=== PATIENT | female | born 1935 | race Caucasian/White ===

== ENCOUNTER → 2016-09-15 | Outpatient (CLI) | payer OTHER ==
[~2016-09-15] MED LIST: ACET-1256 PO; ATEN-173 PO; BUTA1CAP17 PO; CALC500C70 PO; CALCTAB65 PO; CLBPO15 TOP; CLC100 PO; CLON0.5T3 PO; DILT-115 PO; DILT1TAB50 PO; FRCT/ PO; HPRIS5M SQ; HYDR-5688 PO; IBUP-1050 PO; IBUP1CAP9 PO; KETO10TA PO; LOSA1TAB PO; MEDR2.5T PO; MULT-190 PO; NORGTAB PO; OXYC1TAB3 PO; PRAV80TA2 PO; PRED-301 PO; PRED5PAK3 PO; VNTHFA/IN INH
[2016-09-15 13:13] LABS: BLOOD UREA NITROGEN 14 mg/dl (7-18); BUN/CREATININE RATIO 12.5 (10-20); CALCIUM 9.4 mg/dl (8.5-10.1); CARBON DIOXIDE 30 mmol/L (21-32); CHLORIDE 100 mmol/L (98-107); CHOLESTEROL 226 mg/dl (0-200); GLUCOSE 103 mg/dl (70-99); POTASSIUM 3.9 mmol/L (3.5-5.1); SODIUM 139 mmol/L (136-145); TRIGLYCERIDES 131 mg/dl (0-150); VERY LOW DENSITY LIPOPROT CALC 26 mg/dl
[2016-09-15 13:17] LABS: CHOLESTEROL/HDL RATIO 3.1; HDL CHOLESTEROL 73 mg/dl
[2016-09-15 13:19] LABS: ESTIMATED AVERAGE GLUCOSE 137 mg/dl; HA1C FLAG Normal (Normal)
== END | disposition home or self-care (01) ==
LOC: C.LABSPEC 12:32
PROVIDERS: ATTEND Internal Medicine
DX: E11.9 Type 2 diabetes mellitus without complications (principal); I10 Essential (primary) hypertension; E78.5 Hyperlipidemia, unspecified

== ENCOUNTER 2016-10-18 10:06 | Emergency (ER) | payer OTHER ==
[~2016-10-18] VITALS: Ht 167.6 cm; Wt 79.3 kg
[~2016-10-18 10:06] MED LIST changes: -CALC500C70 PO; -CLBPO15 TOP; -CLC100 PO; -DILT-115 PO; -FRCT/ PO; -HPRIS5M SQ; -HYDR-5688 PO; -IBUP-1050 PO; -KETO10TA PO; -OXYC1TAB3 PO
[2016-10-18 10:16] VITALS: TEMP 36.8; Ht 167.6 cm; Wt 79.3 kg
--- NOTE | 2016-10-18 11:17 | EMERGENCY ROOM VISIT NOTE ---
History Report prepared by Justus: Kevin Justin Under the Supervision of: Dr. Joshua Conway M.D. First contact with patient: 10:51 Chief Complaint: URINARY SYMPTOMS Stated Complaint: FREQUENT URINATION,BACK PAIN Nursing Triage Summary: Patient c/o left mid back pain, since of last week. States sometimes the pain is both sides of her back. Tylenol and Ibuprofen are not working. At rest, the pain is tolerable, but when standing pain gets worse and worsens the longer she is up. This morning she had to "urinate twice, which is not normal for me" "my bowels, it seems I haven't gone in a day or two, but I don't have the urge, I'll have to eat a prune or two, that usually helps" History of Present Illness The patient is a 81 year old female who presents to the Emergency Room with complaints of constant worsening lower back pain for the past week. The patient states that it feels like it is a jabbing pain. The patient states that movement and standing makes it hurt worse. The patient denies any chest pain. She states that she is having some rib pain. The patient states that she went to the bathroom twice this morning already, and she stats that this is unusual for her. She states that she took ibuprofen and Tylenol, and she states that these have not helped. She additionally says that she has rheumatoid arthritis, and she called her panman, and they stated to increase her prednisone dosage. The patient denies any recent falls or traumas. Source of History: patient Onset: week ago Position: back (lower) Quality: other (jabbing) Timing: constant, worsening Modifying Factors (Worsening): movement, other (standing) Associated Symptoms: No chest pain Note: Associated symptoms: Rib pain Review of Systems See HPI for pertinent positives & negatives. A total of 10 systems reviewed and were otherwise negative. Past Medical & Surgical Medical Problems: (1) Benign tumor of breast (2) Diabetes (3) Heart disease (4) Hypertension (5) Migraines (6) Rheumatoid arthritis Family History Cancer Diabetes mellitus Gallbladder disease Heart disease Lung disease Social History Smoking Status: Former Smoker Alcohol Use: none Marital Status: Housing Status: lives alone Occupation Status: retired Current/Historical Medications Scheduled Atenolol (Tenormin), 25 MG PO QPM Calcium Carbonate-Vitamin D (Calcium 500 + D), 1 TAB PO BID Clonazepam (Klonopin), 0.5 MG PO HS Diltiazem HCl Coated Beads (Diltiazem HCl ER), 240 MG PO QPM Losartan Potassium (Cozaar), 25 MG PO QPM Medroxyprogesterone (Provera), 2.5 MG PO QPM Norgestrel & Ethinyl Estradiol (Ogestrel), 0.75 MG PO QPM Ocuvite Preservision (Ocuvite Preservision), 1 TAB PO BID Pravastatin Sodium (Pravastatin Sodium), 80 MG PO QPM Prednisone (Prednisone), 10 MG PO QAM Scheduled PRN Acetaminophen (Tylenol), 500 MG PO DAILY PRN for Pain Peohkfegcm-Imiactwghpytb-Efeei (Fioricet), 1 CAP PO DAILY PRN for Migraine Ibuprofen (Ibuprofen), 400 MG PO Q4 PRN for Pain or Fever Oxycodone Immediate Rel Tab (Roxicodone Ir), 1-2 TAB PO Q4H PRN for Severe Pain Allergies Coded Allergies: Amoxicillin (Verified Allergy, Unknown, UNKNOWN, 08/18/16) Sulfa Antibiotics (Verified Adverse Reaction, Intermediate, NAUSEA, ) Aspirin (Verified Adverse Reaction, Mild, GI SYMPTOMS, 08/18/16) Uncoded Allergies: ARTIFICIAL SWEETNER (Allergy, Mild, TONGUE SORE, 12/30/12) Physical Exam Vital Signs Date Time Temp Pulse Resp B/P Pulse Ox O2 Delivery O2 Flow Rate FiO2 10/18/16 13:09 70 18 146/82 96 Room Air 10/18/16 12:08 65 18 157/83 96 Room Air 10/18/16 10:16 36.8 80 18 156/88 95 Room Air Physical Exam GENERAL: Patient is well appearing and in mild distress. HEENT: No acute trauma, normocephalic atraumatic, mucous membranes moist, no nasal congestion, no scleral icterus. NECK: No stridor, no adenopathy, no meningismus, trachea is midline. LUNGS: No dyspnea. Clear to auscultation and equal bilaterally. No wheeze, no rhonchi. HEART: Regular rate and rhythm. No murmurs, rubs, gallops appreciated. ABDOMEN: Soft, nontender, bowel sounds positive, no masses appreciated, no peritonitis. BACK: Tenderness to palpation in the mid thoracic spine extending into the left flank. EXTREMITIES: Normal motion all extremities, no cyanosis, no edema. NEUROLOGIC: Alert and oriented, no acute motor or sensory deficits, no focal weakness, cranial nerves grossly intact. SKIN: No rash, no jaundice, no diaphoresis. Medical Decision & Procedures ER Provider Diagnostic Interpretation: X ray results are stated below per my interpretation and the radiologist's interpretation. THORACIC SPINE 3 VIEWS ROUTINE CLINICAL HISTORY: Mid thoracic back pain COMPARISON STUDY: Chest x-ray dated 08/18/2016 FINDINGS: There is a thoracolumbar S-shaped scoliosis. There are multiple age-indeterminate anterior body compression deformities. There is interstitial pulmonary fibrosis. There is a stable focal airspace opacity within the right upper lung zone laterally. IMPRESSION: 1. Scoliosis 2. Multiple age-indeterminate vertebral body compression deformities 3. Interstitial pulmonary fibrosis. Stable peripheral 2.7 cm airspace opacity within the right upper lung zone laterally Electronically signed by: Cali Alfonso M.D. 10/18/2016 11:54 AM Dictated Date/Time: 10/18/2016 11:51 AM Laboratory Results 10/18/16 11:23 10/18/16 11:23 Test 10/18/16 11:23 10/18/16 11:30 Red Blood Count 4.16 M/uL (4.2-5.4) Mean Corpuscular Volume 95.9 fL (80-100) Mean Corpuscular Hemoglobin 33.2 pg (25-34) Mean Corpuscular Hemoglobin Concent 34.6 g/dl (32-36) RDW Standard Deviation 46.7 fL (36.4-46.3) RDW Coefficient of Variation 13.4 % (11.5-14.5) Mean Platelet Volume 10.9 fL (7.4-10.4) Anion Gap 7.0 mmol/L (3-11) Est Creatinine Clear Calc Drug Dose 37.3 ml/min Estimated GFR () 45.2 Estimated GFR (Non- 39.0 BUN/Creatinine Ratio 13.2 (10-20) Calcium Level 9.3 mg/dl (8.5-10.1) Total Bilirubin 0.2 mg/dl (0.2-1) Aspartate Amino Transf (AST/SGOT) 19 U/L (15-37) Alanine Aminotransferase (ALT/SGPT) 16 U/L (12-78) Alkaline Phosphatase 56 U/L (45-117) Total Protein 7.7 gm/dl (6.4-8.2) Albumin 3.0 gm/dl (3.4-5.0) Globulin 4.7 gm/dl (2.5-4.0) Albumin/Globulin Ratio 0.6 (0.9-2) Lipase 145 U/L (73-393) Chemistry Specimen Hemolysis Urine Color YELLOW Urine Appearance CLEAR (CLEAR) Urine pH 7.0 (4.5-7.5) Urine Specific Advance 1.008 (1.000-1.030) Urine Protein NEG (NEG) Urine Glucose (UA) NEG (NEG) Urine Ketones NEG (NEG) Urine Occult Blood NEG (NEG) Urine Nitrite NEG (NEG) Urine Bilirubin NEG (NEG) Urine Urobilinogen NEG (NEG) Urine Leukocyte Esterase SMALL (NEG) Urine WBC (Auto) 5-10 /hpf (0-5) Urine RBC (Auto) 0-4 /hpf (0-4) Urine Hyaline Casts (Auto) 1-5 /lpf (0-5) Urine Epithelial Cells (Auto) >30 /lpf (0-5) Urine Bacteria (Auto) NEG (NEG) Laboratory results as reviewed by me. ED Course 1051: The patient was evaluated in room A2. A complete history and physical exam was performed. 1301: Reevaluated the patient. Discussed results and discharge instructions. I discussed the pros and cons of a CT scan, and she states that the does not want any more imaging done until she follows up with her doctor this week. The patient is ready for discharge. Medical Decision Differential: Renal Colic, Pyelonephritis, Hydronephrosis, Appendicitis, Diverticulitis, Retroperitoneal Bleed/Infection, Aortic Pathology, MSK, Neurologic Pathology, amongst other pathologies entertained. 81 yr old female arrives with complaint of mid posterior thoracic back pain. Worse with movement. Long arthritic history and already on prednisone for these which was increased this week. Neurologically intact. Labs are normal, UA clear and imaging done. Imaging reveals multiple age indeterminant compression fractures which does go with her symptoms. She has good pulses and no leg issues thus I feel that spinal injury nor aortic issue. I made clear to patient only way to be sure of aortic issue or spinal injury is with further imaging, though she is stable and in no distress here. She prefers to go home with PRN pain meds and follow up with her PCP this week as already planned. Aware of risks/restrictions of narcotics. RTED if worsening or call 911. Impression Primary Impression: Thoracic compression fracture Scribe Attestation The scribe's documentation has been prepared under my direction and personally reviewed by me in its entirety. I confirm that the note above accurately reflects all work, treatment, procedures, and medical decision making performed by me. Departure Information Dispostion Home / Self-Care Prescriptions Oxycodone Immediate Rel Tab (ROXICODONE IR) 5 Mg Tab 1-2 TAB PO Q4H Y for Severe Pain, #15 TAB Prov: Joshua Conway M.D. 10/18/16 Referrals Ranulfo Landin M.D. (PCP) Forms HOME CARE DOCUMENTATION FORM, IMPORTANT VISIT INFORMATION Patient Instructions ED Sprain Thoracic Spine, [facility] Additional Instructions Return immediately if worsening pain or other concerns, especially abdominal pain, leg weakness or discoloration/pain. Problem Qualifiers Primary Impression: Thoracic compression fracture Encounter type: initial encounter Fracture type: closed Qualified Codes: S22.000A - Wedge compression fracture of unspecified thoracic vertebra, initial encounter for closed fracture
[2016-10-18 11:48] LABS: HEMATOCRIT 39.9 % (37-47); MEAN CELL VOLUME 95.9 fL (80-100); MEAN CORPUSCULAR HEMOGLOBIN 33.2 pg (25-34); MEAN CORPUSCULAR HGB CONC 34.6 g/dl (32-36); MEAN PLATELET VOLUME 10.9 fL (7.4-10.4); PLATELET COUNT 190 K/uL (130-400); RED BLOOD COUNT 4.16 M/uL (4.2-5.4); WHITE BLOOD COUNT 13.61 K/uL (4.8-10.8)
--- NOTE | 2016-10-18 11:55 | DIAGNOSTIC IMAGING REPORT ---
THORACIC SPINE 3 VIEWS ROUTINE CLINICAL HISTORY: Mid thoracic back pain COMPARISON STUDY: Chest x-ray dated 08/18/2016 FINDINGS: There is a thoracolumbar S-shaped scoliosis. There are multiple age-indeterminate anterior body compression deformities. There is interstitial pulmonary fibrosis. There is a stable focal airspace opacity within the right upper lung zone laterally. IMPRESSION: 1. Scoliosis 2. Multiple age-indeterminate vertebral body compression deformities 3. Interstitial pulmonary fibrosis. Stable peripheral 2.7 cm airspace opacity within the right upper lung zone laterally Electronically signed by: Cali Alfonso M.D. 10/18/2016 11:54 AM Dictated Date/Time: 10/18/2016 11:51 AM
[2016-10-18 12:10] LABS: URINE APPEARANCE CLEAR (CLEAR); URINE BILIRUBIN NEG (NEG); URINE COLOR YELLOW; URINE EPITHELIAL CELL AUTO >30 /lpf (0-5); URINE NITRITE NEG (NEG); URINE SPECIFIC GRAVITY 1.008 (1.000-1.030); UROBILINOGEN NEG (NEG); ZZUR CULT IF INDIC CLEAN CATCH NO
[2016-10-18 12:11] LABS: MANUAL MICROSCOPIC REQUIRED? NO; REVIEW REQ? NO
[2016-10-18 12:22] LABS: ALB/GLOB RATIO 0.6 (0.9-2); BUN/CREATININE RATIO 13.2 (10-20); CALCIUM 9.3 mg/dl (8.5-10.1); CREATININE 1.3 mg/dl (0.60-1.20); POTASSIUM 4.2 mmol/L (3.5-5.1)
[2016-10-18] MEDS ORDERED: OXYC1TAB3 PO (12:59)
[2016-10-18 13:09] VITALS: BP 146/82; PULSE 70; O2SAT 96
[2017-04-19] MEDS ORDERED: HPRIS5M SQ (10:12)
[2017-04-19] MEDS ORDERED: HYDR-5688 PO (10:12)
[2017-04-19] MEDS ORDERED: IBUP-1050 PO (10:12)
[2017-04-19] MEDS ORDERED: CLC100 PO (10:12)
== END 2016-10-18 13:16 | disposition home or self-care (01) ==
LOC: C.EDB 10:07 → C.EDA 13:16
DX: S22.000A Wedge compression fracture of unspecified thoracic vertebra, initial encounter for closed fracture (principal); X58.XXXA Exposure to other specified factors, initial encounter; M06.9 Rheumatoid arthritis, unspecified; E11.9 Type 2 diabetes mellitus without complications; I10 Essential (primary) hypertension; Z83.3 Family history of diabetes mellitus; Z87.891 Personal history of nicotine dependence; Z79.899 Other long term (current) drug therapy

== ENCOUNTER → 2016-11-26 | Outpatient (CLI) | payer OTHER ==
[~2016-11-26] MED LIST changes: +CALC500C70 PO; +CLBPO15 TOP; +CLC100 PO; +DILT-115 PO; +FRCT/ PO; +HPRIS5M SQ; +HYDR-5688 PO; +IBUP-1050 PO; +KETO10TA PO; +OXYC1TAB3 PO; -PRED5PAK3 PO; -VNTHFA/IN INH
== END | disposition home or self-care (01) ==
LOC: C.LAB1850 10:33
PROVIDERS: ATTEND Internal Medicine Pulmonary Disease
DX: J84.9 Interstitial pulmonary disease, unspecified (principal)

== ENCOUNTER 2016-12-30 11:03 | Emergency (ER) | payer OTHER ==
[~2016-12-30] VITALS: Ht 172.7 cm; Wt 82.0 kg
[2016-12-30 10:58] VITALS: TEMP 36.6; Ht 172.7 cm; Wt 82.0 kg
[~2016-12-30 11:03] MED LIST changes: -CALC500C70 PO; -CLBPO15 TOP; -CLC100 PO; -DILT-115 PO; -FRCT/ PO; -HPRIS5M SQ; -HYDR-5688 PO; -IBUP-1050 PO; -KETO10TA PO
[2016-12-30] MEDS ORDERED: ONDANSETRON INJ 2 MG/ML 2 ML VIAL IV STA ×2 (11:32→11:34)
[2016-12-30 11:48] LABS: BASO % 0.3 %; BASO ABS # 0.05 K/uL (0-0.2); COMPLETE YES; EOS % 1.8 %; HEMATOCRIT 40.5 % (37-47); LYMPH % 33.2 %; LYMPH ABS # 4.92 K/uL (1.2-3.4); MEAN CELL VOLUME 97.6 fL (80-100); MEAN CORPUSCULAR HEMOGLOBIN 33.7 pg (25-34); MEAN CORPUSCULAR HGB CONC 34.6 g/dl (32-36); MEAN PLATELET VOLUME 9.8 fL (7.4-10.4); MONO % 5.3 %; NEUT % 58.4 %; PLATELET COUNT 224 K/uL (130-400); RED BLOOD COUNT 4.15 M/uL (4.2-5.4); WHITE BLOOD COUNT 14.83 K/uL (4.8-10.8)
[2016-12-30 11:57] LABS: PARTIAL THROMBOPLASTIN RATIO 0.9; PROTHROMBIN TIME (PATIENT) 10.5 SECONDS (9.0-12.0)
[2016-12-30 11:59] LABS: BLOOD UREA NITROGEN 21 mg/dl (7-18); BUN/CREATININE RATIO 18.8 (10-20); CALCIUM 9.2 mg/dl (8.5-10.1); CARBON DIOXIDE 30 mmol/L (21-32); CHLORIDE 97 mmol/L (98-107); GLUCOSE 149 mg/dl (70-99); POTASSIUM 4.2 mmol/L (3.5-5.1); SODIUM 134 mmol/L (136-145)
[2016-12-30 12:02] LABS: ALKALINE PHOSPHATASE 54 U/L (45-117); ALT/SGPT 23 U/L (12-78); AST/SGOT 19 U/L (15-37)
[2016-12-30] MEDS ORDERED: OPTIRAY 320 IV PRN (12:45)
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
[2016-12-30] MEDS ORDERED: KETOROLAC TROMETHAMINE 30 MG/ML VIAL IV STA (14:07)
[2016-12-30] MEDS ORDERED: KETO10TA PO (15:08)
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
[2016-12-30] MEDS ORDERED: KETOROLAC TROMETHAMINE 10 MG TAB PO PRN (15:15)
[2016-12-30 15:24] VITALS: BP 159/63; PULSE 65; O2SAT 96
[2017-04-19] MEDS ORDERED: IBUP-1050 PO (10:12)
[2017-04-19] MEDS ORDERED: HPRIS5M SQ (10:12)
[2017-04-19] MEDS ORDERED: HYDR-5688 PO (10:12)
[2017-04-19] MEDS ORDERED: CLC100 PO (10:12)
== END 2016-12-30 15:25 | disposition home or self-care (01) ==
LOC: EDBD 11:03 → C.EDC 11:05
DX: S30.1XXA Contusion of abdominal wall, initial encounter (principal); S22.21XA Fracture of manubrium, initial encounter for closed fracture; S10.91XA Abrasion of unspecified part of neck, initial encounter; R07.9 Chest pain, unspecified; V49.49XA Driver injured in collision with other motor vehicles in traffic accident, initial encounter; Y92.410 Unspecified street and highway as the place of occurrence of the external cause; I10 Essential (primary) hypertension; E11.9 Type 2 diabetes mellitus without complications; Z87.891 Personal history of nicotine dependence; M06.9 Rheumatoid arthritis, unspecified; Z79.899 Other long term (current) drug therapy

== ENCOUNTER → 2017-01-12 | Outpatient (CLI) | payer OTHER ==
[~2017-01-12] MED LIST changes: +CALC500C70 PO; +CLBPO15 TOP; +CLC100 PO; +DILT-115 PO; +FRCT/ PO; +HPRIS5M SQ; +HYDR-5688 PO; +IBUP-1050 PO; +KETO10TA PO; -OXYC1TAB3 PO
[2017-01-12 14:02] LABS: HEMATOCRIT 41.4 % (37-47); MEAN CORPUSCULAR HEMOGLOBIN 31.8 pg (25-34); MEAN CORPUSCULAR HGB CONC 32.1 g/dl (32-36); MEAN PLATELET VOLUME 9.5 fL (7.4-10.4); PLATELET COUNT 254 K/uL (130-400); RED BLOOD COUNT 4.18 M/uL (4.2-5.4); WHITE BLOOD COUNT 14.16 K/uL (4.8-10.8)
[2017-01-12 14:14] LABS: ALT/SGPT 20 U/L (12-78); BLOOD UREA NITROGEN 18 mg/dl (7-18); BUN/CREATININE RATIO 16.4 (10-20); CARBON DIOXIDE 32 mmol/L (21-32); CHLORIDE 98 mmol/L (98-107); CHOLESTEROL 208 mg/dl (0-200); GLUCOSE 102 mg/dl (70-99); POTASSIUM 4.3 mmol/L (3.5-5.1); SODIUM 137 mmol/L (136-145)
[2017-01-12 14:15] LABS: ESTIMATED AVERAGE GLUCOSE 137 mg/dl; HA1C FLAG Normal (Normal)
[2017-01-12 14:17] LABS: ALB/GLOB RATIO 0.7 (0.9-2); ALKALINE PHOSPHATASE 110 U/L (45-117); AST/SGOT 18 U/L (15-37); CHOLESTEROL/HDL RATIO 2.8; HDL CHOLESTEROL 74 mg/dl; TRIGLYCERIDES 91 mg/dl (0-150); VERY LOW DENSITY LIPOPROT CALC 18 mg/dl
[2017-01-12 14:20] LABS: CALCIUM 9.5 mg/dl (8.5-10.1)
[2017-01-12 14:51] LABS: BASO % 0.3 %; BASO ABS # 0.04 K/uL (0-0.2); COMPLETE YES; EOS % 2.8 %; IG% 0.2 %; LYMPH % 38.7 %; LYMPH ABS # 5.48 K/uL (1.2-3.4); MONO % 9.7 %; NEUT % 48.3 %; SMUDGE CELLS PRESENT
== END | disposition home or self-care (01) ==
LOC: C.LABSPEC 12:16
PROVIDERS: ATTEND Internal Medicine
DX: E11.9 Type 2 diabetes mellitus without complications (principal); E78.5 Hyperlipidemia, unspecified; I10 Essential (primary) hypertension; M06.9 Rheumatoid arthritis, unspecified

== ENCOUNTER → 2017-01-20 | Outpatient (CLI) | payer OTHER ==
--- NOTE | 2017-01-27 13:13 | CODING QUERY MEDICAL NECESSITY ---
SUPPORTING DIAGNOSIS NEEDED Dr. Robyn Cruz, A supporting diagnosis is required for the test/procedure performed on this patient in order for us to be reimbursed by the patient's insurance. Please provide a supporting diagnosis for the following test/procedure listed below next to the test name along with your signature. *If there is no additional diagnosis for this patient that would support the following test/procedure please document that below next to the test/procedure. Test(s)/Procedure(s) that require a supporting diagnosis: * ([id number]) TRB@ GENE REARRANGE AMPLIFY DIAGNOSIS: * ([id number]) T-CELL GENE REARRANGEMENT DIAGNOSIS: DATE OF SERVICE: 01/20/17 Provider Signature: Date: Thank you Paxton Jimenez [facility] Information Management Once completed, please kindly fax back to [phone] For questions please call [phone]
== END | disposition home or self-care (01) ==
LOC: C.LABSPEC 14:58
PROVIDERS: ATTEND Internal Medicine
DX: D72.820 Lymphocytosis (symptomatic) (principal)

== ENCOUNTER 2017-04-16 06:34 | Inpatient (IN) | payer OTHER ==
[2017-04-16] VITALS (7 sets, daily range): BP systolic 134–163; BP diastolic 48–90; PULSE 73–86; TEMP 36.5–36.8; O2SAT 94–97; Ht 175.3 cm; Wt 82.9 kg
[~2017-04-16] VITALS: Ht 175.3 cm; Wt 82.9 kg
[~2017-04-16 06:34] MED LIST changes: -CALC500C70 PO; -CLBPO15 TOP; -CLC100 PO; -DILT-115 PO; -FRCT/ PO; -HPRIS5M SQ; -HYDR-5688 PO; -IBUP-1050 PO
[2017-04-16] MEDS ORDERED: ACETAMINOPHEN 500 MG TAB PO STA (06:44)
--- NOTE | 2017-04-16 06:53 | EMERGENCY ROOM VISIT NOTE ---
History Report prepared by [employer]: Trihsa Miller Under the Supervision of: Dr. Quinn Jordan M.D. First contact with patient: 06:38 Stated Complaint: FALL History of Present Illness The patient is a 81 year old female who presents to the Emergency Room with complaints of a sudden fall that occurred just prior to arrival. She currently rates her discomfort as a 3/10 in severity. The patient states that around 0500 she was walking to her bathroom and tripped in her kitchen. Per nursing staff the patient hit her face, but the patient denies any loss of consciousness. The patient reports left arm pain from her shoulder to her elbow. She states that her arm pain worsens with movement. The patient states that she got to her phone after the fall and called 911 for assistance. She denies any ambulation since the fall. The patient states that her tetanus is up to date. The patient states that she is experiencing left rib pain and neck pain. She denies any chest or abdominal pain. Nursing staff reports that the patient may have taken an extra Clonazepam for her restless leg syndrome. The patient reports a history of arthritis and states that she has been experiencing increased back pain since she is weaning off of her prednisone. She denies feeling off balance during the fall. Source of History: patient Onset: prior to arrival Position: other (global) Symptom Intensity: 3/10 Quality: other (fall) Timing: other (sudden) Associated Symptoms: + neck pain, No LOC, No chest pain, No abdominal pain Note: Associated symptoms: left arm pain, left rib pain Review of Systems See HPI for pertinent positives & negatives. A total of 10 systems reviewed and were otherwise negative. Past Medical & Surgical Medical Problems: (1) Benign tumor of breast (2) Diabetes (3) Heart disease (4) Hypertension (5) Migraines (6) Rheumatoid arthritis Family History Cancer Diabetes mellitus Gallbladder disease Heart disease Lung disease Social History Smoking Status: Former Smoker Alcohol Use: none Marital Status: Housing Status: lives alone Occupation Status: retired Current/Historical Medications Scheduled Atenolol (Tenormin), 25 MG PO QPM Calcium/Vitamin D (Os-Louis 500 Plus D), 1 TAB PO BID Clonazepam (Klonopin), 0.5 MG PO HS Diltiazem Hcl Ext Rel (Tiazac), 240 MG PO QPM Losartan Potassium (Cozaar), 25 MG PO QPM Medroxyprogesterone (Provera), 2.5 MG PO QPM Norgestrel & Ethinyl Estradiol (Ogestrel), 1 TAB PO QPM Ocuvite Preservision (Ocuvite Preservision), 1 TAB PO BID Pravastatin Sodium (Pravastatin Sodium), 80 MG PO QPM Prednisone (Prednisone), 7.5 MG PO QAM Scheduled PRN Acetamin/Butalbital/Caffeine (Fioricet), 1 TAB PO UD PRN for Migraine Clobetasol Propionate (Clobetasol Propionate), 1 APPLN TOP UD PRN for GENITAL SYMPTOMS Allergies Coded Allergies: Amoxicillin (Verified Allergy, Unknown, UNKNOWN, 04/16/17) Clavulanic Acid (Unverified Allergy, Unknown, UNKNOWN, 04/16/17) Clindamycin (Unverified Allergy, Unknown, UNKNOWN, 04/16/17) Penicillins (Unverified Allergy, Unknown, UNKNOWN, 04/16/17) Sulfa Antibiotics (Verified Adverse Reaction, Intermediate, NAUSEA, ) Aspirin (Verified Adverse Reaction, Mild, GI SYMPTOMS, 04/16/17) Uncoded Allergies: ARTIFICIAL SWEETNER (Allergy, Mild, TONGUE SORE, 12/30/12) Physical Exam Vital Signs Date Time Temp Pulse Resp B/P (MAP) Pulse Ox O2 Delivery O2 Flow Rate FiO2 04/16/17 08:18 69 18 129/85 96 Room Air 04/16/17 06:59 81 04/16/17 06:34 36.7 82 21 151/101 97 Room Air Physical Exam GENERAL: Patient is in no acute distress. HEENT: Old bleeding from the nose, no evidence for acute fracture, no active bleeding, contusion surrounding left eye without obvious globe trauma, no scalp hematoma, mucous membranes moist. Extraocular muscles intact and full. NECK: No stridor, no adenopathy, no meningismus, trachea is midline. Mildly diffusely tender along posterior c-spine, no stepoff. CHEST WALL: Mildly tender to the left inferior, anterior ribs. No contusion. LUNGS: Crackles on the left anteriorly, breath sounds are equal, right lung clear. HEART: Without murmurs gallops or rubs, regular rate and rhythm. ABDOMEN: Soft, nontender, bowel sounds positive, no hernias, no peritonitis. EXTREMITIES: Some pain to move left shoulder, no obvious deformity, left elbow and wrist are nontender. Abrasion to the anterior left knee without pain with movement, no gross deformity. Abrasion and contusion forming to the right posterior elbow, no evidence for underlying fracture. NEUROLOGIC: Oriented x 3, no acute motor or sensory deficits, no focal weakness. SKIN: No rash, no jaundice, no diaphoresis. Medical Decision & Procedures ER Provider Diagnostic Interpretation: Radiology results as stated below per my review and radiologist interpretation: LEFT HUMERUS MIN 2 VIEWS ROUTINE, LEFT SHOULDER MIN 2 VIEWS ROUTINE CLINICAL HISTORY: Fall. Left arm and shoulder pain. COMPARISON STUDY: None. FINDINGS: There is a left humeral neck fracture with a small fragment displaced laterally. The left clavicle is intact. No dislocation at the left shoulder. The mid to distal humerus is intact. IMPRESSION: Left humeral neck fracture. Electronically signed by: Rinku Rangel M.D. 04/16/2017 8:05 AM Dictated Date/Time: 04/16/2017 8:[address] DOSE: HISTORY: fall, facial pain TECHNIQUE: Multiaxial CT images of the maxillofacial region were performed and reformatted in the coronal plane without the use of contrast. A dose lowering technique was utilized adhering to the principles of ALARA. COMPARISON: None. FINDINGS: The visualized cervical spine, mandible, skull base, nasal bones, pterygoid plates, and zygomatic arches are intact. Slightly depressed comminuted fractures within the anterior wall the left maxillary sinus. This demonstrates up to 4 mm of depression. Nondisplaced left orbital floor fracture. Subtle fracture within the medial wall of the left orbit. No evidence for herniation through the orbital floor fracture. Trace extraconal hemorrhage adjacent to the orbital floor fracture. The extraocular muscles, globes, and retrobulbar fat are intact. Hemorrhage within the left maxillary sinus. Left periorbital soft tissue swelling. IMPRESSION: 1. Fractures involving the anterior wall of the left maxillary sinus, medial wall of the left orbit, and left orbital floor as described above. 2. Hemorrhage within the left maxillary sinus. 3. Left periorbital soft tissue swelling. Electronically signed by: Rinku Rangel M.D. 04/16/2017 8:31 AM Dictated Date/Time: 04/16/2017 8:19 AM LEFT KNEE 3 VIEWS HISTORY: 81 years-old Female fall, left knee pain COMPARISON: None available TECHNIQUE: 3 views of the left knee. FINDINGS: Moderate medial and lateral with severe patellofemoral osteoarthritis noted. There is prominent marginal spurring about the patella, notably laterally. Slight lateral tilt of the patella within the trochlear groove is also noted. There is a large dense joint effusion. Soft tissue swelling is present within the region of the patellar tendon. Vascular calcifications are noted. Nonspecific 1.6 x 1.0 cm soft tissue calcification within the region of the popliteal fossa is noted. IMPRESSION: 1. Large dense joint effusion without acute fracture or dislocation identified. Soft tissue swelling is noted within the region of the patellar tendon. 2. Tricompartmental osteoarthritis, most pronounced within the patellofemoral joint where there is severe disease. 3. Peripheral vascular disease. The above report was generated using voice recognition software. It may contain grammatical, syntax or spelling errors. Electronically signed by: Garrick Thompson M.D. 04/16/2017 8:04 AM Dictated Date/Time: 04/16/2017 8:01 AM LEFT HUMERUS MIN 2 VIEWS ROUTINE, LEFT SHOULDER MIN 2 VIEWS ROUTINE CLINICAL HISTORY: Fall. Left arm and shoulder pain. COMPARISON STUDY: None. FINDINGS: There is a left humeral neck fracture with a small fragment displaced laterally. The left clavicle is intact. No dislocation at the left shoulder. The mid to distal humerus is intact. IMPRESSION: Left humeral neck fracture. Electronically signed by: Rinku Rangel M.D. 04/16/2017 8:05 AM Dictated Date/Time: 04/16/2017 8:02 AM HEAD WITHOUT CONTRAST (CT) CLINICAL HISTORY: 81 years-old Female with acute head injury status post fall. TECHNIQUE: Multiple axial CT images of the head were obtained without contrast. A dose lowering technique was utilized adhering to the principles of ALARA. COMPARISON: CT head 12/30/2016. FINDINGS: No acute intracranial hemorrhage, midline shift, mass, large territorial ischemia or abnormal extra-axial collection. There is moderate cerebral atrophy with mild ex vacuo ventriculomegaly changes. Scattered areas of periventricular, deep and subcortical white matter low-attenuation are unchanged suggesting chronic microvascular ischemic changes. The calvarium is intact. The mastoid air cells, and middle ear cavities are clear. There is considerable amount of hemorrhagic material within the left maxillary sinus secondary to maxillary wall fractures which are better evaluated on comparison maxillofacial study. IMPRESSION: 1. No acute intracranial abnormality. Negative for intracranial hemorrhage or calvarial fracture. 2. Chronic age-related changes of the brain. 3. Hemorrhage filled left maxillary sinus secondary to maxillary wall fractures, better evaluated on maxillofacial study of same day. The above report was generated using voice recognition software. It may contain grammatical, syntax or spelling errors. Electronically signed by: Garrick Thompson M.D. 04/16/2017 8:17 AM Dictated Date/Time: 04/16/2017 8:12 AM CHEST ONE VIEW PORTABLE HISTORY: 81 years-old Female fall, left rib pain COMPARISON: Portable chest radiograph 08/18/2016, chest CT 12/30/2016. TECHNIQUE: Portable upright AP view of the chest. FINDINGS: Cardiac silhouette is upper limits of normal. Multifocal subpleural reticular and alveolar opacities are again seen with progression of opacities at the lateral left lung base. There is no pneumothorax or large pleural effusion. Blunting of the costophrenic angles likely secondary to underlying scarring. There is convex right curvature of the upper thoracic spine. Slight cortical irregularity of the lateral left ninth rib is noted suggesting acute nondisplaced fracture. IMPRESSION: 1. Multifocal subpleural reticular and alveolar opacities are redemonstrated suggesting background fibrotic lung disease with slight progression of disease within the left lung base. Superimposed acute pneumonia would be difficult to exclude. 2. No pneumothorax. 3. Slight cortical irregularity of the lateral left ninth rib is noted suggesting acute nondisplaced fracture. The above report was generated using voice recognition software. It may contain grammatical, syntax or spelling errors. Electronically signed by: Garrick Thompson M.D. 04/16/2017 8:01 AM Dictated Date/Time: 04/16/2017 7:[address] WITH CONTRAST CT DOSE: 401.90 mGy.cm HISTORY: Acute fall with chest trauma CHEST TRAUMA TECHNIQUE: Multiaxial CT images of the chest were performed following the intravenous administration of contrast. A dose lowering technique was utilized adhering to the principles of ALARA. COMPARISON: CT chest 12/30/2016. FINDINGS: No dominant thyroid nodule identified. Scattered nonenlarged nonspecific lymph nodes of the chest are seen without pathologic adenopathy by CT size criteria. Heart is mildly enlarged without pericardial effusion. Coronary arterial calcifications are noted. There is atherosclerotic plaquing of the thoracic aorta without dissection or aneurysm. The opacified pulmonary arterial tree is unremarkable. Multifocal subpleural reticulation with linear pleural-based consolidative opacities are present throughout the lungs bilaterally. Subpleural cystic changes are present within the lungs bilaterally as well, notably at the level of the deep ended lung bases. Areas of architectural distortion and mild traction bronchiectasis are also noted. There is slight progression of groundglass and some pleural reticulation at the level of the left lung base without focal lobar airspace consolidation to suggest pneumonia. The central airways are patent. Imaged upper abdominal structures are within normal limits. Soft tissues are unremarkable. Comminuted left proximal humerus fracture is noted with fracture lines extending into the articular surface of the humeral head, lesser and greater tuberosities. Chronic fracture of the mid manubrium is noted there is a nonunion. Chronic compression deformities are noted within the T6, T8, T11, T12 and L1 vertebral bodies. No acute displaced rib fractures are identified. There is slight anterior endplate compression of the T1 vertebral body without significant retropulsion which does appear to be new from 12/30/2016. IMPRESSION: 1. No acute intrathoracic abnormality identified. No pneumothorax. 2. Acute comminuted fracture of the proximal left humerus involves the articular humeral head, greater and lesser tuberosities. 3. Subacute to chronic appearing angulated fracture of the manubrium with apparent partial or nonunion. 4. Chronic compression deformities of several thoracic vertebral bodies and L1. Minimal anterior endplate compression of the T1 vertebral body appears new from 12/30/2016. 5. Interstitial lung disease with mild progression of subpleural reticulation and subpleural cystic change within the lingula. Electronically signed by: Garrick Thompson M.D. 04/16/2017 8:29 AM Dictated Date/Time: 04/16/2017 8:[address] OF THE CERVICAL SPINE WITHOUT CONTRAST CLINICAL HISTORY: Fall. Pain. COMPARISON STUDY: Cervical spine CT December 30, 2016. TECHNIQUE: Helical axial images of the cervical spine were obtained without IV contrast. Sagittal and coronal reconstructions were viewed. A dose lowering technique was utilized adhering to the principles of ALARA. FINDINGS: Craniocervical junction is intact. Note is made of a wedge deformity of the inferior endplate of C5 consistent with a compression fracture. This is likely subacute. This also a mild compression fracture involving the superior endplate of T1 which is likely subacute. No acute cervical spine fracture is identified. There is no prevertebral edema. Chest will be reported separately. IMPRESSION: 1. Mild compression fractures of C5 and T1 which are likely subacute. 2. No acute cervical spine fracture. Electronically signed by: Gil Mojica M.D. 04/16/2017 8:32 AM Dictated Date/Time: 04/16/2017 8:19 AM Laboratory Results 04/16/17 07:05 04/16/17 07:05 Test 04/16/17 07:05 04/16/17 07:15 Red Blood Count 3.91 M/uL (4.2-5.4) Mean Corpuscular Volume 98.5 fL (80-100) Mean Corpuscular Hemoglobin 34.0 pg (25-34) Mean Corpuscular Hemoglobin Concent 34.5 g/dl (32-36) RDW Standard Deviation 48.7 fL (36.4-46.3) RDW Coefficient of Variation 13.6 % (11.5-14.5) Mean Platelet Volume 9.3 fL (7.4-10.4) Anion Gap 7.0 mmol/L (3-11) Est Creatinine Clear Calc Drug Dose 52.5 ml/min Estimated GFR () 62.1 Estimated GFR (Non- 53.5 BUN/Creatinine Ratio 14.8 (10-20) Calcium Level 9.0 mg/dl (8.5-10.1) Total Bilirubin 0.3 mg/dl (0.2-1) Aspartate Amino Transf (AST/SGOT) 19 U/L (15-37) Alanine Aminotransferase (ALT/SGPT) 16 U/L (12-78) Alkaline Phosphatase 97 U/L (45-117) Total Protein 6.8 gm/dl (6.4-8.2) Albumin 3.0 gm/dl (3.4-5.0) Globulin 3.8 gm/dl (2.5-4.0) Albumin/Globulin Ratio 0.8 (0.9-2) Urine Color YELLOW Urine Appearance CLEAR (CLEAR) Urine pH 5.5 (4.5-7.5) Urine Specific Dixon 1.017 (1.000-1.030) Urine Protein TRACE (NEG) Urine Glucose (UA) NEG (NEG) Urine Ketones NEG (NEG) Urine Occult Blood NEG (NEG) Urine Nitrite NEG (NEG) Urine Bilirubin NEG (NEG) Urine Urobilinogen NEG (NEG) Urine Leukocyte Esterase TRACE (NEG) Urine WBC (Auto) 1-5 /hpf (0-5) Urine RBC (Auto) 0-4 /hpf (0-4) Urine Hyaline Casts (Auto) 1-5 /lpf (0-5) Urine Epithelial Cells (Auto) >30 /lpf (0-5) Urine Bacteria (Auto) NEG (NEG) Laboratory results reviewed by me. Medications Administered Medications (Trade) Dose Ordered Sig/Anselmo Route Start Time Stop Time Status Last Admin Dose Admin Acetaminophen (Tylenol Tab) 1,000 mg NOW STAT PO 04/16/17 06:44 04/16/17 06:49 DC 04/16/17 07:06 1,000 MG ECG Indication: other (fall) Rate (beats per minute): 80 Rhythm: normal sinus Findings: no acute ischemic change, no ectopy ED Course 0640: The patient was evaluated in room A11B. A complete history and physical exam was performed. 0644: Ordered Tylenol Tab 1000 mg PO. 0841: I reevaluated the patient and she is resting comfortably. I discussed the exam findings with her and I discussed the treatment plan. Dr. Robyn Cruz will be consulted. 0849: Ordered Rocephin Inj 1 gm IV. 0850: I discussed the patients case with Dr. Robyn Cruz, Internal Medicine. He states that he will evaluate the patient for further treatment. 0857: I reevaluated the patient and she is doing well. I updated her on the treatment plan and she is in agreement. She will be evaluated for further treatment. Medical Decision The patient is a 81 year old female who presents to the ED with complaints of a sudden fall. Differential diagnoses considered include rib fracture, pneumothorax, infection, intracranial bleeding, facial fracture, c-spine injury , extremity fracture, anemia, UTI, electrolyte imbalance. There is a mild leukocytosis, this could be consistent with infection-of note, the patient has a chronically elevated white blood cell count and today's numbers are close to her baseline. No concerning anemia. No significant electrolyte abnormality or kidney failure. There is no hepatitis. Urinalysis does not show infection. EKG shows a normal sinus rhythm, no acute ischemia. Chest x-ray shows chronic lung disease with increased congestion on the left. No pneumothorax. Radiology questioned a subtle left rib fracture. Left shoulder and humerus films show a left humeral neck fracture, no shoulder dislocation. Left knee film shows an effusion, no acute fracture-arthritis was seen. Brain CT shows no acute bleed or mass effect. C-spine CT shows no acute fracture. Facial CT shows multiple fractures around the left orbit. There is minimal displacement. There is a left maxillary sinus effusion. Chest CT shows chronic lung disease, no acute fracture, no acute traumatic process seen. No mention of an acute pneumonia. The patient was given oral Tylenol. She was given IV ceftriaxone because of the facial fractures. The patient presents after falling. She has multiple contusions and abrasions, a left facial fracture, a left humeral neck fracture. I discussed the lung findings with the patient, her breathing has been actually better than baseline lately, no fever or cough, no shortness of breath. I doubt she has an acute pneumonia The patient lives alone, she is in no condition to be discharged home. She requires a hospital stay and then eventually very likely rehabilitation. I did speak to the patient and case management. The on-call hospitalist was consulted. Medication Reconcilliation Current Medication List: was personally reviewed by me Blood Pressure Screening Patient's blood pressure: Elevated blood pressure Blood pressure disposition: Elevated BP felt to be situational, Did not require urgent referral Consults Time Called: 0847 Consulting Physician: Dr. Robyn Cruz, Internal Medicine Returned Call: [phone] I discussed the patients case with Dr. Robyn Cruz, Internal Medicine. He states that he will evaluate the patient for further treatment. Impression Primary Impression: Facial fracture Additional Impressions: Closed fracture of left proximal humerus Contusion of left knee Left sided chest pain Scribe Attestation The scribe's documentation has been prepared under my direction and personally reviewed by me in its entirety. I confirm that the note above accurately reflects all work, treatment, procedures, and medical decision making performed by me. Departure Information Dispostion Other (Being evaluated by Dr. Robyn Cruz) Referrals Ranulfo Landin M.D. (PCP) Problem Qualifiers
[2017-04-16] MEDS ORDERED: OPTIRAY 320 IV PRN (07:00)
[2017-04-16 07:15] LABS: HEMATOCRIT 38.5 % (37-47); MEAN CELL VOLUME 98.5 fL (80-100); MEAN CORPUSCULAR HGB CONC 34.5 g/dl (32-36); MEAN PLATELET VOLUME 9.3 fL (7.4-10.4); PLATELET COUNT 235 K/uL (130-400); RED BLOOD COUNT 3.91 M/uL (4.2-5.4); WHITE BLOOD COUNT 14.63 K/uL (4.8-10.8)
[2017-04-16 07:28] LABS: URINE APPEARANCE CLEAR (CLEAR); URINE BILIRUBIN NEG (NEG); URINE COLOR YELLOW; URINE EPITHELIAL CELL AUTO >30 /lpf (0-5); URINE NITRITE NEG (NEG); URINE PH 5.5 (4.5-7.5); URINE SPECIFIC GRAVITY 1.017 (1.000-1.030); UROBILINOGEN NEG (NEG)
[2017-04-16 07:30] LABS: MANUAL MICROSCOPIC REQUIRED? NO; REVIEW REQ? NO
[2017-04-16 07:37] LABS: BUN/CREATININE RATIO 14.8 (10-20); POTASSIUM 3.9 mmol/L (3.5-5.1)
[2017-04-16] MEDS ORDERED: LOSA1TAB PO (07:38)
[2017-04-16] MEDS ORDERED: PRED-301 PO (07:38)
[2017-04-16] MEDS ORDERED: CALC500C70 PO (07:38)
[2017-04-16] MEDS ORDERED: MULT-190 PO (07:38)
[2017-04-16] MEDS ORDERED: ATEN-173 PO (07:38)
[2017-04-16] MEDS ORDERED: DILT-115 PO (07:38)
[2017-04-16] MEDS ORDERED: CLBPO15 TOP (07:38)
[2017-04-16] MEDS ORDERED: FRCT/ PO (07:38)
[2017-04-16] MEDS ORDERED: MEDR2.5T PO (07:38)
[2017-04-16] MEDS ORDERED: PRAV80TA2 PO (07:38)
[2017-04-16] MEDS ORDERED: CLON0.5T3 PO (07:38)
[2017-04-16] MEDS ORDERED: NORGTAB PO (07:38)
[2017-04-16 07:40] LABS: ALB/GLOB RATIO 0.8 (0.9-2)
--- NOTE | 2017-04-16 08:03 | DIAGNOSTIC IMAGING REPORT ---
CHEST ONE VIEW PORTABLE HISTORY: 81 years-old Female fall, left rib pain COMPARISON: Portable chest radiograph 08/18/2016, chest CT 12/30/2016. TECHNIQUE: Portable upright AP view of the chest. FINDINGS: Cardiac silhouette is upper limits of normal. Multifocal subpleural reticular and alveolar opacities are again seen with progression of opacities at the lateral left lung base. There is no pneumothorax or large pleural effusion. Blunting of the costophrenic angles likely secondary to underlying scarring. There is convex right curvature of the upper thoracic spine. Slight cortical irregularity of the lateral left ninth rib is noted suggesting acute nondisplaced fracture. IMPRESSION: 1. Multifocal subpleural reticular and alveolar opacities are redemonstrated suggesting background fibrotic lung disease with slight progression of disease within the left lung base. Superimposed acute pneumonia would be difficult to exclude. 2. No pneumothorax. 3. Slight cortical irregularity of the lateral left ninth rib is noted suggesting acute nondisplaced fracture. The above report was generated using voice recognition software. It may contain grammatical, syntax or spelling errors. Electronically signed by: Garrick Thompson M.D. 04/16/2017 8:01 AM Dictated Date/Time: 04/16/2017 7:57 AM
--- NOTE | 2017-04-16 08:05 | DIAGNOSTIC IMAGING REPORT ---
LEFT KNEE 3 VIEWS HISTORY: 81 years-old Female fall, left knee pain COMPARISON: None available TECHNIQUE: 3 views of the left knee. FINDINGS: Moderate medial and lateral with severe patellofemoral osteoarthritis noted. There is prominent marginal spurring about the patella, notably laterally. Slight lateral tilt of the patella within the trochlear groove is also noted. There is a large dense joint effusion. Soft tissue swelling is present within the region of the patellar tendon. Vascular calcifications are noted. Nonspecific 1.6 x 1.0 cm soft tissue calcification within the region of the popliteal fossa is noted. IMPRESSION: 1. Large dense joint effusion without acute fracture or dislocation identified. Soft tissue swelling is noted within the region of the patellar tendon. 2. Tricompartmental osteoarthritis, most pronounced within the patellofemoral joint where there is severe disease. 3. Peripheral vascular disease. The above report was generated using voice recognition software. It may contain grammatical, syntax or spelling errors. Electronically signed by: Garrick Thompson M.D. 04/16/2017 8:04 AM Dictated Date/Time: 04/16/2017 8:01 AM
--- NOTE | 2017-04-16 08:06 | DIAGNOSTIC IMAGING REPORT ---
LEFT HUMERUS MIN 2 VIEWS ROUTINE, LEFT SHOULDER MIN 2 VIEWS ROUTINE CLINICAL HISTORY: Fall. Left arm and shoulder pain. COMPARISON STUDY: None. FINDINGS: There is a left humeral neck fracture with a small fragment displaced laterally. The left clavicle is intact. No dislocation at the left shoulder. The mid to distal humerus is intact. IMPRESSION: Left humeral neck fracture. Electronically signed by: Rinku Rangel M.D. 04/16/2017 8:05 AM Dictated Date/Time: 04/16/2017 8:02 AM
--- NOTE | 2017-04-16 08:18 | DIAGNOSTIC IMAGING REPORT ---
HEAD WITHOUT CONTRAST (CT) CLINICAL HISTORY: 81 years-old Female with acute head injury status post fall. TECHNIQUE: Multiple axial CT images of the head were obtained without contrast. A dose lowering technique was utilized adhering to the principles of ALARA. COMPARISON: CT head 12/30/2016. FINDINGS: No acute intracranial hemorrhage, midline shift, mass, large territorial ischemia or abnormal extra-axial collection. There is moderate cerebral atrophy with mild ex vacuo ventriculomegaly changes. Scattered areas of periventricular, deep and subcortical white matter low-attenuation are unchanged suggesting chronic microvascular ischemic changes. The calvarium is intact. The mastoid air cells, and middle ear cavities are clear. There is considerable amount of hemorrhagic material within the left maxillary sinus secondary to maxillary wall fractures which are better evaluated on comparison maxillofacial study. IMPRESSION: 1. No acute intracranial abnormality. Negative for intracranial hemorrhage or calvarial fracture. 2. Chronic age-related changes of the brain. 3. Hemorrhage filled left maxillary sinus secondary to maxillary wall fractures, better evaluated on maxillofacial study of same day. The above report was generated using voice recognition software. It may contain grammatical, syntax or spelling errors. Electronically signed by: Garrick Thompson M.D. 04/16/2017 8:17 AM Dictated Date/Time: 04/16/2017 8:12 AM
--- NOTE | 2017-04-16 08:30 | DIAGNOSTIC IMAGING REPORT ---
CHEST CT WITH CONTRAST CT DOSE: 401.90 mGy.cm HISTORY: Acute fall with chest trauma CHEST TRAUMA TECHNIQUE: Multiaxial CT images of the chest were performed following the intravenous administration of contrast. A dose lowering technique was utilized adhering to the principles of ALARA. COMPARISON: CT chest 12/30/2016. FINDINGS: No dominant thyroid nodule identified. Scattered nonenlarged nonspecific lymph nodes of the chest are seen without pathologic adenopathy by CT size criteria. Heart is mildly enlarged without pericardial effusion. Coronary arterial calcifications are noted. There is atherosclerotic plaquing of the thoracic aorta without dissection or aneurysm. The opacified pulmonary arterial tree is unremarkable. Multifocal subpleural reticulation with linear pleural-based consolidative opacities are present throughout the lungs bilaterally. Subpleural cystic changes are present within the lungs bilaterally as well, notably at the level of the deep ended lung bases. Areas of architectural distortion and mild traction bronchiectasis are also noted. There is slight progression of groundglass and some pleural reticulation at the level of the left lung base without focal lobar airspace consolidation to suggest pneumonia. The central airways are patent. Imaged upper abdominal structures are within normal limits. Soft tissues are unremarkable. Comminuted left proximal humerus fracture is noted with fracture lines extending into the articular surface of the humeral head, lesser and greater tuberosities. Chronic fracture of the mid manubrium is noted there is a nonunion. Chronic compression deformities are noted within the T6, T8, T11, T12 and L1 vertebral bodies. No acute displaced rib fractures are identified. There is slight anterior endplate compression of the T1 vertebral body without significant retropulsion which does appear to be new from 12/30/2016. IMPRESSION: 1. No acute intrathoracic abnormality identified. No pneumothorax. 2. Acute comminuted fracture of the proximal left humerus involves the articular humeral head, greater and lesser tuberosities. 3. Subacute to chronic appearing angulated fracture of the manubrium with apparent partial or nonunion. 4. Chronic compression deformities of several thoracic vertebral bodies and L1. Minimal anterior endplate compression of the T1 vertebral body appears new from 12/30/2016. 5. Interstitial lung disease with mild progression of subpleural reticulation and subpleural cystic change within the lingula. Electronically signed by: Garrick Thompson M.D. 04/16/2017 8:29 AM Dictated Date/Time: 04/16/2017 8:17 AM
--- NOTE | 2017-04-16 08:32 | DIAGNOSTIC IMAGING REPORT ---
MAXILLOFACIAL CT CT DOSE: HISTORY: fall, facial pain TECHNIQUE: Multiaxial CT images of the maxillofacial region were performed and reformatted in the coronal plane without the use of contrast. A dose lowering technique was utilized adhering to the principles of ALARA. COMPARISON: None. FINDINGS: The visualized cervical spine, mandible, skull base, nasal bones, pterygoid plates, and zygomatic arches are intact. Slightly depressed comminuted fractures within the anterior wall the left maxillary sinus. This demonstrates up to 4 mm of depression. Nondisplaced left orbital floor fracture. Subtle fracture within the medial wall of the left orbit. No evidence for herniation through the orbital floor fracture. Trace extraconal hemorrhage adjacent to the orbital floor fracture. The extraocular muscles, globes, and retrobulbar fat are intact. Hemorrhage within the left maxillary sinus. Left periorbital soft tissue swelling. IMPRESSION: 1. Fractures involving the anterior wall of the left maxillary sinus, medial wall of the left orbit, and left orbital floor as described above. 2. Hemorrhage within the left maxillary sinus. 3. Left periorbital soft tissue swelling. Electronically signed by: Rinku Rangel M.D. 04/16/2017 8:31 AM Dictated Date/Time: 04/16/2017 8:19 AM
--- NOTE | 2017-04-16 08:33 | DIAGNOSTIC IMAGING REPORT ---
CT OF THE CERVICAL SPINE WITHOUT CONTRAST CLINICAL HISTORY: Fall. Pain. COMPARISON STUDY: Cervical spine CT December 30, 2016. TECHNIQUE: Helical axial images of the cervical spine were obtained without IV contrast. Sagittal and coronal reconstructions were viewed. A dose lowering technique was utilized adhering to the principles of ALARA. FINDINGS: Craniocervical junction is intact. Note is made of a wedge deformity of the inferior endplate of C5 consistent with a compression fracture. This is likely subacute. This also a mild compression fracture involving the superior endplate of T1 which is likely subacute. No acute cervical spine fracture is identified. There is no prevertebral edema. Chest will be reported separately. IMPRESSION: 1. Mild compression fractures of C5 and T1 which are likely subacute. 2. No acute cervical spine fracture. Electronically signed by: Gil Mojica M.D. 04/16/2017 8:32 AM Dictated Date/Time: 04/16/2017 8:19 AM
[2017-04-16] MEDS ORDERED: CEFTRIAXONE SOD INJ 1 GM ADDVIAL IV STA (08:49)
[2017-04-16] MEDS ORDERED: PNEUMOCOCCAL ADMINISTRATION CHARGE ONE (09:30)
[2017-04-16] MEDS ORDERED: PNEUMOCOCCAL POLYSACCHARIDES 25 MCG/0.5 ML VIAL/SYR IM. ONE (09:30)
[2017-04-16] MEDS: KETOROLAC TROMETHAMINE 15 MG/ML VIAL IM PRN ×2 (11:41→21:38)
[2017-04-16] MEDS: SODIUM CHLORIDE 0.9% 1000ML 1,000 ML IV SCH (12:09)
[2017-04-16] MEDS ORDERED: HYDROCODONE/ACETAMOPHEN 5/325MG TAB PO PRN (15:30)
--- NOTE | 2017-04-16 15:39 | ORTHOPEDIC CONSULTATION ---
DATE OF CONSULTATION: 04/16/2017 DATE OF CONSULTATION: 04/16/2017 CHIEF COMPLAINT: Left proximal humerus fracture, left orbital fractures, left knee contusion and multiple thoracic compression fractures. HISTORY OF PRESENT ILLNESS: Liyah is a pleasant 81-year-old female who lives alone. She was walking to the bathroom this morning and tripped in the kitchen. She fell and hit her face. She had pain around her left orbit and pain in her left shoulder. She also had pain and swelling of her left knee. She has been experiencing back pain for the last 3 weeks. She is continuing to have back pain. It is most severe in the lower right region of her lumbar spine; however, it has not worsened since the fall. She went to the Emergency Room where x-rays and CAT scan demonstrated multiple left orbital fractures, a 4-part left proximal humerus fracture, and a left knee effusion. There are no signs of any rib fractures and multiple thoracic compression fractures. She was admitted to the medical service and orthopedics was consulted to evaluate and treat. She says she is able to weightbear on her left leg without much problem. PAST MEDICAL HISTORY: Significant for benign tumors of her breast, non-insulin dependent diabetes, heart disease, hypertension, migraines, rheumatoid and osteoarthritis for which she is followed by Dr. Hammond. MEDICATIONS: Atenolol 25 mg daily, [place] 1 tab twice a day, Klonopin 0.5 mg at night, diltiazem 240 mg daily, Cozaar 25 mg daily, Provera 2.5 mg daily, Ogestrel 1 tab daily, Ocuvite 1 tab twice a day, pravastatin 80 mg daily, prednisone 7.5 mg daily, and Fioricet 1 tab as needed and clobetasol as needed. ALLERGIES: INCLUDE AMOXICILLIN, CLAVULANIC ACID, CLINDAMYCIN, PENICILLINS, SULFA ANTIBIOTICS AND ASPIRIN. FAMILY HISTORY: Noncontributory. SOCIAL HISTORY: She is a former smoker. She is and lives alone. She is retired and independent ambulator without assistance. REVIEW OF SYSTEMS: She complains of left eye pain, left shoulder pain, left knee pain and low back pain. All other pertinent review of systems are negative. PHYSICAL EXAMINATION: She does have some swelling around her left orbit. There is ecchymosis in the area as well. It does not appear to affect her revision. Examination of her left upper extremity, her radial, median and ulnar nerves were checked and intact. Her axillary nerve is intact to sensation. She is not in a sling at this time. She has significant left shoulder pain with any range of motion of her left arm. There are no abrasions, lesions, lacerations of the skin. There is no gross deformity. Examination of the left knee, there is an abrasion in the area of the patella. There is a large joint effusion. It does not seem to be very painful. She has range of motion from only 0-110 degrees. Examination of her spine she has minimal tenderness in the thoracic region, increased tenderness in the lower lumbar region, especially in the right lower quadrant. IMAGING DATA: X-rays and CT scan of the left shoulder show a 4-part left proximal humerus fracture involving the greater and lesser tuberosities. There is also an intra-articular extension, but no signs of dislocation. CT scan of the head does show multiple left orbital fractures that are minimally displaced. X-rays of the left knee show no signs of fracture, but does show a large joint effusion. CT scan of the thoracic and lumbar spine does show T6, T8, T11, T12 and L1 chronic compression deformities of the vertebral bodies. They do not appear to be acute. There was a slight end plate compression at T1 vertebral body which appears to be new from a CT scan taken 3 months ago. IMPRESSIONS: 1. Left proximal humerus fracture. 2. Left orbital fractures. 3. Left knee contusion and effusion. 4. Chronic thoracic compression fractures. PLAN: I am going to place her in a left arm sling. I would like to view the x-rays personally, but the hospital viewer system is not operative at the moment and I will view them as soon as it comes back. With regards to her facial fractures, these should heal fine with conservative treatment. With regards to her left knee, she can be weightbearing as tolerated. As long as she is not having any pain and she has good motion I want to hold off on any aspiration at this time. With regards to her back pain, this is more chronic in nature and will be treated with pain medications. I would like to view the x-rays personally before I make any further decisions on her shoulder. However, it is likely to be nonoperative. I will follow her closely throughout her stay.
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
[2017-04-16] MEDS: ONDANSETRON INJ 8 MG in DEXTROSE 5% 50ML 50 ML IV PRN (18:33)
[2017-04-16] MEDS: CALCIUM 600MG + VIT D 400 IU TAB PO SCH (20:59)
[2017-04-16] MEDS: DILTIAZEM HCL 120 MG EXT REL CAP PO SCH (21:00)
[2017-04-16] MEDS: CEROVITE ADV FORMULA TAB PO SCH (21:00)
[2017-04-16] MEDS: LOSARTAN POTASSIUM 25 MG TAB PO SCH (21:03)
[2017-04-17] MEDS: SODIUM CHLORIDE 0.9% 1000ML 1,000 ML IV SCH ×2 (00:15→13:39)
[2017-04-17] MEDS: ACETAMINOPHEN 325 MG TAB PO PRN (00:24)
[2017-04-17] MEDS: KETOROLAC TROMETHAMINE 15 MG/ML VIAL IM PRN (03:16)
[2017-04-17 06:53] VITALS: BP 145/78; PULSE 68; TEMP 36.8; O2SAT 95
[2017-04-17 08:00] VITALS: O2SAT 95
[2017-04-17 08:42] LABS: BASO % 0.3 %; BASO ABS # 0.04 K/uL (0-0.2); COMPLETE YES; EOS % 1.9 %; HEMATOCRIT 31.9 % (37-47); IG% 0.4 %; LYMPH % 19.3 %; LYMPH ABS # 2.99 K/uL (1.2-3.4); MEAN CELL VOLUME 97.6 fL (80-100); MEAN CORPUSCULAR HEMOGLOBIN 32.7 pg (25-34); MEAN CORPUSCULAR HGB CONC 33.5 g/dl (32-36); MEAN PLATELET VOLUME 9.6 fL (7.4-10.4); MONO % 11.9 %; NEUT % 66.2 %; PLATELET COUNT 175 K/uL (130-400); RED BLOOD COUNT 3.27 M/uL (4.2-5.4); WHITE BLOOD COUNT 15.47 K/uL (4.8-10.8)
[2017-04-17 09:10] LABS: BUN/CREATININE RATIO 15.1 (10-20); CALCIUM 8.3 mg/dl (8.5-10.1); CREATININE 0.81 mg/dl (0.60-1.20); POTASSIUM 4.1 mmol/L (3.5-5.1)
[2017-04-17] MEDS: CEROVITE ADV FORMULA TAB PO SCH ×2 (09:17→20:17)
[2017-04-17] MEDS: CALCIUM 600MG + VIT D 400 IU TAB PO SCH ×2 (09:17→20:43)
[2017-04-17] MEDS: ONDANSETRON INJ 8 MG in DEXTROSE 5% 50ML 50 ML IV PRN (09:52)
[2017-04-17] MEDS ORDERED: KETOROLAC TROMETHAMINE 15 MG/ML VIAL ONE (09:59)
--- NOTE | 2017-04-17 10:37 | Clinical Documentation Query ---
CLINICAL DOCUMENTATION QUERY QUERY 1 OF 2 81 year old female who presented to the Emergency Room with complaints of a sudden fall from a standing position. In your clinical opinion is this patient being managed for: ( ) Osteoporotic fractures of left humerus, rib, orbit and maxillary sinus ( ) Not Agree (x ) Other explanation of clinical findings (Please Explain) She just fell down ( ) Unable to determine (Please Define) ( ) Need to Discuss The medical record reflects the following clinical findings, treatment, and risk factors. Clinical Indicators: Hx osteoarthritis and rheumatoid arthritis, on home prednisone therapy Treatment:Ortho and Oromaxillofacial consults Risk Factors:Age, female, post-menopausal, osteoarthritis and prednisone therapy QUERY 2 OF 2 In your clinical opinion is this patient being managed for: ( ) Hyponatremia (x ) Not Agree ( ) Other explanation of clinical findings (Please Explain) ( ) Unable to determine (Please Define) ( ) Need to Discuss The medical record reflects the following clinical findings, treatment, and risk factors. Clinical Indicators:NA 128 Treatment: IV NSS, daily PRP's Risk Factors: Age, multiple fractures Please clarify and document your clinical opinion in the progress notes and discharge summary. Terms such as "probable", "suspected", "likely", "questionable", "possible", or "still to be ruled out" are acceptable. IF IN AGREEMENT, YOU MUST DOCUMENT ABOVE DIAGNOSTIC STATEMENT IN DAILY PROGRESS NOTES AND DISCHARGE SUMMARY. This document is not part of the patient's record. Thank You, Gabriella Gill RN [phone]
[2017-04-17 14:54] VITALS: BP 151/78; PULSE 77; TEMP 36.7; O2SAT 96
[2017-04-17 16:30] VITALS: O2SAT 97
[2017-04-17] MEDS: PRAVASTATIN SOD 40 MG TAB PO SCH (17:04)
--- NOTE | 2017-04-17 17:41 | PROGRESS NOTE ---
DATE: 04/17/2017 CHIEF COMPLAINT: Minimally displaced left proximal humerus fracture. PROGRESS: Liyah was seen and examined at bedside today. Overall, she is doing fairly well. She is having some soreness in the shoulder and the sling is bothering her, but overall she is not feeling too bad. She was seen by physical therapy today and she was able to ambulate even with her knee effusion. The pain medicines are helping some with her back and she has no new complaints. PHYSICAL EXAMINATION: LEFT SHOULDER. Her radial, median and ulnar nerves were checked and intact. She is wearing a shoulder immobilizer as instructed. She is in a seated position. She has the knee flexed almost to 90 degrees. She has 2+ effusion. IMPRESSION: 1. Left minimally displaced proximal humerus fracture. 2. Left knee effusion. PLAN: Fortunately, we can treat this with conservative treatment. I did get a chance to look at the x-rays closely today. She will be in an arm sling likely for 6 weeks. I will see her in my office in 3 weeks to get x-rays to make sure there is no further displacement. As far as her knee is concerned will treat that conservatively and wait for the effusion to resolve on its own. She is orthopedically stable for discharge and she is possibly scheduled to go to [facility] tomorrow.
--- NOTE | 2017-04-17 17:45 | Progress Note ---
Progress Note Date of Service Apr 17, 2017. Progress Note 81-year-old female admitted yesterday through the emergency room after a fall she sustained at home. She sustained multiple fractures including left humerus left 9 rib and multiple facial fracture including the orbit and the anterior maxillary sinus. There was no loss of consciousness. She tripped and fell down after she got up to go to the bathroom without turning the lights on. Overall she is doing well. She stated that she did not sleep well last night. She was complaining of her restless legs. She still complaining of pain mostly in the left arm. She is on Toradol and also added hydrocodone. She denied any headache. No dizziness no lightheadedness. She does have some pressure in her face. No neck pain. Left-sided chest pain related to the ninth rib fracture. No abdominal pain no nausea no vomiting. No back pain. Very slight pain in the left knee. EXAMINATION: She is well-developed in no distress. Vital signs: Blood pressure 145/78, pulse 68, respiration 19, temperature 36.8, oxygen saturation 95% on room air Skin is warm and dry. Multiple bruises. HEENT facial bruising on the left side. Swelling. Neck is supple. No adenopathy no thyromegaly. No JVD. Chest left-sided tenderness. Heart regular heart sounds no murmur rub or gallop. Lungs are clear Abdomen is soft nontender Back no spinal tenderness Extremities no edema clubbing or cyanosis. Swelling of the left knee. LABORATORY TESTS: WBC count 15,470, hemoglobin 10.7, hematocrit 31.9, platelet count 175,000. Sodium 128, potassium 4.1, chloride 95, CO2 27, BU and 12, creatinine 0.81, glucose 102, calcium 8.3 ASSESSMENT: * Fall * Fracture of the left humerus * Cortical fracture of the left ninth rib * Orbital fracture and left maxillary sinus fracture * Left knee trauma with swelling * Rheumatoid arthritis * Mild hyponatremia * Restless leg syndrome * Anxiety PLAN: * Continuing her medications * I restarted her Klonopin * Discontinue IV fluid * Monitor laboratory tests * Therapies were initiated today * Patient has been accepted to go to [facility]. We will plan that for tomorrow. * Patient has been seen by Dr. Manuel Mott. A sling was ordered. Patient having problems keeping it on all the time. She needs to be on it for [address] Mott will see her in 3 weeks after discharge and get an x-ray.
[2017-04-17] MEDS: MAGNESIUM HYDROXIDE SUSP 30 ML UDC PO PRN (19:44)
[2017-04-17] MEDS: IBUPROFEN 200 MG TAB PO PRN (20:16)
[2017-04-17 20:20] VITALS: BP 152/80; PULSE 88; O2SAT 94
[2017-04-17] MEDS: LOSARTAN POTASSIUM 25 MG TAB PO SCH (20:43)
[2017-04-17] MEDS: DOCUSATE SODIUM 100 MG CAP PO SCH (20:43)
[2017-04-17] MEDS: CLONAZEPAM 0.5 MG TAB PO SCH (20:43)
[2017-04-17] MEDS: DILTIAZEM HCL 120 MG EXT REL CAP PO SCH (20:44)
[2017-04-17 23:10] VITALS: BP 160/80; PULSE 78; TEMP 36.8; O2SAT 93
[2017-04-17] MEDS: KETOROLAC TROMETHAMINE 15 MG/ML VIAL IV. PRN (23:35)
[2017-04-18 01:58] VITALS: BP 130/68; PULSE 76
[2017-04-18] MEDS: ACETAMINOPHEN 325 MG TAB PO PRN ×3 (02:01→22:07)
[2017-04-18 07:11] VITALS: BP 142/85; PULSE 61; TEMP 36.7; O2SAT 95
[2017-04-18 07:49] LABS: BASO % 0.2 %; BASO ABS # 0.03 K/uL (0-0.2); COMPLETE YES; EOS % 2.8 %; HEMATOCRIT 31.3 % (37-47); IG% 0.4 %; LYMPH % 22.7 %; LYMPH ABS # 3.12 K/uL (1.2-3.4); MEAN CELL VOLUME 96.3 fL (80-100); MEAN CORPUSCULAR HGB CONC 33.2 g/dl (32-36); MEAN PLATELET VOLUME 9.2 fL (7.4-10.4); MONO % 12.7 %; NEUT % 61.2 %; PLATELET COUNT 194 K/uL (130-400); RED BLOOD COUNT 3.25 M/uL (4.2-5.4); WHITE BLOOD COUNT 13.75 K/uL (4.8-10.8)
[2017-04-18 08:27] LABS: BUN/CREATININE RATIO 16.2 (10-20); CALCIUM 8.2 mg/dl (8.5-10.1); CREATININE 0.69 mg/dl (0.60-1.20); POTASSIUM 3.8 mmol/L (3.5-5.1)
[2017-04-18] MEDS: CALCIUM 600MG + VIT D 400 IU TAB PO SCH ×2 (08:43→22:03)
[2017-04-18] MEDS: DOCUSATE SODIUM 100 MG CAP PO SCH ×2 (08:43→22:04)
[2017-04-18] MEDS: CEROVITE ADV FORMULA TAB PO SCH ×2 (08:44→21:00)
[2017-04-18] MEDS ORDERED: HEPARIN SOD 5000 UNIT/0.5 ML CARP SQ STA (09:22)
--- NOTE | 2017-04-18 09:48 | Progress Note ---
Progress Note Date of Service Apr 18, 2017. Progress Note 81-year-old female admitted through the emergency room after fall. She sustained multiple fractures including left humerus, left orbit, left maxillary sinus, cortical fracture of the left ninth rib, trauma to her left knee. Patient was admitted. All her laboratory tests were ordered. She was seen in orthopedic consultation by Dr. Manuel Mott. A sling was ordered for her left arm. No surgical intervention was deemed necessary for any of the fractures that she sustained. We are working on pain control. Also working on getting her to [facility]. This morning she denied any headache. She does she does complain of facial pressure on the left side with swelling. No earache no sore throat. She coughed up some blood this morning but that is coming from the hematoma on the inside of her left cheek. She is complaining of generalized aches especially in her back. Denied any chest pain no shortness of breath. No abdominal pain no nausea no vomiting. Poor appetite but she is able to eat. She has not had a bowel movement yet. No urinary problem. She does have back pain. Also swelling in her lower legs and ankles and feet. EXAMINATION: She is well-developed. No acute distress. Vital signs: Blood pressure 142/85 pulse 61 respiration 19 temperature 36.7 oxygen saturation 95% on room air Skin is warm and dry. No rash. Multiple bruises. HEENT she does have a hematoma inside her left cheek. That is the source of bleeding. She does have swelling in the left side of her face with hematoma in the periorbital area. Neck is supple. No adenopathy. No JVD. Heart regular heart sounds without any murmur rub or gallop. Lungs are clear Abdomen is soft nontender. Back no spinal tenderness. Extremities 2+ edema. Both legs. No clubbing or cyanosis. Bruised left knee. Left arm is in a sling. Neurological examination: She is alert and oriented there is no evidence of any lateralized deficit LABORATORY TESTS: WBC count 13,750 hemoglobin 10.4, hematocrit 31.3, platelet count 194,000. Sodium 126 potassium 3.8 chloride 91 CO2 29 BU and 11 creatinine 0.69 glucose 1 or 7 calcium 8.2. One blood culture was reported to be growing gram-negative bacilli early this morning. ASSESSMENT: * Fall * Left orbital fracture * Left maxillary sinus fracture * Left humeral fracture * Left ninth rib fracture. Cortical. * Trauma to the left knee * Hyponatremia * Rheumatoid arthritis * History of supraventricular tachycardia * Depression * Anxiety * Restless leg syndrome * Interstitial lung disease * Type 2 diabetes mellitus not requiring any drug therapy * Chronic hyperleukocytosis * Irritable bowel syndrome * Bilateral leg edema PLAN: * Repeat blood cultures * Check urine culture * As far as the positive blood culture that was reported this morning we will wait for the final result. I do not suspect any ongoing infection. Her WBC count has been stable in the same range for approximately 2 years. She does not have any fever. No evidence source of any infection. * IV Lasix * IV normal saline * Milk of magnesia for constipation * Start subcutaneous heparin * Continuing her medications * Continuing therapies * We will delay transfer to [facility] at this point until we make sure there is no ongoing infection and her sodium is improved * We'll recheck PRP this afternoon
[2017-04-18] MEDS ORDERED: FUROSEMIDE INJ 20 MG in SYRINGE 0 ML IV ONE (10:00)
[2017-04-18] MEDS: SODIUM CHLORIDE 0.9% 1000ML 1,000 ML IV SCH ×2 (10:45→22:36)
[2017-04-18] MEDS: KETOROLAC TROMETHAMINE 15 MG/ML VIAL IV. PRN ×3 (10:53→23:31)
[2017-04-18] MEDS: FUROSEMIDE INJ 20 MG in SYRINGE 0 ML IV ONE ×2 (14:22→16:38)
[2017-04-18 15:15] VITALS: BP 147/81; PULSE 78; TEMP 36.7; O2SAT 96
[2017-04-18 16:45] VITALS: O2SAT 96
[2017-04-18] MEDS: PRAVASTATIN SOD 40 MG TAB PO SCH (16:56)
[2017-04-18 17:57] LABS: BUN/CREATININE RATIO 13.5 (10-20); CALCIUM 8.4 mg/dl (8.5-10.1); CREATININE 0.78 mg/dl (0.60-1.20)
[2017-04-18] MEDS: DILTIAZEM HCL 120 MG EXT REL CAP PO SCH (22:03)
[2017-04-18] MEDS: LOSARTAN POTASSIUM 25 MG TAB PO SCH (22:04)
[2017-04-18] MEDS: CLONAZEPAM 0.5 MG TAB PO SCH (22:10)
[2017-04-18] MEDS: HEPARIN SOD 5000 UNIT/0.5 ML CARP SQ SCH (22:12)
[2017-04-18 23:28] VITALS: BP 164/83; PULSE 89; TEMP 36.6; O2SAT 94
[2017-04-19] MEDS: IBUPROFEN 200 MG TAB PO PRN (00:55)
[2017-04-19 01:30] VITALS: BP 143/81; PULSE 91
[2017-04-19] MEDS: ACETAMINOPHEN 325 MG TAB PO PRN ×2 (05:02→11:33)
[2017-04-19 07:46] VITALS: BP 147/74; PULSE 70; TEMP 36.5; O2SAT 95
[2017-04-19 08:29] LABS: BASO % 0.3 %; BASO ABS # 0.04 K/uL (0-0.2); COMPLETE YES; EOS % 2.8 %; IG% 0.4 %; LYMPH % 25.1 %; LYMPH ABS # 3.09 K/uL (1.2-3.4); MEAN CELL VOLUME 94.5 fL (80-100); MEAN CORPUSCULAR HEMOGLOBIN 32.6 pg (25-34); MEAN CORPUSCULAR HGB CONC 34.5 g/dl (32-36); MEAN PLATELET VOLUME 9.8 fL (7.4-10.4); MONO % 14.3 %; NEUT % 57.1 %; PLATELET COUNT 168 K/uL (130-400); RED BLOOD COUNT 3.07 M/uL (4.2-5.4); WHITE BLOOD COUNT 12.32 K/uL (4.8-10.8)
[2017-04-19] MEDS: DOCUSATE SODIUM 100 MG CAP PO SCH (08:43)
[2017-04-19] MEDS: CALCIUM 600MG + VIT D 400 IU TAB PO SCH (08:45)
[2017-04-19] MEDS: KETOROLAC TROMETHAMINE 15 MG/ML VIAL IV. PRN (08:50)
[2017-04-19] MEDS: CEROVITE ADV FORMULA TAB PO SCH (08:51)
[2017-04-19 09:00] LABS: BUN/CREATININE RATIO 13.6 (10-20); CREATININE 0.75 mg/dl (0.60-1.20); POTASSIUM 3.5 mmol/L (3.5-5.1)
[2017-04-19 09:04] LABS: ALB/GLOB RATIO 0.7 (0.9-2)
[2017-04-19] MEDS: MAGNESIUM HYDROXIDE SUSP 30 ML UDC PO PRN (09:26)
[2017-04-19] MEDS: HEPARIN SOD 5000 UNIT/0.5 ML CARP SQ SCH (09:35)
[2017-04-19] MEDS ORDERED: HYDR-5688 PO (10:12)
[2017-04-19] MEDS ORDERED: CLC100 PO (10:12)
[2017-04-19] MEDS ORDERED: IBUP-1050 PO (10:12)
[2017-04-19] MEDS ORDERED: HPRIS5M SQ (10:12)
--- NOTE | 2017-04-19 10:18 | Discharge Instructions ---
Discharge Instructions Date of Service Apr 19, 2017. Admission Reason for Admission: Fall Fracture left humerus Fracture left ninth rib Left orbital fracture Left maxillary sinus fracture Trauma left knee Rheumatoid arthritis History of supraventricular tachycardia Hypercholesterolemia Anxiety Restless leg syndrome Macular degeneration Hyponatremia Chronic hyperleukocytosis Type 2 diabetes mellitus not requiring any drug therapy Discharge Discharge Diagnosis / Problem: fall, multiple fractures including left humerus left orbit left maxillary s Discharge Goals Goal(s): Improve function, Increase independence, Improve disease control Activity Recommendations Activity Level: Assistance Required Therapies: Physical Therapy, Occupational Therapy . Additional Information Patient informed of condition: Yes Advance Directives: No DNR: No Level of Care: Acute Rehab Communicable Disease: No Prognosis: Stable Garland Catheter: No Instructions / Follow-Up Instructions / Follow-Up Follow-up with Dr. Manuel Mott in 3 weeks Sitting left arm Current Hospital Diet Patient's current hospital diet: Diabetes Type 2 Diet Discharge Diet Recommended Diet: AHA Diet (Heart Healthy), Diabetes Type 2 Diet Pending Studies Studies pending at discharge: yes List of pending studies: Repeat blood cultures urine culture Medical Emergencies . Who to Call and When: Medical Emergencies: If at any time you feel your situation is an emergency, please call 911 immediately. . Non-Emergent Contact Non-Emergency issues call your: Primary Care Provider . . "Provider Documentation" section prepared by Ranulfo Finley. . Core Measure Problem Core Measures: None
--- NOTE | 2017-04-19 10:43 | Progress Note ---
Progress Note Date of Service Apr 19, 2017. Progress Note 81-year-old female with multiple problems including * Fall at home * Left humeral fracture. Did not require any surgery * Left facial fracture including the orbital bone and anterior maxillary sinus * Fracture of the left ninth rib * Trauma to the left knee * Rheumatoid arthritis * Hypercholesterolemia * Anxiety * Hyponatremia * Restless leg syndrome * Type 2 diabetes mellitus not requiring any drug therapy Overall her condition has been stable. Her sodium remains low. But stable. Blood cultures done in the emergency room on admission. One blood culture was growing gram-negative bacilli. The final identification is pending. But patient has not had any fever. She does have chronic hyperleukocytosis. She does not have any fever or any chills or any sign of any infection. So it is possible that the positive blood cultures mostly is a contaminant. Today she is complaining of pain mostly the left side of her face related to the trauma. Also complaining of back pain. Her knee is not giving her much problem. Her left arm is in a sling. She was already seen in orthopedic consultation by Dr. Manuel Mott. She denied any dizziness or lightheadedness. No chest pain other than what is related to her left ninth rib fracture. No nausea no vomiting. She is tolerating her diet. Complaining of back pain as noted. Her ankle edema has resolved. EXAMINATION SKIN is warm and dry. No rash. Bruises. VITAL SIGNS: Blood pressure 147/74, pulse 70, respiration 20, temperature 36.5, oxygen saturation 95% on room air. HEENT: Facial bruises. Swelling left side of her face. NECK: Supple without any tenderness. No JVD. HEART: Regular heart sounds without any murmur rub or gallop. LUNGS: Are clear. ABDOMEN: Soft nontender without organomegaly or masses BACK: No spinal tenderness EXTREMITIES: Resolved edema. No clubbing or cyanosis. Left arm is in a sling. Bruised left knee. LABORATORY TESTS: WBC count 12,320, hemoglobin 10, hematocrit 29, platelet count 168,000. Sodium 126, potassium 3.5, chloride 89, CO2 30, EU and 10, creatinine 0.75, glucose 111, calcium 8.0, total bilirubin 0.4, AST 18, AST 14, alkaline phosphatase 81, total protein 5.7, albumin 2.3. ASSESSMENT: * Fall * Multiple fractures including left orbit, left maxillary sinus, left rib fracture the ninth rib, left humerus * Anxiety * Hyponatremia * Hyperleukocytosis * Rheumatoid arthritis * Restless leg syndrome * Hypercholesterolemia * 1 positive blood culture. Gram-negative bacilli. Identification pending. Completely asymptomatic. Suspected obesity in a contaminant. PLAN: * Continuing her same medications * We will follow up on any abnormal test results after her discharge. Specifically the blood cultures and a urine culture * We will monitor her hyponatremia * Arrangements are made for her to go to [facility] rehabilitation today. She is calling her son to transport her. * Monitor her blood sugars * Follow up with Dr. Mott in 3 weeks * I will see her in the office after her discharge from [facility]
[2017-04-19] MEDS: SODIUM CHLORIDE 0.9% 1000ML 1,000 ML IV SCH (12:29)
[2017-04-19 13:14] VITALS: BP 147/74; PULSE 70; TEMP 36.5; O2SAT 95
--- NOTE | 2017-05-02 21:02 | Discharge Summary ---
Discharge Summary Date of Service May 02, 2017. Discharge Summary ADMISSION DATE: 04/16/2017 DISCHARGE DATE: 04/19/2017 DISCHARGE DIAGNOSES: * fall * fracture of the left humerus * Fracture of the left ninth rib * Left orbital fracture * Left maxillary sinus fracture * Trauma to left knee * Rheumatoid arthritis * History of supraventricular tachycardia * Hypercholesterolemia * Anxiety * Restless leg syndrome * Macular degeneration * Hyponatremia * Chronic hyperleukocytosis * Type 2 diabetes mellitus not requiring any drug therapy CONSULTATION:Dr. Manuel Mott in orthopedic surgery DISCHARGE MEDICATIONS: * docusate sodium 100 mg twice a day * heparin 5000 unit every 12 hours subcutaneously * Hydrocodone/acetaminophen 5/325 one tablet every 4 hours as needed for pain * Ibuprofen 400 mg 4 times a day as needed for pain * Fioricet one tablet as needed for migraine * Atenolol 25 mg daily * Calcium with vitamin D 500 mg one tablet twice a day * Clobetasol propionate ointment to apply to perineal area as prescribed by gynecology * Diltiazem extended release 240 mg daily * Losartan 25 mg daily * Provera 2.5 mg daily * Ogerstrel one tablet daily * Ocuvite PreserVision one tablet twice a day * Pravastatin 80 mg daily * Prednisone 5 mg daily * Cimzia 200 mg injection every 2 weeks 81-year-old female admitted through the emergency room after a fall. She sustained multiple trauma including left humeral fracture, left rib fracture , facial trauma with orbital bone and maxillary sinus fracture. She also sustained a left knee trauma. Patient with multiple medical problems as noted above. She got up early in the morning. She went to the bathroom. She did not turn the lights on. She tripped and fell. She crawled to the phone. She was able to get help. She was transferred to the emergency room. She was evaluated. She was quite uncomfortable. She did not stay in any loss of consciousness. Patient was admitted for further treatment PAST MEDICAL HISTORY, SOCIAL HISTORY, FAMILY HISTORY: As noted on admission history and physical ALLERGIES:penicillin, sulfa, clindamycin, GI intolerance with aspirin ADMISSION MEDICATIONS: As noted on the home medication list PHYSICAL EXAMINATION AND LABORATORY TESTS ARE NOTED ON ADMISSION HITORY AND PHYSICAL HOSPITAL COURSE: patient was admitted to a medical bed. Because the patient Shabana one. All her laboratory tests will review. On her imaging studies will review it. She was started on IV fluid. Given IV Toradol for pain. Orthopedic consultation was requested. Physical and occupational therapies were ordered. Patient was seen by Dr. Mott. No surgery was recommended. I think for her left arm was ordered. Patient had difficulty keeping it on as she should but she was encouraged to do so. She was evaluated by physical and occupational therapy. She was continued to have severe pain. The recommendation was for rehabilitation. Especially given the fact that patient lives by herself at home. Her condition is stabilized. Her WBC count remained elevated. This is chronic. She has been evaluated in hematology recently. She was noted to be hyponatremic. She was given normal saline IV fluid and IV Lasix. One blood culture was reported to be positive. This turned out to be a contaminant. Her urine culture was negative. Her condition did stabilize. Arrangements were made for her to go to [facility]. Her son was able to transport her. She was to see Dr. Mott in about 3 weeks.
== END 2017-04-19 13:32 | DRG 563 ==
LOC: EDBD 06:34 → C.EDA 06:35 → C.MSN 09:37 → ENRESERV 09:52
PROVIDERS: ADMIT Internal Medicine; ATTEND Internal Medicine
DX: S42.202A Unspecified fracture of upper end of left humerus, initial encounter for closed fracture (principal); S02.80XA Fracture of other specified skull and facial bones, unspecified side, initial encounter for closed fracture; E87.1 Hypo-osmolality and hyponatremia; S22.32XA Fracture of one rib, left side, initial encounter for closed fracture; S02.401A Maxillary fracture, unspecified side, initial encounter for closed fracture; S22.069S Unspecified fracture of T7-T8 vertebra, sequela; Y93.01 Activity, walking, marching and hiking; S22.089S Unspecified fracture of T11-T12 vertebra, sequela; S22.059S Unspecified fracture of T5-T6 vertebra, sequela; S80.02XA Contusion of left knee, initial encounter; W01.198A Fall on same level from slipping, tripping and stumbling with subsequent striking against other object, initial encounter; Y92.010 Kitchen of single-family (private) house as the place of occurrence of the external cause; E11.9 Type 2 diabetes mellitus without complications; I10 Essential (primary) hypertension; M06.9 Rheumatoid arthritis, unspecified; Z83.3 Family history of diabetes mellitus; Z87.891 Personal history of nicotine dependence; E78.5 Hyperlipidemia, unspecified; G25.81 Restless legs syndrome; F32.9 Major depressive disorder, single episode, unspecified; K58.9 Irritable bowel syndrome, unspecified; Z88.0 Allergy status to penicillin; Z88.2 Allergy status to sulfonamides; S32.019S Unspecified fracture of first lumbar vertebra, sequela; X58.XXXS Exposure to other specified factors, sequela

== ENCOUNTER → 2017-07-14 | Outpatient (CLI) | payer OTHER ==
[~2017-07-14] MED LIST changes: -ACET-1256 PO; -BUTA1CAP17 PO; +CALC500C70 PO; -CALCTAB65 PO; +CLBPO15 TOP; +CLC100 PO; +DILT-115 PO; -DILT1TAB50 PO; +FRCT/ PO; +HPRIS5M SQ; +HYDR-5688 PO; +IBUP-1050 PO; -IBUP1CAP9 PO; -KETO10TA PO
--- NOTE | 2017-07-14 11:00 | DIAGNOSTIC IMAGING REPORT ---
TWO VIEW CHEST CLINICAL HISTORY: Cough. FINDINGS: PA and lateral chest radiographs are compared to chest x-ray and chest CT dated 04/16/2017. The heart is mildly enlarged and there is atherosclerotic calcification of the thoracic aorta. The pulmonary vasculature is noncongested. There is marked apical scarring. Changes of chronic interstitial lung disease are similar to previous. There is no evidence of superimposed airspace consolidation or pleural effusion. There is no pneumothorax. The skeletal structures are osteopenic. Degenerative change and scoliosis are noted in the thoracic spine. IMPRESSION: 1. Cardiomegaly without radiographic evidence of congestive failure. 2. Changes of chronic interstitial lung disease are similar to previous. There is no evidence of superimposed airspace consolidation or pleural effusion Electronically signed by: Quinn Hernandez M.D. 07/14/2017 10:59 AM Dictated Date/Time: 07/14/2017 10:58 AM
== END | disposition home or self-care (01) ==
LOC: C.RAD 09:48
PROVIDERS: ATTEND Internal Medicine
DX: R05 Cough (principal)

== ENCOUNTER → 2017-08-07 | Outpatient (CLI) | payer OTHER ==
--- NOTE | 2017-08-07 13:57 | DIAGNOSTIC IMAGING REPORT ---
CHEST 2 VIEWS ROUTINE HISTORY: Shortness of breath. COMPARISON: Chest 07/14/2017. FINDINGS: There again noted changes of chronic interstitial lung disease. Increased opacification within the left mid to lower lung zone. No pleural effusions. No pneumothorax. Mild dextroscoliosis. The heart is normal in size. Healing/healed left humeral neck fracture is again noted. Old mild compression deformities within the thoracic and lumbar spine. IMPRESSION: A new left mid to lower lung zone airspace opacity. This likely represents a pneumonia. Electronically signed by: Rinku Rangel M.D. 08/07/2017 1:55 PM Dictated Date/Time: 08/07/2017 1:50 PM
== END | disposition home or self-care (01) ==
LOC: C.RAD1850 13:33
PROVIDERS: ATTEND Physician Assistant Medical
DX: R06.02 Shortness of breath (principal); R91.8 Other nonspecific abnormal finding of lung field

== ENCOUNTER → 2017-08-13 | Outpatient (CLI) | payer OTHER ==
--- NOTE | 2017-08-13 11:46 | DIAGNOSTIC IMAGING REPORT ---
CHEST 2 VIEWS ROUTINE CLINICAL HISTORY: PNEUMONIA COMPARISON STUDY: 08/07/2017 FINDINGS: The cardiac and mediastinal contours remain stable. There is evidence for underlying interstitial lung disease. There are persistent but improving left mid to lower lung zone airspace opacities. There is scoliosis. There is a healing proximal left humeral fracture. There are no significant pleural effusions. Multiple vertebral body compression deformities are visualized. IMPRESSION: 1. Slight improvement in the left mid to lower lung zone airspace opacities, superimposed on chronic interstitial lung disease Electronically signed by: Cali Alfonso M.D. 08/13/2017 11:45 AM Dictated Date/Time: 08/13/2017 11:43 AM
== END | disposition home or self-care (01) ==
LOC: C.RAD1850 11:09
PROVIDERS: ATTEND Nurse Practitioner
DX: J84.9 Interstitial pulmonary disease, unspecified (principal)

== ENCOUNTER → 2017-08-31 | Outpatient (CLI) | payer OTHER ==
--- NOTE | 2017-08-31 11:18 | DIAGNOSTIC IMAGING REPORT ---
CHEST 2 VIEWS ROUTINE CLINICAL HISTORY: J18.9 PneumoniaFollow up CXR for [id number] pneumonia COMPARISON STUDY: 08/13/2017 FINDINGS: Extensive interstitial lung disease unchanged in terms of baseline appearance. No evidence for progressive infiltrative change. Unchanging fullness of the mid mediastinum and right hilum. Unchanged old fracture superior sternum. Unchanged degenerative changes thoracic spine. IMPRESSION: Stable bilateral parenchymal fibrosis. No change from the prior exam. The above report was generated using voice recognition software. It may contain grammatical, syntax or spelling errors. Electronically signed by: Marques Fox M.D. 08/31/2017 11:17 AM Dictated Date/Time: 08/31/2017 11:15 AM
== END | disposition home or self-care (01) ==
LOC: C.RAD 10:45
PROVIDERS: ATTEND Physician Assistant Medical
DX: J18.9 Pneumonia, unspecified organism (principal); J84.10 Pulmonary fibrosis, unspecified

== ENCOUNTER → 2017-09-11 | Outpatient (CLI) | payer OTHER ==
--- NOTE | 2017-09-11 11:13 | DIAGNOSTIC IMAGING REPORT ---
CHEST 2 VIEWS ROUTINE CLINICAL HISTORY: Z87.01 History of pneumonia Follow up CXR for [id number] COMPARISON STUDY: 08/31/2017 FINDINGS: The cardiac and mediastinal contours remain stable. There is a thoracolumbar scoliosis. There is extensive interstitial lung disease with a subpleural distribution, unchanged from the preceding study. Superimposed left lower lung airspace opacities are again suspected. While unchanged from the prior study, these are more pronounced than in June 2017 suggesting a superimposed pneumonitis.. There is no overt failure. Multiple vertebral body compression deformities are again evident. There is an old sternal fracture.[ IMPRESSION: Stable left mid to lower lung zone airspace opacity superimposed on chronic interstitial lung disease. Electronically signed by: Cali Alfonso M.D. 09/11/2017 11:12 AM Dictated Date/Time: 09/11/2017 10:31 AM
== END | disposition home or self-care (01) ==
LOC: C.RAD1850 10:05
PROVIDERS: ATTEND Nurse Practitioner
DX: Z87.01 Personal history of pneumonia (recurrent) (principal); J84.9 Interstitial pulmonary disease, unspecified

== ENCOUNTER → 2017-10-07 | Outpatient (CLI) | payer OTHER ==
[~2017-10-07] MED LIST changes: +ESTR0.752 PO; +PANT40TA2 PO; +PRAV40TA2 PO
[2017-10-07 18:35] LABS: BASO % 0.2 %; BASO ABS # 0.02 K/uL (0-0.2); EOS % 0.5 %; EOS ABS # 0.05 K/uL (0-0.5); HEMATOCRIT 41.3 % (37-47); HEMOGLOBIN 13.9 g/dL (12.0-16.0); IG# 0.03 K/uL (0.00-0.02); LYMPH % 17.1 %; MEAN CELL VOLUME 96.3 fL (80-100); MEAN CORPUSCULAR HEMOGLOBIN 32.4 pg (25-34); MEAN CORPUSCULAR HGB CONC 33.7 g/dl (32-36); MEAN PLATELET VOLUME 10.1 fL (7.4-10.4); MONO % 3.7 %; MONO ABS # 0.41 K/uL (0.11-0.59); NEUT % 78.2 %; NEUT ABS # 8.69 K/uL (1.4-6.5); PLATELET COUNT 230 K/uL (130-400); RED CELL DISTRIBUTION WIDTH CV 14.6 % (11.5-14.5); RED CELL DISTRIBUTION WIDTH SD 51.4 fL (36.4-46.3)
[2017-10-07 18:42] LABS: ALBUMIN 2.9 gm/dl (3.4-5.0); ALT/SGPT 22 U/L (12-78); BLOOD UREA NITROGEN 15 mg/dl (7-18); CALCIUM 8.9 mg/dl (8.5-10.1); CARBON DIOXIDE 32 mmol/L (21-32); CREATININE 1.09 mg/dl (0.60-1.20); GLUCOSE 184 mg/dl (70-99); POTASSIUM 4.1 mmol/L (3.5-5.1); SODIUM 132 mmol/L (136-145)
[2017-10-07 18:53] LABS: ALKALINE PHOSPHATASE 62 U/L (45-117); AST/SGOT 20 U/L (15-37); TOTAL PROTEIN 7.9 gm/dl (6.4-8.2)
== END | disposition home or self-care (01) ==
LOC: C.LABSPEC 15:02
PROVIDERS: ATTEND Internal Medicine
DX: N39.0 Urinary tract infection, site not specified (principal); R10.9 Unspecified abdominal pain; R63.4 Abnormal weight loss

== ENCOUNTER → 2017-10-09 | Outpatient (CLI) | payer OTHER ==
[~2017-10-09] MED LIST changes: +OPTIRAY 320 IV PRN
--- NOTE | 2017-10-09 13:33 | DIAGNOSTIC IMAGING REPORT ---
ABDOMEN AND PELVIS CT WITH IV AND ORAL CONTRAST CT DOSE: 313.85 mGy.cm HISTORY: Acute left-sided abdominal pain with clinical concern for possible acute diverticulitis L SIDE ABD PAIN R/O DIVERTICULITIS TECHNIQUE: Multiaxial CT images of the abdomen and pelvis were performed following the use of intravenous and oral contrast. A dose lowering technique was utilized adhering to the principles of ALARA. COMPARISON STUDY: CT abdomen and pelvis 12/30/2016, CT chest 04/16/2017. FINDINGS: Extensive subpleural reticulation with areas of honeycombing and mild traction bronchiectasis again noted within the lung bases compatible with interstitial lung disease. There is progression of groundglass and consolidative opacities within the basal left lower lobe and inferior segment lingula. Evaluation of the lung bases is limited secondary to respiratory motion. The entire study is mildly limited secondary to motion artifact. There is no pneumatosis or pneumoperitoneum identified. The imaged inferior cardiac chambers are moderately enlarged with coronary arterial disease. The liver, spleen, pancreas, gallbladder and adrenal glands are unremarkable. There is ill-defined area of low-attenuation involving the superior pole left kidney measuring 1.2 cm with mild surrounding perinephric stranding which appears to be new from CT chest 04/16/2017 also new from comparison CT abdomen and pelvis 12/30/2016. Bilateral kidneys and ureters are otherwise unremarkable. No ureteral calculi or obstructive uropathy. Bladder is partially collapsed. Uterus and adnexa are unremarkable. Moderate atherosclerosis and mild tortuosity of the aorta without aneurysm. No bulky adenopathy is identified. There is moderate circumferential wall thickening with mild surrounding stranding involving the distal esophagus and gastroesophageal junction. There is no bowel obstruction or focal bowel wall thickening. Moderate sigmoid diverticulosis without CT evidence of acute diverticulitis. The appendix appears normal. Soft tissues are unremarkable. The bones appear moderately demineralized. Multilevel discogenic degenerative changes are seen within the spine. Multiple compression deformities are redemonstrated with progressively worsened 50% central compression deformity of the L4 vertebral body. Anterior endplate compression deformity of approximately 20% involving the L2 vertebral body is also new from comparison. No significant retropulsion. IMPRESSION: 1. Mild wall thickening of the distal esophagus and gastroesophageal junction with surrounding inflammatory stranding suggests esophagitis with gastritis from unknown etiology. These findings could be correlated with endoscopy. 2. Ill-defined 1.2 cm focal area of low-attenuation involving the superior pole left kidney with mild surrounding stranding is new from comparison CTA of the chest 04/16/2017 and is nonspecific with focal pyelonephritis or developing lesion differential considerations. Attention at follow-up recommended. 3. Colonic diverticulosis without CT evidence of acute diverticulitis. 4. No bowel obstruction. 5. Interstitial lung disease again noted within the imaged lung bases with progressively worsened consolidative and groundglass opacities of the left lung base. Correlate clinically to exclude superimposed pneumonitis. 6. Age-indeterminate compression deformities at the L2 and L4 vertebral bodies with compression at L2 new from 12/30/2016 and the compression deformity of L4 progressively worsened. No associated significant retropulsion, or high-grade central canal narrowing. Electronically signed by: Garrick Thompson M.D. 10/09/2017 1:31 PM Dictated Date/Time: 10/09/2017 1:18 PM
== END | disposition home or self-care (01) ==
LOC: C.CTS 10:54
PROVIDERS: ATTEND Internal Medicine
DX: R10.9 Unspecified abdominal pain (principal); K57.30 Diverticulosis of large intestine without perforation or abscess without bleeding; M43.8X6 Other specified deforming dorsopathies, lumbar region

== ENCOUNTER 2017-10-15 09:08 | Inpatient (IN) | payer OTHER ==
[~2017-10-15] VITALS: Ht 170.2 cm; Wt 68.0 kg
[~2017-10-15 09:08] MED LIST changes: -ESTR0.752 PO; -OPTIRAY 320 IV PRN; -PANT40TA2 PO; -PRAV40TA2 PO
[2017-10-15] MEDS ORDERED: ONDANSETRON INJ 2 MG/ML 2 ML VIAL IV STA (09:38)
[2017-10-15] MEDS ORDERED: SODIUM CHLORIDE 0.9% 1000ML 1,000 ML IV STA (09:38)
[2017-10-15] MEDS ORDERED: GI COCKTAIL PO STA (09:43)
[2017-10-15] MEDS ORDERED: ALBUTEROL 0.083% NEBU SOLN 3 ML VIAL INH STA (09:50)
[2017-10-15] MEDS ORDERED: LIDOCAINE HCL 2% VISC SOLN 20 ML UDC ONE (09:50)
[2017-10-15] MEDS ORDERED: ALUMINUM/MAGNESIUM SUSP 30 ML UDC ONE (09:50)
--- NOTE | 2017-10-15 10:20 | DIAGNOSTIC IMAGING REPORT ---
CHEST ONE VIEW PORTABLE CLINICAL HISTORY: Pain, radiating to the abdomen COMPARISON STUDY: 09/11/2017 FINDINGS: The cardiac and mediastinal contours remain stable. There is a persistent scoliosis. There is extensive underlying interstitial lung disease most severe within the left lower lung zone and right upper lung zone. The findings remain unchanged. There is no acute parenchymal consolidation.[ IMPRESSION: Stable interstitial lung disease, with stable more focal disease involving the right upper lung zone and left lower lung zone Electronically signed by: Cali Alfonso M.D. 10/15/2017 10:18 AM Dictated Date/Time: 10/15/2017 10:16 AM
[2017-10-15 10:28] LABS: HEMATOCRIT 42.3 % (37-47); HEMOGLOBIN 14.8 g/dL (12.0-16.0); MEAN CELL VOLUME 91.8 fL (80-100); MEAN CORPUSCULAR HEMOGLOBIN 32.1 pg (25-34); MEAN PLATELET VOLUME 9.4 fL (7.4-10.4); PLATELET COUNT 171 K/uL (130-400); RED CELL DISTRIBUTION WIDTH CV 14.2 % (11.5-14.5); RED CELL DISTRIBUTION WIDTH SD 47.9 fL (36.4-46.3)
[2017-10-15 10:47] LABS: ALBUMIN 2.7 gm/dl (3.4-5.0); ALT/SGPT 23 U/L (12-78); BLOOD UREA NITROGEN 13 mg/dl (7-18); CALCIUM 8.1 mg/dl (8.5-10.1); CARBON DIOXIDE 33 mmol/L (21-32); CREATININE 0.88 mg/dl (0.60-1.20); GLUCOSE 103 mg/dl (70-99); LIPASE 434 U/L (73-393); POTASSIUM 3.2 mmol/L (3.5-5.1); SODIUM 124 mmol/L (136-145)
[2017-10-15] MEDS ORDERED: PANT40TA2 PO (10:47)
[2017-10-15] MEDS ORDERED: ESTR0.752 PO (10:47)
[2017-10-15] MEDS ORDERED: PRAV40TA2 PO (10:47)
[2017-10-15 10:55] LABS: ALKALINE PHOSPHATASE 66 U/L (45-117); AST/SGOT 38 U/L (15-37); TOTAL PROTEIN 7.6 gm/dl (6.4-8.2)
[2017-10-15 11:06] LABS: INFLUENZA B ANTIGEN Neg for Influ B (NEG)
--- NOTE | 2017-10-15 11:32 | DIAGNOSTIC IMAGING REPORT ---
(CHEST FOR PE) ANGIO WITH CT DOSE: 281.08 mGycm HISTORY: Chest pain dyspnea TECHNIQUE: Multiaxial CT images of the chest were performed following the intravenous administration of contrast to evaluate the pulmonary arteries. Maximal intensity projection images were also obtained. A dose lowering technique was utilized adhering to the principles of ALARA. COMPARISON STUDY: 04/16/2017 FINDINGS: There is a normal caliber thoracic aorta with no evidence for dissection. There is no evidence for pulmonary embolus. No pleural effusions. No pneumothorax. Diffuse bilateral parenchymal fibrosis. This is in general is somewhat progressive compared to the prior exam. There is a superimposed infiltrative process of the left upper lobe. There is a component of peripheral consolidation involving the lingula. Superimposed inflammatory processes involving the right apex is not excluded. No acute bony abnormalities appreciated. The old fractures and sternal manubrium as well as multifocal compression deformities of the thoracic spine are unchanged from the prior study. IMPRESSION: 1. 1. Study is negative for pulmonary embolus. 2. Moderately progressive parenchymal fibrosis compared to the prior study. 3. Superimposed infiltrate medial and inferior left upper lobe and lingula as well as right apex. 4. Old bone posttraumatic changes involving the sternal manubrium and thoracic spine. The above report was generated using voice recognition software. It may contain grammatical, syntax or spelling errors. Electronically signed by: Marques Fox M.D. 10/15/2017 11:30 AM Dictated Date/Time: 10/15/2017 11:22 AM
[2017-10-15] MEDS ORDERED: LEVAQUIN 750MG / 150ML D5W IV STA (11:34)
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
[2017-10-15] MEDS ORDERED: BUTALBITAL/ACETAMIN/CAFFEINE TAB PO PRN (12:30)
[2017-10-15] MEDS ORDERED: MoRPHine SULFATE 2 MG/ML CARP IV PRN (12:45)
[2017-10-15] MEDS ORDERED: ACETAMINOPHEN 325 MG TAB PO PRN (12:45)
[2017-10-15] MEDS ORDERED: ALUMINUM/MAGNESIUM/SIMETH (MAALOX MAX) 30 ML UDC PO PRN (12:45)
[2017-10-15] MEDS ORDERED: MAGNESIUM HYDROXIDE SUSP 30 ML UDC PO PRN (12:45)
[2017-10-15] MEDS ORDERED: ONDANSETRON INJ 2 MG/ML 2 ML VIAL IV PRN (12:45)
[2017-10-15] MEDS ORDERED: POLYETHYLENE (MIRALAX) 17 GM PACK PO PRN (12:45)
[2017-10-15 14:03] VITALS: BP 147/85; PULSE 68; TEMP 36.5; Ht 170.2 cm; Wt 68.0 kg
[2017-10-15] MEDS ORDERED: LEVOFLOXACIN CONSULT ACTIVE PRN (14:30)
[2017-10-15] MEDS: ALBUT/IPRATROP 3MG/0.5MG NEB 3 ML VIAL INH SCH ×2 (14:35→19:02)
[2017-10-15 15:08] VITALS: BP 151/96; PULSE 70; TEMP 36.6; O2SAT 97
[2017-10-15 15:09] LABS: INR 1.1 (0.9-1.1)
[2017-10-15] MEDS ORDERED: ALBUT/IPRATROP 3MG/0.5MG NEB 3 ML VIAL INH SCH (15:15)
[2017-10-15] MEDS ORDERED: MAGNESIUM SULFATE 1GM / D5W 1 GM in PREMIXED IN D5W 100 ML IV ONE (15:30)
[2017-10-15] MEDS ORDERED: POTASSIUM CHLR 20 MEQ / WTR 10 MEQ in PREMIXED WATER 100 ML IV SCH (15:30)
--- NOTE | 2017-10-15 16:03 | EMERGENCY ROOM VISIT NOTE ---
History Report prepared by [employer]: Michael Rios Under the Supervision of: Dr. Mart He D.O. First contact with patient: 09:23 Chief Complaint: DEHYDRATION Stated Complaint: SEVERE DRYNESS,MOUTH AND NOSE,FEEL VERY ILL Nursing Triage Summary: triage note: pt reports no appetite, "my mouth and nose are so dry i can barely stand." pt reports diarrhea and nausea. pt reports pain in left ribs that wrap around to back - started this am. History of Present Illness The patient is a 82 year old female who presents to the Emergency Room with complaints of persistent generalized weakness beginning a few days ago. She states "I just feel sick, I can't explain it". The patient states that she feels very hungry, but has not been able to eat much recently. She also notes that she feels very dehydrated. She also complains of a sensation of mucous in her throat, "sharp" left upper abdominal pain, and increased shortness of breath. The patient's pain began this morning, and wraps around to her back. Her pain is unchanged with breathing. Pt denies headache, change in vision, fevers, cough, nausea, vomiting, diarrhea, vaginal bleeding, pain with urination , and melena. She is 2 L on supplemental oxygen at night at home. She notes that she occasionally has "yellow stains in my pantie line", but this is not new and has followed up with bus assistant about this. The patient had a CT abdomen six days ago for abdominal pain. She states that her abdominal pain resolved a few days later, and has returned within the past few days intermittently. She notes that her pain is intermittent in nature and is described as "stabbing". The patient is not on any blood thinners. Source of History: patient Onset: A few days ago Position: other (generalized) Quality: other (weakness) Timing: other (persistent) Associated Symptoms: + SOB (increased), + abdominal pain (left upper, "sharp "), + back pain, No fevers, No chills, No headache, No chest pain, No nausea, No vomiting, No diarrhea, No urinary symptoms Review of Systems See HPI for pertinent positives & negatives. A total of 10 systems reviewed and were otherwise negative. Past Medical & Surgical Medical Problems: (1) Benign tumor of breast (2) Diabetes (3) FALL, MULTIPLE FX (4) Heart disease (5) Hypertension (6) Migraines (7) Pneumonia (8) Rheumatoid arthritis (9) Troponin I above reference range Family History Cancer Diabetes mellitus Gallbladder disease Heart disease Lung disease Social History Smoking Status: Former Smoker Alcohol Use: none Marital Status: Housing Status: lives alone Occupation Status: retired Current/Historical Medications Scheduled Atenolol (Tenormin), 25 MG PO QPM Calcium/Vitamin D (Os-Louis 500 Plus D), 1 TAB PO BID Clonazepam (Klonopin), 0.5 MG PO HS Diltiazem Hcl Ext Rel (Tiazac), 240 MG PO QPM Estropipate (Estropipate), 0.75 MG PO DAILY Losartan Potassium (Cozaar), 25 MG PO QPM Medroxyprogesterone (Provera), 2.5 MG PO QPM Ocuvite Preservision (Ocuvite Preservision), 1 TAB PO BID Pantoprazole (Pantoprazole Sodium), 40 MG PO DAILY Pravastatin Sodium (Pravastatin Sodium), 80 MG PO DAILY Prednisone (Prednisone), 10 MG PO QAM Scheduled PRN Acetamin/Butalbital/Caffeine (Fioricet), 1 TAB PO UD PRN for Migraine Allergies Coded Allergies: Amoxicillin (Verified Allergy, Unknown, UNKNOWN, 04/16/17) Clavulanic Acid (Verified Allergy, Unknown, UNKNOWN, 04/16/17) Clindamycin (Verified Allergy, Unknown, UNKNOWN, 04/16/17) Penicillins (Verified Allergy, Unknown, UNKNOWN, 04/16/17) Sulfa Antibiotics (Verified Adverse Reaction, Intermediate, NAUSEA, ) Aspirin (Verified Adverse Reaction, Mild, GI SYMPTOMS, 04/16/17) Uncoded Allergies: ARTIFICIAL SWEETNER (Allergy, Mild, TONGUE SORE, 12/30/12) Physical Exam Vital Signs Date Time Temp Pulse Resp B/P (MAP) Pulse Ox O2 Delivery O2 Flow Rate FiO2 10/15/17 12:03 90 20 155/94 97 10/15/17 11:53 161/101 10/15/17 11:51 98 18 161/100 96 10/15/17 09:13 36.6 91 18 149/85 89 Room Air Physical Exam GENERAL: Sitting up in bed, talking in full sentences, no acute distress, nontoxic EYE EXAM: normal conjunctiva. PERRL and EOM's grossly intact. OROPHARYNX: no exudate, no erythema, lips, buccal mucosa, and tongue normal and mucous membranes are moist NECK: supple, no nuchal rigidity, no adenopathy, non-tender. No JVD. LUNGS: Faint wheezing bilaterally. Normal chest wall mechanics HEART: no murmurs, S1 normal and S2 normal ABDOMEN: abdomen soft, normo-active bowel sounds, no masses, no rebound or guarding. Minimal diffuse tenderness in LUQ. BACK: Back is symmetrical on inspection and there is no deformity, no midline tenderness, no CVA tenderness. SKIN: no rashes and no bruising UPPER EXTREMITIES: upper extremities are grossly normal. LOWER EXTREMITIES: Calves equal bilaterally. NEURO EXAM: Normal sensorium, cranial nerves II-XII grossly intact, normal speech, no gross weakness of arms, no gross weakness of legs. Medical Decision & Procedures ER Provider Diagnostic Interpretation: Radiology results as stated below per my review and the radiologist's interpretation: (CHEST FOR PE) ANGIO WITH FINDINGS: There is a normal caliber thoracic aorta with no evidence for dissection. There is no evidence for pulmonary embolus. No pleural effusions. No pneumothorax. Diffuse bilateral parenchymal fibrosis. This is in general is somewhat progressive compared to the prior exam. There is a superimposed infiltrative process of the left upper lobe. There is a component of peripheral consolidation involving the lingula. Superimposed inflammatory processes involving the right apex is not excluded. No acute bony abnormalities appreciated. The old fractures and sternal manubrium as well as multifocal compression deformities of the thoracic spine are unchanged from the prior study. IMPRESSION: 1. Study is negative for pulmonary embolus. 2. Moderately progressive parenchymal fibrosis compared to the prior study. 3. Superimposed infiltrate medial and inferior left upper lobe and lingula as well as right apex. 4. Old bone posttraumatic changes involving the sternal manubrium and thoracic spine The above report was generated using voice recognition software. It may contain grammatical, syntax or spelling errors. Electronically signed by: Marques Fox M.D. 10/15/2017 11:30 AM CHEST ONE VIEW PORTABLE FINDINGS: The cardiac and mediastinal contours remain stable. There is a persistent scoliosis. There is extensive underlying interstitial lung disease most severe within the left lower lung zone and right upper lung zone. The findings remain unchanged. There is no acute parenchymal consolidation.[ IMPRESSION: Stable interstitial lung disease, with stable more focal disease involving the right upper lung zone and left lower lung zone Electronically signed by: Cali Alfonso M.D. 10/15/2017 10:18 AM Laboratory Results 10/15/17 10:05 Red Blood Count 4.61, Mean Corpuscular Volume 91.8, Mean Corpuscular Hemoglobin 32.1, Mean Corpuscular Hemoglobin Concent 35.0, Mean Platelet Volume 9.4 10/15/17 10:05 Test 10/15/17 10:00 10/15/17 10:05 10/15/17 11:30 Influenza Type A Antigen Neg for Influ A (NEG) Influenza Type B Antigen Neg for Influ B (NEG) White Blood Count 5.90 K/uL (4.8-10.8) Red Blood Count 4.61 M/uL (4.2-5.4) Hemoglobin 14.8 g/dL (12.0-16.0) Hematocrit 42.3 % (37-47) Mean Corpuscular Volume 91.8 fL (80-100) Mean Corpuscular Hemoglobin 32.1 pg (25-34) Mean Corpuscular Hemoglobin Concent 35.0 g/dl (32-36) Platelet Count 171 K/uL (130-400) Mean Platelet Volume 9.4 fL (7.4-10.4) RDW Standard Deviation 47.9 fL (36.4-46.3) RDW Coefficient of Variation 14.2 % (11.5-14.5) Neutrophils % (Manual) 31.0 % Lymphocytes % (Manual) 20.4 % Monocytes % (Manual) 15.0 % Basophils % (Manual) 0.9 % Neutrophils # (Manual) 1.83 K/uL (1.4-6.5) Total Absolute Neutrophils 1.83 K/uL (1.4-6.5) Lymphocytes # (Manual) 1.20 K/uL (1.2-3.4) Total Absolute Lymphocytes 3.13 K/uL (1.2-3.4) Monocytes # (Manual) 0.89 K/uL (0.11-0.59) Basophils # (Manual) 0.05 K/uL (0-0.2) Percent Large Granular Lymphocytes 32.7 % Absolute Large Granular Lymphocytes 1.93 K/uL Smudge Cells PRESENT Anion Gap 8.0 mmol/L (3-11) Est Creatinine Clear Calc Drug Dose 49.6 ml/min Estimated GFR () 71.9 Estimated GFR (Non- 62.1 BUN/Creatinine Ratio 15.0 (10-20) Calcium Level 8.1 mg/dl (8.5-10.1) Total Bilirubin 0.3 mg/dl (0.2-1) Direct Bilirubin < 0.1 mg/dl (0-0.2) Aspartate Amino Transf (AST/SGOT) 38 U/L (15-37) Alanine Aminotransferase (ALT/SGPT) 23 U/L (12-78) Alkaline Phosphatase 66 U/L (45-117) Total Protein 7.6 gm/dl (6.4-8.2) Albumin 2.7 gm/dl (3.4-5.0) Urine Color YELLOW Urine Appearance CLEAR (CLEAR) Urine pH 7.0 (4.5-7.5) Urine Specific [place] 1.013 (1.000-1.030) Urine Protein 2+ (NEG) Urine Glucose (UA) NEG (NEG) Urine Ketones NEG (NEG) Urine Occult Blood NEG (NEG) Urine Nitrite NEG (NEG) Urine Bilirubin NEG (NEG) Urine Urobilinogen NEG (NEG) Urine Leukocyte Esterase NEG (NEG) Urine WBC (Auto) 1-5 /hpf (0-5) Urine RBC (Auto) 0-4 /hpf (0-4) Urine Hyaline Casts (Auto) 1-5 /lpf (0-5) Urine Epithelial Cells (Auto) 10-20 /lpf (0-5) Urine Bacteria (Auto) NEG (NEG) Laboratory results per my review. Medications Administered Medications (Trade) Dose Ordered Sig/Anselmo Route Start Time Stop Time Status Last Admin Dose Admin Sodium Chloride 1,000 ml @ 999 mls/hr Q1H1M STAT IV 10/15/17 09:38 10/15/17 10:38 DC 10/15/17 09:55 999 MLS/HR Ondansetron HCl (Zofran Inj) 4 mg NOW STAT IV 10/15/17 09:38 18 09:39 DC 10/15/17 09:53 4 MG Albuterol Sulfate (Ventolin 0.083% 2.5MG/3ML Neb) 2.5 mg NOW STAT INH 2/22/18 09:50 10/15/17 09:51 DC 10/15/17 10:02 2.5 MG Al Hydroxide/Mg Hydroxide (Maalox Susp) 30 ml STK-MED ONCE .ROUTE 10/15/17 09:50 10/15/17 09:51 DC 10/15/17 09:53 30 ML Lidocaine HCl (Viscous Lidocaine 2% Soln) 20 ml STK-MED ONCE .ROUTE 10/15/17 09:50 10/15/17 09:51 DC 10/15/17 09:53 20 ML Levofloxacin (Levaquin / D5W) 750 mg NOW STAT IV 10/15/17 11:34 10/15/17 11:35 DC 10/15/17 12:02 750 MG ECG Per My Interpretation Indication: weakness Rate (beats per minute): 112 Rhythm: sinus tachycardia Findings: PVC, T-wave inversion (Inferior), other (Poor baseline) Comparison ECG Date: 04/16/2017 Change: T-wave inversion is worse. ED Course ED COURSE: Vital signs were reviewed and showed hypoxia The patients medical record was reviewed The above diagnostic studies were performed and reviewed. ED treatments and interventions as stated above. 0932: The patient was evaluated in room B6. A complete history and physical examination was performed. 0938: Ordered Zofran Inj 4 mg IV, Sodium Chloride 1000 ml @ 999 mls/hr IV. 0943: Ordered GI Cocktail 24 mL PO. []: Upon reevaluation, the patient is [].I discussed my findings with the [ patient] and [] understands and agrees with the treatment plan. Based on the patients age, coexisting illnesses, exam and lab findings the decision to treat as an [inpatient][outpatient] was made. The patient remained stable while under my care. [The patient appeared well at the time of discharge.] [The patient will be evaluated for further management.] Medical Decision Differential Diagnosis includes but is not limited to dehydration, stroke, anemia, hypoglycemia, hyponatremia, hypernatremia, urinary tract infection, pneumonia, bronchitis, sepsis, gastroenteritis, additional abdominal pathology, metabolic abnormalities and infections. Patient is an 82-year-old female who presents to the ER the presents to the ER for intermittent abdominal pain that has been present for the past week associated with intermittent chest pain/left upper quadrant/left lower chest wall pain. CBC was unremarkable. BMP shows hyponatremia at 124. CO2 is elevated slightly at 33. Troponin was elevated at 0.058. UA was negative. Flu was negative. CTA of the chest shows pneumonia. Patient was covered with IV antibiotics. They are up to the bedside. She was given IV fluids for hydration. EKG does not suggest that this is a STEMI. Case was discussed with internal medicine patient was admitted for further workup of her pneumonia along with her elevated troponin and dehydration causing hyponatremia. Medication Reconcilliation Current Medication List: was personally reviewed by me Blood Pressure Screening Patient's blood pressure: Elevated blood pressure Blood pressure disposition: Elevated BP felt to be situational Consults Time Called: [phone] Consulting Physician: Dr. Kayce HERRERA Hospitalist Returned Call: [phone] I reviewed the patient's case with Dr. Devries. SHARON will evaluate the patient for further management. Impression Primary Impression: Pneumonia Additional Impressions: Elevated troponin Hyponatremia Hypoxia Scribe Attestation The scribe's documentation has been prepared under my direction and personally reviewed by me in its entirety. I confirm that the note above accurately reflects all work, treatment, procedures, and medical decision making performed by me. Departure Information Dispostion Being Evaluated By Hospitalist Referrals No Doctor, Assigned (PCP) Patient Instructions My [facility] Problem Qualifiers Primary Impression: Pneumonia Pneumonia type: due to unspecified organism Laterality: unspecified laterality Lung location: unspecified part of lung Qualified Codes: J18.9 - Pneumonia, unspecified organism
[2017-10-15] MEDS: NSS + 20MEQ KCL 1000ML 1,000 ML IV SCH (16:16)
[2017-10-15] MEDS: POTASSIUM CHLR 10 MEQ / WTR 10 MEQ in PREMIXED WATER 100 ML IV SCH ×2 (16:17→17:54)
[2017-10-15 19:02] VITALS: PULSE 57; O2SAT 98
[2017-10-15 19:33] VITALS: BP 129/75; PULSE 73; TEMP 36.5; O2SAT 97
[2017-10-15] MEDS: LOSARTAN POTASSIUM 25 MG TAB PO SCH (20:04)
[2017-10-15] MEDS: METHYLPREDNISOLONE IV 40 MG in SYRINGE 0 ML IV SCH (20:04)
[2017-10-15] MEDS: DILTIAZEM HCL 120 MG EXT REL CAP PO SCH (20:05)
[2017-10-15] MEDS: CLONAZEPAM 0.5 MG TAB PO SCH (20:11)
[2017-10-15] MEDS: CEROVITE ADV FORMULA TAB PO SCH (20:12)
[2017-10-15] MEDS: HEPARIN SOD 5000 UNIT/0.5 ML CARP SQ SCH (20:13)
[2017-10-15 20:56] LABS: CALCIUM 7.9 mg/dl (8.5-10.1); CREATININE 0.87 mg/dl (0.60-1.20); POTASSIUM 3.6 mmol/L (3.5-5.1)
[2017-10-15 23:33] VITALS: BP 117/75; PULSE 54; TEMP 36.7; O2SAT 96
[2017-10-16] MEDS: ALBUT/IPRATROP 3MG/0.5MG NEB 3 ML VIAL INH SCH ×4 (01:35→19:40)
[2017-10-16 04:47] VITALS: BP 119/79; PULSE 54; TEMP 36.4; O2SAT 100
[2017-10-16] MEDS: NSS + 20MEQ KCL 1000ML 1,000 ML IV SCH (05:09)
[2017-10-16 06:05] LABS: HEMATOCRIT 39.8 % (37-47); HEMOGLOBIN 13.7 g/dL (12.0-16.0); MEAN CELL VOLUME 93.2 fL (80-100); MEAN CORPUSCULAR HEMOGLOBIN 32.1 pg (25-34); MEAN CORPUSCULAR HGB CONC 34.4 g/dl (32-36); NUCLEATED RED BLOOD CELL ABS 0.04 K/uL (0-0); PLATELET COUNT 177 K/uL (130-400); RED CELL DISTRIBUTION WIDTH CV 14.4 % (11.5-14.5); RED CELL DISTRIBUTION WIDTH SD 49.3 fL (36.4-46.3); WHITE BLOOD COUNT 3.85 K/uL (4.8-10.8)
[2017-10-16 06:42] LABS: CREATININE 0.9 mg/dl (0.60-1.20); POTASSIUM 4.9 mmol/L (3.5-5.1)
[2017-10-16 07:28] VITALS: BP 126/78; PULSE 47; TEMP 36.6; O2SAT 98
[2017-10-16] MEDS: PANTOprazole SOD 40 MG TAB PO SCH (08:22)
[2017-10-16] MEDS: METHYLPREDNISOLONE IV 40 MG in SYRINGE 0 ML IV SCH ×2 (08:22→13:42)
[2017-10-16] MEDS: CEROVITE ADV FORMULA TAB PO SCH ×2 (08:23→20:50)
[2017-10-16] MEDS: PRAVASTATIN SOD 40 MG TAB PO SCH (08:23)
[2017-10-16] MEDS: HEPARIN SOD 5000 UNIT/0.5 ML CARP SQ SCH ×2 (08:27→20:51)
[2017-10-16] MEDS ORDERED: LEVOFLOXACIN / D5W 750 MG in PREMIXED IN D5W 150 ML IV SCH (12:00)
[2017-10-16 12:17] VITALS: BP 149/80; PULSE 51; TEMP 36.6; O2SAT 99
[2017-10-16] MEDS ORDERED: NURSING VERBAL MED ORDER ONE (15:00)
[2017-10-16] MEDS ORDERED: CLOTRIMAZOLE 1% CR 15 GM TUBE EXT PRN (15:15)
[2017-10-16 15:45] VITALS: BP 169/90; PULSE 51; TEMP 36.5; O2SAT 99
[2017-10-16 19:08] VITALS: BP 150/84; PULSE 60; TEMP 36.4; O2SAT 98
--- NOTE | 2017-10-16 19:13 | Progress Note ---
Subjective Date of Service: Oct 16, 2017. Subjective Pt evaluation today including: conversation w/ patient, physical exam, chart review, lab review feeling better breathing better some sweats no fevers or chills later had ear pain and vaginal itch no chest pain Problem List Medical Problems: (1) Closed fracture of left proximal humerus Status: Acute (2) Contusion of left knee Status: Acute (3) Elevated troponin Status: Acute (4) Facial fracture Status: Acute (5) Fracture of manubrium Status: Acute (6) Hyponatremia Status: Acute (7) Hypoxia Status: Acute (8) Left sided chest pain Status: Acute (9) Thoracic compression fracture Status: Acute Review of Systems all other ROS otherwise negative except for as above Objective Vital Signs Date Time Temp Pulse Resp B/P (MAP) Pulse Ox O2 Delivery O2 Flow Rate FiO2 10/16/17 16:00 Nasal Cannula 2.0 10/16/17 15:45 36.5 51 20 169/90 (116) 99 Nasal Cannula 2.0 10/16/17 12:17 36.6 51 18 149/80 (103) 99 Room Air 10/16/17 12:00 Nasal Cannula 2.0 10/16/17 08:00 Nasal Cannula 2.0 10/16/17 07:28 36.6 47 16 126/78 (94) 98 Nasal Cannula 2.0 10/16/17 04:47 36.4 54 18 119/79 (92) 100 10/16/17 03:15 Nasal Cannula 2.0 10/16/17 00:00 Nasal Cannula 2.0 10/15/17 23:33 36.7 54 19 117/75 (89) 96 Room Air 10/15/17 20:00 Nasal Cannula 2.0 10/15/17 19:33 36.5 73 20 129/75 (93) 97 Nasal Cannula 2.0 Physical Exam General Appearance: no apparent distress Eyes: EOMI ENT: hearing grossly normal Neck: trachea midline Respiratory/Chest: no respiratory distress, no accessory muscle use, + decreased breath sounds (no r/r/w ) Extremities: normal range of motion Neurologic/Psychiatric: [employer] [place] II-XII nml as tested, alert, normal mood/affect Skin: normal color, warm/dry Laboratory Results Last 24 Hours Test 10/15/17 19:59 10/16/17 05:29 Sodium Level 124 mmol/L 125 mmol/L Potassium Level 3.6 mmol/L 4.9 mmol/L Chloride Level 86 mmol/L 89 mmol/L Carbon Dioxide Level 31 mmol/L 30 mmol/L Anion Gap 7.0 mmol/L 6.0 mmol/L Blood Urea Nitrogen 12 mg/dl 14 mg/dl Creatinine 0.87 mg/dl 0.90 mg/dl Est Creatinine Clear Calc Drug Dose 50.2 ml/min 48.5 ml/min Estimated GFR () 72.9 70.0 Estimated GFR (Non- 62.9 60.4 BUN/Creatinine Ratio 14.1 15.2 Random Glucose 109 mg/dl 144 mg/dl Calcium Level 7.9 mg/dl 8.0 mg/dl Troponin I 0.061 ng/ml White Blood Count 3.85 K/uL Red Blood Count 4.27 M/uL Hemoglobin 13.7 g/dL Hematocrit 39.8 % Mean Corpuscular Volume 93.2 fL Mean Corpuscular Hemoglobin 32.1 pg Mean Corpuscular Hemoglobin Concent 34.4 g/dl RDW Standard Deviation 49.3 fL RDW Coefficient of Variation 14.4 % Platelet Count 177 K/uL Mean Platelet Volume 10.0 fL Nucleated RBC Absolute Count (auto) 0.04 K/uL Nucleated Red Blood Cells % 1.0 % Magnesium Level 2.3 mg/dl Chemistry Specimen Hemolysis Assessment and Plan 82 y/o F Hx RA with ILD, HTN, DM, depression. Presents with progressive weakness, SOB and LQ abdominal pain wrapping around to her back. She describes nausea and an episode of diarrhea prior to arrival. She denies CP, vomiting, fevers or dysuria. A CT chest was obtained in the ER and is consistent with multilobar pneumonia. 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
[2017-10-16] MEDS: CLONAZEPAM 0.5 MG TAB PO SCH (20:50)
[2017-10-16] MEDS: LOSARTAN POTASSIUM 25 MG TAB PO SCH (20:50)
[2017-10-16] MEDS: DILTIAZEM HCL 120 MG EXT REL CAP PO SCH (20:51)
[2017-10-16 23:05] VITALS: BP 156/81; PULSE 50; TEMP 36.5; O2SAT 98
[2017-10-17] MEDS: ALBUT/IPRATROP 3MG/0.5MG NEB 3 ML VIAL INH SCH ×2 (01:51→07:15)
[2017-10-17 04:16] VITALS: BP 112/66; PULSE 62; TEMP 36.5; O2SAT 99
[2017-10-17 07:17] VITALS: PULSE 52; O2SAT 98
[2017-10-17 07:42] VITALS: BP 136/70; PULSE 50; TEMP 36.5; O2SAT 100
[2017-10-17] MEDS: HEPARIN SOD 5000 UNIT/0.5 ML CARP SQ SCH (09:00)
[2017-10-17] MEDS: PRAVASTATIN SOD 40 MG TAB PO SCH (09:00)
[2017-10-17] MEDS: CEROVITE ADV FORMULA TAB PO SCH (09:00)
[2017-10-17] MEDS: PANTOprazole SOD 40 MG TAB PO SCH (09:12)
[2017-10-17 09:33] LABS: CALCIUM 7.8 mg/dl (8.5-10.1); CREATININE 0.95 mg/dl (0.60-1.20); POTASSIUM 4.7 mmol/L (3.5-5.1)
[2017-10-17] MEDS ORDERED: LTRCR45 EXT (09:58)
[2017-10-17] MEDS ORDERED: PRED10TA PO (09:58)
[2017-10-17] MEDS ORDERED: LEVO1TAB35 PO (09:58)
--- NOTE | 2017-10-17 10:08 | Discharge Instructions ---
Discharge Instructions Date of Service Oct 17, 2017. Admission Reason for Admission: Pneumonia, Troponin I Above Reference Range Discharge Discharge Diagnosis / Problem: pneumonia Discharge Goals Goal(s): Diagnostic testing, Therapeutic intervention Activity Recommendations Activity Limitations: resume your previous activity . Instructions / Follow-Up Instructions / Follow-Up pneumonia -this was the main illness that got you sick. it is getting better nicely - typically when people have pulmonary fibrosis and then get a pneumonia on top of it, it can definitely make them sick enough to land in the hospital - but fortunately you're actually getting better far faster than the average person in this situation -we'll finish a course of treatment with levaquin (levofloxacin) once a day for 8 more days (10 days total treatment). if it upsets your stomach, take it with food. also (very rarely) levaquin can make people more prone to tendonitis or even tendon rupture - so while this is exceedingly unlikely to happen, it's always safer to take it easy for the next month or so (avoiding heavy lifting, overhead lifting, repetitive movements etc) -to keep the pulmonary fibrosis calmed down we'll do a course of prednisone - - 60mg x 2 days then 50mg x 2 days then 40mg x 2 days then 30mg x 2 days then 20mg x 2 days then 10mg x 2 days -we'll ask to get you in with Dr Jeff Cruz later this coming week to ensure you' re getting better as we would expect elevated troponin -troponin is an enzyme specific to your heart muscle - we look at it as an assessment of strain or damage to the heart. yours was very nominally elevated (0.066 at it's highest reading- for perspective upper limits of normal is 0.045 , a true heart attack with give values of ~50.0) -- we see this frequently, and generally what it amounts to is the "common sense conclusion" that having the pneumonia superimposed on your pulmonary fibrosis "put you on a treadmill" that wasn't fair for the circumstances -- that the physiologic stress and low oxygen state that a pneumonia creates simply put strain on your heart. when it's this low of an elevation, it doesn't amount to anything. all we'd ask is that if you were to feel any new chest pain/pressure/shortness of breath that you would let Dr Jeff Cruz know - although this is really unlikely to be a problem back pain and headache -these both really fit with muscle tension - likely from being in a strange bed , and being in bed far more than you're used to. more than likely both the headache and back pain will simply go away over the next day or two with a return to "normal life." if they don't, we'd recommend getting an appointment with Dr John Andersen - [facility] - who is a DO that does a lot of hands-on manipulative medicine. typically this is a pretty effective and lasting way to treat these types of syndromes; although again it's most likely that this will just get better and go away on its own rectal itching/burning -since you've been previously diagnosed with a fungal infection - continue to use the clotrimazole cream four times a day - we'll ask that you get back in with dermatology (our navigator will try to get this set up for you) since derm saw this first and would be able to compare to is manager progress - but if we're not able to get you in soon enough, Dr Jeff Cruz will be able to assess and provide further guidance with this as well Current Hospital Diet Patient's current hospital diet: AHA Diet (Heart Healthy) Discharge Diet Recommended Diet: AHA Diet (Heart Healthy) Pending Studies Studies pending at discharge: no Medical Emergencies . Who to Call and When: Medical Emergencies: If at any time you feel your situation is an emergency, please call 911 immediately. . Non-Emergent Contact Non-Emergency issues call your: Primary Care Provider . . "Provider Documentation" section prepared by Mart Ferrer. . VTE Core Measure Inpt VTE Proph given/why not?: Unfractionated heparin SQ
[2017-10-17] MEDS ORDERED: FLUCONAZOLE 50 MG TAB PO ONE (10:15)
--- NOTE | 2017-10-17 18:08 | Discharge Summary ---
Discharge Summary Date of Service Oct 17, 2017. Discharge Summary Admission Date: Oct 15, 2017 at 12:36 Discharge Date: Oct 17, 2017 Discharge Disposition: Home Principal Diagnosis: CAP superimposed on interstitial lung disease Procedures: [~ rep ct add3]] (CHEST FOR PE) ANGIO WITH CT DOSE: 281.08 mGycm HISTORY: Chest pain dyspnea TECHNIQUE: Multiaxial CT images of the chest were performed following the intravenous administration of contrast to evaluate the pulmonary arteries. Maximal intensity projection images were also obtained. A dose lowering technique was utilized adhering to the principles of ALARA. COMPARISON STUDY: 04/16/2017 FINDINGS: There is a normal caliber thoracic aorta with no evidence for dissection. There is no evidence for pulmonary embolus. No pleural effusions. No pneumothorax. Diffuse bilateral parenchymal fibrosis. This is in general is somewhat progressive compared to the prior exam. There is a superimposed infiltrative process of the left upper lobe. There is a component of peripheral consolidation involving the lingula. Superimposed inflammatory processes involving the right apex is not excluded. No acute bony abnormalities appreciated. The old fractures and sternal manubrium as well as multifocal compression deformities of the thoracic spine are unchanged from the prior study. IMPRESSION: 1. 1. Study is negative for pulmonary embolus. 2. Moderately progressive parenchymal fibrosis compared to the prior study. 3. Superimposed infiltrate medial and inferior left upper lobe and lingula as well as right apex. 4. Old bone posttraumatic changes involving the sternal manubrium and thoracic spine. The above report was generated using voice recognition software. It may contain grammatical, syntax or spelling errors. Electronically signed by: Marques Fox M.D. 10/15/2017 11:30 AM Dictated Date/Time: 10/15/2017 11:22 AM Last Resulted CBC 10/16/17 05:29 Last Resulted BMP 10/17/17 08:30 Medication Reconciliation New Medications: Levofloxacin (Levaquin) 750 Mg Tab 750 MG PO DAILY, #8 TAB Prednisone Tab (Prednisone) 10 Mg Tab 10 MG PO UD, #42 TAB 6 po x 2 days then 5 po x 2 days then 4 po x 2 days then 3 po x 2 days then 2 po x 2 days then 1 po x 2 days Clotrimazole (Clotrimazole) 135 Appln/45 Gm Cr 1 APPLN EXT QID, #45 GM Continued Medications: Acetamin/Butalbital/Caffeine (Fioricet) 1 Ea Tab 1 TAB PO UD PRN for Migraine, TAB Atenolol (Tenormin) 25 Mg Tab 25 MG PO QPM, TAB Calcium/Vitamin D (Os-Louis 500 Plus D) Tab 1 TAB PO BID, TAB Clonazepam (Klonopin) 0.5 Mg Tab 0.5 MG PO HS, TAB Diltiazem Hcl Ext Rel (Tiazac) 240 Mg Capcr 240 MG PO QPM, CAP Estropipate (Estropipate) 0.75 Mg Tab 0.75 MG PO DAILY Losartan Potassium (Cozaar) 25 Mg Tab 25 MG PO QPM, TAB Medroxyprogesterone (Provera) 2.5 Mg Tab 2.5 MG PO QPM, TAB Ocuvite Preservision (Ocuvite Preservision) 1 Tab Tab 1 TAB PO BID, TAB Pantoprazole (Pantoprazole Sodium) 40 Mg Tab 40 MG PO DAILY Pravastatin Sodium (Pravastatin Sodium) 40 Mg Tab 80 MG PO DAILY Prednisone (Prednisone) 5 Mg Tab 10 MG PO QAM, TAB Discharge Exam Physical Exam: General Appearance: no apparent distress Eyes: EOMI ENT: hearing grossly normal Neck: trachea midline Respiratory/Chest: no respiratory distress, no accessory muscle use, + rales (faint scattered throughout - suspect this is her baseline exam w ILD) Neurologic/Psychiatric: 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 Presents with progressive weakness, SOB and LQ abdominal pain wrapping around to her back. She describes nausea and an episode of diarrhea prior to arrival. She denies CP, vomiting, fevers or dysuria. A CT chest was obtained in the ER and is consistent with multilobar pneumonia. 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 Discharge Instructions Please refer to the electronic Patient Visit Report (Discharge Instructions) for additional information. Additional Copies To Ranulfo Landin M.D.
== END 2017-10-17 11:24 | disposition home or self-care (01) | DRG 194 ==
LOC: C.EDB 09:09 → C.2T 12:36 → ENRESERV 12:54 → CANRESERV 10-16 19:40 → ENRESERV 10-16 20:14 → CANBEDREQ 10-16 20:43
PROVIDERS: ADMIT Internal Medicine; ATTEND Family Medicine
DX: J18.9 Pneumonia, unspecified organism (principal); J84.9 Interstitial pulmonary disease, unspecified; I24.8 Other forms of acute ischemic heart disease; E87.1 Hypo-osmolality and hyponatremia; R09.02 Hypoxemia; E87.6 Hypokalemia; B37.2 Candidiasis of skin and nail; E11.9 Type 2 diabetes mellitus without complications; I11.9 Hypertensive heart disease without heart failure; I48.0 Paroxysmal atrial fibrillation; M06.9 Rheumatoid arthritis, unspecified; F32.9 Major depressive disorder, single episode, unspecified; Z79.899 Other long term (current) drug therapy; Z79.52 Long term (current) use of systemic steroids; Z87.891 Personal history of nicotine dependence; Z91.02 Food additives allergy status; Z83.3 Family history of diabetes mellitus

== ENCOUNTER 2017-11-06 14:07 | Emergency (ER) | payer OTHER ==
[~2017-11-06] VITALS: Ht 170.2 cm; Wt 66.0 kg
[~2017-11-06 14:07] MED LIST changes: -CLBPO15 TOP; -CLC100 PO; +ESTR0.752 PO; -HPRIS5M SQ; -HYDR-5688 PO; -IBUP-1050 PO; +LEVO1TAB35 PO; +LTRCR45 EXT; -NORGTAB PO; +PANT40TA2 PO; +PRAV40TA2 PO; -PRAV80TA2 PO; +PRED10TA PO
[2017-11-06 14:15] VITALS: TEMP 36.6; Ht 170.2 cm; Wt 66.0 kg
[2017-11-06] MEDS ORDERED: METHYLPREDNISOLONE 125 MG VIAL IV STA (15:00)
[2017-11-06] MEDS ORDERED: ALBUT/IPRATROP 3MG/0.5MG NEB 3 ML VIAL INH ONE (15:00)
[2017-11-06] MEDS ORDERED: SODIUM CHLORIDE 0.9% 500ML 500 ML IV STA (15:00)
[2017-11-06 15:06] VITALS: O2SAT 95
[2017-11-06] MEDS ORDERED: [UNRECOGNIZED DRUG - CODE] TD (15:18)
[2017-11-06 15:21] VITALS: PULSE 73; O2SAT 98
--- NOTE | 2017-11-06 15:23 | DIAGNOSTIC IMAGING REPORT ---
CHEST ONE VIEW PORTABLE HISTORY: 82 years-old Female CHEST PAIN acute atypical chest pain COMPARISON: Chest radiograph and CTA chest 10/15/2017 TECHNIQUE: Portable AP view of the chest FINDINGS: Cardiac silhouette is again enlarged, unchanged. Atherosclerosis of the aorta. Chronic interstitial lung disease redemonstrated without pneumothorax. Additionally, there is interval development of new mixed interstitial and alveolar opacities within a mid and lower lung zone predominant distribution with small bilateral pleural effusions. Bones of the chest appear grossly intact. Mild levoscoliosis of the thoracic spine. Healed chronic fracture deformity of the left proximal humerus. Degenerative changes are seen throughout the shoulders and spine. IMPRESSION: 1. Cardiomegaly with new mixed interstitial and alveolar opacities within a mid and lower lung zone predominant distribution with small bilateral pleural effusions suggesting pulmonary edema or less likely multifocal pneumonia. 2. Background chronic interstitial lung disease. The above report was generated using voice recognition software. It may contain grammatical, syntax or spelling errors. Electronically signed by: Garrick Thompson M.D. 11/06/2017 3:22 PM Dictated Date/Time: 11/06/2017 3:18 PM
[2017-11-06] MEDS ORDERED: OPTIRAY 320 IV PRN (15:30)
[2017-11-06 16:07] LABS: BASO % 0.1 %; BASO ABS # 0.01 K/uL (0-0.2); EOS % 0.1 %; EOS ABS # 0.01 K/uL (0-0.5); HEMATOCRIT 35.6 % (37-47); IG# 0.02 K/uL (0.00-0.02); LYMPH % 8.3 %; LYMPH ABS # 0.91 K/uL (1.2-3.4); MEAN CELL VOLUME 97.3 fL (80-100); MEAN CORPUSCULAR HEMOGLOBIN 32.8 pg (25-34); MEAN CORPUSCULAR HGB CONC 33.7 g/dl (32-36); MEAN PLATELET VOLUME 9.7 fL (7.4-10.4); MONO % 6.8 %; MONO ABS # 0.75 K/uL (0.11-0.59); NEUT % 84.5 %; NEUT ABS # 9.27 K/uL (1.4-6.5); PLATELET COUNT 155 K/uL (130-400); RED CELL DISTRIBUTION WIDTH CV 14.6 % (11.5-14.5); RED CELL DISTRIBUTION WIDTH SD 52.2 fL (36.4-46.3); WHITE BLOOD COUNT 10.97 K/uL (4.8-10.8)
--- NOTE | 2017-11-06 16:07 | EMERGENCY ROOM VISIT NOTE ---
History Report prepared by [employer]: Chai Gonzalez Under the Supervision of: Dr. Enrrique Bennett M.D. First contact with patient: 14:30 Chief Complaint: RESPIRATORY PROBLEMS Stated Complaint: SHORTNESS OF BREATH Nursing Triage Summary: triage note: Pt reports "i was sitting in my recliner this morning with my usual amount of oxygen and felt short of breath." pt reports she wears 2 liters of oxygen. pt reports shortness of breath while sitting. pt reports bilat feet swelling. History of Present Illness The patient is an 82 year old female who presents to the Emergency Room with complaints of persistent shortness of breath since 1000 this morning. She denies any fevers or chills, though notes that she has been colder than normal. She notes her feet became swollen and cold two nights ago. She states that last night she took her acid reflux medication one hour prior to eating, though after she ate she coughed up a significant amount of mucus. She recently had pneumonia about one month ago. She has a history of palpitations and irregular rhythm. She has been on 2L oxygen via [place] for two months. She does not feel as though 2L is enough. She is a former smoker of 50 years ago. She has rheumatoid arthritis and osteoarthritis. She receives a shot for her arthritis every two weeks. She is regularly taking 10 mg of Prednisone for the arthritis. She is taking blood pressure medication. She denies taking any antibiotics. She denies taking any blood thinners or water pills. She notes pain in her left heel, which she describes is really sore. She states that she has been putting cream on it, though no relief. Source of History: patient Onset: since 1000 this morning Position: other (general-lungs) Quality: other (shortness of breath) Timing: other (persistent) Associated Symptoms: + cough, No fevers, No chills Note: She notes increased coldness and bilateral swollen feet. Review of Systems See HPI for pertinent positives and negatives. A total of ten systems were reviewed and were otherwise negative. Past Medical & Surgical Medical Problems: (1) Benign tumor of breast (2) Diabetes (3) FALL, MULTIPLE FX (4) Heart disease (5) Hypertension (6) Migraines (7) Pneumonia (8) Rheumatoid arthritis (9) Troponin I above reference range Family History Cancer Diabetes mellitus Gallbladder disease Heart disease Lung disease Social History Smoking Status: Former Smoker Alcohol Use: none Marital Status: Housing Status: lives alone Occupation Status: retired Current/Historical Medications Scheduled Atenolol (Tenormin), 25 MG PO QPM Calcium/Vitamin D (Os-Louis 500 Plus D), 1 TAB PO BID Diltiazem Hcl Ext Rel (Tiazac), 240 MG PO QPM Estropipate (Estropipate), 0.75 MG PO QPM Losartan Potassium (Cozaar), 25 MG PO QPM Medroxyprogesterone (Provera), 2.5 MG PO QPM Ocuvite Preservision (Ocuvite Preservision), 1 TAB PO BID Pantoprazole (Pantoprazole Sodium), 40 MG PO QDL Pravastatin Sodium (Pravastatin Sodium), 80 MG PO QPM Prednisone (Prednisone), 10 MG PO QAM Zinc Oxide (Topical) (Triple Paste), 1 APPLN TD BID Scheduled PRN Acetamin/Butalbital/Caffeine (Fioricet), 1 TAB PO UD PRN for Migraine Clonazepam (Klonopin), 0.5 MG PO HS PRN for Sleep Allergies Coded Allergies: Amoxicillin (Verified Allergy, Unknown, UNKNOWN, 11/06/17) Clavulanic Acid (Verified Allergy, Unknown, UNKNOWN, 11/06/17) Clindamycin (Verified Allergy, Unknown, UNKNOWN, 11/06/17) Penicillins (Verified Allergy, Unknown, UNKNOWN, 11/06/17) Sulfa Antibiotics (Verified Adverse Reaction, Intermediate, NAUSEA, ) Aspirin (Verified Adverse Reaction, Mild, GI SYMPTOMS, 11/06/17) Uncoded Allergies: ARTIFICIAL SWEETNER (Allergy, Mild, TONGUE SORE, 12/30/12) Physical Exam Vital Signs Date Time Temp Pulse Resp B/P (MAP) Pulse Ox O2 Delivery O2 Flow Rate FiO2 11/06/17 19:48 98 20 111/82 98 11/06/17 17:13 104 18 107/77 97 Nasal Cannula 4.0 11/06/17 15:40 71 18 163/100 99 Nebulizer 6.0 11/06/17 15:21 73 20 98 Nasal Cannula 2.5 11/06/17 15:06 95 Nasal Cannula 2.0 11/06/17 15:06 95 Nasal Cannula 2.0 11/06/17 14:15 36.6 103 22 117/72 94 Nasal Cannula 2.0 Physical Exam GENERAL: Awake, alert, chronically ill-appearing, mildly dyspneic but in NAD. HENT: Normocephalic, atraumatic. Oropharynx dry cracked mucus membranes. EYES: Normal conjunctiva. Sclera non-icteric. NECK: Supple. No nuchal rigidity. FROM. No JVD. RESPIRATORY: Diminished breath sounds at the bases, scattered left sided wheezes. CARDIAC: IRIR. Extremities warm and well perfused. Pulses equal. ABDOMEN: Soft, non-distended. No tenderness to palpation. No rebound or guarding. No masses. RECTAL: Deferred. MUSCULOSKELETAL: Chest examination reveals no tenderness. The back is symmetrical on inspection without obvious abnormality. There is no CVA tenderness to palpation. No joint edema. LOWER EXTREMITIES: Calves are equal size bilaterally and non-tender. Scant LE edema. No discoloration. NEURO: Normal sensorium. No sensory or motor deficits noted. SKIN: No rash or jaundice noted. Medical Decision & Procedures ER Provider Diagnostic Interpretation: Radiology results as stated below per my review and radiologist interpretation: CHEST ONE VIEW PORTABLE HISTORY: 82 years-old Female CHEST PAIN acute atypical chest pain COMPARISON: Chest radiograph and CTA chest 10/15/2017 TECHNIQUE: Portable AP view of the chest FINDINGS: Cardiac silhouette is again enlarged, unchanged. Atherosclerosis of the aorta. Chronic interstitial lung disease redemonstrated without pneumothorax. Additionally, there is interval development of new mixed interstitial and alveolar opacities within a mid and lower lung zone predominant distribution with small bilateral pleural effusions. Bones of the chest appear grossly intact. Mild levoscoliosis of the thoracic spine. Healed chronic fracture deformity of the left proximal humerus. Degenerative changes are seen throughout the shoulders and spine. IMPRESSION: 1. Cardiomegaly with new mixed interstitial and alveolar opacities within a mid and lower lung zone predominant distribution with small bilateral pleural effusions suggesting pulmonary edema or less likely multifocal pneumonia. 2. Background chronic interstitial lung disease. The above report was generated using voice recognition software. It may contain grammatical, syntax or spelling errors. Electronically signed by: Garrick Thompson M.D. 11/06/2017 3:22 PM Dictated Date/Time: 11/06/2017 3:18 PM (CHEST FOR PE) ANGIO WITH CT DOSE: 640.41 mGycm HISTORY: 82 years-old Female dense with acute shortness of breath and chest pain TECHNIQUE: Multiple CTA images of the chest were obtained after the intravenous administration of 116 ml Optiray 320. Coronal and sagittal MIPS were obtained from the axial data set and were submitted for review. A dose lowering technique was utilized adhering to the principles of ALARA. COMPARISON: Chest radiograph 11/06/2017, CTA chest 10/15/2017. FINDINGS: CTA: At least moderate multichamber cardiac enlargement. Extensive coronary arterial disease. Thoracic aorta is normal in both course and caliber with moderate atherosclerosis. The imaged great vessels appear to be patent. No evidence of thoracic aortic aneurysm or dissection. The pulmonary arterial tree is opacified to level of the subsegmental branches, however the subsegmental branches are not well-seen secondary to respiratory motion. No focal filling defects identified to suggest pulmonary thromboembolic disease. There is reflux of contrast into the IVC and hepatic veins. CT CHEST: No dominant thyroid nodule identified. Enlarged subcarinal adenopathy measures up to 1.2 cm in short axis. Prominent AP window and precarinal lymph nodes measure up to 7 mm in short axis. 9 mm right paratracheal lymph node. These are likely reactive and appear generally unchanged from comparison. There are moderate sized bilateral pleural effusions. Chronic subpleural reticular opacities are again seen within the lungs bilaterally compatible with interstitial lung disease. Subpleural cystic changes within a lower lung zone predominant distribution are also redemonstrated. Evaluation of the lungs is limited secondary to respiratory motion. There is bilateral interlobular septal thickening with patchy multifocal groundglass and consolidative opacities throughout all lobes bilaterally within a mid and lower lung zone predominant distribution. Fluid and groundglass opacities with air along the fissures. Central airways appear to be patent. Mild nonspecific bilateral perinephric stranding. No acute abnormality of the imaged upper abdomen identified. Soft tissues are unremarkable. The bones appear mildly demineralized. Multilevel advanced degenerative changes of the spine. Chronic mild anterior compression deformities again noted involving the T6 and T8 vertebral bodies. Remote fracture of the manubrium and left humerus. IMPRESSION: 1. No acute aortic pathology or evidence of pulmonary thromboembolic disease. 2. Cardiomegaly with moderate sized bilateral pleural effusions. Interlobular septal thickening with bilateral consolidative and groundglass opacities within a mid and lower lung zone predominant distribution suggest interstitial and alveolar pulmonary edema. Superimposed infectious or inflammatory pneumonitis would be difficult to exclude. 3. Background interstitial lung disease. 4. Unchanged mild mediastinal adenopathy, likely reactive. The above report was generated using voice recognition software. It may contain grammatical, syntax or spelling errors. Electronically signed by: Garrick Thompson M.D. 11/06/2017 5:05 PM Dictated Date/Time: 11/06/2017 4:54 PM Laboratory Results 11/06/17 15:54 Red Blood Count 3.66, Mean Corpuscular Volume 97.3, Mean Corpuscular Hemoglobin 32.8, Mean Corpuscular Hemoglobin Concent 33.7, Mean Platelet Volume 9.7, Neutrophils (%) (Auto) 84.5, Lymphocytes (%) (Auto) 8.3, Monocytes (%) (Auto) 6.8, Eosinophils (%) (Auto) 0.1, Basophils (%) (Auto) 0.1, Neutrophils # (Auto) 9.27, Lymphocytes # (Auto) 0.91, Monocytes # (Auto) 0.75, Eosinophils # (Auto) 0.01, Basophils # (Auto) 0.01 11/06/17 15:54 Test 11/06/17 15:15 11/06/17 15:54 11/06/17 15:57 11/06/17 19:20 Influenza Type A Antigen Neg for Influ A (NEG) Influenza Type B Antigen Neg for Influ B (NEG) White Blood Count 10.97 K/uL (4.8-10.8) Red Blood Count 3.66 M/uL (4.2-5.4) Hemoglobin 12.0 g/dL (12.0-16.0) Hematocrit 35.6 % (37-47) Mean Corpuscular Volume 97.3 fL (80-100) Mean Corpuscular Hemoglobin 32.8 pg (25-34) Mean Corpuscular Hemoglobin Concent 33.7 g/dl (32-36) Platelet Count 155 K/uL (130-400) Mean Platelet Volume 9.7 fL (7.4-10.4) Neutrophils (%) (Auto) 84.5 % Lymphocytes (%) (Auto) 8.3 % Monocytes (%) (Auto) 6.8 % Eosinophils (%) (Auto) 0.1 % Basophils (%) (Auto) 0.1 % Neutrophils # (Auto) 9.27 K/uL (1.4-6.5) Lymphocytes # (Auto) 0.91 K/uL (1.2-3.4) Monocytes # (Auto) 0.75 K/uL (0.11-0.59) Eosinophils # (Auto) 0.01 K/uL (0-0.5) Basophils # (Auto) 0.01 K/uL (0-0.2) RDW Standard Deviation 52.2 fL (36.4-46.3) RDW Coefficient of Variation 14.6 % (11.5-14.5) Immature Granulocyte % (Auto) 0.2 % Immature Granulocyte # (Auto) 0.02 K/uL (0.00-0.02) Prothrombin Time 11.0 SECONDS (9.0-12.0) Prothromb Time International Ratio 1.0 (0.9-1.1) Anion Gap 4.0 mmol/L (3-11) Est Creatinine Clear Calc Drug Dose 51.3 ml/min Estimated GFR () 75.0 Estimated GFR (Non- 64.7 BUN/Creatinine Ratio 19.2 (10-20) Calcium Level 8.3 mg/dl (8.5-10.1) Magnesium Level 1.9 mg/dl (1.8-2.4) Total Bilirubin 0.5 mg/dl (0.2-1) Direct Bilirubin 0.2 mg/dl (0-0.2) Aspartate Amino Transf (AST/SGOT) 29 U/L (15-37) Alanine Aminotransferase (ALT/SGPT) 59 U/L (12-78) Alkaline Phosphatase 118 U/L (45-117) Troponin I 0.017 ng/ml (0-0.045) Pro-B-Type Natriuretic Peptide 3414 pg/ml (0-1800) Total Protein 7.0 gm/dl (6.4-8.2) Albumin 2.7 gm/dl (3.4-5.0) Lipase 187 U/L (73-393) Osmolality 274 mOsm/kg (280-300) Procalcitonin < 0.05 ng/ml (0-0.5) Urine Color YELLOW Urine Appearance CLEAR (CLEAR) Urine pH 6.0 (4.5-7.5) Urine Specific [place] 1.041 (1.000-1.030) Urine Protein TRACE (NEG) Urine Glucose (UA) TRACE (NEG) Urine Ketones NEG (NEG) Urine Occult Blood NEG (NEG) Urine Nitrite NEG (NEG) Urine Bilirubin NEG (NEG) Urine Urobilinogen NEG (NEG) Urine Leukocyte Esterase NEG (NEG) Urine WBC (Auto) 1-5 /hpf (0-5) Urine RBC (Auto) 0-4 /hpf (0-4) Urine Hyaline Casts (Auto) 0 /lpf (0-5) Urine Epithelial Cells (Auto) >30 /lpf (0-5) Urine Bacteria (Auto) NEG (NEG) Urine Osmolality 356 mOms/kg (500-800) Laboratory results reviewed by me Medications Administered Medications (Trade) Dose Ordered Sig/Anselmo Route Start Time Stop Time Status Last Admin Dose Admin Methylprednisolone Sodium Succinate (Solu-Medrol IV) 125 mg NOW STAT IV 11/06/17 15:00 11/06/17 15:04 DC 11/06/17 15:39 125 MG Albuterol/ Ipratropium (Duoneb) 12 ml ONE ONCE INH 11/06/17 15:00 11/06/17 15:04 DC 11/06/17 15:19 12 ML Sodium Chloride 500 ml @ 999 mls/hr Q31M STAT IV 11/06/17 15:00 11/06/17 15:30 DC 11/06/17 15:00 999 MLS/HR ECG Per My Interpretation Indication: SOB/dyspnea Rate (beats per minute): 87 Rhythm: atrial fibrillation Findings: no acute ischemic change, other (Normal axis) ED Course 1454: The patient was evaluated in room C10. A complete history and physical exam was performed. 1724: I reassessed the patient at this time. She is unsure if her breathing has improved. 1744: I spoke with Dr. Stfaford, [facility] hospitalist. We discussed the patient's case. The patient will be evaluated by the [facility] for further management. Medical Decision I reviewed the patient's past medical history, medications, and the nursing notes as described above. Differential diagnosis: Etiologies such as infections, reactive airway disease, pneumonia, pneumothorax , COPD, CHF, cardiac ischemia, pulmonary embolism, musculoskeletal, gastrointestinal, as well as others were entertained. The patient is a 82-year-old woman with a past medical history of RA, PAF not on AC, dCHF, interstitial lung disease with a recent admission in September for multilobular pneumonia who presents emergency department with worsening shortness of breath on her baseline O2 at home per hpi. Rather the patient is chronically ill-appearing and dyspneic but in no acute distress, afebrile stable vital signs. The patient, additionally notes that, the night prior she had a transient swelling of bilateral lower extremities preceding her worsening shortness of breath. EKG, afib rate controlled negative for acute ischemia. Troponin 0.0137 which is decreased from her recent admission. BNP is in the 3000s however no prior values for comparison. WBC 10 in the setting of chronic prednisone. Sodium 127 improved from her discharge. CT PE was done given the patient's history of leg swelling preceding her symptoms and was negative for PE there are bibasilar infiltrates that appear consistent with pulmonary edema however could be infectious as well. Otherwise given the patient's abrupt onset of symptoms in the setting of being afebrile, unlikely to be infectious at this time. However, will order a pro-calcitonin to help inform antibiotics. Otherwise, the patient did feel improved after continuous nebulizer and steroids. However, while wavering, the patient ultimately reports that she has had a progressive worsening of her shortness of breath since her discharge and is concerned that if she were to go home she would have another episode similar today where she felt like she could not breathe. Given this, it is reasonable to admit the patient to optimize her respiratory status. Case was discussed with Dr. Stafford, [facility] hospitalist who will evaluate the patient for further management. Upon hospitalist evaluation the patient had discussed further with her son and they realized that perhaps her shortness of breath is actually stable since her discharge and rather maybe her acute shortness of breath episode was due to mouth breathing when she was asleep. Thus she prefers discharge at this time and we agree we will give her facemask to avoid repeat episodes during sleep. She will follow-up with her [employer] for additional facemasks as needed. Otherwise, prolactin within normal limits thus unlikely to have any acute infection at this time. Findings and plan for follow-up reviewed with patient. Patient agreeable and d/c'd per discharge instructions. Medication Reconcilliation Current Medication List: was personally reviewed by me Blood Pressure Screening Patient's blood pressure: Elevated blood pressure Blood pressure disposition: Elevated BP felt to be situational Consults Time Called: [phone] Consulting Physician: SHARON Hinton hospitalist Returned Call: [phone] I spoke with SHARON Hinton hospitalist. We discussed the patient's case. The patient will be evaluated by the [facility] for further management. Impression Primary Impression: Interstitial lung disease Additional Impression: Shortness of breath Scribe Attestation The scribe's documentation has been prepared under my direction and personally reviewed by me in its entirety. I confirm that the note above accurately reflects all work, treatment, procedures, and medical decision making performed by me. Departure Information Dispostion Home / Self-Care Referrals Ranulfo Landin M.D. (PCP) Patient Instructions ED Dyspnea Shortness of Breath, Interstitial Lung Disease Coping, My [facility] Additional Instructions Please follow up with your primary care physician on Thursday for re-evaluation. Your exam, EKG, chest xray, and lab results did not show any significant change from recent or signs of an emergent condition at this time. Continue your current medications as prescribed. When sleeping use the oxygen face mask provided to avoid low oxygen due to mouth breathing. Drink plenty of fluids to ensure hydration. Return to the emergency department for worsening symptoms as described in the accompanying instructions. Problem Qualifiers
[2017-11-06 16:15] LABS: INFLUENZA B ANTIGEN Neg for Influ B (NEG)
[2017-11-06 16:26] LABS: ALBUMIN 2.7 gm/dl (3.4-5.0); CALCIUM 8.3 mg/dl (8.5-10.1); CREATININE 0.85 mg/dl (0.60-1.20); POTASSIUM 4.6 mmol/L (3.5-5.1)
--- NOTE | 2017-11-06 17:07 | DIAGNOSTIC IMAGING REPORT ---
(CHEST FOR PE) ANGIO WITH CT DOSE: 640.41 mGycm HISTORY: 82 years-old Female dense with acute shortness of breath and chest pain TECHNIQUE: Multiple CTA images of the chest were obtained after the intravenous administration of 116 ml Optiray 320. Coronal and sagittal MIPS were obtained from the axial data set and were submitted for review. A dose lowering technique was utilized adhering to the principles of ALARA. COMPARISON: Chest radiograph 11/06/2017, CTA chest 10/15/2017. FINDINGS: CTA: At least moderate multichamber cardiac enlargement. Extensive coronary arterial disease. Thoracic aorta is normal in both course and caliber with moderate atherosclerosis. The imaged great vessels appear to be patent. No evidence of thoracic aortic aneurysm or dissection. The pulmonary arterial tree is opacified to level of the subsegmental branches, however the subsegmental branches are not well-seen secondary to respiratory motion. No focal filling defects identified to suggest pulmonary thromboembolic disease. There is reflux of contrast into the IVC and hepatic veins. CT CHEST: No dominant thyroid nodule identified. Enlarged subcarinal adenopathy measures up to 1.2 cm in short axis. Prominent AP window and precarinal lymph nodes measure up to 7 mm in short axis. 9 mm right paratracheal lymph node. These are likely reactive and appear generally unchanged from comparison. There are moderate sized bilateral pleural effusions. Chronic subpleural reticular opacities are again seen within the lungs bilaterally compatible with interstitial lung disease. Subpleural cystic changes within a lower lung zone predominant distribution are also redemonstrated. Evaluation of the lungs is limited secondary to respiratory motion. There is bilateral interlobular septal thickening with patchy multifocal groundglass and consolidative opacities throughout all lobes bilaterally within a mid and lower lung zone predominant distribution. Fluid and groundglass opacities with air along the fissures. Central airways appear to be patent. Mild nonspecific bilateral perinephric stranding. No acute abnormality of the imaged upper abdomen identified. Soft tissues are unremarkable. The bones appear mildly demineralized. Multilevel advanced degenerative changes of the spine. Chronic mild anterior compression deformities again noted involving the T6 and T8 vertebral bodies. Remote fracture of the manubrium and left humerus. IMPRESSION: 1. No acute aortic pathology or evidence of pulmonary thromboembolic disease. 2. Cardiomegaly with moderate sized bilateral pleural effusions. Interlobular septal thickening with bilateral consolidative and groundglass opacities within a mid and lower lung zone predominant distribution suggest interstitial and alveolar pulmonary edema. Superimposed infectious or inflammatory pneumonitis would be difficult to exclude. 3. Background interstitial lung disease. 4. Unchanged mild mediastinal adenopathy, likely reactive. The above report was generated using voice recognition software. It may contain grammatical, syntax or spelling errors. Electronically signed by: Garrick Thompson M.D. 11/06/2017 5:05 PM Dictated Date/Time: 11/06/2017 4:54 PM
[2017-11-06 19:48] VITALS: BP 111/82; PULSE 98; O2SAT 98
--- NOTE | 2017-11-06 20:27 | Medical Consult ---
Consultation Date of Consultation: Nov 06, 2017. Attending Physician: Reason for Consultation: Possible admission History of Present Illness 82 y/o F who presented to the ED due to SOB. Pt states that she was sleeping with her O2 on and woke up suddenly SOB. She called the O2 company and they brought her more O2. She became panicked that this would happen again and came to the ED. While in the ED, pt fell asleep and son noted that she was breathing through her mouth. She woke with SOB at that time as well. She thinks that she sleeps with her mouth open and this causes her to not get enough O2. She does not have an O2 mask at home, just the OK. She feels that she has no SOB when she is awake. Pt denies fever, chest pain, abd pain, n/v/c/ d, LE pain. She does get LE swelling at times and has some today that is around baseline. She has been eating well. Pt was d/c'd on 10/17 after being tx at [facility] for PNA in the setting of interstitial lung disease. She felt she had been doing well at home until today. Son is present and agrees. Discussed with Dr. Bennett. We will be able to get pt an O2 mask for home on d/c from the ED. Pt would prefer to go home with this plan. Pt would like her urine checked before she goes as she feels that urinating twice during the day is an increase for her. She has no burning or incontinence. Past Medical/Surgical History Medical Problems: (1) Closed fracture of left proximal humerus Status: Acute (2) Contusion of left knee Status: Acute (3) Facial fracture Status: Acute (4) Fracture of manubrium Status: Acute (5) Interstitial lung disease Status: Acute (6) Left sided chest pain Status: Acute (7) Shortness of breath Status: Acute (8) Thoracic compression fracture Status: Acute DM RA Family History Family history was reviewed; no changes noted. Social History Smoking Status: Former Smoker Alcohol Use: none Drug Use: none Marital Status: Housing Status: lives alone Occupation Status: retired Allergies Coded Allergies: Amoxicillin (Verified Allergy, Unknown, UNKNOWN, 11/06/17) Clavulanic Acid (Verified Allergy, Unknown, UNKNOWN, 11/06/17) Clindamycin (Verified Allergy, Unknown, UNKNOWN, 11/06/17) Penicillins (Verified Allergy, Unknown, UNKNOWN, 11/06/17) Sulfa Antibiotics (Verified Adverse Reaction, Intermediate, NAUSEA, ) Aspirin (Verified Adverse Reaction, Mild, GI SYMPTOMS, 11/06/17) Uncoded Allergies: ARTIFICIAL SWEETNER (Allergy, Mild, TONGUE SORE, 12/30/12) Current Inpatient Medications Current Inpatient Medications Medications (Trade) Dose Ordered Sig/Anselmo Route Start Time Stop Time Status Last Admin Dose Admin Ioversol (Optiray 320) 100 ml UD PRN IV 11/06/17 15:30 11/10/17 15:29 Review of Systems Pertinent positives and negatives reviewed in HPI--all others negative Physical Exam Date Time Temp Pulse Resp B/P (MAP) Pulse Ox O2 Delivery O2 Flow Rate FiO2 11/06/17 19:48 98 20 111/82 98 11/06/17 17:13 104 18 107/77 97 Nasal Cannula 4.0 11/06/17 15:40 71 18 163/100 99 Nebulizer 6.0 11/06/17 15:21 73 20 98 Nasal Cannula 2.5 11/06/17 15:06 95 Nasal Cannula 2.0 11/06/17 15:06 95 Nasal Cannula 2.0 11/06/17 14:15 36.6 103 22 117/72 94 Nasal Cannula 2.0 General Appearance: WD/WN, no apparent distress Head: normocephalic, atraumatic Eyes: normal inspection, sclerae normal Respiratory/Chest: no respiratory distress, + crackles Cardiovascular: regular rate, rhythm, normal peripheral pulses Abdomen/GI: non tender, soft Extremities/Musculoskelatal: no calf tenderness, + pedal edema (1+ pitting) Neurologic/Psych: alert, normal mood/affect, oriented x 3 Skin: normal color, warm/dry Laboratory Results Last 24 Hours Test 11/06/17 15:15 11/06/17 15:54 11/06/17 15:57 11/06/17 19:20 Influenza Type A Antigen Neg for Influ A Influenza Type B Antigen Neg for Influ B White Blood Count 10.97 K/uL Red Blood Count 3.66 M/uL Hemoglobin 12.0 g/dL Hematocrit 35.6 % Mean Corpuscular Volume 97.3 fL Mean Corpuscular Hemoglobin 32.8 pg Mean Corpuscular Hemoglobin Concent 33.7 g/dl Platelet Count 155 K/uL Mean Platelet Volume 9.7 fL Neutrophils (%) (Auto) 84.5 % Lymphocytes (%) (Auto) 8.3 % Monocytes (%) (Auto) 6.8 % Eosinophils (%) (Auto) 0.1 % Basophils (%) (Auto) 0.1 % Neutrophils # (Auto) 9.27 K/uL Lymphocytes # (Auto) 0.91 K/uL Monocytes # (Auto) 0.75 K/uL Eosinophils # (Auto) 0.01 K/uL Basophils # (Auto) 0.01 K/uL RDW Standard Deviation 52.2 fL RDW Coefficient of Variation 14.6 % Immature Granulocyte % (Auto) 0.2 % Immature Granulocyte # (Auto) 0.02 K/uL Prothrombin Time 11.0 SECONDS Prothromb Time International Ratio 1.0 Sodium Level 127 mmol/L Potassium Level 4.6 mmol/L Chloride Level 89 mmol/L Carbon Dioxide Level 34 mmol/L Anion Gap 4.0 mmol/L Blood Urea Nitrogen 16 mg/dl Creatinine 0.85 mg/dl Est Creatinine Clear Calc Drug Dose 51.3 ml/min Estimated GFR () 75.0 Estimated GFR (Non- 64.7 BUN/Creatinine Ratio 19.2 Random Glucose 179 mg/dl Calcium Level 8.3 mg/dl Magnesium Level 1.9 mg/dl Total Bilirubin 0.5 mg/dl Direct Bilirubin 0.2 mg/dl Aspartate Amino Transf (AST/SGOT) 29 U/L Alanine Aminotransferase (ALT/SGPT) 59 U/L Alkaline Phosphatase 118 U/L Troponin I 0.017 ng/ml Pro-B-Type Natriuretic Peptide 3414 pg/ml Total Protein 7.0 gm/dl Albumin 2.7 gm/dl Lipase 187 U/L Osmolality 274 mOsm/kg Procalcitonin < 0.05 ng/ml Urine Color YELLOW Urine Appearance CLEAR Urine pH 6.0 Urine Specific [place] 1.041 Urine Protein TRACE Urine Glucose (UA) TRACE Urine Ketones NEG Urine Occult Blood NEG Urine Nitrite NEG Urine Bilirubin NEG Urine Urobilinogen NEG Urine Leukocyte Esterase NEG Urine WBC (Auto) 1-5 /hpf Urine RBC (Auto) 0-4 /hpf Urine Hyaline Casts (Auto) 0 /lpf Urine Epithelial Cells (Auto) >30 /lpf Urine Bacteria (Auto) NEG Urine Osmolality 356 mOms/kg Assessment & Plan 82 y/o F who came to the ED for sudden onset SOB that resolved with O2 use. SOB: likely related to recent PNA in the setting of interstitial lung disease Sleeps with her mouth open and feels that if she wears a face mask for sleep , this would not happen again CXR, CT chest with interstitial lung disease making read more difficulty Minimally elevated WBC in the setting of chronic prednisone use, afebrile, O2 sats WNL on baseline O2 Flu neg Lengthy discussed with the pt and son about use of face mask and home O2 options. They prefer d/c home with trial of face mask for sleep. DM, HTN, migraines, RA all stable and no changes made Discussed with Dr. Bennett who is in agreement with this plan and will d/c pt to home. Advised to return to the ED if there are further concerns.
== END 2017-11-06 19:49 | disposition home or self-care (01) ==
LOC: C.EDB 14:08 → C.EDC 19:49
DX: J84.9 Interstitial pulmonary disease, unspecified (principal); Z87.891 Personal history of nicotine dependence; M06.9 Rheumatoid arthritis, unspecified; M19.90 Unspecified osteoarthritis, unspecified site; E11.9 Type 2 diabetes mellitus without complications; I10 Essential (primary) hypertension; Z87.01 Personal history of pneumonia (recurrent); Z80.9 Family history of malignant neoplasm, unspecified; Z83.3 Family history of diabetes mellitus; Z79.899 Other long term (current) drug therapy; Z88.0 Allergy status to penicillin; Z88.2 Allergy status to sulfonamides; Z88.6 Allergy status to analgesic agent; I48.91 Unspecified atrial fibrillation

== ENCOUNTER 2017-11-08 21:19 | Inpatient (IN) | payer OTHER ==
[~2017-11-08] VITALS: Ht 170.2 cm; Wt 71.2 kg
[~2017-11-08 21:19] MED LIST changes: -LEVO1TAB35 PO; -LTRCR45 EXT; -PRED10TA PO; +[UNRECOGNIZED DRUG - CODE] TD
[2017-11-08] MEDS ORDERED: ALBUT/IPRATROP 3MG/0.5MG NEB 3 ML VIAL INH STA (21:44)
[2017-11-08] MEDS ORDERED: CEFTRIAXONE SOD INJ 1 GM ADDVIAL IV STA (21:44)
[2017-11-08] MEDS ORDERED: METHYLPREDNISOLONE 125 MG VIAL IV STA (21:44)
[2017-11-08 22:00] VITALS: PULSE 119; O2SAT 95
--- NOTE | 2017-11-08 22:03 | EMERGENCY ROOM VISIT NOTE ---
History Report prepared by [employer]: Jose Hayes Under the Supervision of: Dr. Quinn Jordan M.D. First contact with patient: 21:44 Chief Complaint: RESPIRATORY DISTRESS Stated Complaint: SOB/WEAKNESS/NAUSEA Nursing Triage Summary: Pt was in hospital Thursday for respiratory complaints, today having weakness, tired, nauseated, dizziness, shortness of breath, lethargy, accessory muscle use. EMS reports SpO2 on 5 lpm was 72%. Pt received duoneb x1, albuterol x1, and zofran 4 mg en route. SpO2 up to 96 on neb. Pt reports breathing feels better since treatment. History of Present Illness The patient is a 82 year old female who presents to the Emergency Room with complaints of worsening shortness of breath that began a couple of days ago. She rates her discomfort as a 5/10 in severity. Per the patient's report, the patient was released from the hospital for pneumonia on October 21. The patient states that she was in the ER two days ago for her shortness of breath. She reports that she had a duoneb treatment and had a chest CT done. Per the patient's report, the reading showed no PE, interstitial lung disease, some pleural effusions, and some general congestion of the lungs that was difficult to narrow down to a cause. The patient states that she typically wears 2L of oxygen at home, but reports she increased it to 3 L since coming home two days ago. The patient states that since being sent home her shortness of breath has worsened. She reports that she has been weak, fatigued, dizzy, and nauseous. The patient states that she has been afraid she will fall over due to her shortness of breath and weakness. She reports that she called EMS today due to her symptoms. Per the patient's report, the patient received a duoneb, albuterol neb and Zofran on the way to the ED. The patient denies a fever and chest pain. Source of History: patient, other (patient's report) Onset: a couple of days ago Position: other (global) Symptom Intensity: 5/10 Timing: worsening Modifying Factors (Relieving): oxygen, other (duoneb treatment) Associated Symptoms: + cough, + nausea, + fatigue, + weakness, No fevers, No chest pain Note: Associated symptoms: dizzy Review of Systems See HPI for pertinent positives & negatives. A total of 10 systems reviewed and were otherwise negative. Past Medical & Surgical Medical Problems: (1) Benign tumor of breast (2) Diabetes (3) FALL, MULTIPLE FX (4) Heart disease (5) Hypertension (6) Migraines (7) Pneumonia (8) Rheumatoid arthritis (9) Troponin I above reference range Family History Cancer Diabetes mellitus Gallbladder disease Heart disease Lung disease Social History Smoking Status: Former Smoker Alcohol Use: none Drug Use: none Marital Status: Housing Status: lives alone Occupation Status: retired Current/Historical Medications Scheduled Atenolol (Tenormin), 25 MG PO QPM Calcium/Vitamin D (Os-Louis 500 Plus D), 1 TAB PO BID Diltiazem Hcl Ext Rel (Tiazac), 240 MG PO QPM Estropipate (Estropipate), 0.75 MG PO QPM Losartan Potassium (Cozaar), 25 MG PO QPM Medroxyprogesterone (Provera), 2.5 MG PO QPM Ocuvite Preservision (Ocuvite Preservision), 1 TAB PO BID Pantoprazole (Pantoprazole Sodium), 40 MG PO QDL Pravastatin Sodium (Pravastatin Sodium), 80 MG PO QPM Prednisone (Prednisone), 10 MG PO QAM Zinc Oxide (Topical) (Triple Paste), 1 APPLN TD BID Scheduled PRN Acetamin/Butalbital/Caffeine (Fioricet), 1 TAB PO UD PRN for Migraine Clonazepam (Klonopin), 0.5 MG PO HS PRN for Sleep Allergies Coded Allergies: Amoxicillin (Verified Allergy, Unknown, UNKNOWN, 11/08/17) Clavulanic Acid (Verified Allergy, Unknown, UNKNOWN, 11/08/17) Clindamycin (Verified Allergy, Unknown, UNKNOWN, 11/08/17) Penicillins (Verified Allergy, Unknown, UNKNOWN, 11/08/17) Sulfa Antibiotics (Verified Adverse Reaction, Intermediate, NAUSEA, ) Aspirin (Verified Adverse Reaction, Mild, GI SYMPTOMS, 11/08/17) Uncoded Allergies: ARTIFICIAL SWEETNER (Allergy, Mild, TONGUE SORE, 12/30/12) Physical Exam Vital Signs Date Time Temp Pulse Resp B/P (MAP) Pulse Ox O2 Delivery O2 Flow Rate FiO2 11/09/17 00:00 118 16 149/100 95 11/08/17 23:30 106 21 144/115 11/08/17 23:10 119 93 30 11/08/17 23:01 154/105 11/08/17 23:00 122 19 97 11/08/17 22:34 109 22 97 11/08/17 22:31 157/118 11/08/17 22:19 122 21 95 BiPAP 60 11/08/17 22:04 102 20 95 11/08/17 22:01 155/84 11/08/17 22:00 119 95 60 11/08/17 21:49 129 21 94 Oxymask 15.0 11/08/17 21:38 144/112 11/08/17 21:37 117 11/08/17 21:36 92 Oxymask 15.0 11/08/17 21:34 134 34 88 Nasal Cannula 5.0 11/08/17 21:31 36.8 121 23 171/107 89 Nasal Cannula 5.0 11/08/17 21:29 171/107 Physical Exam GENERAL: Patient is in no acute distress. HEENT: No acute trauma, normocephalic atraumatic, mucous membranes moist, no nasal congestion, no scleral icterus. NECK: No stridor, no adenopathy, no meningismus, trachea is midline. LUNGS: Crackles bilaterally, equal breath sounds, mild respiratory distress noted, some shortness of breath with speaking. HEART: Tachycardic with an irregular rhythm. No murmurs. ABDOMEN: Soft, nontender, bowel sounds positive, no hernias, no peritonitis. EXTREMITIES: No cyanosis, mild bilateral pedal edema, full range of motion of all the joints without pain or difficulty, no signs for acute trauma. NEUROLOGIC: Oriented x 3, no acute motor or sensory deficits, no focal weakness. SKIN: No rash, no jaundice, no diaphoresis. Medical Decision & Procedures ER Provider Diagnostic Interpretation: X-ray results as stated below per interpretation by me and the radiologist: CHEST ONE VIEW PORTABLE HISTORY: 82 years-old Female EVALUATE RESPIRATORY DISTRESS.DYSPNEA acute respiratory distress COMPARISON: Chest radiograph 11/06/2017, CTA chest 11/06/2017 TECHNIQUE: Portable AP view of the chest FINDINGS: Cardiac silhouette is mildly enlarged, unchanged. Small bilateral pleural effusions are redemonstrated without pneumothorax. Bilateral mixed interstitial and alveolar opacities are redemonstrated with alveolar opacities most pronounced within the mid and lower lung zones. Opacities within the right midlung appear slightly more confluence from comparison. The remainder of the study is stable. The patient is rotated to the left. Sigmoidal scoliosis of the spine. Remote healed fracture of the proximal left humerus. Bones appear grossly intact. IMPRESSION: 1. Cardiomegaly with persistent mixed interstitial and alveolar opacities. Right midlung opacities appear slightly more confluent from comparison. 2. Small bilateral pleural effusions. 3. Chronic interstitial lung disease. The above report was generated using voice recognition software. It may contain grammatical, syntax or spelling errors. Electronically signed by: Garrick Thompson M.D. 11/08/2017 10:15 PM Dictated Date/Time: 11/08/2017 10:12 PM Laboratory Results 11/08/17 22:10 Red Blood Count 3.70, Mean Corpuscular Volume 96.2, Mean Corpuscular Hemoglobin 32.2, Mean Corpuscular Hemoglobin Concent 33.4, Mean Platelet Volume 9.8, Neutrophils (%) (Auto) 88.7, Lymphocytes (%) (Auto) 4.7, Monocytes (%) (Auto) 6.2, Eosinophils (%) (Auto) 0.0, Basophils (%) (Auto) 0.1, Neutrophils # (Auto) 12.24, Lymphocytes # (Auto) 0.65, Monocytes # (Auto) 0.85, Eosinophils # (Auto) 0.00, Basophils # (Auto) 0.01 11/08/17 22:10 Test 11/08/17 22:10 11/08/17 22:26 11/09/17 00:24 White Blood Count 13.79 K/uL (4.8-10.8) Red Blood Count 3.70 M/uL (4.2-5.4) Hemoglobin 11.9 g/dL (12.0-16.0) Hematocrit 35.6 % (37-47) Mean Corpuscular Volume 96.2 fL (80-100) Mean Corpuscular Hemoglobin 32.2 pg (25-34) Mean Corpuscular Hemoglobin Concent 33.4 g/dl (32-36) Platelet Count 160 K/uL (130-400) Mean Platelet Volume 9.8 fL (7.4-10.4) Neutrophils (%) (Auto) 88.7 % Lymphocytes (%) (Auto) 4.7 % Monocytes (%) (Auto) 6.2 % Eosinophils (%) (Auto) 0.0 % Basophils (%) (Auto) 0.1 % Neutrophils # (Auto) 12.24 K/uL (1.4-6.5) Lymphocytes # (Auto) 0.65 K/uL (1.2-3.4) Monocytes # (Auto) 0.85 K/uL (0.11-0.59) Eosinophils # (Auto) 0.00 K/uL (0-0.5) Basophils # (Auto) 0.01 K/uL (0-0.2) RDW Standard Deviation 52.0 fL (36.4-46.3) RDW Coefficient of Variation 14.8 % (11.5-14.5) Immature Granulocyte % (Auto) 0.3 % Immature Granulocyte # (Auto) 0.04 K/uL (0.00-0.02) Prothrombin Time 11.6 SECONDS (9.0-12.0) Prothromb Time International Ratio 1.1 (0.9-1.1) Activated Partial Thromboplast Time 24.0 SECONDS (21.0-31.0) Partial Thromboplastin Ratio 0.9 Anion Gap 5.0 mmol/L (3-11) Est Creatinine Clear Calc Drug Dose 51.4 ml/min Estimated GFR () 68.2 Estimated GFR (Non- 58.8 BUN/Creatinine Ratio 23.8 (10-20) Calcium Level 8.8 mg/dl (8.5-10.1) Magnesium Level 1.9 mg/dl (1.8-2.4) Total Bilirubin 0.6 mg/dl (0.2-1) Aspartate Amino Transf (AST/SGOT) 130 U/L (15-37) Alanine Aminotransferase (ALT/SGPT) 176 U/L (12-78) Alkaline Phosphatase 208 U/L (45-117) Troponin I 1.250 ng/ml (0-0.045) Pro-B-Type Natriuretic Peptide 9164 pg/ml (0-1800) Total Protein 7.4 gm/dl (6.4-8.2) Albumin 2.9 gm/dl (3.4-5.0) Globulin 4.5 gm/dl (2.5-4.0) Albumin/Globulin Ratio 0.7 (0.9-2) Influenza Type A (RT-PCR) Neg for Influ A (NEG) Influenza Type B (RT-PCR) Neg for Influ B (NEG) Laboratory results reviewed by me. Medications Administered Medications (Trade) Dose Ordered Sig/Anselmo Route Start Time Stop Time Status Last Admin Dose Admin Ceftriaxone Sodium (Rocephin Inj) 1 gm NOW STAT IV 11/08/17 21:44 11/08/17 21:47 DC 11/08/17 22:23 1 GM Methylprednisolone Sodium Succinate (Solu-Medrol IV) 80 mg STK-MED ONCE .ROUTE 11/08/17 21:59 11/08/17 22:00 DC 11/08/17 22:00 80 MG Furosemide (Lasix Inj) 40 mg NOW STAT IV 11/08/17 23:08 11/08/17 23:09 DC 11/08/17 23:58 40 MG ECG Per My Interpretation Indication: SOB/dyspnea Rate (beats per minute): 113 Rhythm: atrial fibrillation Findings: other (No ST elevations or PVCs) ED Course 2143: Ordered Rocephin Injection 1 gm IV. 2146: The patient was evaluated in room B11B. A complete history and physical exam was performed. 2158: Ordered Solu-Medrol 80 mg IV. 8: Ordered Lasix Injection 40 mg IV. 2312: I discussed the patients case with Dr. Devries, [facility] Hospitalist. He understands the patients case and agrees to accept the patient. The patient will be further evaluated. 2320: Reevaluated the patient. Discussed results and treatment plan, which she agrees to. The patient will be further evaluated. Medical Decision The patient is a 82 year old female who presents to the Emergency Room with complaints of worsening shortness of breath that began a couple of days ago. Differential diagnoses considered include flair of underlying lung disease, bronchitis or pneumonia, anemia, electrolyte imbalance, CHF, CT, and failed outpatient treatment.. There is a mild leukocytosis at 13,000, this could be consistent with infection. No concerning anemia. Renal panel testing does show a mildly low sodium, no renal failure. LFTs are somewhat elevated. BNP is quite high at 9000 consistent with fluid overload. Lactic acid level is elevated consistent possibly with sepsis or infection. Chest film shows what appears to be CHF and also a possible pneumonia. The film looks worse than the last film performed. Blood cultures are pending. Influenza testing is negative. There is no coagulopathy. EKG shows A. fib with a rate of 113, no obvious acute ischemia. Cardiac troponin is elevated, this is concerning for cardiac injury or strain. ABG demonstrates some mild CO2 retention, no acidosis. The patient was aggressively managed. She was placed on BiPAP. This did seem to help improve her breathing. She received IV Lasix for the fluid overload. She received IV ceftriaxone and IV Solu-Medrol. The patient is breathing easier, she is resting and awakes to voice. Hospitalization is required. I discussed things with the patient and her family. I spoke with case management. The on-call hospitalist was consulted and the case was discussed. Medication Reconcilliation Current Medication List: was personally reviewed by me Blood Pressure Screening Patient's blood pressure: Elevated blood pressure Referred to Hospitalist. Consults Time Called: 2311 Consulting Physician: Dr. Devries [facility] Hospitalist Returned Call: [phone] I discussed the patients case with Dr. Devries [facility] Hospitalist. He understands the patients case and agrees to accept the patient. The patient will be further evaluated. Impression Primary Impression: Hypoxia Additional Impressions: Pneumonia Weakness CHF (congestive heart failure) Elevated troponin Critical Care I have personally spent greater than 30 minutes of critical care time in the direct management of this patient. This includes bedside care, interpretation of diagnostic studies and testing, discussion with consultants, the patient, and family members, and other required patient management activities. This 30 minutes is in excess of all separately billable procedures. Scribe Attestation The scribe's documentation has been prepared under my direction and personally reviewed by me in its entirety. I confirm that the note above accurately reflects all work, treatment, procedures, and medical decision making performed by me. Departure Information Dispostion Being Evaluated By Hospitalist Referrals Ranulfo Landin M.D. (PCP) Patient Instructions Asthma - [facility], COPD - [facility], Croup - [facility], My [facility] Health Problem Qualifiers
--- NOTE | 2017-11-08 22:16 | DIAGNOSTIC IMAGING REPORT ---
CHEST ONE VIEW PORTABLE HISTORY: 82 years-old Female EVALUATE RESPIRATORY DISTRESS.DYSPNEA acute respiratory distress COMPARISON: Chest radiograph 11/06/2017, CTA chest 11/06/2017 TECHNIQUE: Portable AP view of the chest FINDINGS: Cardiac silhouette is mildly enlarged, unchanged. Small bilateral pleural effusions are redemonstrated without pneumothorax. Bilateral mixed interstitial and alveolar opacities are redemonstrated with alveolar opacities most pronounced within the mid and lower lung zones. Opacities within the right midlung appear slightly more confluence from comparison. The remainder of the study is stable. The patient is rotated to the left. Sigmoidal scoliosis of the spine. Remote healed fracture of the proximal left humerus. Bones appear grossly intact. IMPRESSION: 1. Cardiomegaly with persistent mixed interstitial and alveolar opacities. Right midlung opacities appear slightly more confluent from comparison. 2. Small bilateral pleural effusions. 3. Chronic interstitial lung disease. The above report was generated using voice recognition software. It may contain grammatical, syntax or spelling errors. Electronically signed by: Garrick Thompson M.D. 11/08/2017 10:15 PM Dictated Date/Time: 11/08/2017 10:12 PM
[2017-11-08 22:39] LABS: BASO % 0.1 %; BASO ABS # 0.01 K/uL (0-0.2); HEMATOCRIT 35.6 % (37-47); HEMOGLOBIN 11.9 g/dL (12.0-16.0); IG# 0.04 K/uL (0.00-0.02); LYMPH % 4.7 %; LYMPH ABS # 0.65 K/uL (1.2-3.4); MEAN CELL VOLUME 96.2 fL (80-100); MEAN CORPUSCULAR HEMOGLOBIN 32.2 pg (25-34); MEAN CORPUSCULAR HGB CONC 33.4 g/dl (32-36); MEAN PLATELET VOLUME 9.8 fL (7.4-10.4); MONO % 6.2 %; MONO ABS # 0.85 K/uL (0.11-0.59); NEUT % 88.7 %; NEUT ABS # 12.24 K/uL (1.4-6.5); PLATELET COUNT 160 K/uL (130-400); RED CELL DISTRIBUTION WIDTH CV 14.8 % (11.5-14.5); WHITE BLOOD COUNT 13.79 K/uL (4.8-10.8)
[2017-11-08 22:55] LABS: ALBUMIN 2.9 gm/dl (3.4-5.0); CALCIUM 8.8 mg/dl (8.5-10.1); CREATININE 0.92 mg/dl (0.60-1.20); POTASSIUM 4.4 mmol/L (3.5-5.1)
[2017-11-08 22:57] LABS: INR 1.1 (0.9-1.1)
[2017-11-08 23:03] LABS: TOTAL PROTEIN 7.4 gm/dl (6.4-8.2)
[2017-11-08] MEDS ORDERED: FUROSEMIDE 40 MG/4 ML VIAL IV STA (23:08)
[2017-11-08 23:10] VITALS: PULSE 119; O2SAT 93
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
[2017-11-08 23:41] LABS: INFLUENZA A PCR Neg for Influ A (NEG); INFLUENZA B PCR Neg for Influ B (NEG)
[2017-11-09] VITALS (13 sets, daily range): BP systolic 119–170; BP diastolic 52–98; PULSE 56–128; TEMP 36.4–37.7; O2SAT 92–97; BMI 23.4
[2017-11-09] MEDS ORDERED: BUTALBITAL/ACETAMIN/CAFFEINE TAB PO PRN (00:15)
[2017-11-09] MEDS ORDERED: NITROGLYCERIN 0.4 MG SL PER TAB CHARGE SL PRN (00:15)
[2017-11-09] MEDS ORDERED: MAGNESIUM HYDROXIDE SUSP 30 ML UDC PO PRN (00:15)
[2017-11-09] MEDS ORDERED: CLONAZEPAM 0.5 MG TAB PO PRN (00:15)
[2017-11-09] MEDS ORDERED: ALUMINUM/MAGNESIUM/SIMETH (MAALOX MAX) 30 ML UDC PO PRN (00:15)
[2017-11-09] MEDS ORDERED: CEFEPIME IV 2,000 MG in DEXTROSE 5% 100ML 100 ML IV SCH (00:45)
[2017-11-09] MEDS ORDERED: VANCOMYCIN CONSULT ACTIVE PRN (00:45)
[2017-11-09] MEDS ORDERED: VANCOMYCIN IV 2,000 MG in SODIUM CHLORIDE 0.9% 500ML 500 ML IV ONE (01:00)
[2017-11-09] MEDS ORDERED: HEPARIN 25000 UNIT/500 ML D5W ONE (01:05)
[2017-11-09] MEDS: HEPARIN 25,000 UNIT/500ML D5W 500 ML IV SCH ×2 (01:15→19:46)
[2017-11-09] MEDS: LEVOFLOXACIN / D5W 750 MG in PREMIXED IN D5W 150 ML IV SCH (01:45)
[2017-11-09] MEDS ORDERED: IV FLUIDS COMPLETED PRN (03:30)
--- NOTE | 2017-11-09 03:40 | Pharmacy Progress Note ---
Pharmacy Abx Initial Consult Date of Service Nov 09, 2017. Pharmacy Dosing Scope Date of Consult: 11/09/17 Consultation requested by: Dr. Munoz Pharmacy is consulted to initiate vancomycin IV dosing therapy, order appropriate labs and adjust drug dose/frequency. Subjective The patient is a 82 year old female admitted on Nov 09, 2017 at 00:48 with HAP. Objective Height (Feet): 5 Height (Inches): 7.00 Weight (Kilograms): 74.500 Vital Signs (Past 12Hrs) Vital Signs Past 12 Hours Date Time Temp Pulse Resp B/P (MAP) Pulse Ox O2 Delivery O2 Flow Rate FiO2 11/09/17 03:08 117 92 30 11/09/17 02:43 128 96 30 11/09/17 01:35 109 15 97 BiPAP 11/09/17 01:31 166/85 11/09/17 01:05 108 14 96 11/09/17 01:02 114 11/09/17 01:01 164/90 11/09/17 00:35 134 31 94 11/09/17 00:31 159/112 11/09/17 00:05 131 25 92 11/09/17 00:00 118 16 149/100 95 11/08/17 23:30 106 21 144/115 11/08/17 23:10 119 93 30 11/08/17 23:01 154/105 11/08/17 23:00 122 19 97 11/08/17 22:34 109 22 97 11/08/17 22:31 157/118 11/08/17 22:19 122 21 95 BiPAP 60 11/08/17 22:04 102 20 95 11/08/17 22:01 155/84 11/08/17 22:00 119 95 60 11/08/17 21:49 129 21 94 Oxymask 15.0 11/08/17 21:38 144/112 11/08/17 21:37 117 11/08/17 21:36 92 Oxymask 15.0 11/08/17 21:34 134 34 88 Nasal Cannula 5.0 11/08/17 21:31 36.8 121 23 171/107 89 Nasal Cannula 5.0 11/08/17 21:29 171/107 Lab Results (24Hrs) Laboratory Tests (24 Hours) Test 11/08/17 22:10 11/09/17 00:24 White Blood Count 13.79 K/uL (4.8-10.8) H Red Blood Count 3.70 M/uL (4.2-5.4) L Hemoglobin 11.9 g/dL (12.0-16.0) L Hematocrit 35.6 % (37-47) L Mean Corpuscular Volume 96.2 fL (80-100) Mean Corpuscular Hemoglobin 32.2 pg (25-34) Mean Corpuscular Hemoglobin Concent 33.4 g/dl (32-36) Platelet Count 160 K/uL (130-400) Mean Platelet Volume 9.8 fL (7.4-10.4) Neutrophils (%) (Auto) 88.7 % Lymphocytes (%) (Auto) 4.7 % Monocytes (%) (Auto) 6.2 % Eosinophils (%) (Auto) 0.0 % Basophils (%) (Auto) 0.1 % Neutrophils # (Auto) 12.24 K/uL (1.4-6.5) H Lymphocytes # (Auto) 0.65 K/uL (1.2-3.4) L Monocytes # (Auto) 0.85 K/uL (0.11-0.59) H Eosinophils # (Auto) 0.00 K/uL (0-0.5) Basophils # (Auto) 0.01 K/uL (0-0.2) Lactic Acid Level 3.2 mmol/L (0.4-2.0) *H Micro Results Date/Time Source Procedure Growth Status 11/08/17 22:12 Blood Blood Culture Pending Received 11/08/17 22:10 Blood Blood Culture Pending Received Risk Factors for Resistance * Immunocompromised (chronic steroid therapy with RA) * Antimicrobial use within the last 90 days (Levaquin) Assessment & Plan Assessment 82 year old female with a PMH of interstitial lung disease on home oxygen 2 Liters, immunosuppression on chronic prednisone for RA, and recent hospital admission at the end of September for pneumonia. Patient received Levaquin. Plan vancomycin for treatment of pneumonia Vancomycin IV * Loading dose: 2000 mg (26.8 mg/kg) * Maintenance dose: 1250 mg IV (16.7 mg/kg) every 16 hours - population pharmacokinetics suggest a half-life of 13.86 hours..aggressive dosing for pulmonary indication. * Goal trough level for pulmonary : 15 to 20 mcg/mL * Trough 3ordered for 11/11/17 prior to 1700 dose * MRSA nasal swab ordered- if negative recommend discontinuation of vancomycin. Pharmacy will continue to follow and will adjust dose/frequency as necessary. Thank you.
[2017-11-09] MEDS ORDERED: DILTIAZEM BOLUS / DRIP IV STA (03:48)
[2017-11-09] MEDS: CEFEPIME IV 2,000 MG in SYRINGE 7.5 ML IV SCH ×2 (04:07→16:37)
[2017-11-09] MEDS ORDERED: DILTIAZEM HCL INJ 125 MG in DEXTROSE 5% 100ML IV PRN (04:15)
[2017-11-09] MEDS ORDERED: DILTIAZEM HCL 5 MG/ML 5 ML VIAL BOLUS/OMNI IV SCH (04:15)
[2017-11-09] MEDS: METHYLPREDNISOLONE IV 40 MG in SYRINGE 0 ML IV SCH ×3 (06:05→21:10)
[2017-11-09 06:22] LABS: HEMATOCRIT 35.9 % (37-47); HEMOGLOBIN 12.1 g/dL (12.0-16.0); IG# 0.03 K/uL (0.00-0.02); LYMPH % 3.9 %; LYMPH ABS # 0.44 K/uL (1.2-3.4); MEAN CELL VOLUME 95.5 fL (80-100); MEAN CORPUSCULAR HEMOGLOBIN 32.2 pg (25-34); MEAN CORPUSCULAR HGB CONC 33.7 g/dl (32-36); MEAN PLATELET VOLUME 9.9 fL (7.4-10.4); MONO ABS # 0.33 K/uL (0.11-0.59); NEUT % 92.8 %; NEUT ABS # 10.38 K/uL (1.4-6.5); PLATELET COUNT 146 K/uL (130-400); RED CELL DISTRIBUTION WIDTH CV 14.6 % (11.5-14.5); RED CELL DISTRIBUTION WIDTH SD 50.3 fL (36.4-46.3); WHITE BLOOD COUNT 11.18 K/uL (4.8-10.8)
[2017-11-09 06:39] LABS: ALBUMIN 2.5 gm/dl (3.4-5.0); CALCIUM 8.5 mg/dl (8.5-10.1); CREATININE 0.8 mg/dl (0.60-1.20)
[2017-11-09 06:44] LABS: PTT PATIENT 59.2 SECONDS (21.0-31.0)
[2017-11-09] MEDS: CEROVITE ADV FORMULA TAB PO SCH ×2 (08:26→21:15)
[2017-11-09] MEDS: CALCIUM 600MG + VIT D 400 IU TAB PO SCH ×2 (08:26→21:15)
[2017-11-09] MEDS: FUROSEMIDE INJ 40 MG in SYRINGE 0 ML IV SCH (08:26)
--- NOTE | 2017-11-09 08:27 | DIAGNOSTIC IMAGING REPORT ---
(CHEST) THORAX WITHOUT CLINICAL HISTORY: 82 years-old Female presenting with pneumonia vs CHF. TECHNIQUE: Multidetector CT imaging of the chest was performed without the use of intravenous contrast. IV contrast: None. A dose lowering technique was used consistent with the principles of ALARA (as low as reasonably achievable). COMPARISON: Chest x-ray from 11/08/[address] from 11/06/2017.. CT DOSE (mGy.cm): The estimated cumulative dose is 255.36 mGy.cm. 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 On soft tissue windows, normal thyroid. Foci of gas in the left axillary vasculature likely relate to injection. Multiple prominent mediastinal lymph nodes in the prevascular, aortopulmonary, and right paratracheal, and precarinal regions measuring up to 9 mm in the short axis. Evaluation of the gary limited in the absence of intravenous contrast. Atherosclerosis of the aorta. Biatrial enlargement of the heart. Coronary artery and aortic valve calcification. Small bilateral pleural effusions. No pericardial effusion. Upper abdomen normal. On lung windows, interval increase in central groundglass and solid peribronchovascular consolidation involving all 5 lobes. There is background peripheral reticulation, consolidation, and cystic change that has overall a upper lobe and anterior predominant distribution. Patchy bronchiectasis also suggested though evaluation is degraded by respiratory motion artifact. Mild evidence of peripheral interlobular septal thickening. Central airways patent. On bone windows, degenerative changes of the spine. Mild anterior wedging deformity of T6, T8, T11, and T12. Osteopenia. Posttraumatic deformity of the left humeral neck. IMPRESSION: 1. Interval worsening of peribronchovascular consolidation involving all 5 lobes. This is favored to represent infection, diffuse alveolar damage, or hemorrhage, with pulmonary edema considered less likely. Bronchoscopy to be considered. 2. These findings are on a background of chronic lung disease with peripheral predominant consolidation and fibrotic change with an upper lobe predominance. This could suggest underlying chronic eosinophilic pneumonia, organizing pneumonia, or connective tissue disease. 3. Small bilateral pleural effusions. 4. Biatrial enlargement of the heart. 5. Reactive mediastinal lymphadenopathy. 6. Osteopenia with multiple mild anterior compression deformities of several thoracic vertebral bodies. Correlate with point tenderness to assess for acuity. Electronically signed by: Boris Lopez M.D. 11/09/2017 8:26 AM Dictated Date/Time: 11/09/2017 6:55 AM
--- NOTE | 2017-11-09 11:01 | CARDIOLOGY CONSULTATION ---
DATE OF CONSULTATION: 11/09/2017 TIME: 10:01 a.m. CONSULTING PHYSICIAN: Dr. Lynne Munoz REASON FOR CONSULTATION: Atrial fibrillation, elevated troponin and possible CHF. HISTORY OF PRESENT ILLNESS: Ms. Nagel is a pleasant 82-year-old female with a history significant for interstitial lung disease, hypertension, diabetes, rheumatoid arthritis and paroxysmal SVT, who presented to [facility] on 11/08/2017 with shortness of breath, weakness, and nausea. She was hospitalized in September with pneumonia and came to the Emergency Department a few days ago with shortness of breath, but preferred to attempt management at home and therefore was discharged from the Emergency Department. Unfortunately, she became more short of breath and presented to the Emergency Department once again. She denies angina, syncope, near syncope, palpitations. She noticed edema approximately 1 week ago, but believes it improved with elevation of her legs. There was report that she had decreased level of alertness upon presentation, but she feels as though that has improved. She felt warm, but there were no documented fevers and there were no shaking chills. She was found to be hypoxic in the Emergency Department with the lowest documented oxygen saturation listed as 88%. She was placed on BiPAP and is feeling better from a breathing standpoint. Initial ECG demonstrated atrial fibrillation with rapid ventricular response and she also had an elevated troponin. She was given IV steroids as well as diuretic therapy and antibiotic therapy was also initiated upon discharge. For her atrial fibrillation, she was placed on diltiazem drip. At home, she had been taking diltiazem 240 mg daily as well as atenolol 25 mg at night. She denies melena, hematochezia, hematuria, or other bleeding. She had coughing only with breathing treatments, but stated that it was a nonproductive cough. She brought up her code status while discussing her presenting symptoms. She was clear to state that she would not want defibrillated, she would not want chest compressions. She states that if her heart stops she would want to go naturally. She was giving further consideration regarding her wishes for mechanical ventilation and plan on discussing this further with the primary service. REVIEW OF SYSTEMS: As above and otherwise review of systems were negative/unremarkable. PAST MEDICAL HISTORY: 1. Rheumatoid arthritis. 2. Interstitial lung disease. 3. Paroxysmal SVT. 4. Hypertension. 5. Restless leg syndrome. 6. Chronic leukocytosis. 7. Type 2 diabetes. 8. Depression. HOME MEDICATIONS: Include diltiazem 240 mg at night, atenolol 25 mg at night, losartan 25 mg daily, Protonix 40 mg daily, pravastatin 80 mg daily, prednisone 10 mg daily. INPATIENT MEDICATIONS: Include diltiazem drip, atenolol 25 mg at night, pravastatin 80 mg daily, Protonix 40 mg daily, vancomycin 1.25 grams IV q. 16 hours, methylprednisolone 40 mg IV q. 8 hours, levofloxacin 750 mg IV q. 24 hours, Lasix 40 mg IV daily, heparin drip per protocol, cefepime 2 grams IV q. 12 hours. ALLERGIES: INCLUDE AMOXICILLIN, ASPIRIN, CLAVULANIC ACID, CLINDAMYCIN, SULFA. SOCIAL HISTORY: She quit smoking at the age of 35 after approximately 10 pack years. No alcohol or drugs. She is a retired tray delivery aide. She is a . She had 4 children, but a son . She is alone in her hospital room. Although the nurse did present to the bedside during her discussing her code status. FAMILY HISTORY: No known premature CAD. PHYSICAL EXAMINATION: VITAL SIGNS: Temperature 37.7 degrees, heart rate currently 83 beats per minute, respiration rate 22, blood pressure 144/98 mmHg and she has been hypertensive throughout. Oxygen saturation 96% on BiPAP. I's and O's negative 1 liter thus far. Weight 67.7 kg. GENERAL: No acute distress. She appears comfortable on BiPAP from a breathing standpoint. She is alert. HEENT: Anicteric sclerae. NECK: No appreciable JVD. No bruits. Normal carotid upstrokes bilaterally. CARDIAC EXAMINATION: PMI was nonpalpable. There was no ventricular heave, irregularly irregular, normal S1, S2. There were no audible murmurs, rubs or gallops. LUNGS: Crackles bilateral lung burch throughout. ABDOMEN: Soft, nontender, nondistended, normal active bowel sounds, no bruits noted. EXTREMITIES: 2+ bilateral pitting edema to the knees. No cyanosis. 2+ radial pulses bilaterally. 2+ dorsalis pedis pulses bilaterally. No cyanosis. PSYCHIATRIC: Affect appears appropriate. LABORATORY DATA: White blood cell count is 11.18, hemoglobin 12.1, platelets 146. Sodium 127, up from 124, potassium 4, BUN 19, creatinine 0.8. Lactic acid initially 3.2, repeated at 1.8. Troponin initially 1.25 and has trended down to 1.18. Albumin 2.5. Procalcitonin 0.1, AST 92, ALT 145 down from 176, alkaline phosphatase 182. INR 1.1. ABG; pH 7.38, CO2 55, pO2 79. Influenza A and B are negative. A CT scan of the chest, 11/09/2017, reported as interval worsening of violet bronchovascular consolidation involving all 5 lobes favored to represent infection, diffuse alveolar damage, or hemorrhage as per radiology. Background findings consistent of chronic lung disease with peripheral consolidation and fibrotic change with an upper lobe predominance. Small bilateral pleural effusions. Biatrial enlargement of the heart. Reactive mediastinal lymphadenopathy. ECG personally reviewed on presentation atrial fibrillation with rapid ventricular response at 113 beats per minute. Telemetry personally reviewed. Atrial fibrillation with improved heart rate control on current regimen. Most recent echo, 04/12/2015, normal LV size, wall motion and systolic function. EF 60-65%. Mild LVH. Mild MR. Moderate TR. RVSP 31 mmHg. ASSESSMENT AND PLAN: 1. Non-ST elevation myocardial infarction: She did not present with acute coronary syndrome and denies any angina. Her elevated troponins are likely secondary to demand ischemia from hypoxia, atrial fibrillation with rapid ventricular response and her acute on chronic pulmonary issues concerning for pneumonia per radiology in the setting of interstitial lung disease. This was discussed with her. SHE IS ALLERGIC TO ASPIRIN. She is currently on a heparin drip. Because there was some concern of hemorrhage based on radiology report, we will leave that decision on continue heparin drip to the primary service. Would hold off on Plavix as an antiplatelet agent. Continue statin therapy if no contraindications. Her transaminase levels are trending downward. There is no indication for urgent cardiac catheterization and would recommend medical management. Improve heart rate and blood pressure. 2. Atrial fibrillation with rapid ventricular response: Would like to get her on oral medications if possible. Increase atenolol to 25 mg twice daily with 1 dose now. She typically takes diltiazem 240 mg at night. We will increase the old dose to 360 mg and start 90 mg q. 6 hours of the short acting medication. Attempt to wean diltiazem drip as titrating oral medications. Would recommend rate control strategy for her atrial fibrillation. The onset of her atrial fibrillation is not currently known. Agree with anticoagulation if no contraindications. This was discussed with primary service, Dr. Swartz and will leave the decision to continue heparin drip to the primary service once they are able to review the CT scan to see if there is significant concern for alveolar hemorrhage. 3. Hypertension: Adjusting atenolol and diltiazem as noted above. 4. Hypervolemia: She does appear to be hypervolemic. Agree with diuretics. Especially with her chronic lung issues she will likely do better when in a euvolemic state. Echocardiogram ordered. 5. Pneumonia and interstitial lung disease: As per primary service. Consider pulmonology consultation. 6. Disposition: Cardiology will continue to follow. Code status was discussed with primary service and Dr. Swartz will discuss further with the patient. Please call with any other questions or concerns. Highly complex medical issues. Thank you for allowing me to participate in care of Ms. Nagel. NATHALY
[2017-11-09] MEDS ORDERED: PERFLUTREN LIPID MICROSPHERE (DEFINITY) IV ONE (12:07)
[2017-11-09] MEDS: DILTIAZEM HCL 30 MG TAB PO SCH ×3 (12:27→21:14)
[2017-11-09] MEDS: PANTOprazole SOD 40 MG TAB PO SCH (12:28)
--- NOTE | 2017-11-09 13:55 | Family Medicine Progress Note ---
Progress Note Date of Service Nov 09, 2017. Subjective Pt evaluation today including: conversation w/ patient, physical exam, chart review, lab review Voiding: conti catheter in place 82-year-old female with a past medical history of rheumatoid arthritis with interstitial lung disease, hypertension, diabetes, depression, paroxysmal atrial fibrillation presented to the ER with complaints of progressively worsening shortness of breath over the last few days. Was found to be hypoxic in the ER and was placed on a BiPAP which seemed to have improved her mental status. She was also found to be in A. fib with RVR and started on diltiazem drip with heparin drip for anticoagulation. The patient appears to be alert and oriented today and states that she feels better and her breathing is improved on the BiPAP. She denies any chest pain, palpitations, dizziness or lightheadedness. Constitutional: No fever, No chills Eyes: No worsening of vision ENT: + hearing loss Respiratory: + wheezing, + shortness of breath, + dyspnea on exertion, No cough, No sputum Cardiovascular: No chest pain Breast: No breast lump Abdomen: No pain, No nausea Musculoskeletal: No joint pain Medications Current Inpatient Medications Medications (Trade) Dose Ordered Sig/Anselmo Route Start Time Stop Time Status Last Admin Dose Admin Al Hydrox/Mg Hydrox/Simethicone (Maalox Max Susp) 15 ml Q4H PRN PO 11/09/17 00:15 12/09/17 00:14 Magnesium Hydroxide (Milk Of Magnesia Susp) 30 ml Q12H PRN PO 11/09/17 00:15 12/09/17 00:14 Ondansetron HCl (Zofran Inj) 4 mg Q6H PRN IV 11/09/17 00:15 12/09/17 00:14 Nitroglycerin (Nitrostat Tab) 0.4 mg UD PRN SL 11/09/17 00:15 12/09/17 00:14 Polyethylene (Miralax Powder Packet) 17 gm DAILY PRN PO 11/09/17 00:15 12/09/17 00:14 Methylprednisolone Sodium Succinate 40 mg/Syringe 0.64 ml @ 1.5 mls/min Q8H IV 11/09/17 06:00 12/09/17 00:14 11/09/17 13:05 1.5 MLS/MIN Acetaminophen/ Butalbital/ Caffeine (Fioricet Tab) 1 tab DAILY PRN PO 11/09/17 00:15 12/09/17 00:14 Calcium/Vitamin D (Caltrate Plus Tab) 1 tab BID PO 11/09/17 09:00 12/09/17 08:59 11/09/17 08:26 1 TAB Clonazepam (Klonopin Tab) 0.5 mg HS PRN PO 11/09/17 00:15 12/09/17 00:14 Multivitamins/ Minerals (Multivitamin W/ Minerals Tab) 1 tab BID PO 11/09/17 09:00 12/09/17 08:59 11/09/17 08:26 1 TAB Pantoprazole Sodium (Protonix Tab) 40 mg QDL PO 11/09/17 11:00 12/09/17 10:59 11/09/17 12:28 40 MG Pravastatin Sodium (Pravachol Tab) 80 mg QPM PO 11/09/17 21:00 12/09/17 20:59 Furosemide 40 mg/ Syringe 4 ml @ 4 mls/min DAILY IV 11/09/17 09:00 12/09/17 08:59 11/09/17 08:26 4 MLS/MIN Levofloxacin 750 mg/Prmx 150 ml @ 100 mls/hr Q24H IV 11/09/17 01:00 11/16/17 00:59 11/09/17 01:45 100 MLS/HR Miscellaneous Information (Consult) 1 ea UD PRN N/A 11/09/17 00:45 12/09/17 00:44 Heparin Sodium/ Dextrose 500 ml @ 24 mls/hr [id number] IV 11/09/17 01:15 12/09/17 01:14 Miscellaneous (Iv Fluids Completed) 1 ea PRN PRN N/A 11/09/17 03:30 11/09/18 03:29 Cefepime HCl 2000 mg/Syringe 20 ml @ 5 mls/min Q12H IV 11/09/17 04:00 11/16/17 03:59 11/09/17 16:37 5 MLS/MIN Vancomycin HCl 1250 mg/Sodium Chloride 275 ml @ 125 mls/hr Q16H IV 11/09/17 17:00 11/16/17 16:59 11/09/17 16:38 125 MLS/HR Diltiazem HCl 125 mg/Dextrose 125 ml @ 0 mls/hr Q0M PRN IV 11/09/17 04:15 12/09/17 04:14 11/09/17 04:42 10 MLS/HR Atenolol (Tenormin Tab) 25 mg BID PO 11/09/17 21:00 12/09/17 20:59 Diltiazem HCl (Cardizem Tab) 90 mg Q6H PO 11/09/17 10:00 12/09/17 09:59 11/09/17 12:27 90 MG Diclofenac Sodium (Voltaren 1% Top Gel) 1 appln [id number] EXT 11/09/17 16:00 12/09/17 15:59 Objective Vital Signs Date Time Temp Pulse Resp B/P (MAP) Pulse Ox O2 Delivery O2 Flow Rate FiO2 11/09/17 15:04 36.4 56 18 125/83 (97) 95 BiPAP 11/09/17 12:00 BiPAP 15.0 45 11/09/17 11:57 36.8 90 27 145/95 (112) 93 Nasal Cannula 4.0 11/09/17 08:18 37.7 83 22 144/98 (113) 96 BiPAP 11/09/17 08:00 BiPAP 15.0 45 11/09/17 07:17 80 96 45 11/09/17 04:42 91 97 45 11/09/17 03:08 117 92 45 11/09/17 03:00 36.5 117 20 170/96 92 BiPAP 45 11/09/17 02:43 128 96 30 11/09/17 01:35 109 15 97 BiPAP 11/09/17 01:31 166/85 11/09/17 01:05 108 14 96 11/09/17 01:02 114 11/09/17 01:01 164/90 11/09/17 00:35 134 31 94 11/09/17 00:31 159/112 11/09/17 00:05 131 25 92 11/09/17 00:00 118 16 149/100 95 11/08/17 23:30 106 21 144/115 11/08/17 23:10 119 93 30 11/08/17 23:01 154/105 11/08/17 23:00 122 19 97 11/08/17 22:34 109 22 97 11/08/17 22:31 157/118 11/08/17 22:19 122 21 95 BiPAP 60 11/08/17 22:04 102 20 95 11/08/17 22:01 155/84 11/08/17 22:00 119 95 60 11/08/17 21:49 129 21 94 Oxymask 15.0 11/08/17 21:38 144/112 11/08/17 21:37 117 11/08/17 21:36 92 Oxymask 15.0 11/08/17 21:34 134 34 88 Nasal Cannula 5.0 11/08/17 21:31 36.8 121 23 171/107 89 Nasal Cannula 5.0 11/08/17 21:29 171/107 Physical Exam General Appearance: WD/WN, no apparent distress Eyes: normal inspection ENT: normal ENT inspection, hearing grossly normal Neck: supple Respiratory/Chest: + crackles, + rales, + rhonchi, + pertinent finding (On BiPAP) Cardiovascular: + irregularly irregular Abdomen: normal bowel sounds, non tender Extremities: normal range of motion, non-tender, + pedal edema Neurologic/Psychiatric: alert, normal mood/affect, oriented x 3 Skin: normal color Laboratory Results 11/09/17 06:01 Red Blood Count 3.76, Mean Corpuscular Volume 95.5, Mean Corpuscular Hemoglobin 32.2, Mean Corpuscular Hemoglobin Concent 33.7, Mean Platelet Volume 9.9, Neutrophils (%) (Auto) 92.8, Lymphocytes (%) (Auto) 3.9, Monocytes (%) (Auto) 3.0, Eosinophils (%) (Auto) 0.0, Basophils (%) (Auto) 0.0, Neutrophils # (Auto) 10.38, Lymphocytes # (Auto) 0.44, Monocytes # (Auto) 0.33, Eosinophils # (Auto) 0.00, Basophils # (Auto) 0.00 11/09/17 06:01 Test 11/08/17 22:10 11/08/17 22:26 11/09/17 00:24 11/09/17 06:01 Prothrombin Time 11.6 SECONDS (9.0-12.0) Prothromb Time International Ratio 1.1 (0.9-1.1) Pro-B-Type Natriuretic Peptide 9164 pg/ml (0-1800) Influenza Type A (RT-PCR) Neg for Influ A (NEG) Influenza Type B (RT-PCR) Neg for Influ B (NEG) Arterial Blood pH 7.38 (7.35-7.45) Arterial Blood Partial Pressure CO2 55 mmHg (35-46) Arterial Blood Partial Pressure O2 79 mm/Hg (80-95) Arterial Blood HCO3 32 mmol/L (19-24) Arterial Blood Oxygen Saturation 94.9 % (90-95) Arterial Blood Base Excess 5.6 mEq/L (-9-1.8) Arterial Blood Gas Delivery 45% Neo Test POS (POS) White Blood Count 11.18 K/uL (4.8-10.8) Red Blood Count 3.76 M/uL (4.2-5.4) Hemoglobin 12.1 g/dL (12.0-16.0) Hematocrit 35.9 % (37-47) Mean Corpuscular Volume 95.5 fL (80-100) Mean Corpuscular Hemoglobin 32.2 pg (25-34) Mean Corpuscular Hemoglobin Concent 33.7 g/dl (32-36) Platelet Count 146 K/uL (130-400) Mean Platelet Volume 9.9 fL (7.4-10.4) Neutrophils (%) (Auto) 92.8 % Lymphocytes (%) (Auto) 3.9 % Monocytes (%) (Auto) 3.0 % Eosinophils (%) (Auto) 0.0 % Basophils (%) (Auto) 0.0 % Neutrophils # (Auto) 10.38 K/uL (1.4-6.5) Lymphocytes # (Auto) 0.44 K/uL (1.2-3.4) Monocytes # (Auto) 0.33 K/uL (0.11-0.59) Eosinophils # (Auto) 0.00 K/uL (0-0.5) Basophils # (Auto) 0.00 K/uL (0-0.2) RDW Standard Deviation 50.3 fL (36.4-46.3) RDW Coefficient of Variation 14.6 % (11.5-14.5) Immature Granulocyte % (Auto) 0.3 % Immature Granulocyte # (Auto) 0.03 K/uL (0.00-0.02) Activated Partial Thromboplast Time 59.2 SECONDS (21.0-31.0) Partial Thromboplastin Ratio 2.3 Anion Gap 8.0 mmol/L (3-11) Est Creatinine Clear Calc Drug Dose 54.6 ml/min Estimated GFR () 80.7 Estimated GFR (Non- 69.6 BUN/Creatinine Ratio 24.1 (10-20) Lactic Acid Level 1.8 mmol/L (0.4-2.0) Calcium Level 8.5 mg/dl (8.5-10.1) Magnesium Level 1.9 mg/dl (1.8-2.4) Total Bilirubin 0.4 mg/dl (0.2-1) Aspartate Amino Transf (AST/SGOT) 92 U/L (15-37) Alanine Aminotransferase (ALT/SGPT) 145 U/L (12-78) Alkaline Phosphatase 182 U/L (45-117) Total Protein 7.0 gm/dl (6.4-8.2) Albumin 2.5 gm/dl (3.4-5.0) Globulin 4.5 gm/dl (2.5-4.0) Albumin/Globulin Ratio 0.6 (0.9-2) Procalcitonin 0.10 ng/ml (0-0.5) Test 11/09/17 16:09 11/09/17 17:02 Troponin I 0.948 ng/ml (0-0.045) Bedside Glucose 214 mg/dl (70-90) Date/Time Source Procedure Growth Status 11/09/17 04:50 Nasal MRSA DNA Surveillance Screen - Final Specimen Positive for MRSA by DNA Probe Complete (CHEST) THORAX WITHOUT CLINICAL HISTORY: 82 years-old Female presenting with pneumonia vs CHF. TECHNIQUE: Multidetector CT imaging of the chest was performed without the use of intravenous contrast. IV contrast: None. A dose lowering technique was used consistent with the principles of ALARA (as low as reasonably achievable). COMPARISON: Chest x-ray from 11/08/[address] from 11/06/2017.. CT DOSE (mGy.cm): The estimated cumulative dose is 255.36 mGy.cm. FINDINGS: Breakdown Man topogram: Cardiomegaly and diffuse opacities in the lungs. On soft tissue windows, normal thyroid. Foci of gas in the left axillary vasculature likely relate to injection. Multiple prominent mediastinal lymph nodes in the prevascular, aortopulmonary, and right paratracheal, and precarinal regions measuring up to 9 mm in the short axis. Evaluation of the gary limited in the absence of intravenous contrast. Atherosclerosis of the aorta. Biatrial enlargement of the heart. Coronary artery and aortic valve calcification. Small bilateral pleural effusions. No pericardial effusion. Upper abdomen normal. On lung windows, interval increase in central groundglass and solid peribronchovascular consolidation involving all 5 lobes. There is background peripheral reticulation, consolidation, and cystic change that has overall a upper lobe and anterior predominant distribution. Patchy bronchiectasis also suggested though evaluation is degraded by respiratory motion artifact. Mild evidence of peripheral interlobular septal thickening. Central airways patent. On bone windows, degenerative changes of the spine. Mild anterior wedging deformity of T6, T8, T11, and T12. Osteopenia. Posttraumatic deformity of the left humeral neck. IMPRESSION: 1. Interval worsening of peribronchovascular consolidation involving all 5 lobes. This is favored to represent infection, diffuse alveolar damage, or hemorrhage, with pulmonary edema considered less likely. Bronchoscopy to be considered. 2. These findings are on a background of chronic lung disease with peripheral predominant consolidation and fibrotic change with an upper lobe predominance. This could suggest underlying chronic eosinophilic pneumonia, organizing pneumonia, or connective tissue disease. 3. Small bilateral pleural effusions. 4. Biatrial enlargement of the heart. 5. Reactive mediastinal lymphadenopathy. 6. Osteopenia with multiple mild anterior compression deformities of several thoracic vertebral bodies. Correlate with point tenderness to assess for acuity. Electronically signed by: Boris Lopez M.D. 11/09/2017 8:26 AM Dictated Date/Time: 11/09/2017 6:55 AM Assessment and Plan 82-year-old female with a past medical history of rheumatoid arthritis with interstitial lung disease, hypertension, diabetes, depression, paroxysmal atrial fibrillation presented to the ER with complaints of progressively worsening shortness of breath over the last few days. Was found to be hypoxic in the ER and was placed on a BiPAP which seemed to have improved her mental status. She was also found to be in A. fib with RVR and started on diltiazem drip with heparin drip for anticoagulation. Acute hypoxic respiratory failure: Pneumonia with worsening interstitial lung disease -Chest CT revealed interval worsening of peribronchovascular consolidation involving all 5 lobes suggestive of infection versus diffuse alveolar damage or hemorrhage on a background of chronic lung disease with peripheral predominant consolidation and fibrotic change with an upper lobe predominance. This could suggest underlying chronic eosinophilic pneumonia, organizing pneumonia, or connective tissue disease. -Continue BiPAP -MRSA positive, influenza negative -Continue cefepime, vancomycin and Levaquin. We will switch to azithromycin tomorrow -Continue IV methylprednisolone 40 mg every 8 hours NSTEMI: -Troponins appear to be downtrending, 1.25-->1.18-->1.14-->0.98 -Likely secondary to demand ischemia -Patient is allergic to aspirin -Continue pravastatin -Echo : . Normal left ventricular size and systolic function. EF 60-65%. No regional wall motion abnormalities. Mild concentric left ventricular hypertrophy. * 2. The right ventricle is mildly dilated. * 3. The left atrium is severely dilated. * 4. The right atrium is moderately dilated. * 5. Aortic valve sclerosis mild, without significant aortic valvular stenosis. * 6. There is mild mitral regurgitation. * 7. There is severe tricuspid regurgitation. * 8. Top-normal right ventricular systolic pressure; 37mmHg. * 9. Technically difficult study, enhanced with IV Definity. * 10. Compared to prior study on 11/04/2011, atrial fibrillation has replaced sinus rhythm. Tricuspid regurgitation now appears severe. Atrial fibrillation with rapid ventricular rate: -Has a history of paroxysmal atrial fib -Was started on Cardizem drip which was switched to p.o. Cardizem 90 mg every 6 hours and atenolol 25 mg twice daily -Currently on heparin drip, will discuss oral anticoagulation Hypertension : -Continue atenolol and diltiazem Hypervolemia: -Echo as above -IV Lasix 40 mg daily, monitor I's and O's and daily weights Transaminitis -Likely secondary to liver congestion - Trend LFTs Steroid-induced hyperglycemia -Monitor blood sugar RA - Placed on IV steroids, - Continue Cimzia as outpt when recovers from PNM Hyponatremia -Sodium at 127 -Monitor BMP DVT prophylaxis: Heparin drip DNR Disposition :currently on telemetry Resident Physician Supervision Note: I interviewed and examined the patient. Discussed with Dr. Swartz and agree with findings and plan as documented in the note. Any exceptions or clarifications are listed here: None Documented By: Mart Ferrer feeling much better breathing better vitals noted nad breathing surprisingly unlabored and fairly clear poor air entry scattered rales mixed respiratory failure - hypoxia and hypercapnea - from infection superimposed on chronic fibrosis -improving -abx, supportive care afib - rate control ipmroving otherwise as above Resident Tracking Resident Involvement: Resident Care Provided Care Provided: Adult Hospital Medicine
--- NOTE | 2017-11-09 15:46 | ECHOCARDIOGRAM REPORT ---
*NOTICE TO RECEIVING [employer] This information is strictly Confidential and protected under [place] law. [place] law prohibits you from making any further disclosure of this information unless further disclosure is expressly permitted by the written consent of the person to whom it pertains or is authorized by law. A general authorization for the release of medical or other information is not sufficient for this purpose. Hospital accepts no responsibility if the information is made available to any other person, INCLUDING THE PATIENT. Interpretation Summary * Name: DESIREE MELENDEZ Study Date: 11/09/2017 11:45 AM BP: 144/98 mmHg * Patient Location: C.2E\S\E202\S\1 HR: 86 * : 1935 (M/d/yyyy) Gender: Female Height: 67 in * Age: 82 yrs Ethnicity: [place] Weight: 149 lb * Ordering Physician: Yunior Olea * Referring Physician: Self, Referred * Performed By: Radha Pepe RCS * * Reason For Study: AR * BSA: 1.8 m2 * -- Conclusions -- * 1. Normal left ventricular size and systolic function. EF 60-65%. No regional wall motion abnormalities. Mild concentric left ventricular hypertrophy. * 2. The right ventricle is mildly dilated. * 3. The left atrium is severely dilated. * 4. The right atrium is moderately dilated. * 5. Aortic valve sclerosis mild, without significant aortic valvular stenosis. * 6. There is mild mitral regurgitation. * 7. There is severe tricuspid regurgitation. * 8. Top-normal right ventricular systolic pressure; 37mmHg. * 9. Technically difficult study, enhanced with IV Definity. * 10. Compared to prior study on 11/04/2011, atrial fibrillation has replaced sinus rhythm. Tricuspid regurgitation now appears severe. Procedure Details * A complete two-dimensional transthoracic echocardiogram was performed (2D, M-mode, Doppler and color flow Doppler). * A contrast injection of Definity was performed to improve assessment of LV function. * Contrast was injected into an intravenous site in the left arm. * One vial of Definity ultrasound contrast was diluted in normal saline to a total volume of 10 ml. A total of '2' ml of solution was administered during imaging. * Lot # [id number] of Definity utilized for procedure. * Expiration date 1 OCT 12. * The attending nurse who injected the contrast agent was OPHELIA STORM, PCU, RN. Left Ventricle * Normal left ventricular size and systolic function. EF 60-65%. No regional wall motion abnormalities. Mild concentric left ventricular hypertrophy. Tissue Doppler does not suggest elevated left atrial pressures. Right Ventricle * The right ventricle is mildly dilated. * The right ventricle is not well visualized. Atria * The left atrium is severely dilated. * The right atrium is moderately dilated. * Interatrial septum not well visualized. Mitral Valve * The mitral valve is grossly normal. * There is mild mitral annular calcification. * There is no mitral valve stenosis. * There is mild mitral regurgitation. Tricuspid Valve * There is no tricuspid stenosis. * There is severe tricuspid regurgitation. Aortic Valve * The aortic valve is trileaflet. * Aortic valve sclerosis mild, without significant aortic valvular stenosis. * There is no significant aortic regurgitation. Pulmonic Valve * The pulmonary valve is inadequately visualized, but the Doppler data is adequate for interpretation. * There is no pulmonic valvular stenosis. * Trace pulmonic valvular regurgitation. Great Vessels * The aortic root is normal size. * Ascending aorta of normal dimension Pericardium/Pleural * There is no pericardial effusion. * Pleural effusion. Great Vessels * Top normal IVC size. Reduced inspiratory collapse. MMode 2D Measurements and Calculations IVSd 1.3 cm IVSs 1.7 cm LVIDd 3.5 cm LVIDs 2.3 cm LVPWd 1.2 cm LVPWs 1.2 cm IVS/LVPW 1.2 FS 32.4 % EDV(Teich) 49.7 ml ESV(Teich) 19.0 ml EF(Teich) 61.8 % EDV(cubed) 41.7 ml ESV(cubed) 12.9 ml EF(cubed) 69.1 % % IVS thick 30.8 % % LVPW thick 4.7 % LV mass(C)d 141.3 grams LV mass(C)dI 79.2 grams/m\S\2 LV mass(C)s 113.2 grams LV mass(C)sI 63.4 grams/m\S\2 SV(Teich) 30.7 ml SI(Teich) 17.2 ml/m\S\2 SV(cubed) 28.8 ml SI(cubed) 16.2 ml/m\S\2 Ao root diam 2.8 cm Ao root area 6.3 cm\S\2 ACS 1.6 cm LA dimension 3.3 cm asc Aorta Diam 2.7 cm LA/Ao 1.2 LVOT diam 2.0 cm LVOT area 3.2 cm\S\2 Doppler Measurements and Calculations MV E max que 73.3 cm/sec MV P1/2t max que 86.5 cm/sec MV P1/2t 81.6 msec MVA(P1/2t) 2.7 cm\S\2 MV dec slope 310.3 cm/sec\S\2 MV dec time 0.25 sec Ao V2 max 61.5 cm/sec Ao max PG 1.5 mmHg Ao max PG (full) 0.46 mmHg VINNY(V,A) 2.6 cm\S\2 VINNY(V,D) 2.6 cm\S\2 LV V1 max PG 1.0 mmHg LV V1 max 51.2 cm/sec MR max que 581.3 cm/sec MR max PG 135.2 mmHg PA V2 max 59.5 cm/sec PA max PG 1.4 mmHg TR max que 268.1 cm/sec RVSP(TR) 36.8 mmHg RAP systole 8.0 mmHg
[2017-11-09] MEDS: VANCOMYCIN IV 1,250 MG in SODIUM CHLORIDE 0.9% 250ML 250 ML IV SCH (16:38)
[2017-11-09] MEDS ORDERED: GLUCOSE 10 TABS/TUBE PO PRN (19:15)
[2017-11-09] MEDS ORDERED: GLUCAGON FOR INJ 1 MG VIAL SQ PRN (19:15)
[2017-11-09] MEDS ORDERED: GLUCOSE 40% GEL 15 GM TUBE PO PRN (19:15)
[2017-11-09] MEDS: DICLOFENAC SOD 1% GEL 100 GM TUBE EXT SCH (19:39)
[2017-11-09] MEDS ORDERED: DILTIAZEM HCL 120 MG EXT REL CAP PO SCH (21:00)
[2017-11-09] MEDS ORDERED: LOSARTAN POTASSIUM 25 MG TAB PO SCH (21:00)
[2017-11-09] MEDS: PRAVASTATIN SOD 40 MG TAB PO SCH (21:15)
[2017-11-10] VITALS (9 sets, daily range): BP systolic 128–152; BP diastolic 72–88; PULSE 46–97; TEMP 36.4–37.5; O2SAT 95–98
[2017-11-10] MEDS: LEVOFLOXACIN / D5W 750 MG in PREMIXED IN D5W 150 ML IV SCH (01:38)
[2017-11-10] MEDS ORDERED: NURSING VERBAL MED ORDER ONE (01:45)
[2017-11-10] MEDS: DILTIAZEM HCL 60 MG TAB PO SCH ×5 (03:52→22:02)
[2017-11-10] MEDS: CEFEPIME IV 2,000 MG in SYRINGE 7.5 ML IV SCH ×2 (04:37→16:27)
[2017-11-10] MEDS: METHYLPREDNISOLONE IV 40 MG in SYRINGE 0 ML IV SCH ×3 (04:39→22:02)
[2017-11-10] MEDS: ACETAMINOPHEN 325 MG TAB PO SCH ×3 (06:46→18:00)
[2017-11-10 07:10] LABS: HEMATOCRIT 34.3 % (37-47); HEMOGLOBIN 11.5 g/dL (12.0-16.0); IG# 0.03 K/uL (0.00-0.02); LYMPH % 4.9 %; LYMPH ABS # 0.58 K/uL (1.2-3.4); MEAN CELL VOLUME 96.1 fL (80-100); MEAN CORPUSCULAR HEMOGLOBIN 32.2 pg (25-34); MEAN CORPUSCULAR HGB CONC 33.5 g/dl (32-36); MONO % 6.2 %; MONO ABS # 0.73 K/uL (0.11-0.59); NEUT % 88.6 %; PLATELET COUNT 172 K/uL (130-400); RED CELL DISTRIBUTION WIDTH CV 14.5 % (11.5-14.5); RED CELL DISTRIBUTION WIDTH SD 51.6 fL (36.4-46.3); WHITE BLOOD COUNT 11.74 K/uL (4.8-10.8)
[2017-11-10 07:18] LABS: CALCIUM 8.8 mg/dl (8.5-10.1); CREATININE 1.02 mg/dl (0.60-1.20); POTASSIUM 4.1 mmol/L (3.5-5.1)
[2017-11-10 07:24] LABS: CREATININE 1.03 mg/dl (0.60-1.20)
--- NOTE | 2017-11-10 07:29 | Family Medicine Progress Note ---
Progress Note Date of Service Nov 10, 2017. Subjective Pt evaluation today including: conversation w/ patient, physical exam, chart review, lab review Constitutional: No fever, No chills Eyes: No worsening of vision ENT: No hearing loss Respiratory: No cough, No sputum Cardiovascular: No chest pain Abdomen: No pain, No nausea Medications Current Inpatient Medications Medications (Trade) Dose Ordered Sig/Anselmo Route Start Time Stop Time Status Last Admin Dose Admin Al Hydrox/Mg Hydrox/Simethicone (Maalox Max Susp) 15 ml Q4H PRN PO 11/09/17 00:15 12/09/17 00:14 Magnesium Hydroxide (Milk Of Magnesia Susp) 30 ml Q12H PRN PO 11/09/17 00:15 12/09/17 00:14 Ondansetron HCl (Zofran Inj) 4 mg Q6H PRN IV 11/09/17 00:15 12/09/17 00:14 Nitroglycerin (Nitrostat Tab) 0.4 mg UD PRN SL 11/09/17 00:15 12/09/17 00:14 Polyethylene (Miralax Powder Packet) 17 gm DAILY PRN PO 11/09/17 00:15 12/09/17 00:14 Methylprednisolone Sodium Succinate 40 mg/Syringe 0.64 ml @ 1.5 mls/min Q8H IV 11/09/17 06:00 12/09/17 00:14 11/10/17 04:39 1.5 MLS/MIN Acetaminophen/ Butalbital/ Caffeine (Fioricet Tab) 1 tab DAILY PRN PO 11/09/17 00:15 12/09/17 00:14 Calcium/Vitamin D (Caltrate Plus Tab) 1 tab BID PO 11/09/17 09:00 12/09/17 08:59 11/10/17 09:17 1 TAB Clonazepam (Klonopin Tab) 0.5 mg HS PRN PO 11/09/17 00:15 12/09/17 00:14 Multivitamins/ Minerals (Multivitamin W/ Minerals Tab) 1 tab BID PO 11/09/17 09:00 12/09/17 08:59 11/10/17 09:17 1 TAB Pantoprazole Sodium (Protonix Tab) 40 mg QDL PO 11/09/17 11:00 12/09/17 10:59 11/10/17 09:17 40 MG Pravastatin Sodium (Pravachol Tab) 80 mg QPM PO 11/09/17 21:00 12/09/17 20:59 11/09/17 21:15 80 MG Furosemide 40 mg/ Syringe 4 ml @ 4 mls/min DAILY IV 11/09/17 09:00 12/09/17 08:59 11/10/17 09:17 4 MLS/MIN Levofloxacin 750 mg/Prmx 150 ml @ 100 mls/hr Q24H IV 11/09/17 01:00 11/16/17 00:59 11/10/17 01:38 100 MLS/HR Miscellaneous Information (Consult) 1 ea UD PRN N/A 11/09/17 00:45 12/09/17 00:44 Heparin Sodium/ Dextrose 500 ml @ 24 mls/hr [id number] IV 11/09/17 01:15 12/09/17 01:14 11/09/17 19:46 24 MLS/HR Miscellaneous (Iv Fluids Completed) 1 ea PRN PRN N/A 11/09/17 03:30 11/09/18 03:29 Cefepime HCl 2000 mg/Syringe 20 ml @ 5 mls/min Q12H IV 11/09/17 04:00 11/16/17 03:59 11/10/17 04:37 5 MLS/MIN Vancomycin HCl 1250 mg/Sodium Chloride 275 ml @ 125 mls/hr Q16H IV 11/09/17 17:00 11/16/17 16:59 11/10/17 09:42 125 MLS/HR Diltiazem HCl 125 mg/Dextrose 125 ml @ 0 mls/hr Q0M PRN IV 11/09/17 04:15 12/09/17 04:14 11/09/17 04:42 10 MLS/HR Atenolol (Tenormin Tab) 25 mg BID PO 11/09/17 21:00 12/09/17 20:59 11/09/17 21:14 25 MG Diclofenac Sodium (Voltaren 1% Top Gel) 1 appln [id number] EXT 11/09/17 16:00 12/09/17 15:59 11/10/17 09:16 1 APPLN Glucagon (Glucagon Inj) 1 mg UD PRN SQ 11/09/17 19:15 12/09/17 19:14 Glucose (Glucose 40% Gel) 15-30 GRAMS 15 GRAMS... UD PRN PO 11/09/17 19:15 12/09/17 19:14 Glucose (Glucose Chew Tab) 4-8 Tablets 4 Tabl... UD PRN PO 11/09/17 19:15 12/09/17 19:14 Insulin Aspart (novoLOG ASPART) SLIDING SCALE If C... ACHS SC 11/10/17 07:00 12/10/17 06:59 Diltiazem HCl (Cardizem Tab) 60 mg Q6H PO 11/10/17 04:00 12/10/17 03:59 11/10/17 04:39 60 MG Acetaminophen (Tylenol Tab) 650 mg Q6H PO 11/10/17 06:00 12/10/17 05:59 11/10/17 06:46 650 MG Objective Vital Signs Date Time Temp Pulse Resp B/P (MAP) Pulse Ox O2 Delivery O2 Flow Rate FiO2 11/10/17 07:52 37.5 97 20 128/72 (90) 97 BiPAP 11/10/17 07:24 48 96 45 11/10/17 04:27 36.4 63 14 144/88 (106) 97 BiPAP 45 11/10/17 04:00 BiPAP 45 11/10/17 01:56 78 96 45 11/10/17 00:47 46 18 133/86 (102) 95 BiPAP 45 11/10/17 00:01 BiPAP 45 11/09/17 23:23 36.4 66 20 143/92 (109) 97 BiPAP 11/09/17 22:41 82 96 45 11/09/17 20:00 Nasal Cannula 4.0 11/09/17 19:47 36.5 75 20 136/93 (107) 93 Nasal Cannula 4.0 11/09/17 16:00 95 BiPAP 11/09/17 15:04 36.4 56 18 125/83 (97) 95 BiPAP 11/09/17 12:00 BiPAP 15.0 45 11/09/17 11:57 36.8 90 27 145/95 (112) 93 Nasal Cannula 4.0 Physical Exam General Appearance: WD/WN, no apparent distress Eyes: normal inspection ENT: hearing grossly normal Neck: supple Respiratory/Chest: chest non-tender, + crackles, + rales, + rhonchi Cardiovascular: + bradycardia, + irregularly irregular Abdomen: non tender, soft Neurologic/Psychiatric: alert, normal mood/affect, oriented x 3 Laboratory Results 11/10/17 06:08 Red Blood Count 3.57, Mean Corpuscular Volume 96.1, Mean Corpuscular Hemoglobin 32.2, Mean Corpuscular Hemoglobin Concent 33.5, Mean Platelet Volume 10.0, Neutrophils (%) (Auto) 88.6, Lymphocytes (%) (Auto) 4.9, Monocytes (%) (Auto) 6.2, Eosinophils (%) (Auto) 0.0, Basophils (%) (Auto) 0.0, Neutrophils # (Auto) 10.40, Lymphocytes # (Auto) 0.58, Monocytes # (Auto) 0.73, Eosinophils # (Auto) 0.00, Basophils # (Auto) 0.00 11/10/17 06:08 11/10/17 06:10 Test 11/09/17 16:09 11/10/17 06:08 11/10/17 06:10 11/10/17 06:11 Troponin I 0.948 ng/ml (0-0.045) White Blood Count 11.74 K/uL (4.8-10.8) Red Blood Count 3.57 M/uL (4.2-5.4) Hemoglobin 11.5 g/dL (12.0-16.0) Hematocrit 34.3 % (37-47) Mean Corpuscular Volume 96.1 fL (80-100) Mean Corpuscular Hemoglobin 32.2 pg (25-34) Mean Corpuscular Hemoglobin Concent 33.5 g/dl (32-36) Platelet Count 172 K/uL (130-400) Mean Platelet Volume 10.0 fL (7.4-10.4) Neutrophils (%) (Auto) 88.6 % Lymphocytes (%) (Auto) 4.9 % Monocytes (%) (Auto) 6.2 % Eosinophils (%) (Auto) 0.0 % Basophils (%) (Auto) 0.0 % Neutrophils # (Auto) 10.40 K/uL (1.4-6.5) Lymphocytes # (Auto) 0.58 K/uL (1.2-3.4) Monocytes # (Auto) 0.73 K/uL (0.11-0.59) Eosinophils # (Auto) 0.00 K/uL (0-0.5) Basophils # (Auto) 0.00 K/uL (0-0.2) RDW Standard Deviation 51.6 fL (36.4-46.3) RDW Coefficient of Variation 14.5 % (11.5-14.5) Immature Granulocyte % (Auto) 0.3 % Immature Granulocyte # (Auto) 0.03 K/uL (0.00-0.02) Anion Gap 7.0 mmol/L (3-11) BUN/Creatinine Ratio 25.9 (10-20) Calcium Level 8.8 mg/dl (8.5-10.1) Est Creatinine Clear Calc Drug Dose 42.4 ml/min Estimated GFR () 59.5 Estimated GFR (Non- 51.3 Bedside Glucose 179 mg/dl (70-90) Test 11/10/17 09:19 Activated Partial Thromboplast Time 195.6 SECONDS (21.0-31.0) Partial Thromboplastin Ratio 7.5 Assessment and Plan 82-year-old female with a past medical history of rheumatoid arthritis with interstitial lung disease, hypertension, diabetes, depression, paroxysmal atrial fibrillation presented to the ER with complaints of progressively worsening shortness of breath over the last few days. Was found to be hypoxic in the ER and was placed on a BiPAP which seemed to have improved her mental status. She was also found to be in A. fib with RVR and started on diltiazem drip with heparin drip for anticoagulation. Acute hypoxic respiratory failure: Pneumonia with worsening interstitial lung disease -Chest CT revealed interval worsening of peribronchovascular consolidation involving all 5 lobes suggestive of infection versus diffuse alveolar damage or hemorrhage on a background of chronic lung disease with peripheral predominant consolidation and fibrotic change with an upper lobe predominance. This could suggest underlying chronic eosinophilic pneumonia, organizing pneumonia, or connective tissue disease. -Continue BiPAP, may wean to NC as tolerated -MRSA positive, influenza negative -Continue cefepime, vancomycin and Levaquin. -Continue IV methylprednisolone 40 mg every 8 hours NSTEMI: -Troponins appear to be downtrending, 1.25-->1.18-->1.14-->0.98 -Likely secondary to demand ischemia -Patient is allergic to aspirin -Continue pravastatin -Echo : . Normal left ventricular size and systolic function. EF 60-65%. No regional wall motion abnormalities. Mild concentric left ventricular hypertrophy. * 2. The right ventricle is mildly dilated. * 3. The left atrium is severely dilated. * 4. The right atrium is moderately dilated. * 5. Aortic valve sclerosis mild, without significant aortic valvular stenosis. * 6. There is mild mitral regurgitation. * 7. There is severe tricuspid regurgitation. * 8. Top-normal right ventricular systolic pressure; 37mmHg. * 9. Technically difficult study, enhanced with IV Definity. * 10. Compared to prior study on 11/04/2011, atrial fibrillation has replaced sinus rhythm. Tricuspid regurgitation now appears severe. Atrial fibrillation with rapid ventricular rate: -Has a history of paroxysmal atrial fib -Was started on Cardizem drip which was switched to p.o. Cardizem 90 mg every 6 hours and atenolol 25 mg twice daily but patoient had episodes of bradycardia and the regimen had been modified to cardizem 60 mg q6h with atenolol 25 mg BID - Discussed about need for anticoagulation for stroke prevention, switched heparin drip to xarelto Hypertension : -Continue atenolol and diltiazem Hypervolemia: -Echo as above -IV Lasix 40 mg daily, monitor I's and O's and daily weights Transaminitis -Likely secondary to liver congestion - Trend LFTs Steroid-induced hyperglycemia -Monitor blood sugar RA - Placed on IV steroids, - Continue Cimzia as outpt when recovers from PNM Hyponatremia -Sodium at 127 -Monitor BMP DVT prophylaxis: Heparin drip DNR Disposition :currently on telemetry Resident Physician Supervision Note: I interviewed and examined the patient. Discussed with Dr. Swartz and agree with findings and plan as documented in the note. Any exceptions or clarifications are listed here: None Documented By: Mart Ferrer feeling better breathing better rates better controlled vitals noted nad breathing unlabored lungs diminished bases faint rales bases more clear throughout than yesterday a/p mixed respiratory failure - hypoxia and hypercapnea - from infection superimposed on chronic fibrosis -improving nicely, off bipap (may still need HS) -abx, supportive care afib - rate actually somewhat slow since adrenergic impulses have let up - lowering meds otherwise as above Resident Tracking Resident Involvement: Resident Care Provided Care Provided: Adult [facility] Medicine
[2017-11-10] MEDS: DICLOFENAC SOD 1% GEL 100 GM TUBE EXT SCH ×3 (09:16→16:28)
[2017-11-10] MEDS: FUROSEMIDE INJ 40 MG in SYRINGE 0 ML IV SCH (09:17)
[2017-11-10] MEDS: CALCIUM 600MG + VIT D 400 IU TAB PO SCH ×2 (09:17→19:23)
[2017-11-10] MEDS: PANTOprazole SOD 40 MG TAB PO SCH (09:17)
[2017-11-10] MEDS: CEROVITE ADV FORMULA TAB PO SCH ×2 (09:17→19:23)
[2017-11-10] MEDS: VANCOMYCIN IV 1,250 MG in SODIUM CHLORIDE 0.9% 250ML 250 ML IV SCH (09:42)
[2017-11-10] MEDS: INSULIN ASPART 100 UNITS/ML 3 ML PEN SC SCH ×4 (09:45→22:01)
[2017-11-10 10:03] LABS: PTT PATIENT 195.6 SECONDS (21.0-31.0)
--- NOTE | 2017-11-10 11:10 | Pharmacy Progress Note ---
Pharmacy Abx Dose Short Note Date of Service Nov 10, 2017. Assessment & Plan Assessment 82 year old female receiving Vancomycin/cefepime/levofloxacin for treatment of pneumonia. Day # 3/7 of antimicrobial therapy. Plan Vancomycin * Given weight decrease from admission, and bump in SCr, I reduced the vancomycin dose closer to 15mg/kg and slightly reduced the interval. However, her UOP remains adequate and renal function is noted to be variable, so will look for a trend going forward. * Retimed trough level to accommodate new interval. Level scheduled for 11/11 @ 1830. Pharmacy will continue to follow and will adjust dose/frequency as necessary. Thank you.
--- NOTE | 2017-11-10 11:45 | CARDIOLOGY PROGRESS NOTE ---
DATE: 11/10/2017 TIME: 10:20 a.m. SUBJECTIVE: Her breathing has improved, but she is still short of breath. She is no longer on BiPAP, but rather supplemental oxygen via nasal cannula. She denies chest pain, syncope. She does have lightheadedness when she sits up quickly. She believes her edema has improved. She denies any bleeding. Nursing staff has held this morning doses of atenolol and diltiazem secondary to bradycardia. OBJECTIVE: VITAL SIGNS: Temperature 37.5 degrees, heart rate 97 beats per minute last charted but currently in the 60s, respiration rate 20, blood pressure 128/72 mmHg. oxygen saturation 97% when she was on BiPAP earlier. I's and O's negative 1.6 liters yesterday. Weight is 69.2 kg. GENERAL: In no acute distress. She is alert. CARDIAC EXAM: No ventricular heave, irregularly irregular, but rate controlled. No audible murmurs, rubs or gallops. LUNGS: Crackles bilaterally throughout sparing the apical areas. ABDOMEN: Soft, nontender, nondistended. Normoactive bowel sounds. EXTREMITIES: Edema has improved and she currently has 1-2+ bilateral lower extremity edema to the knees. No cyanosis. PSYCHIATRIC: Affect appears appropriate. MEDICATIONS: Diltiazem 60 mg p.o. q. 6 hours; however, one dose has been held, atenolol 25 mg twice daily with the morning dose being held for bradycardia, cefepime 2 grams IV q. 12 hours, heparin drip per protocol, Lasix 40 mg IV daily, levofloxacin 750 mg IV q. 24 hours, methylprednisolone 40 mg IV q. 8 hours, Protonix 40 mg daily, pravastatin 80 mg daily, vancomycin 1.25 grams IV q. 16 hours. DATA: Sodium 123, potassium 4.1, BUN 26, creatinine 1.02, PTT 195. White blood cell count 11.74, hemoglobin 11.5, platelets 172. Telemetry personally reviewed. Atrial fibrillation with a much improved heart rate control was some intermittent bradycardia. Echocardiogram 11/09/2017: Normal LV size and systolic function. EF 60-65%. Normal wall motion. Mild LVH. Mildly dilated RV. Severely dilated left atrium. Moderate right atrial dilation. Sclerotic aortic valve. Mild MR. Severe TR. RVSP 37 mmHg. ASSESSMENT AND PLAN: 1. Atrial fibrillation with rapid ventricular response: Continue current regimen for now. Her heart rate may have been more tachycardic as she presented with respiratory distress. We may just resume her home medications if she continues to have intermittent bradycardia. Continue anticoagulation for stroke risk reduction if no contraindications. 2. Non-ST elevation myocardial infarction: She did not present with acute coronary syndrome and had not had any angina. This is likely secondary to her atrial fibrillation with rapid ventricular response and hypoxia with her multifocal pneumonia. Medical management recommended. SHE IS ALLERGIC TO ASPIRIN. She is currently on heparin drip. Continue beta ghassan. Continue statin therapy. 3. Tricuspid regurgitation: Severe on most recent echo. She is hypervolemic and this may improve with continued diuresis. She also has significant lung issues with interstitial lung disease and pneumonia as noted above. Conservative management recommended. 4. Hypertension: Blood pressure overall improved. Continue current regimen. 5. Hypervolemia: Continue to diurese. She is improving. This may be evidence of right heart failure with the lower extremity edema. Given the fact that she has severe TR continue current diuretic. 6. Pneumonia interstitial lung disease: As per primary service. 7. Disposition: Cardiology will continue to follow.
[2017-11-10] MEDS: HEPARIN 25,000 UNIT/500ML D5W 500 ML IV SCH (13:13)
[2017-11-10] MEDS ORDERED: SODIUM CHLORIDE 0.65% NA SOLN 45 ML (OCEAN) ONE (17:01)
[2017-11-10] MEDS: PRAVASTATIN SOD 40 MG TAB PO SCH (19:23)
[2017-11-10] MEDS ORDERED: RIVAROXABAN 20 MG TAB PO SCH (21:00)
[2017-11-11] VITALS (8 sets, daily range): BP systolic 114–141; BP diastolic 81–94; PULSE 62–88; TEMP 36.1–36.9; O2SAT 94–98
[2017-11-11] MEDS: LEVOFLOXACIN / D5W 750 MG in PREMIXED IN D5W 150 ML IV SCH (01:02)
[2017-11-11] MEDS: VANCOMYCIN IV 1,000 MG in SODIUM CHLORIDE 0.9% 250ML 250 ML IV SCH ×2 (03:15→20:45)
[2017-11-11] MEDS: DILTIAZEM HCL 60 MG TAB PO SCH ×4 (04:29→21:38)
[2017-11-11] MEDS: CEFEPIME IV 2,000 MG in SYRINGE 7.5 ML IV SCH ×2 (04:29→16:19)
[2017-11-11 05:19] LABS: HEMATOCRIT 32.9 % (37-47); HEMOGLOBIN 11.3 g/dL (12.0-16.0); MEAN CELL VOLUME 94.8 fL (80-100); MEAN CORPUSCULAR HEMOGLOBIN 32.6 pg (25-34); MEAN CORPUSCULAR HGB CONC 34.3 g/dl (32-36); MEAN PLATELET VOLUME 9.9 fL (7.4-10.4); PLATELET COUNT 184 K/uL (130-400); RED CELL DISTRIBUTION WIDTH CV 14.3 % (11.5-14.5); RED CELL DISTRIBUTION WIDTH SD 49.4 fL (36.4-46.3); WHITE BLOOD COUNT 11.79 K/uL (4.8-10.8)
[2017-11-11 05:32] LABS: PTT PATIENT 34.7 SECONDS (21.0-31.0)
[2017-11-11 05:39] LABS: CREATININE 1.09 mg/dl (0.60-1.20)
[2017-11-11] MEDS: METHYLPREDNISOLONE IV 40 MG in SYRINGE 0 ML IV SCH ×2 (06:01→14:26)
[2017-11-11] MEDS: ACETAMINOPHEN 325 MG TAB PO SCH ×5 (06:02→23:39)
[2017-11-11] MEDS: CALCIUM 600MG + VIT D 400 IU TAB PO SCH ×2 (07:49→20:39)
[2017-11-11] MEDS: CEROVITE ADV FORMULA TAB PO SCH ×2 (07:49→20:39)
[2017-11-11] MEDS: FUROSEMIDE INJ 40 MG in SYRINGE 0 ML IV SCH (07:50)
[2017-11-11] MEDS: DICLOFENAC SOD 1% GEL 100 GM TUBE EXT SCH ×3 (07:51→16:19)
[2017-11-11] MEDS: INSULIN ASPART 100 UNITS/ML 3 ML PEN SC SCH ×4 (07:54→20:42)
[2017-11-11 08:26] LABS: CALCIUM 8.5 mg/dl (8.5-10.1); CREATININE 1.08 mg/dl (0.60-1.20); POTASSIUM 4.5 mmol/L (3.5-5.1)
--- NOTE | 2017-11-11 11:09 | Family Medicine Progress Note ---
Progress Note Date of Service Nov 11, 2017. Subjective Pt evaluation today including: conversation w/ patient, physical exam, chart review, lab review Pain: denies any pain Doing well. No acute events overnight. Was weaned to 4 L via nasal cannula from BiPAP which she had been tolerating well. Usually uses 3 L at home. Denies chest pain, shortness of breath, palpitations or dizziness Constitutional: No fever, No chills Eyes: No worsening of vision ENT: No hearing loss Respiratory: No cough, No sputum Cardiovascular: No chest pain Abdomen: No pain, No nausea, No vomiting Medications Current Inpatient Medications Medications (Trade) Dose Ordered Sig/Anselmo Route Start Time Stop Time Status Last Admin Dose Admin Al Hydrox/Mg Hydrox/Simethicone (Maalox Max Susp) 15 ml Q4H PRN PO 11/09/17 00:15 12/09/17 00:14 Magnesium Hydroxide (Milk Of Magnesia Susp) 30 ml Q12H PRN PO 11/09/17 00:15 12/09/17 00:14 Ondansetron HCl (Zofran Inj) 4 mg Q6H PRN IV 11/09/17 00:15 12/09/17 00:14 Nitroglycerin (Nitrostat Tab) 0.4 mg UD PRN SL 11/09/17 00:15 12/09/17 00:14 Polyethylene (Miralax Powder Packet) 17 gm DAILY PRN PO 11/09/17 00:15 12/09/17 00:14 Methylprednisolone Sodium Succinate 40 mg/Syringe 0.64 ml @ 1.5 mls/min Q8H IV 11/09/17 06:00 12/09/17 00:14 11/11/17 06:01 1.5 MLS/MIN Acetaminophen/ Butalbital/ Caffeine (Fioricet Tab) 1 tab DAILY PRN PO 11/09/17 00:15 12/09/17 00:14 Calcium/Vitamin D (Caltrate Plus Tab) 1 tab BID PO 11/09/17 09:00 12/09/17 08:59 11/11/17 07:49 1 TAB Clonazepam (Klonopin Tab) 0.5 mg HS PRN PO 11/09/17 00:15 12/09/17 00:14 Multivitamins/ Minerals (Multivitamin W/ Minerals Tab) 1 tab BID PO 11/09/17 09:00 12/09/17 08:59 11/11/17 07:49 1 TAB Pantoprazole Sodium (Protonix Tab) 40 mg QDL PO 11/09/17 11:00 12/09/17 10:59 11/10/17 09:17 40 MG Pravastatin Sodium (Pravachol Tab) 80 mg QPM PO 11/09/17 21:00 12/09/17 20:59 11/10/17 19:23 80 MG Furosemide 40 mg/ Syringe 4 ml @ 4 mls/min DAILY IV 11/09/17 09:00 12/09/17 08:59 11/11/17 07:50 4 MLS/MIN Levofloxacin 750 mg/Prmx 150 ml @ 100 mls/hr Q24H IV 11/09/17 01:00 11/16/17 00:59 11/11/17 01:02 100 MLS/HR Miscellaneous Information (Consult) 1 ea UD PRN N/A 11/09/17 00:45 12/09/17 00:44 Miscellaneous (Iv Fluids Completed) 1 ea PRN PRN N/A 11/09/17 03:30 11/09/18 03:29 Cefepime HCl 2000 mg/Syringe 20 ml @ 5 mls/min Q12H IV 11/09/17 04:00 11/16/17 03:59 11/11/17 04:29 5 MLS/MIN Diltiazem HCl 125 mg/Dextrose 125 ml @ 0 mls/hr Q0M PRN IV 11/09/17 04:15 12/09/17 04:14 11/09/17 04:42 10 MLS/HR Diclofenac Sodium (Voltaren 1% Top Gel) 1 appln [id number] EXT 11/09/17 16:00 12/09/17 15:59 11/11/17 07:51 1 APPLN Glucagon (Glucagon Inj) 1 mg UD PRN SQ 11/09/17 19:15 12/09/17 19:14 Glucose (Glucose 40% Gel) 15-30 GRAMS 15 GRAMS... UD PRN PO 11/09/17 19:15 12/09/17 19:14 Glucose (Glucose Chew Tab) 4-8 Tablets 4 Tabl... UD PRN PO 11/09/17 19:15 12/09/17 19:14 Insulin Aspart (novoLOG ASPART) SLIDING SCALE If C... ACHS SC 11/10/17 07:00 12/10/17 06:59 11/11/17 07:54 4 UNITS Diltiazem HCl (Cardizem Tab) 60 mg Q6H PO 11/10/17 04:00 12/10/17 03:59 11/11/17 04:29 60 MG Acetaminophen (Tylenol Tab) 650 mg Q6H PO 11/10/17 06:00 12/10/17 05:59 11/11/17 06:02 650 MG Vancomycin HCl 1000 mg/Sodium Chloride 270 ml @ 125 mls/hr Q18H IV 11/11/17 03:00 11/18/17 02:59 11/11/17 03:15 125 MLS/HR Rivaroxaban (Xarelto Tab) 20 mg HS PO 11/10/17 21:00 12/10/17 20:59 11/10/17 19:23 20 MG Atenolol (Tenormin Tab) 25 mg QPM PO 11/11/17 21:00 12/09/17 20:59 Objective Vital Signs Date Time Temp Pulse Resp B/P (MAP) Pulse Ox O2 Delivery O2 Flow Rate FiO2 11/11/17 08:00 Nasal Cannula 5.0 11/11/17 07:20 36.1 62 18 134/94 (107) 96 Nasal Cannula 4.0 11/11/17 04:00 Nasal Cannula 4.0 11/11/17 03:38 36.8 67 20 141/90 (107) 98 Nasal Cannula 4.0 Humidified Oxygen 11/11/17 00:00 Nasal Cannula 4.0 11/10/17 23:10 36.8 65 16 152/81 (104) 98 Nasal Cannula 4.0 Humidified Oxygen 11/10/17 20:00 Nasal Cannula 4.0 11/10/17 18:58 36.7 74 22 144/86 (105) 98 Nasal Cannula 4.0 11/10/17 16:00 Nasal Cannula 4.0 11/10/17 15:25 36.5 84 20 132/87 (102) 96 Nasal Cannula 4.0 11/10/17 12:00 Nasal Cannula 4.0 11/10/17 11:49 36.6 69 22 132/76 (94) 95 Nasal Cannula 4.0 Physical Exam General Appearance: WD/WN, no apparent distress Eyes: normal inspection ENT: hearing grossly normal Neck: supple Respiratory/Chest: chest non-tender, normal breath sounds, + crackles ( Diffusely), + rhonchi Cardiovascular: regular rate, rhythm Abdomen: normal bowel sounds, non tender, soft Extremities: + pedal edema Neurologic/Psychiatric: alert, normal mood/affect, oriented x 3 Skin: normal color Laboratory Results 11/11/17 04:49 11/11/17 07:39 Test 11/11/17 04:49 11/11/17 06:44 11/11/17 07:39 Red Blood Count 3.47 M/uL (4.2-5.4) Mean Corpuscular Volume 94.8 fL (80-100) Mean Corpuscular Hemoglobin 32.6 pg (25-34) Mean Corpuscular Hemoglobin Concent 34.3 g/dl (32-36) RDW Standard Deviation 49.4 fL (36.4-46.3) RDW Coefficient of Variation 14.3 % (11.5-14.5) Mean Platelet Volume 9.9 fL (7.4-10.4) Activated Partial Thromboplast Time 34.7 SECONDS (21.0-31.0) Partial Thromboplastin Ratio 1.3 Bedside Glucose 194 mg/dl (70-90) Anion Gap 7.0 mmol/L (3-11) Est Creatinine Clear Calc Drug Dose 40.4 ml/min Estimated GFR () 56.1 Estimated GFR (Non- 48.4 BUN/Creatinine Ratio 30.1 (10-20) Calcium Level 8.5 mg/dl (8.5-10.1) Assessment and Plan 82-year-old female with a past medical history of rheumatoid arthritis with interstitial lung disease, hypertension, diabetes, depression, paroxysmal atrial fibrillation presented to the ER with complaints of progressively worsening shortness of breath over the last few days. Is currently on NC with 4 L o2, afib appears to be well controlled Acute hypoxic respiratory failure: Pneumonia with worsening interstitial lung disease -Chest CT revealed interval worsening of peribronchovascular consolidation involving all 5 lobes suggestive of infection versus diffuse alveolar damage or hemorrhage on a background of chronic lung disease with peripheral predominant consolidation and fibrotic change with an upper lobe predominance. This could suggest underlying chronic eosinophilic pneumonia, organizing pneumonia, or connective tissue disease. -Weaned to NC, tolerating 4 L NC -MRSA positive, influenza negative -Continue cefepime, vancomycin and switched to p.o. azithromycin -IV Solu-Medrol switched to p.o. prednisone 60 mg NSTEMI: -Troponins appear to be downtrending, 1.25-->1.18-->1.14-->0.98 -Likely secondary to demand ischemia -Patient is allergic to aspirin -Continue pravastatin -Echo : . Normal left ventricular size and systolic function. EF 60-65%. No regional wall motion abnormalities. Mild concentric left ventricular hypertrophy. * 2. The right ventricle is mildly dilated. * 3. The left atrium is severely dilated. * 4. The right atrium is moderately dilated. * 5. Aortic valve sclerosis mild, without significant aortic valvular stenosis. * 6. There is mild mitral regurgitation. * 7. There is severe tricuspid regurgitation. * 8. Top-normal right ventricular systolic pressure; 37mmHg. * 9. Technically difficult study, enhanced with IV Definity. * 10. Compared to prior study on 11/04/2011, atrial fibrillation has replaced sinus rhythm. Tricuspid regurgitation now appears severe. Atrial fibrillation with rapid ventricular rate: -Has a history of paroxysmal atrial fib -Was started on Cardizem drip which was switched to p.o. Cardizem 90 mg every 6 hours and atenolol 25 mg twice daily but patoient had episodes of bradycardia and the regimen had been modified to cardizem 60 mg q6h with atenolol 25 mg qpm - Continue xarelto qpm Hypertension : -Continue atenolol and diltiazem Hypervolemia: -Echo as above -IV Lasix 40 mg daily, monitor I's and O's and daily weights Transaminitis -Likely secondary to liver congestion - Trend LFTs Steroid-induced hyperglycemia -Monitor blood sugar RA - Placed on steroids - Continue Cimzia as outpt when recovers from PNM Hyponatremia -Sodium at 120 -Urine osmolality and serum osmolality ordered -? SIADH secondary to chronic lung disease -Monitor BMP DVT prophylaxis: Heparin drip DNR Resident Physician Supervision Note: I interviewed and examined the patient. Discussed with Dr. Swartz and agree with findings and plan as documented in the note. Any exceptions or clarifications are listed here: None Documented By: Mart Ferrer feeling better but is having a little bit of hallucinations, no other new complaints vitals noted nad breathing unlabored lungs improving more clear less rales a/p mixed respiratory failure - hypoxia and hypercapnea - from infection superimposed on chronic fibrosis -improving nicely, down to almost home levels of O2 -abx, supportive care afib - rates now reasonable. continue current meds hyponatremia - suspect baseline SiADH, check urine and serum osms, likely will need to fluid restrict otherwise as above otherwise as above Resident Tracking Resident Involvement: Resident Care Provided Care Provided: Adult Hospital Medicine
[2017-11-11] MEDS: PANTOprazole SOD 40 MG TAB PO SCH (11:47)
[2017-11-11] MEDS: ONDANSETRON INJ 2 MG/ML 2 ML VIAL IV PRN (16:23)
[2017-11-11] MEDS ORDERED: VANCOMYCIN TROUGH ONE ×3 (16:30→20:30)
[2017-11-11] MEDS: RIVAROXABAN TAB 15 MG TAB PO SCH (17:07)
[2017-11-11] MEDS: PRAVASTATIN SOD 40 MG TAB PO SCH (20:40)
[2017-11-12] VITALS (9 sets, daily range): BP systolic 116–145; BP diastolic 67–93; PULSE 59–79; TEMP 36.4–37; O2SAT 91–97
[2017-11-12] MEDS: DILTIAZEM HCL 60 MG TAB PO SCH ×4 (03:06→21:55)
[2017-11-12] MEDS: CEFEPIME IV 2,000 MG in SYRINGE 7.5 ML IV SCH (03:07)
[2017-11-12] MEDS: ACETAMINOPHEN 325 MG TAB PO SCH ×2 (06:00)
[2017-11-12 06:42] LABS: CREATININE 1.3 mg/dl (0.60-1.20)
[2017-11-12] MEDS: DICLOFENAC SOD 1% GEL 100 GM TUBE EXT SCH ×3 (08:30→17:17)
[2017-11-12] MEDS: CALCIUM 600MG + VIT D 400 IU TAB PO SCH ×2 (08:31→21:48)
[2017-11-12] MEDS: FUROSEMIDE INJ 40 MG in SYRINGE 0 ML IV SCH (08:32)
[2017-11-12] MEDS: CEROVITE ADV FORMULA TAB PO SCH ×2 (08:32→21:52)
[2017-11-12 08:35] LABS: CALCIUM 8.3 mg/dl (8.5-10.1); CREATININE 1.33 mg/dl (0.60-1.20); POTASSIUM 4.5 mmol/L (3.5-5.1)
[2017-11-12] MEDS ORDERED: AZITHROMYCIN 250 MG TAB PO SCH (09:00)
[2017-11-12] MEDS: INSULIN ASPART 100 UNITS/ML 3 ML PEN SC SCH ×4 (09:26→21:51)
--- NOTE | 2017-11-12 10:32 | CARDIOLOGY PROGRESS NOTE ---
DATE: 11/12/2017 TIME: 09:58 a.m. SUBJECTIVE: Ms. Nagel feels much better. She admits that she did have some confusion overnight and she was unable to fall asleep until approximately 03:00 a.m. She feels as though her thinking is back to baseline. Her breathing continues to improve. She denies chest pain, palpitations, syncope, near syncope or bleeding. OBJECTIVE: VITAL SIGNS: Temperature 36.4 degrees, heart rate 65 beats per minute, respiratory rate 18, blood pressure 124/67 mmHg, and oxygen saturation 96% on 4 liters per nasal cannula. I's and O's negative 1.3 liters yesterday. Weight is pending. GENERAL: No acute distress. She is alert. NECK: No appreciable JVD. CARDIAC EXAM: No ventricular heave. Irregularly irregular. Normal S1 and S2. There were no audible murmurs, rubs or gallops. LUNGS: Bilateral crackles sparing the apical areas. ABDOMEN: Soft, nontender, and nondistended. Normoactive bowel sounds. EXTREMITIES: 1-2+ bilateral lower extremity edema. No cyanosis. PSYCHIATRIC: Affect appears appropriate. MEDICATIONS: Include Lasix 40 mg IV b.i.d., atenolol 25 mg q.p.m., azithromycin 250 mg daily, cefepime 2 grams IV q. 12 hours, diltiazem 60 mg p.o. q. 6 hours, methylprednisolone 40 mg IV q. 8 hours, last dose yesterday and it has since been discontinued, prednisone 60 mg starting today, pravastatin 80 mg daily, Protonix 40 mg daily, and Xarelto 15 mg. Telemetry personally reviewed. Atrial fibrillation with adequate rate control. LABORATORY DATA: Sodium 122 up from 120, potassium 4.5, BUN 40 up from 33, creatinine 1.33 up from 1.08. ASSESSMENT AND PLAN: 1. Atrial fibrillation with rapid ventricular response: Her rapid ventricular response is likely secondary to presenting with hypoxia and her pneumonia in the setting of interstitial lung disease. Her medications were first titrated and now, she is back to her baseline doses; however, her diltiazem is in short acting form. Her heart rate is adequately controlled. Continue current regimen. Continue anticoagulation for stroke risk reduction if no contraindications. 2. Non-ST elevation myocardial infarction: She did have questions about this today. Her presentation was not that of an acute coronary syndrome. She denied any angina. Her troponin elevation was likely secondary to demand ischemia from hypoxia, atrial fibrillation with rapid ventricular response, and multifocal pneumonia. SHE IS ALLERGIC TO ASPIRIN. She is anticoagulated. Continue beta ghassan and statin therapy. 3. Tricuspid regurgitation: Severe on echocardiogram during this hospitalization. She may have residual edema secondary to tricuspid regurgitation. Conservative management recommended. 4. Hypertension: Blood pressure acceptable. Continue current regimen. 5. Hypervolemia: She continues to diurese with Lasix. Her BUN and creatinine have started to increase. She appears azotemic. Consider backing off on diuretic. She may have residual edema secondary to her tricuspid regurgitation. 6. Pneumonia with interstitial lung disease: As per primary service. 7. Disposition: Cardiology will continue to follow.
[2017-11-12] MEDS ORDERED: NURSING VERBAL MED ORDER ONE (10:45)
[2017-11-12] MEDS: ONDANSETRON INJ 2 MG/ML 2 ML VIAL IV PRN (11:07)
[2017-11-12] MEDS ORDERED: LEVOFLOXACIN CONSULT ACTIVE PRN (12:15)
[2017-11-12] MEDS: PANTOprazole SOD 40 MG TAB PO SCH (12:24)
--- NOTE | 2017-11-12 14:31 | Family Medicine Progress Note ---
Progress Note Date of Service Nov 12, 2017. Subjective Pt evaluation today including: conversation w/ patient, physical exam, chart review, lab review Pain: right shoulder pian which is chronic PO Intake: good appears a little confused. had received klonopin yesterday for insomnia Constitutional: No fever, No chills Eyes: No worsening of vision ENT: No hearing loss Respiratory: No cough, No shortness of breath Abdomen: No pain, No nausea Female : No dysuria, No urinary frequency Neurologic: No memory loss Endo: No fatigue Medications Current Inpatient Medications Medications (Trade) Dose Ordered Sig/Anselmo Route Start Time Stop Time Status Last Admin Dose Admin Al Hydrox/Mg Hydrox/Simethicone (Maalox Max Susp) 15 ml Q4H PRN PO 11/09/17 00:15 12/09/17 00:14 Magnesium Hydroxide (Milk Of Magnesia Susp) 30 ml Q12H PRN PO 11/09/17 00:15 12/09/17 00:14 Ondansetron HCl (Zofran Inj) 4 mg Q6H PRN IV 11/09/17 00:15 12/09/17 00:14 11/12/17 11:07 4 MG Nitroglycerin (Nitrostat Tab) 0.4 mg UD PRN SL 11/09/17 00:15 12/09/17 00:14 Polyethylene (Miralax Powder Packet) 17 gm DAILY PRN PO 11/09/17 00:15 12/09/17 00:14 Acetaminophen/ Butalbital/ Caffeine (Fioricet Tab) 1 tab DAILY PRN PO 11/09/17 00:15 12/09/17 00:14 Calcium/Vitamin D (Caltrate Plus Tab) 1 tab BID PO 11/09/17 09:00 12/09/17 08:59 11/12/17 21:48 1 TAB Clonazepam (Klonopin Tab) 0.5 mg HS PRN PO 11/09/17 00:15 12/09/17 00:14 11/12/17 03:06 0.5 MG Multivitamins/ Minerals (Multivitamin W/ Minerals Tab) 1 tab BID PO 11/09/17 09:00 12/09/17 08:59 11/12/17 21:52 1 TAB Pantoprazole Sodium (Protonix Tab) 40 mg QDL PO 11/09/17 11:00 12/09/17 10:59 11/12/17 12:24 40 MG Pravastatin Sodium (Pravachol Tab) 80 mg QPM PO 11/09/17 21:00 12/09/17 20:59 11/12/17 21:53 80 MG Miscellaneous (Iv Fluids Completed) 1 ea PRN PRN N/A 11/09/17 03:30 11/09/18 03:29 Diclofenac Sodium (Voltaren 1% Top Gel) 1 appln [id number] EXT 11/09/17 16:00 12/09/17 15:59 11/12/17 17:17 1 APPLN Glucagon (Glucagon Inj) 1 mg UD PRN SQ 11/09/17 19:15 12/09/17 19:14 Glucose (Glucose 40% Gel) 15-30 GRAMS 15 GRAMS... UD PRN PO 11/09/17 19:15 12/09/17 19:14 Glucose (Glucose Chew Tab) 4-8 Tablets 4 Tabl... UD PRN PO 11/09/17 19:15 12/09/17 19:14 Insulin Aspart (novoLOG ASPART) SLIDING SCALE If C... ACHS SC 11/10/17 07:00 12/10/17 06:59 11/12/17 21:51 4 UNITS Diltiazem HCl (Cardizem Tab) 60 mg Q6H PO 11/10/17 04:00 12/10/17 03:59 11/12/17 21:55 60 MG Atenolol (Tenormin Tab) 25 mg QPM PO 11/11/17 21:00 12/09/17 20:59 11/12/17 21:57 25 MG Rivaroxaban (Xarelto Tab) 15 mg QDD PO 11/11/17 16:45 12/11/17 16:44 11/12/17 17:16 15 MG Prednisone (PredniSONE TAB) 60 mg DAILY PO 11/12/17 09:00 12/12/17 08:59 11/12/17 08:30 60 MG Levofloxacin (Levaquin Tab) 750 mg Q2D@1100 PO 11/13/17 11:00 11/16/17 10:59 Doxycycline Hyclate (Vibramycin Cap) 100 mg BID PO 11/12/17 21:00 11/19/17 20:59 11/12/17 21:52 100 MG Furosemide (Lasix Tab) 40 mg QAM PO 11/13/17 09:00 12/13/17 08:59 Acetaminophen (Tylenol Tab) 650 mg Q6H PRN PO 11/12/17 10:45 12/12/17 10:44 11/12/17 22:08 650 MG Levofloxacin (Consult) 1 ea UD PRN N/A 11/12/17 12:15 12/12/17 12:14 Objective Vital Signs Date Time Temp Pulse Resp B/P (MAP) Pulse Ox O2 Delivery O2 Flow Rate FiO2 11/13/17 00:00 Nasal Cannula 3.0 11/12/17 23:48 36.7 59 18 145/77 (99) 97 2.0 11/12/17 21:56 74 145/79 (101) 11/12/17 16:00 91 Nasal Cannula 3.0 11/12/17 15:23 36.5 78 20 136/73 (94) 91 Nasal Cannula 3.0 11/12/17 12:43 36.4 68 18 116/69 (85) 97 Nasal Cannula 3.0 Humidified Oxygen 11/12/17 12:00 Nasal Cannula 3.0 11/12/17 11:32 68 11/12/17 11:08 36.5 79 22 129/75 (93) 96 Nasal Cannula 3.0 11/12/17 08:00 Nasal Cannula 3.0 11/12/17 07:17 36.4 65 18 124/67 (86) 96 Nasal Cannula 4.0 Humidified Oxygen Laboratory Results Test 11/12/17 21:20 Bedside Glucose 222 mg/dl (70-90) Assessment and Plan 82-year-old female with a past medical history of rheumatoid arthritis with interstitial lung disease, hypertension, diabetes, depression, paroxysmal atrial fibrillation presented to the ER with complaints of progressively worsening shortness of breath over the last few days. Is currently on NC with 4 L o2, afib appears to be well controlled Acute hypoxic respiratory failure: Pneumonia with worsening interstitial lung disease -Chest CT revealed interval worsening of peribronchovascular consolidation involving all 5 lobes suggestive of infection versus diffuse alveolar damage or hemorrhage on a background of chronic lung disease with peripheral predominant consolidation and fibrotic change with an upper lobe predominance. This could suggest underlying chronic eosinophilic pneumonia, organizing pneumonia, or connective tissue disease. -Weaned to NC, tolerating 4 L NC -MRSA positive, influenza negative -Switched to doxycycline and levaquin -IV Solu-Medrol switched to p.o. prednisone 60 mg NSTEMI: -Troponins appear to be downtrending, 1.25-->1.18-->1.14-->0.98 -Likely secondary to demand ischemia -Patient is allergic to aspirin -Continue pravastatin -Echo : . Normal left ventricular size and systolic function. EF 60-65%. No regional wall motion abnormalities. Mild concentric left ventricular hypertrophy. * 2. The right ventricle is mildly dilated. * 3. The left atrium is severely dilated. * 4. The right atrium is moderately dilated. * 5. Aortic valve sclerosis mild, without significant aortic valvular stenosis. * 6. There is mild mitral regurgitation. * 7. There is severe tricuspid regurgitation. * 8. Top-normal right ventricular systolic pressure; 37mmHg. * 9. Technically difficult study, enhanced with IV Definity. * 10. Compared to prior study on 11/04/2011, atrial fibrillation has replaced sinus rhythm. Tricuspid regurgitation now appears severe. Atrial fibrillation with rapid ventricular rate: -Has a history of paroxysmal atrial fib -Was started on Cardizem drip which was switched to p.o. Cardizem 90 mg every 6 hours and atenolol 25 mg twice daily but patoient had episodes of bradycardia and the regimen had been modified to cardizem 60 mg q6h with atenolol 25 mg qpm - Continue xarelto qpm Hypertension : -Continue atenolol and diltiazem Hypervolemia: -Echo as above - switched to PO lasix, monitor I's and O's and daily weights Steroid-induced hyperglycemia -Monitor blood sugar RA - Placed on steroids - Continue Cimzia as outpt when recovers from P[facility] Hyponatremia -Sodium at 122-- improving -Urine osmolality 294 and serum osmolality 277 -Monitor BMP DVT prophylaxis: Heparin drip DNR Resident Physician Supervision Note: I interviewed and examined the patient. Discussed with Dr. Swartz and agree with findings and plan as documented in the note. Any exceptions or clarifications are listed here: None Documented By: Mart Ferrer had a rough night - just with not being able to sleep then feeling confused/ hallucinations - but kept remembering being told that she was a little delirious and that seemed to help her keep her awareness better vitals noted nad breathing unlabored lungs improving actually mostly clear just sl quiet at base a/p mixed respiratory failure - hypoxia and hypercapnea - from infection superimposed on chronic fibrosis -improving well, down to home levels of O2 -abx, supportive care, stable for med surg afib - rate control reasonable. continue current meds hyponatremia - sl improvement. likely mixed picture. continue current care otherwise as above Resident Tracking Resident Involvement: Resident Care Provided Care Provided: Adult Hospital Medicine
[2017-11-12] MEDS: RIVAROXABAN TAB 15 MG TAB PO SCH (17:16)
[2017-11-12] MEDS: DOXYCYCLINE HYCLATE 100 MG CAP PO SCH (21:52)
[2017-11-12] MEDS: PRAVASTATIN SOD 40 MG TAB PO SCH (21:53)
[2017-11-12] MEDS: ACETAMINOPHEN 325 MG TAB PO PRN (22:08)
[2017-11-13] VITALS (7 sets, daily range): BP systolic 128–145; BP diastolic 77–90; PULSE 60–86; TEMP 36–36.6; O2SAT 95–99
[2017-11-13] MEDS: DILTIAZEM HCL 60 MG TAB PO SCH ×4 (03:38→20:48)
[2017-11-13 06:36] LABS: HEMATOCRIT 37.3 % (37-47); HEMOGLOBIN 12.5 g/dL (12.0-16.0); MEAN CELL VOLUME 95.6 fL (80-100); MEAN CORPUSCULAR HEMOGLOBIN 32.1 pg (25-34); MEAN CORPUSCULAR HGB CONC 33.5 g/dl (32-36); MEAN PLATELET VOLUME 9.3 fL (7.4-10.4); NUCLEATED RED BLOOD CELL ABS 0.02 K/uL (0-0); PLATELET COUNT 177 K/uL (130-400); RED CELL DISTRIBUTION WIDTH CV 14.4 % (11.5-14.5); RED CELL DISTRIBUTION WIDTH SD 49.7 fL (36.4-46.3); WHITE BLOOD COUNT 13.07 K/uL (4.8-10.8)
[2017-11-13 07:14] LABS: CALCIUM 8.4 mg/dl (8.5-10.1); CREATININE 1.41 mg/dl (0.60-1.20); POTASSIUM 4.6 mmol/L (3.5-5.1)
[2017-11-13] MEDS: DICLOFENAC SOD 1% GEL 100 GM TUBE EXT SCH ×3 (08:13→16:30)
[2017-11-13] MEDS: ACETAMINOPHEN 325 MG TAB PO PRN ×2 (08:46→20:49)
[2017-11-13] MEDS: CALCIUM 600MG + VIT D 400 IU TAB PO SCH ×2 (08:47→20:47)
[2017-11-13] MEDS: FUROSEMIDE 40 MG TAB PO SCH (08:47)
[2017-11-13] MEDS: DOXYCYCLINE HYCLATE 100 MG CAP PO SCH ×2 (08:47→20:48)
[2017-11-13] MEDS: CEROVITE ADV FORMULA TAB PO SCH ×2 (08:47→20:47)
[2017-11-13] MEDS: INSULIN ASPART 100 UNITS/ML 3 ML PEN SC SCH ×4 (09:07→20:57)
--- NOTE | 2017-11-13 09:20 | CARDIOLOGY PROGRESS NOTE ---
DATE: 11/13/2017 TIME: 9:01 a.m. SUBJECTIVE: Ms. Nagel has been confused all night according to nursing staff. She has also been more somnolent. She does not readily respond verbally but does respond to verbal stimuli. She denies pain. She denies shortness of breath. She shakes her head yes when asked if she is tired. She often times would close her eyes during questioning. She was able to move all 4 extremities upon verbal command. OBJECTIVE: VITAL SIGNS: Temperature 36.6 degrees, heart rate 77 beats per minute, respiration rate 18, blood pressure 145/90 mmHg, oxygen saturation is 98% on 2 liters per nasal cannula. I's and O's, negative 1.1 liters yesterday. GENERAL: She was in no acute distress but quite somnolent. She did respond to verbal stimuli. She was not oriented. NECK: No JVD. CARDIAC: No ventricular heave, irregularly irregular, normal S1, S2. There were no audible murmurs, rubs or gallops. LUNGS: Bilateral crackles. ABDOMEN: Soft, nontender, nondistended. Normoactive bowel sounds. EXTREMITIES: 1+ bilateral lower extremity edema. No cyanosis. MEDICATIONS: Include atenolol 25 mg daily, diltiazem 60 mg p.o. q. 6 hours which was held at 3:38 but otherwise she has been receiving this for the last 2 days, doxycycline 100 mg p.o. b.i.d., Lasix 40 mg p.o. daily starting today, levofloxacin 750 mg every 2 days, Protonix 40 mg daily, pravastatin 80 mg daily, prednisone 60 mg daily, Xarelto 15 mg daily. LABORATORY DATA: Sodium 122, potassium 4.6, BUN 47, creatinine 1.41, up from 1.3. White blood cell count is 13.07, hemoglobin 12.5, platelets 177. ASSESSMENT AND PLAN: 1. Atrial fibrillation with rapid ventricular response: Her rapid ventricular response was most likely secondary to the fact that she was hypoxic upon presentation with some respiratory distress. She is on the same doses of medication that she presented on and her heart rate is now well controlled. Can continue current doses and on discharge would use long-acting diltiazem that she took as an outpatient. Continue anticoagulation for stroke risk reduction if there are no contraindications. 2. Non-ST elevation myocardial infarction: She did not present with acute coronary syndrome and this is likely secondary to demand ischemia given her hypoxia and atrial fibrillation with rapid ventricular response with multifocal pneumonia. Continue beta ghassan and statin therapy. 3. Tricuspid regurgitation: Severe on echo. Recommend conservative management. 4. Hypertension: Blood pressure mildly elevated now but was better controlled yesterday. No changes made currently as her morning dose of diltiazem was held and the fact that she is having mental status changes. 5. Somnolence/hypercapnia: Because of her mental status change, ABG was recommended. Nursing staff arranged for this to be done stat. The results are now available and demonstrate pH of 7.29, pCO2 of 83, pO2 of 148. Dr. Ferrer was notified and he states that he will manage this. Consider BiPAP. 6. Disposition: Cardiology will sign off at this time. Please call with any other questions or concerns. The patient's care has been discussed with Dr. Ferrer of the primary hospitalist service. NATHALY
[2017-11-13] MEDS ORDERED: FUROSEMIDE INJ 20 MG in SYRINGE 0 ML IV ONE (09:30)
[2017-11-13] MEDS: LEVOFLOXACIN 750 MG TAB PO SCH (10:24)
--- NOTE | 2017-11-13 11:03 | DIAGNOSTIC IMAGING REPORT ---
CHEST ONE VIEW PORTABLE HISTORY: Short of breath. COMPARISON: Chest 11/08/2017. FINDINGS: The heart remains enlarged. Right midlung zone airspace opacity has improved. Left midlung zone density remains unchanged. Small bilateral pleural effusions and diffuse interstitial and vascular thickening persists. No pneumothorax. IMPRESSION: 1. Improved aeration within the right lung. 2. No change in the left midlung zone airspace opacity and diffuse interstitial thickening. 3. Small bilateral pleural effusions persist. Electronically signed by: Rinku Rangel M.D. 11/13/2017 11:02 AM Dictated Date/Time: 11/13/2017 10:59 AM
[2017-11-13] MEDS: PANTOprazole SOD 40 MG TAB PO SCH (12:26)
[2017-11-13] MEDS: POLYETHYLENE (MIRALAX) 17 GM PACK PO PRN (12:35)
--- NOTE | 2017-11-13 13:58 | Family Medicine Progress Note ---
Progress Note Date of Service Nov 13, 2017. Subjective Pt evaluation today including: conversation w/ patient, physical exam, chart review, lab review Pain: denies pain PO Intake: good Voiding: conti catheter in place complains of having some trouble with breathing this morning and also a little confused and not herself. denies chest pain Constitutional: No fever, No chills Eyes: No worsening of vision ENT: No hearing loss Respiratory: + shortness of breath, No cough, No sputum Cardiovascular: No chest pain, No palpitations Abdomen: No pain, No nausea, No vomiting, No diarrhea Musculoskeletal: No joint pain Female : No dysuria Neurologic: No memory loss Psychiatric: No depression symptoms Heme: No abnormal bleeding/bruising Endo: No fatigue Medications Current Inpatient Medications Medications (Trade) Dose Ordered Sig/Anselmo Route Start Time Stop Time Status Last Admin Dose Admin Al Hydrox/Mg Hydrox/Simethicone (Maalox Max Susp) 15 ml Q4H PRN PO 11/09/17 00:15 12/09/17 00:14 Magnesium Hydroxide (Milk Of Magnesia Susp) 30 ml Q12H PRN PO 11/09/17 00:15 12/09/17 00:14 Ondansetron HCl (Zofran Inj) 4 mg Q6H PRN IV 11/09/17 00:15 12/09/17 00:14 11/12/17 11:07 4 MG Nitroglycerin (Nitrostat Tab) 0.4 mg UD PRN SL 11/09/17 00:15 12/09/17 00:14 Polyethylene (Miralax Powder Packet) 17 gm DAILY PRN PO 11/09/17 00:15 12/09/17 00:14 11/13/17 12:35 17 GM Acetaminophen/ Butalbital/ Caffeine (Fioricet Tab) 1 tab DAILY PRN PO 11/09/17 00:15 12/09/17 00:14 Calcium/Vitamin D (Caltrate Plus Tab) 1 tab BID PO 11/09/17 09:00 12/09/17 08:59 11/13/17 08:47 1 TAB Clonazepam (Klonopin Tab) 0.5 mg HS PRN PO 11/09/17 00:15 12/09/17 00:14 11/12/17 03:06 0.5 MG Multivitamins/ Minerals (Multivitamin W/ Minerals Tab) 1 tab BID PO 11/09/17 09:00 12/09/17 08:59 11/13/17 08:47 1 TAB Pantoprazole Sodium (Protonix Tab) 40 mg QDL PO 11/09/17 11:00 12/09/17 10:59 11/13/17 12:26 40 MG Pravastatin Sodium (Pravachol Tab) 80 mg QPM PO 11/09/17 21:00 12/09/17 20:59 11/12/17 21:53 80 MG Miscellaneous (Iv Fluids Completed) 1 ea PRN PRN N/A 11/09/17 03:30 11/09/18 03:29 Diclofenac Sodium (Voltaren 1% Top Gel) 1 appln [id number] EXT 11/09/17 16:00 12/09/17 15:59 11/13/17 08:13 1 APPLN Glucagon (Glucagon Inj) 1 mg UD PRN SQ 11/09/17 19:15 12/09/17 19:14 Glucose (Glucose 40% Gel) 15-30 GRAMS 15 GRAMS... UD PRN PO 11/09/17 19:15 12/09/17 19:14 Glucose (Glucose Chew Tab) 4-8 Tablets 4 Tabl... UD PRN PO 11/09/17 19:15 12/09/17 19:14 Insulin Aspart (novoLOG ASPART) SLIDING SCALE If C... ACHS SC 11/10/17 07:00 12/10/17 06:59 11/13/17 12:30 6 UNITS Diltiazem HCl (Cardizem Tab) 60 mg Q6H PO 11/10/17 04:00 12/10/17 03:59 11/13/17 10:23 60 MG Atenolol (Tenormin Tab) 25 mg QPM PO 11/11/17 21:00 12/09/17 20:59 11/12/17 21:57 25 MG Rivaroxaban (Xarelto Tab) 15 mg QDD PO 11/11/17 16:45 12/11/17 16:44 11/12/17 17:16 15 MG Prednisone (PredniSONE TAB) 60 mg DAILY PO 11/12/17 09:00 12/12/17 08:59 11/13/17 08:48 60 MG Levofloxacin (Levaquin Tab) 750 mg Q2D@1100 PO 11/13/17 11:00 11/16/17 10:59 11/13/17 10:24 750 MG Doxycycline Hyclate (Vibramycin Cap) 100 mg BID PO 11/12/17 21:00 11/19/17 20:59 11/13/17 08:47 100 MG Furosemide (Lasix Tab) 40 mg QAM PO 11/13/17 09:00 12/13/17 08:59 11/13/17 08:47 40 MG Acetaminophen (Tylenol Tab) 650 mg Q6H PRN PO 11/12/17 10:45 12/12/17 10:44 11/13/17 08:46 650 MG Levofloxacin (Consult) 1 ea UD PRN N/A 11/12/17 12:15 12/12/17 12:14 Objective Vital Signs Date Time Temp Pulse Resp B/P (MAP) Pulse Ox O2 Delivery O2 Flow Rate FiO2 11/13/17 09:35 86 96 8.0 11/13/17 08:12 36.6 77 18 145/90 (108) 98 Nasal Cannula 2.0 11/13/17 07:15 98 Nasal Cannula 3.0 11/13/17 00:00 Nasal Cannula 3.0 11/12/17 23:48 36.7 59 18 145/77 (99) 97 Nasal Cannula 3.0 11/12/17 21:56 74 145/79 (101) 11/12/17 16:00 91 Nasal Cannula 3.0 11/12/17 15:23 36.5 78 20 136/73 (94) 91 Nasal Cannula 3.0 Physical Exam General Appearance: WD/WN, + mild distress Eyes: normal inspection ENT: hearing grossly normal Neck: supple Respiratory/Chest: chest non-tender, lungs clear, + crackles, + rhonchi Cardiovascular: + irregularly irregular Abdomen: normal bowel sounds, non tender, soft Extremities: no pedal edema Neurologic/Psychiatric: alert, normal mood/affect, oriented x 3 Skin: normal color Laboratory Results 11/13/17 06:24 11/13/17 06:24 Test 11/13/17 06:24 11/13/17 11:47 11/13/17 14:10 Red Blood Count 3.90 M/uL (4.2-5.4) Mean Corpuscular Volume 95.6 fL (80-100) Mean Corpuscular Hemoglobin 32.1 pg (25-34) Mean Corpuscular Hemoglobin Concent 33.5 g/dl (32-36) RDW Standard Deviation 49.7 fL (36.4-46.3) RDW Coefficient of Variation 14.4 % (11.5-14.5) Mean Platelet Volume 9.3 fL (7.4-10.4) Nucleated RBC Absolute Count (auto) 0.02 K/uL (0-0) Nucleated Red Blood Cells % 0.1 % Anion Gap 7.0 mmol/L (3-11) Est Creatinine Clear Calc Drug Dose 31.0 ml/min Estimated GFR () 40.7 Estimated GFR (Non- 35.1 BUN/Creatinine Ratio 33.2 (10-20) Calcium Level 8.4 mg/dl (8.5-10.1) Bedside Glucose 193 mg/dl (70-90) Assessment and Plan 82-year-old female with a past medical history of rheumatoid arthritis with interstitial lung disease, hypertension, diabetes, depression, paroxysmal atrial fibrillation presented to the ER with complaints of progressively worsening shortness of breath over the last few days. developed some resp distress thsi morning and appeared more confused , ABG was ordered which revealed hypercapnia likely from resp fatigue. CXR/IV lasix 20 mg were ordered and she was started on BIPAP again Acute hypoxic respiratory failure: Pneumonia with worsening interstitial lung disease -Chest CT revealed interval worsening of peribronchovascular consolidation involving all 5 lobes suggestive of infection versus diffuse alveolar damage or hemorrhage on a background of chronic lung disease with peripheral predominant consolidation and fibrotic change with an upper lobe predominance. This could suggest underlying chronic eosinophilic pneumonia, organizing pneumonia, or connective tissue disease. CXR 11/13: CXR: 1. Improved aeration within the right lung. 2. No change in the left midlung zone airspace opacity and diffuse interstitial thickening. 3. Small bilateral pleural effusions persist. - MRSA positive, influenza negative - Switched to doxycycline and Levaquin -IV Solu-Medrol switched to p.o. prednisone 60 mg, wean as tolerated, home dose is 10 mg daily - switched back to BIPAP due to hypercapnia , repeat ABG pending NSTEMI: -Patient is allergic to aspirin -Continue pravastatin -Echo : . Normal left ventricular size and systolic function. EF 60-65%. No regional wall motion abnormalities. Mild concentric left ventricular hypertrophy. * 2. The right ventricle is mildly dilated. * 3. The left atrium is severely dilated. * 4. The right atrium is moderately dilated. * 5. Aortic valve sclerosis mild, without significant aortic valvular stenosis. * 6. There is mild mitral regurgitation. * 7. There is severe tricuspid regurgitation. * 8. Top-normal right ventricular systolic pressure; 37mmHg. * 9. Technically difficult study, enhanced with IV Definity. * 10. Compared to prior study on 11/04/2011, atrial fibrillation has replaced sinus rhythm. Tricuspid regurgitation now appears severe. Atrial fibrillation with rapid ventricular rate: -Has a history of paroxysmal atrial fib -Was started on Cardizem drip which was switched to p.o. Cardizem 90 mg every 6 hours and atenolol 25 mg twice daily but patient had episodes of bradycardia and the regimen had been modified to cardizem 60 mg q6h with atenolol 25 mg qpm. Continue current regimen - Continue xarelto qpm Hypertension : -Continue atenolol and diltiazem Hypervolemia: -Echo as above - Switched to PO lasix 40 mg.monitor I's and O's and daily weights Steroid-induced hyperglycemia -Monitor blood sugar RA - Placed on steroids - Continue Cimzia as outpt when recovers from PNM Hyponatremia -Sodium at 122-- improving -Urine osmolality 294 and serum osmolality 277 -Monitor BMP DVT prophylaxis: Heparin drip DNR Resident Physician Supervision Note: I interviewed and examined the patient. Discussed with Dr. Swartz and agree with findings and plan as documented in the note. Any exceptions or clarifications are listed here: None Documented By: Mart Ferrer more somnolent earlier - ABG showed high pco2 - started bipap - feeling a little more alert but still working hard to breath vitals noted fatigued appearing - no accessory muscles on bipap lungs actually more clear than before still scattered rales no rhonchi no wheeze a/p mixed respiratory failure - hypoxia and hypercapnea - from infection superimposed on chronic fibrosis -now worse hypercapnea - labs/exam/CXR do not show new fluid or worse infection - ?all due to fatigue and poor baseline lung function -continue current abx, bipap, supportive care, follow ABG adn clinical status, signed out to night team afib - rate control reasonable. continue current meds hyponatremia - likely mixed picture. continue current care otherwise as above Resident Tracking Resident Involvement: Resident Care Provided Care Provided: Adult Hospital Medicine
[2017-11-13 15:31] LABS: ALBUMIN 2.3 gm/dl (3.4-5.0); TOTAL PROTEIN 6.5 gm/dl (6.4-8.2)
[2017-11-13] MEDS: RIVAROXABAN TAB 15 MG TAB PO SCH (17:20)
[2017-11-13] MEDS: PRAVASTATIN SOD 40 MG TAB PO SCH (20:47)
[2017-11-14] VITALS (9 sets, daily range): BP systolic 125–145; BP diastolic 84–94; PULSE 61–84; TEMP 35.9–36.6; O2SAT 90–95
[2017-11-14] MEDS: DILTIAZEM HCL 60 MG TAB PO SCH ×5 (04:09→21:57)
[2017-11-14 07:13] LABS: CREATININE 1.55 mg/dl (0.60-1.20)
[2017-11-14 08:52] LABS: CALCIUM 8.5 mg/dl (8.5-10.1); CREATININE 1.68 mg/dl (0.60-1.20); POTASSIUM 4.8 mmol/L (3.5-5.1)
[2017-11-14] MEDS: INSULIN ASPART 100 UNITS/ML 3 ML PEN SC SCH ×4 (09:20→20:37)
[2017-11-14] MEDS: DICLOFENAC SOD 1% GEL 100 GM TUBE EXT SCH ×3 (09:22→15:30)
[2017-11-14] MEDS: DOXYCYCLINE HYCLATE 100 MG CAP PO SCH ×2 (09:25→20:40)
[2017-11-14] MEDS: CALCIUM 600MG + VIT D 400 IU TAB PO SCH ×2 (09:26→20:40)
[2017-11-14] MEDS: CEROVITE ADV FORMULA TAB PO SCH ×2 (09:26→20:41)
[2017-11-14] MEDS: FUROSEMIDE 40 MG TAB PO SCH (09:26)
[2017-11-14] MEDS: PANTOprazole SOD 40 MG TAB PO SCH (12:46)
--- NOTE | 2017-11-14 14:19 | Family Medicine Progress Note ---
Progress Note Date of Service Nov 14, 2017. Subjective Pt evaluation today including: conversation w/ patient, chart review, lab review, review of studies has Bipap on, minimal conversation Feels unwell, feels short of breath Constitutional: No fever, No chills Respiratory: + shortness of breath, + dyspnea on exertion, No cough, No sputum, No wheezing Cardiovascular: No chest pain Abdomen: No pain, No nausea, No vomiting Medications Medications (Trade) Dose Ordered Sig/Anselmo Route Start Time Stop Time Status Last Admin Dose Admin Sodium Chloride (Sodium Chloride Tab) 1 gm 1530 ONCE PO 11/14/17 15:30 11/14/17 15:31 DC 11/14/17 15:59 1 GM Objective Vital Signs Vital Signs Past 12 Hours Date Time Temp Pulse Resp B/P (MAP) Pulse Ox O2 Delivery O2 Flow Rate FiO2 11/14/17 16:07 36.6 78 19 145/94 (111) 92 BiPAP 8.0 11/14/17 14:21 69 95 8.0 11/14/17 08:00 90 BiPAP 8.0 11/14/17 07:34 72 95 8.0 11/14/17 06:51 36.6 80 20 125/84 (98) 95 BiPAP 8.0 Physical Exam General Appearance: no apparent distress Eyes: PERRL, EOMI Respiratory/Chest: no respiratory distress, no accessory muscle use, + decreased breath sounds, + rhonchi Cardiovascular: + irregularly irregular Abdomen: normal bowel sounds, non tender, soft Extremities: non-tender, no pedal edema Neurologic/Psychiatric: no motor/sensory deficits Assessment and Plan 82-year-old female with a past medical history of rheumatoid arthritis with interstitial lung disease, hypertension, diabetes, depression, paroxysmal atrial fibrillation presented to the ER with complaints of progressively worsening shortness of breath over the last few days. Patient continues to have some shortness of breath, waxing and waning levels of mentation, ABG from yesterday reveals hypercapnia Maintains on BiPap Acute hypoxic/hypercapnic respiratory failure: Pneumonia with worsening interstitial lung disease -Chest CT revealed interval worsening of peribronchovascular consolidation CXR 11/13: CXR: 1. Improved aeration within the right lung. 2. No change in the left midlung zone airspace opacity and diffuse interstitial thickening. - MRSA positive, influenza negative - Switched to doxycycline and Levaquin, re-added cefepime today due to slightly worse clinical picture this morning - Steroids 60 mg PO- maintain current dose- no wheezing or indication of ILD flare up - Maintain on BIPAP due to hypercapnia, repeat ABG shows improving hypercapnia Hyponatremia/KENDAL -Sodium at 117 today- worse - ?SIADH +/- mild heart failure - Sodium tablets started -Urine osmolality 294 and serum osmolality 277 - Cr- slightly worse today- encourage PO intake -Monitor BMP NSTEMI: -Patient is allergic to aspirin -Continue pravastatin -Echo : .EF 60-65%. No regional wall motion abnormalities. Mild concentric LVH , Severe LA dilation, severe TR, RVSP- 37mmHg Atrial fibrillation with rapid ventricular rate: - Has a history of paroxysmal atrial fib - Cardizem and Atenolol - Continue Xarelto qpm Hypertension : -Continue atenolol and diltiazem Hypervolemia: - Echo as above - Switched to PO lasix 40 mg.monitor I's and O's and daily weights Steroid-induced hyperglycemia -Monitor blood sugar RA - Placed on steroids - Continue Cimzia as outpt when recovers from PNM DVT prophylaxis: Rivaroxaban DNR Resident Physician Supervision Note: I interviewed and examined the patient. Discussed with Dr. Blankenship and agree with findings and plan as documented in the note. Any exceptions or clarifications are listed here: None Documented By: Mart Nabil was doing about the same as yesterday per R3 when rounded on this AM - but now actually more alert and talkative. son present, updated. still having off and on hallucinations but otherwise lucid. vitals noted nad breathing unlabored on bipap lungs improving actually mostly clear but has scattered rales a/p mixed respiratory failure - hypoxia and hypercapnea - from infection superimposed on chronic fibrosis -yesterday worsened - likely from respiratory fatigue, but while now stable on bipap, has needed bipap since yesterday unremitting - ?possibly related to infection since came after downgrading abx - will restart cefepime, but still most likely from respiratory fatigue - continue bipap and supportive care and follow afib - rate control reasonable. continue current meds hyponatremia - worse. likely mixed picture. fluid restrict and salt replace, follow closely. 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
[2017-11-14] MEDS: POLYETHYLENE (MIRALAX) 17 GM PACK PO PRN (15:29)
[2017-11-14] MEDS ORDERED: SODIUM CHLORIDE 1 GM TAB PO ONE (15:30)
[2017-11-14] MEDS: RIVAROXABAN TAB 15 MG TAB PO SCH (17:38)
[2017-11-14] MEDS: SODIUM CHLORIDE 1 GM TAB PO SCH ×2 (17:38→20:41)
[2017-11-14] MEDS: CEFEPIME IV 2,000 MG in SYRINGE 7.5 ML IV SCH (20:37)
[2017-11-14] MEDS: PRAVASTATIN SOD 40 MG TAB PO SCH (20:41)
[2017-11-14] MEDS ORDERED: CEFEPIME IV 2,000 MG in DEXTROSE 5% 100ML 100 ML IV SCH (21:00)
[2017-11-14 21:10] LABS: CALCIUM 8.1 mg/dl (8.5-10.1); CREATININE 1.85 mg/dl (0.60-1.20); POTASSIUM 4.7 mmol/L (3.5-5.1)
[2017-11-15] VITALS (8 sets, daily range): BP systolic 136–149; BP diastolic 81–92; PULSE 58–77; TEMP 35.6–36.4; O2SAT 90–100
[2017-11-15] MEDS: DILTIAZEM HCL 60 MG TAB PO SCH ×4 (03:43→21:19)
[2017-11-15] MEDS ORDERED: SODIUM CHLORIDE 0.9% 250ML 250 ML IV SCH (06:45)
[2017-11-15 07:41] LABS: BASO % 0.1 %; BASO ABS # 0.01 K/uL (0-0.2); EOS % 0.1 %; EOS ABS # 0.01 K/uL (0-0.5); HEMATOCRIT 38.7 % (37-47); HEMOGLOBIN 13.3 g/dL (12.0-16.0); IG# 0.14 K/uL (0.00-0.02); LYMPH % 9.7 %; MEAN CELL VOLUME 94.6 fL (80-100); MEAN CORPUSCULAR HEMOGLOBIN 32.5 pg (25-34); MEAN CORPUSCULAR HGB CONC 34.4 g/dl (32-36); MEAN PLATELET VOLUME 9.4 fL (7.4-10.4); MONO % 9.9 %; MONO ABS # 1.85 K/uL (0.11-0.59); NEUT % 79.4 %; NEUT ABS # 14.84 K/uL (1.4-6.5); PLATELET COUNT 228 K/uL (130-400); RED CELL DISTRIBUTION WIDTH SD 48.2 fL (36.4-46.3); WHITE BLOOD COUNT 18.65 K/uL (4.8-10.8)
[2017-11-15] MEDS: DICLOFENAC SOD 1% GEL 100 GM TUBE EXT SCH ×3 (07:56→15:49)
[2017-11-15] MEDS: CEFEPIME IV 2,000 MG in SYRINGE 7.5 ML IV SCH ×2 (07:57→20:06)
[2017-11-15] MEDS: CEROVITE ADV FORMULA TAB PO SCH ×2 (07:59→20:09)
[2017-11-15] MEDS: RIVAROXABAN TAB 15 MG TAB PO SCH (07:59)
[2017-11-15] MEDS: SODIUM CHLORIDE 1 GM TAB PO SCH ×4 (08:00→20:08)
[2017-11-15] MEDS: CALCIUM 600MG + VIT D 400 IU TAB PO SCH ×2 (08:01→20:07)
[2017-11-15] MEDS: DOXYCYCLINE HYCLATE 100 MG CAP PO SCH ×2 (08:01→20:08)
[2017-11-15] MEDS: INSULIN ASPART 100 UNITS/ML 3 ML PEN SC SCH ×4 (08:08→20:18)
[2017-11-15 08:34] LABS: CALCIUM 8.5 mg/dl (8.5-10.1); CREATININE 1.54 mg/dl (0.60-1.20); POTASSIUM 4.6 mmol/L (3.5-5.1)
[2017-11-15] MEDS: LEVOFLOXACIN 750 MG TAB PO SCH (10:19)
[2017-11-15] MEDS: PANTOprazole SOD 40 MG TAB PO SCH (12:24)
--- NOTE | 2017-11-15 14:01 | Family Medicine Progress Note ---
Progress Note Date of Service Nov 15, 2017. Subjective Pt evaluation today including: conversation w/ patient Feels better this morning Wonders about her tremor- which she says is new Constitutional: No fever, No chills Eyes: No worsening of vision ENT: No hearing loss Respiratory: + shortness of breath, + dyspnea on exertion, No cough, No sputum, No wheezing Cardiovascular: No chest pain Abdomen: No pain, No nausea, No vomiting, No diarrhea, No constipation Female : No dysuria, No urinary frequency Medications Medications (Trade) Dose Ordered Sig/Anselmo Route Start Time Stop Time Status Last Admin Dose Admin Sodium Chloride (Sodium Chloride Tab) 1 gm QID PO 11/14/17 17:00 12/14/17 16:59 11/15/17 12:24 1 GM Sodium Chloride (Sodium Chloride Tab) 1 gm 1530 ONCE PO 11/14/17 15:30 11/14/17 15:31 DC 11/14/17 15:59 1 GM Cefepime HCl 2000 mg/Syringe 20 ml @ 5 mls/min Q12H IV 11/14/17 20:00 11/21/17 19:59 11/15/17 07:57 5 MLS/MIN Sodium Chloride 250 ml @ 250 mls/hr Q1H IV 11/15/17 06:45 11/15/17 07:44 DC 11/15/17 07:56 250 MLS/HR Objective Physical Exam General Appearance: no apparent distress Eyes: PERRL, EOMI ENT: hearing grossly normal Neck: supple, no JVD Respiratory/Chest: no respiratory distress, no accessory muscle use, + crackles , + rhonchi Cardiovascular: no edema, + irregularly irregular Abdomen: normal bowel sounds, non tender, soft Extremities: + pedal edema (trace) Neurologic/Psychiatric: no motor/sensory deficits, alert, normal mood/affect Laboratory Results Last 24 Hours Test 11/14/17 14:06 11/14/17 17:03 11/14/17 20:06 11/14/17 20:34 Arterial Blood pH 7.44 Arterial Blood Partial Pressure CO2 61 mmHg Arterial Blood Partial Pressure O2 46 mm/Hg Arterial Blood HCO3 41 mmol/L Arterial Blood Oxygen Saturation 83.5 % Arterial Blood Base Excess 14.1 mEq/L Arterial Blood Gas Delivery 8 Neo Test POS Bedside Glucose 221 mg/dl 194 mg/dl Sodium Level 119 mmol/L Potassium Level 4.7 mmol/L Chloride Level 74 mmol/L Carbon Dioxide Level 44 mmol/L Anion Gap 2.0 mmol/L Blood Urea Nitrogen 52 mg/dl Creatinine 1.85 mg/dl Est Creatinine Clear Calc Drug Dose 23.6 ml/min Estimated GFR () 29.3 Estimated GFR (Non- 25.3 BUN/Creatinine Ratio 28.3 Random Glucose 184 mg/dl Calcium Level 8.1 mg/dl Test 11/15/17 06:40 11/15/17 07:30 11/15/17 07:42 11/15/17 11:36 Bedside Glucose 148 mg/dl 161 mg/dl 215 mg/dl White Blood Count 18.65 K/uL Red Blood Count 4.09 M/uL Hemoglobin 13.3 g/dL Hematocrit 38.7 % Mean Corpuscular Volume 94.6 fL Mean Corpuscular Hemoglobin 32.5 pg Mean Corpuscular Hemoglobin Concent 34.4 g/dl Platelet Count 228 K/uL Mean Platelet Volume 9.4 fL Neutrophils (%) (Auto) 79.4 % Lymphocytes (%) (Auto) 9.7 % Monocytes (%) (Auto) 9.9 % Eosinophils (%) (Auto) 0.1 % Basophils (%) (Auto) 0.1 % Neutrophils # (Auto) 14.84 K/uL Lymphocytes # (Auto) 1.80 K/uL Monocytes # (Auto) 1.85 K/uL Eosinophils # (Auto) 0.01 K/uL Basophils # (Auto) 0.01 K/uL RDW Standard Deviation 48.2 fL RDW Coefficient of Variation 14.0 % Immature Granulocyte % (Auto) 0.8 % Immature Granulocyte # (Auto) 0.14 K/uL Sodium Level 121 mmol/L Potassium Level 4.6 mmol/L Chloride Level 74 mmol/L Carbon Dioxide Level 43 mmol/L Anion Gap 4.0 mmol/L Blood Urea Nitrogen 49 mg/dl Creatinine 1.54 mg/dl Est Creatinine Clear Calc Drug Dose 28.3 ml/min Estimated GFR () 36.6 Estimated GFR (Non- 31.5 BUN/Creatinine Ratio 32.1 Random Glucose 145 mg/dl Calcium Level 8.5 mg/dl Assessment and Plan 82-year-old female with a past medical history of rheumatoid arthritis with interstitial lung disease, hypertension, diabetes, depression, paroxysmal atrial fibrillation presented to the ER with complaints of progressively worsening shortness of breath over the last few days. Shortness of breath is improved this morning, Patient more alert/awake and oriented. BiPap at night Acute hypoxic/hypercapnic respiratory failure: Pneumonia with worsening interstitial lung disease - Chest CT revealed interval worsening of peribronchovascular consolidation - repeat chest X-ray - MRSA positive, influenza negative - Switched to doxycycline and Levaquin + Cefepime- for double coverage / pseudomonas due to worsening clinical picture, increasing wbc count - Steroids 60 mg PO- maintain current dose due to overall slight worsening- no wheezing or indication of ILD flare up - Maintain on BIPAP due to hypercapnia Hyponatremia/KENDAL -Sodium improving at 121 - ?SIADH +/- mild heart failure - Sodium tablets started - Urine osmolality 294 and serum osmolality 277 - Cr improved- encourage PO intake, given 250 NSS bolus- would overall fluid restrict - Monitor BMP NSTEMI: -Patient is allergic to aspirin -Continue pravastatin -Echo : .EF 60-65%. No regional wall motion abnormalities. Mild concentric LVH , Severe LA dilation, severe TR, RVSP- 37mmHg Atrial fibrillation with rapid ventricular rate: - Has a history of paroxysmal atrial fib - Cardizem and Atenolol - Continue Xarelto qpm Hypertension : -Continue atenolol and diltiazem Hypervolemia: - Echo as above - Po Lasix- held today yesterday due to worsening KENDAL- restart tomorrow Steroid-induced hyperglycemia -Monitor blood sugar RA - Placed on steroids - Continue Cimzia as output when recovers from P[facility] DVT prophylaxis: Rivaroxaban DNR Resident Physician Supervision Note: Pt seen and discussed with Dr. Blankenship and agree with findings and plan as documented in the note. Any exceptions or clarifications are listed here: None Documented By: Mart Ferrer sleeping comfortably nad vitals noted nad breathing unlabored on NC O2 a/p mixed respiratory failure - hypoxia and hypercapnea - from infection superimposed on chronic fibrosis -clinically ipmroving - suspect WBC elevation is late rise corroborating that re-escalation of abx (with addition of cefepime) yesterday was right move. looking better again afib - rate control reasonable. continue rate control and anticoagulation hyponatremia - improving again. likely mixed picture. fluid restrict and salt replace, follow closely. 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
--- NOTE | 2017-11-15 14:24 | DIAGNOSTIC IMAGING REPORT ---
CHEST ONE VIEW PORTABLE CLINICAL HISTORY: 82 years-old Female presenting with dyspnea. TECHNIQUE: AP view of the chest was obtained. COMPARISON: 11/13/2017. FINDINGS: The patient is LENNON rotated. Atherosclerosis of aortic arch. Cardiac silhouette enlarged. Mildly low lung volumes with hypoventilatory changes. No significant change in patchy bilateral pulmonary opacities with a mid to basilar predominance. Low lung volumes. Small bilateral pleural effusions suggested. No large pneumothorax. Degenerative changes of the thoracic spine. Scoliotic curvature of the spine and exaggerated thoracic kyphosis. Chronic deformity of the left humeral head. Upper abdomen normal. IMPRESSION: 1. No significant change in the patchy diffuse bilateral pulmonary opacities with a mid to basilar predominance. These could represent pulmonary edema, multifocal pneumonia, or diffuse alveolar damage. 2. Cardiomegaly. 3. Suspected small pleural effusions. Electronically signed by: Boris Lopez M.D. 11/15/2017 2:23 PM Dictated Date/Time: 11/15/2017 2:21 PM
[2017-11-15] MEDS: ACETAMINOPHEN 325 MG TAB PO PRN (17:13)
[2017-11-15 18:35] LABS: CALCIUM 8.1 mg/dl (8.5-10.1); CREATININE 1.61 mg/dl (0.60-1.20); POTASSIUM 5.1 mmol/L (3.5-5.1)
[2017-11-15] MEDS: PRAVASTATIN SOD 40 MG TAB PO SCH (20:10)
[2017-11-16 03:34] VITALS: BP 157/97; PULSE 76; O2SAT 96
[2017-11-16] MEDS: DILTIAZEM HCL 60 MG TAB PO SCH ×4 (03:35→20:56)
[2017-11-16 07:27] LABS: BASO % 0.1 %; BASO ABS # 0.01 K/uL (0-0.2); EOS % 0.1 %; EOS ABS # 0.01 K/uL (0-0.5); HEMATOCRIT 39.9 % (37-47); HEMOGLOBIN 13.2 g/dL (12.0-16.0); IG# 0.19 K/uL (0.00-0.02); LYMPH % 8.9 %; LYMPH ABS # 1.66 K/uL (1.2-3.4); MEAN CELL VOLUME 94.5 fL (80-100); MEAN CORPUSCULAR HEMOGLOBIN 31.3 pg (25-34); MEAN CORPUSCULAR HGB CONC 33.1 g/dl (32-36); MEAN PLATELET VOLUME 9.5 fL (7.4-10.4); MONO % 10.1 %; MONO ABS # 1.89 K/uL (0.11-0.59); NEUT % 79.8 %; NEUT ABS # 14.94 K/uL (1.4-6.5); PLATELET COUNT 232 K/uL (130-400); RED CELL DISTRIBUTION WIDTH CV 13.9 % (11.5-14.5); RED CELL DISTRIBUTION WIDTH SD 48.1 fL (36.4-46.3)
[2017-11-16 07:43] VITALS: BP 157/80; PULSE 65; TEMP 35.6; O2SAT 97
[2017-11-16] MEDS: DICLOFENAC SOD 1% GEL 100 GM TUBE EXT SCH ×3 (07:49→16:40)
[2017-11-16] MEDS: CEROVITE ADV FORMULA TAB PO SCH ×2 (07:49→20:55)
[2017-11-16] MEDS: DOXYCYCLINE HYCLATE 100 MG CAP PO SCH ×2 (07:49→20:56)
[2017-11-16] MEDS: CALCIUM 600MG + VIT D 400 IU TAB PO SCH ×2 (07:49→20:55)
[2017-11-16] MEDS: SODIUM CHLORIDE 1 GM TAB PO SCH ×4 (07:49→20:55)
[2017-11-16] MEDS: CEFEPIME IV 2,000 MG in SYRINGE 7.5 ML IV SCH ×2 (07:50→20:55)
[2017-11-16 08:02] LABS: CALCIUM 8.4 mg/dl (8.5-10.1); CREATININE 1.34 mg/dl (0.60-1.20); POTASSIUM 4.7 mmol/L (3.5-5.1)
[2017-11-16] MEDS: INSULIN ASPART 100 UNITS/ML 3 ML PEN SC SCH ×4 (08:05→21:00)
--- NOTE | 2017-11-16 08:35 | Family Medicine Progress Note ---
Progress Note Date of Service Nov 16, 2017. Subjective Pt evaluation today including: conversation w/ patient, physical exam, chart review, lab review, review of studies, review of inpatient medication list Pain: denies PO Intake: adequate Voiding: conti catheter in place Overnight, patient desaturated however it coincided with patient having removed BIPAP mask. Subsequently with replacement of mask, oxygen saturation returned to normal. Pt reports cough and SOB improved. Constitutional: No fever, No chills Respiratory: + shortness of breath, No cough, No wheezing Cardiovascular: No chest pain, No edema, No palpitations Abdomen: No pain, No nausea, No vomiting, No diarrhea, No constipation Musculoskeletal: No swelling, No calf pain Female : No dysuria Skin: No rash, No itch Medications Current Inpatient Medications Medications (Trade) Dose Ordered Sig/Anselmo Route Start Time Stop Time Status Last Admin Dose Admin Al Hydrox/Mg Hydrox/Simethicone (Maalox Max Susp) 15 ml Q4H PRN PO 11/09/17 00:15 12/09/17 00:14 Magnesium Hydroxide (Milk Of Magnesia Susp) 30 ml Q12H PRN PO 11/09/17 00:15 12/09/17 00:14 11/14/17 15:29 30 ML Ondansetron HCl (Zofran Inj) 4 mg Q6H PRN IV 11/09/17 00:15 12/09/17 00:14 11/12/17 11:07 4 MG Nitroglycerin (Nitrostat Tab) 0.4 mg UD PRN SL 11/09/17 00:15 12/09/17 00:14 Polyethylene (Miralax Powder Packet) 17 gm DAILY PRN PO 11/09/17 00:15 12/09/17 00:14 11/14/17 15:29 17 GM Acetaminophen/ Butalbital/ Caffeine (Fioricet Tab) 1 tab DAILY PRN PO 11/09/17 00:15 12/09/17 00:14 Calcium/Vitamin D (Caltrate Plus Tab) 1 tab BID PO 11/09/17 09:00 12/09/17 08:59 11/16/17 20:55 1 TAB Clonazepam (Klonopin Tab) 0.5 mg HS PRN PO 11/09/17 00:15 12/09/17 00:14 11/12/17 03:06 0.5 MG Multivitamins/ Minerals (Multivitamin W/ Minerals Tab) 1 tab BID PO 11/09/17 09:00 12/09/17 08:59 11/16/17 20:55 1 TAB Pantoprazole Sodium (Protonix Tab) 40 mg QDL PO 11/09/17 11:00 12/09/17 10:59 11/16/17 11:59 40 MG Pravastatin Sodium (Pravachol Tab) 80 mg QPM PO 11/09/17 21:00 12/09/17 20:59 11/16/17 20:55 80 MG Miscellaneous (Iv Fluids Completed) 1 ea PRN PRN N/A 11/09/17 03:30 11/09/18 03:29 Diclofenac Sodium (Voltaren 1% Top Gel) 1 appln [id number] EXT 11/09/17 16:00 12/09/17 15:59 11/16/17 16:40 1 APPLN Glucagon (Glucagon Inj) 1 mg UD PRN SQ 11/09/17 19:15 12/09/17 19:14 Glucose (Glucose 40% Gel) 15-30 GRAMS 15 GRAMS... UD PRN PO 11/09/17 19:15 12/09/17 19:14 Glucose (Glucose Chew Tab) 4-8 Tablets 4 Tabl... UD PRN PO 11/09/17 19:15 12/09/17 19:14 Insulin Aspart (novoLOG ASPART) SLIDING SCALE If C... ACHS SC 11/10/17 07:00 12/10/17 06:59 11/16/17 21:00 1 UNITS Diltiazem HCl (Cardizem Tab) 60 mg Q6H PO 11/10/17 04:00 12/10/17 03:59 11/16/17 20:56 60 MG Atenolol (Tenormin Tab) 25 mg QPM PO 11/11/17 21:00 12/09/17 20:59 11/16/17 20:56 25 MG Rivaroxaban (Xarelto Tab) 15 mg QDD PO 11/11/17 16:45 12/11/17 16:44 11/16/17 16:40 15 MG Prednisone (PredniSONE TAB) 60 mg DAILY PO 11/12/17 09:00 12/12/17 08:59 11/16/17 07:49 60 MG Doxycycline Hyclate (Vibramycin Cap) 100 mg BID PO 11/12/17 21:00 11/19/17 20:59 11/16/17 20:56 100 MG Acetaminophen (Tylenol Tab) 650 mg Q6H PRN PO 11/12/17 10:45 12/12/17 10:44 11/15/17 17:13 650 MG Levofloxacin (Consult) 1 ea UD PRN N/A 11/12/17 12:15 12/12/17 12:14 Sodium Chloride (Sodium Chloride Tab) 1 gm QID PO 11/14/17 17:00 12/14/17 16:59 11/16/17 20:55 1 GM Cefepime HCl 2000 mg/Syringe 20 ml @ 5 mls/min Q12H IV 11/14/17 20:00 11/21/17 19:59 11/16/17 20:55 5 MLS/MIN Insulin Glargine (Lantus Solostar Pen) 10 units QAM SC 11/16/17 09:00 12/16/17 08:59 11/16/17 09:38 10 UNITS Furosemide (Lasix Tab) 40 mg QAM PO 11/16/17 10:30 12/16/17 10:29 11/16/17 11:36 40 MG Levofloxacin (Levaquin Tab) 750 mg Q2D@1100 PO 11/17/17 11:00 11/24/17 10:59 Objective Vital Signs Date Time Temp Pulse Resp B/P (MAP) Pulse Ox O2 Delivery O2 Flow Rate FiO2 11/16/17 07:43 35.6 65 20 157/80 (105) 97 BiPAP 11/16/17 03:34 76 18 157/97 (117) 96 BiPAP 5.0 11/16/17 00:00 BiPAP 5.0 11/15/17 22:55 35.6 73 18 145/92 (109) 98 BiPAP 11/15/17 22:46 64 98 5.0 11/15/17 20:00 Nasal Cannula 2.0 11/15/17 16:26 36.4 77 17 144/84 (104) 99 Nasal Cannula 2.0 11/15/17 16:00 96 Nasal Cannula 2.0 BiPAP Physical Exam Notes: GENERAL: alert, no distress EYE EXAM: normal conjunctiva, PERRL and EOM's grossly intact OROPHARYNX: no exudate, no erythema, lips, buccal mucosa, and tongue normal and mucous membranes are moist NECK: supple, no nuchal rigidity, no adenopathy, non-tender LUNGS: +Rhonchi bilaterally L>R. Normal chest wall mechanics HEART: S1 normal and S2 normal ABDOMEN: abdomen soft, non-tender, normo-active bowel sounds, no masses, no rebound or guarding. SKIN: no rashes and no bruising UPPER EXTREMITIES: upper extremities are grossly normal. LOWER EXTREMITIES: No pitting edema. NEURO EXAM: Normal sensorium, cranial nerves II-XII grossly intact, normal speech Laboratory Results Results Past 24 Hours Test 11/15/17 11:36 11/15/17 16:46 11/15/17 17:37 11/15/17 20:09 Range/Units Bedside Glucose 215 215 278 70-90 mg/dl Sodium Level 119 136-145 mmol/L Potassium Level 5.1 3.5-5.1 mmol/L Chloride Level 77 98-107 mmol/L Carbon Dioxide Level 41 21-32 mmol/L Anion Gap 1.0 3-11 mmol/L Blood Urea Nitrogen 49 7-18 mg/dl Creatinine 1.61 0.60-1.20 mg/dl Est Creatinine Clear Calc Drug Dose 27.1 ml/min Estimated GFR () 34.6 Estimated GFR (Non- 29.9 BUN/Creatinine Ratio 30.3 10-20 Random Glucose 247 70-99 mg/dl Calcium Level 8.1 8.5-10.1 mg/dl Test 11/16/17 06:52 11/16/17 07:27 11/16/17 07:52 Range/Units White Blood Count 18.70 4.8-10.8 K/uL Red Blood Count 4.22 4.2-5.4 M/uL Hemoglobin 13.2 12.0-16.0 g/dL Hematocrit 39.9 37-47 % Mean Corpuscular Volume 94.5 80-100 fL Mean Corpuscular Hemoglobin 31.3 25-34 pg Mean Corpuscular Hemoglobin Concent 33.1 32-36 g/dl Platelet Count 232 130-400 K/uL Mean Platelet Volume 9.5 7.4-10.4 fL Neutrophils (%) (Auto) 79.8 % Lymphocytes (%) (Auto) 8.9 % Monocytes (%) (Auto) 10.1 % Eosinophils (%) (Auto) 0.1 % Basophils (%) (Auto) 0.1 % Neutrophils # (Auto) 14.94 1.4-6.5 K/uL Lymphocytes # (Auto) 1.66 1.2-3.4 K/uL Monocytes # (Auto) 1.89 0.11-0.59 K/uL Eosinophils # (Auto) 0.01 0-0.5 K/uL Basophils # (Auto) 0.01 0-0.2 K/uL RDW Standard Deviation 48.1 36.4-46.3 fL RDW Coefficient of Variation 13.9 11.5-14.5 % Immature Granulocyte % (Auto) 1.0 % Immature Granulocyte # (Auto) 0.19 0.00-0.02 K/uL Sodium Level 121 136-145 mmol/L Potassium Level 4.7 3.5-5.1 mmol/L Chloride Level 78 98-107 mmol/L Carbon Dioxide Level 43 21-32 mmol/L Anion Gap 0.0 3-11 mmol/L Blood Urea Nitrogen 42 7-18 mg/dl Creatinine 1.34 0.60-1.20 mg/dl Est Creatinine Clear Calc Drug Dose 32.6 ml/min Estimated GFR () 43.3 Estimated GFR (Non- 37.3 BUN/Creatinine Ratio 31.6 10-20 Random Glucose 145 70-99 mg/dl Calcium Level 8.4 8.5-10.1 mg/dl Bedside Glucose 144 70-90 mg/dl Assessment and Plan 82yo F w/ history of rheumatoid arthritis with interstitial lung disease, hypertension, diabetes, depression, paroxysmal afib p/w worsening shortness of breath found to be in Acute Hypoxic Hypercapnic respiratory failure in the setting of Pneumonia Acute hypoxic/hypercapnic respiratory failure: in the setting of Pneumonia and chronic interstitial lung disease - Chest CT revealed interval worsening of peribronchovascular consolidation - MRSA positive, influenza negative - Cefepime reinitiated 11/15 due to clinical worsening. - Plan to convert to oral abx tomorrow - Continue broad spectrum abx ( Doxy, Levaquin, Cefepime) - Elevated white ct potentially due to steroid dosing vs Pneumonia - Steroids 60 mg PO, Plan to taper tomorrow - Maintain on BIPAP at night, NC 4L during the day Hyponatremia/KENDAL - chronically hyponatremic with possibel SIADH acute component - ?SIADH +/- mild heart failure - Continue Sodium tablets, fluid restriction - Urine osmolality 294 and serum osmolality 277 - Cr improving - Monitor BMP NSTEMI: -Patient is allergic to aspirin -Continue pravastatin -Echo : .EF 60-65%. No regional wall motion abnormalities. Mild concentric LVH , Severe LA dilation, severe TR, RVSP- 37mmHg Atrial fibrillation with rapid ventricular rate: - Hx of paroxysmal atrial fib - Continue Cardizem and Atenolol - Continue Xarelto qpm Hypertension : -Continue atenolol and diltiazem Hypervolemia: - Echo as above - Lasix remains held Steroid-induced hyperglycemia -Monitor blood sugar RA - Placed on steroids - Continue Cimzia as output when recovers from PNM DVT prophylaxis: Rivaroxaban DNR Disp: F/u with case management for rehab Continued [facility] stay due to: multiple IV medications needed Discharge planning: rehab hospital Assessment/Plan Resident Physician Supervision Note: I was present with Dr. Szymanski during the history and exam. I discussed the case with the resident and agree with the findings and plan as documented in the note. Any exceptions or clarifications are listed here. Pt resting in bed reporting improving breathing and resolution of cough. Normally at 3L O2 NC at home during daytime and nighttime CPAP w/ O2 which she uses intermittently 2/2 claustrophobia. Feels that the BIPAP here is better/ more comfortable for her. Lungs ronchorous at bases but no rales. Will continue current abx coverage until tomorrow and narrow based on antibiogram and clinical response as Cx have been negative. Weaning O2 as tolerated. Continue steroid therapy and monitor glucose levels with adjustments to coverage as needed. Resident Tracking Resident Involvement: Resident Care Provided Care Provided: Adult Hospital Medicine
[2017-11-16] MEDS: INSULIN GLARGINE SOLOSTAR 100 UNITS/ML 3 ML PEN SC SCH (09:38)
[2017-11-16] MEDS: FUROSEMIDE 40 MG TAB PO SCH (11:36)
[2017-11-16] MEDS: PANTOprazole SOD 40 MG TAB PO SCH (11:59)
--- NOTE | 2017-11-16 12:20 | Nephrology Consultation ---
Nephrology Consultation Date & Providers Date of Consultation: Nov 16, 2017. Primary Care Provider: Ranulfo Landin M.D. Referring Provider: Reason for Consultation Evaluation and management hyponatremia and acute kidney injury. History of Present Illness Liyah Is a 82 with hypertension CHF chronic hyponatremia and chronic kidney disease admitted to the hospital worsening shortness of breath CHF exacerbation. Nephrologic consult was requested to manage hyponatremia acute kidney injury. Electronic medical records were reviewed in detail during patient's visit. Liyah was admitted to the hospital with worsening shortness of breath. Chest x- ray and CT chest with IV contrast on admission showed pulmonary infiltrate, pneumonia versus pulmonary edema. She was started with empiric antibiotic and Lasix. On admission her serum sodium was 124 which slightly improved over the course to 127 but dropped again. Urine osmolality was 290. Yesterday she was started off with IV normal saline with that her serum sodium dropped to 119. Lasix has been on hold. She was started on oral salt tablet 1 g 4 times a day. She was not on any thiazide diuretics. Record review showed she had hyponatremia before as well. No history of adrenal insufficiency or hypothyroidism. She is a nonsmoker, no personal history of malignancy. Hemoglobin stable. She also developed acute kidney injury with no prior history of chronic kidney disease, creatinine peaked to 1.6 which now improved to 1.3, baseline creatinine has been around 0.9. Has history of hypertension, blood pressure has been running high, on amlodipine and lisinopril. Has history of rheumatoid arthritis, on prednisone chronically. Currently she denies any specific symptoms. Allergies Coded Allergies: Amoxicillin (Verified Allergy, Unknown, UNKNOWN, 11/08/17) Clavulanic Acid (Verified Allergy, Unknown, UNKNOWN, 11/08/17) Clindamycin (Verified Allergy, Unknown, UNKNOWN, 11/08/17) Penicillins (Verified Allergy, Unknown, UNKNOWN, 11/08/17) Sulfa Antibiotics (Verified Adverse Reaction, Intermediate, NAUSEA, ) Aspirin (Verified Adverse Reaction, Mild, GI SYMPTOMS, 11/08/17) Uncoded Allergies: ARTIFICIAL SWEETNER (Allergy, Mild, TONGUE SORE, 12/30/12) Inpatient Medications Current Inpatient Medications Medications (Trade) Dose Ordered Sig/Anselmo Route Start Time Stop Time Status Last Admin Dose Admin Al Hydrox/Mg Hydrox/Simethicone (Maalox Max Susp) 15 ml Q4H PRN PO 11/09/17 00:15 12/09/17 00:14 Magnesium Hydroxide (Milk Of Magnesia Susp) 30 ml Q12H PRN PO 11/09/17 00:15 12/09/17 00:14 11/14/17 15:29 30 ML Ondansetron HCl (Zofran Inj) 4 mg Q6H PRN IV 11/09/17 00:15 12/09/17 00:14 11/12/17 11:07 4 MG Nitroglycerin (Nitrostat Tab) 0.4 mg UD PRN SL 11/09/17 00:15 12/09/17 00:14 Polyethylene (Miralax Powder Packet) 17 gm DAILY PRN PO 11/09/17 00:15 12/09/17 00:14 11/14/17 15:29 17 GM Acetaminophen/ Butalbital/ Caffeine (Fioricet Tab) 1 tab DAILY PRN PO 11/09/17 00:15 12/09/17 00:14 Calcium/Vitamin D (Caltrate Plus Tab) 1 tab BID PO 11/09/17 09:00 12/09/17 08:59 11/16/17 07:49 1 TAB Clonazepam (Klonopin Tab) 0.5 mg HS PRN PO 11/09/17 00:15 12/09/17 00:14 11/12/17 03:06 0.5 MG Multivitamins/ Minerals (Multivitamin W/ Minerals Tab) 1 tab BID PO 11/09/17 09:00 12/09/17 08:59 11/16/17 07:49 1 TAB Pantoprazole Sodium (Protonix Tab) 40 mg QDL PO 11/09/17 11:00 12/09/17 10:59 11/15/17 12:24 40 MG Pravastatin Sodium (Pravachol Tab) 80 mg QPM PO 11/09/17 21:00 12/09/17 20:59 11/15/17 20:10 80 MG Miscellaneous (Iv Fluids Completed) 1 ea PRN PRN N/A 11/09/17 03:30 11/09/18 03:29 Diclofenac Sodium (Voltaren 1% Top Gel) 1 appln [id number] EXT 11/09/17 16:00 12/09/17 15:59 11/16/17 07:49 1 APPLN Glucagon (Glucagon Inj) 1 mg UD PRN SQ 11/09/17 19:15 12/09/17 19:14 Glucose (Glucose 40% Gel) 15-30 GRAMS 15 GRAMS... UD PRN PO 11/09/17 19:15 12/09/17 19:14 Glucose (Glucose Chew Tab) 4-8 Tablets 4 Tabl... UD PRN PO 11/09/17 19:15 12/09/17 19:14 Insulin Aspart (novoLOG ASPART) SLIDING SCALE If C... ACHS SC 11/10/17 07:00 12/10/17 06:59 11/16/17 08:05 6 UNITS Diltiazem HCl (Cardizem Tab) 60 mg Q6H PO 11/10/17 04:00 12/10/17 03:59 11/16/17 03:35 60 MG Atenolol (Tenormin Tab) 25 mg QPM PO 11/11/17 21:00 12/09/17 20:59 11/15/17 20:09 25 MG Rivaroxaban (Xarelto Tab) 15 mg QDD PO 11/11/17 16:45 12/11/17 16:44 11/15/17 07:59 15 MG Prednisone (PredniSONE TAB) 60 mg DAILY PO 11/12/17 09:00 12/12/17 08:59 11/16/17 07:49 60 MG Levofloxacin (Levaquin Tab) 750 mg Q2D@1100 PO 11/13/17 11:00 11/16/17 10:59 11/15/17 10:19 750 MG Doxycycline Hyclate (Vibramycin Cap) 100 mg BID PO 11/12/17 21:00 11/19/17 20:59 11/16/17 07:49 100 MG Furosemide (Lasix Tab) 40 mg QAM PO 11/13/17 09:00 12/13/17 08:59 Future Hold 11/14/17 09:26 40 MG Acetaminophen (Tylenol Tab) 650 mg Q6H PRN PO 11/12/17 10:45 12/12/17 10:44 11/15/17 17:13 650 MG Levofloxacin (Consult) 1 ea UD PRN N/A 11/12/17 12:15 12/12/17 12:14 Sodium Chloride (Sodium Chloride Tab) 1 gm QID PO 11/14/17 17:00 12/14/17 16:59 11/16/17 07:49 1 GM Cefepime HCl 2000 mg/Syringe 20 ml @ 5 mls/min Q12H IV 11/14/17 20:00 11/21/17 19:59 11/16/17 07:50 5 MLS/MIN Insulin Glargine (Lantus Solostar Pen) 10 units QAM SC 11/16/17 09:00 12/16/17 08:59 Family History Cancer Diabetes mellitus Gallbladder disease Heart disease Lung disease Social History Smoking Status: Former Smoker Smokeless Tobacco Use: No Alcohol Use: none Drug Use: none Marital Status: Occupation: retired Review of Systems A complete review of systems was performed. Pertinent positives are noted above. All other systems are negative. Physical Exam Date Time Temp Pulse Resp B/P (MAP) Pulse Ox O2 Delivery O2 Flow Rate FiO2 11/16/17 07:43 35.6 65 20 157/80 (105) 97 BiPAP 11/16/17 03:34 76 18 157/97 (117) 96 BiPAP 5.0 11/16/17 00:00 BiPAP 5.0 11/15/17 22:55 35.6 73 18 145/92 (109) 98 BiPAP 11/15/17 22:46 64 98 5.0 11/15/17 20:00 Nasal Cannula 2.0 11/15/17 16:26 36.4 77 17 144/84 (104) 99 Nasal Cannula 2.0 11/15/17 16:00 96 Nasal Cannula 2.0 BiPAP GENERAL: Elderly female, AAA x 3, pleasant, ill-appearing, not in any distress. HEENT: Atraumatic, normocephalic. NECK: Supple, no JVD, no carotid bruit appreciated. ENT: No sinus tenderness MOUTH and THROAT: Moist oral mucosa, no oral ulcer or pharyngeal erythema RESPIRATORY: Normal breathing efforts,clear to auscultation bilaterally, no wheezes or rales. CARDIOVASCULAR: S1, S2 normal, rate rhythm regular. ABDOMEN: Soft, nontender, positive bowel sound. MUSCULOSKELETAL: No joint swelling, erythema or tenderness. Normal range of motion. SKIN: No skin rash EXTREMITY: No lower extremity edema NEURO: No gross focal neurological deficit, speech fluent. PSYCHIATRY: Normal mood and judgment Laboratory Results Last 24 Hours Test 11/15/17 11:36 11/15/17 16:46 11/15/17 17:37 11/15/17 20:09 Bedside Glucose 215 mg/dl 215 mg/dl 278 mg/dl Sodium Level 119 mmol/L Potassium Level 5.1 mmol/L Chloride Level 77 mmol/L Carbon Dioxide Level 41 mmol/L Anion Gap 1.0 mmol/L Blood Urea Nitrogen 49 mg/dl Creatinine 1.61 mg/dl Est Creatinine Clear Calc Drug Dose 27.1 ml/min Estimated GFR () 34.6 Estimated GFR (Non- 29.9 BUN/Creatinine Ratio 30.3 Random Glucose 247 mg/dl Calcium Level 8.1 mg/dl Test 11/16/17 06:52 11/16/17 07:27 11/16/17 07:52 White Blood Count 18.70 K/uL Red Blood Count 4.22 M/uL Hemoglobin 13.2 g/dL Hematocrit 39.9 % Mean Corpuscular Volume 94.5 fL Mean Corpuscular Hemoglobin 31.3 pg Mean Corpuscular Hemoglobin Concent 33.1 g/dl Platelet Count 232 K/uL Mean Platelet Volume 9.5 fL Neutrophils (%) (Auto) 79.8 % Lymphocytes (%) (Auto) 8.9 % Monocytes (%) (Auto) 10.1 % Eosinophils (%) (Auto) 0.1 % Basophils (%) (Auto) 0.1 % Neutrophils # (Auto) 14.94 K/uL Lymphocytes # (Auto) 1.66 K/uL Monocytes # (Auto) 1.89 K/uL Eosinophils # (Auto) 0.01 K/uL Basophils # (Auto) 0.01 K/uL RDW Standard Deviation 48.1 fL RDW Coefficient of Variation 13.9 % Immature Granulocyte % (Auto) 1.0 % Immature Granulocyte # (Auto) 0.19 K/uL Sodium Level 121 mmol/L Potassium Level 4.7 mmol/L Chloride Level 78 mmol/L Carbon Dioxide Level 43 mmol/L Anion Gap 0.0 mmol/L Blood Urea Nitrogen 42 mg/dl Creatinine 1.34 mg/dl Est Creatinine Clear Calc Drug Dose 32.6 ml/min Estimated GFR () 43.3 Estimated GFR (Non- 37.3 BUN/Creatinine Ratio 31.6 Random Glucose 145 mg/dl Calcium Level 8.4 mg/dl Bedside Glucose 144 mg/dl Impression (1) Hyponatremia (2) Acute kidney injury (3) Acute on chronic respiratory failure with hypoxia and hypercapnia (4) Hypertension 82-year-old female with acute hyponatremia with chronic history of hyponatremia , in the setting of acute on chronic respiratory failure, pneumonia versus pulmonary congestion. Serum sodium dropped with normal saline, slightly improved to 121 this morning after normal saline was discontinued. Hyponatremia could be secondary to SIADH in the setting of respiratory illness, other possibilities such as adrenal insufficiency considering chronic steroid therapy remains however blood pressure has been elevated. No TSH available. No personal history of malignancy. No history of chronic kidney disease on admission creatinine was 0.9, developed acute kidney injury over the course of hospital stay, creatinine peaked to 1.6, most likely Hemodynamically mediated, which currently seems to be improving last creatinine was 1.3. Has been voiding normally, no urinalysis available. Recommendations --Start on Lasix 40 p.o. daily --continue on salt tablet, fluid restriction to less than 1200 mL per day --liberalize salt in diet --check TSH, random cortisol --Check UA --serum sodium twice daily --renal panel in a.m. Will follow Thank you for allowing me to participate in your patient's care. It was a pleasure to see Liyah
[2017-11-16] MEDS ORDERED: SODIUM CHLORIDE 3% 500 ML BAG IV STA (15:03)
[2017-11-16 15:08] VITALS: BP 150/83; PULSE 70; TEMP 36.6; O2SAT 98
[2017-11-16] MEDS ORDERED: SODIUM CHLORIDE 3% IV ONE (16:15)
[2017-11-16] MEDS: RIVAROXABAN TAB 15 MG TAB PO SCH (16:40)
[2017-11-16 18:46] LABS: CREATININE 1.39 mg/dl (0.60-1.20)
[2017-11-16] MEDS: PRAVASTATIN SOD 40 MG TAB PO SCH (20:55)
[2017-11-16 22:06] VITALS: PULSE 66; O2SAT 95
[2017-11-17 00:26] VITALS: BP 139/83; PULSE 57; TEMP 36.6; O2SAT 91
[2017-11-17] MEDS: DILTIAZEM HCL 60 MG TAB PO SCH ×4 (04:00→22:26)
[2017-11-17 06:56] VITALS: BP 142/82; PULSE 58; TEMP 36.8; O2SAT 98
[2017-11-17 07:03] LABS: BASO ABS # 0.01 K/uL (0-0.2); EOS % 0.1 %; EOS ABS # 0.02 K/uL (0-0.5); HEMATOCRIT 37.8 % (37-47); IG# 0.25 K/uL (0.00-0.02); LYMPH % 8.9 %; LYMPH ABS # 1.92 K/uL (1.2-3.4); MEAN CELL VOLUME 94.5 fL (80-100); MEAN CORPUSCULAR HEMOGLOBIN 32.5 pg (25-34); MEAN CORPUSCULAR HGB CONC 34.4 g/dl (32-36); MEAN PLATELET VOLUME 9.2 fL (7.4-10.4); MONO ABS # 1.73 K/uL (0.11-0.59); NEUT % 81.8 %; NEUT ABS # 17.72 K/uL (1.4-6.5); PLATELET COUNT 218 K/uL (130-400); RED CELL DISTRIBUTION WIDTH CV 14.1 % (11.5-14.5); RED CELL DISTRIBUTION WIDTH SD 48.3 fL (36.4-46.3); WHITE BLOOD COUNT 21.65 K/uL (4.8-10.8)
[2017-11-17 07:20] LABS: CALCIUM 8.3 mg/dl (8.5-10.1); CREATININE 1.14 mg/dl (0.60-1.20); POTASSIUM 4.3 mmol/L (3.5-5.1)
[2017-11-17] MEDS: FUROSEMIDE 40 MG TAB PO SCH (08:04)
[2017-11-17] MEDS: CEROVITE ADV FORMULA TAB PO SCH ×2 (08:04→22:25)
[2017-11-17] MEDS: SODIUM CHLORIDE 1 GM TAB PO SCH ×4 (08:04→22:25)
[2017-11-17] MEDS: DICLOFENAC SOD 1% GEL 100 GM TUBE EXT SCH ×3 (08:04→17:11)
[2017-11-17] MEDS: CALCIUM 600MG + VIT D 400 IU TAB PO SCH ×2 (08:04→22:26)
[2017-11-17] MEDS: DOXYCYCLINE HYCLATE 100 MG CAP PO SCH ×2 (08:04→22:24)
[2017-11-17] MEDS: INSULIN ASPART 100 UNITS/ML 3 ML PEN SC SCH ×4 (08:10→21:00)
[2017-11-17] MEDS: INSULIN GLARGINE SOLOSTAR 100 UNITS/ML 3 ML PEN SC SCH (08:10)
[2017-11-17] MEDS: CEFEPIME IV 2,000 MG in SYRINGE 7.5 ML IV SCH (08:11)
--- NOTE | 2017-11-17 08:33 | Family Medicine Progress Note ---
Progress Note Date of Service Nov 17, 2017. Subjective Pt evaluation today including: conversation w/ patient, conversation w/ family , physical exam, chart review, lab review, review of studies, review of inpatient medication list Pain: denies PO Intake: adequate Voiding: no voiding problems Per nursing, patient seems to express reluctance to continue antibiotics because she wasn't sure if it would help. I discussed with patient the benefits of antibiotic treatment and discussed that her prognosis in the short term is not immediately fatal. Pt agreed to continue medication Additional Comments: Constitutional: No fever, No chills Respiratory: + shortness of breath, No cough, No wheezing Cardiovascular: No chest pain, No edema, No palpitations Abdomen: No pain, No nausea, No vomiting, No diarrhea, No constipation Musculoskeletal: No swelling, No calf pain Female : No dysuria Medications Current Inpatient Medications Medications (Trade) Dose Ordered Sig/Anselmo Route Start Time Stop Time Status Last Admin Dose Admin Al Hydrox/Mg Hydrox/Simethicone (Maalox Max Susp) 15 ml Q4H PRN PO 11/09/17 00:15 12/09/17 00:14 Magnesium Hydroxide (Milk Of Magnesia Susp) 30 ml Q12H PRN PO 11/09/17 00:15 12/09/17 00:14 11/14/17 15:29 30 ML Ondansetron HCl (Zofran Inj) 4 mg Q6H PRN IV 11/09/17 00:15 12/09/17 00:14 11/12/17 11:07 4 MG Nitroglycerin (Nitrostat Tab) 0.4 mg UD PRN SL 11/09/17 00:15 12/09/17 00:14 Polyethylene (Miralax Powder Packet) 17 gm DAILY PRN PO 11/09/17 00:15 12/09/17 00:14 11/14/17 15:29 17 GM Acetaminophen/ Butalbital/ Caffeine (Fioricet Tab) 1 tab DAILY PRN PO 11/09/17 00:15 12/09/17 00:14 Calcium/Vitamin D (Caltrate Plus Tab) 1 tab BID PO 11/09/17 09:00 12/09/17 08:59 11/17/17 08:04 1 TAB Clonazepam (Klonopin Tab) 0.5 mg HS PRN PO 11/09/17 00:15 12/09/17 00:14 11/12/17 03:06 0.5 MG Multivitamins/ Minerals (Multivitamin W/ Minerals Tab) 1 tab BID PO 11/09/17 09:00 12/09/17 08:59 11/17/17 08:04 1 TAB Pantoprazole Sodium (Protonix Tab) 40 mg QDL PO 11/09/17 11:00 12/09/17 10:59 11/17/17 12:01 40 MG Pravastatin Sodium (Pravachol Tab) 80 mg QPM PO 11/09/17 21:00 12/09/17 20:59 11/16/17 20:55 80 MG Miscellaneous (Iv Fluids Completed) 1 ea PRN PRN N/A 11/09/17 03:30 11/09/18 03:29 Diclofenac Sodium (Voltaren 1% Top Gel) 1 appln [id number] EXT 11/09/17 16:00 12/09/17 15:59 11/17/17 12:01 1 APPLN Glucagon (Glucagon Inj) 1 mg UD PRN SQ 11/09/17 19:15 12/09/17 19:14 Glucose (Glucose 40% Gel) 15-30 GRAMS 15 GRAMS... UD PRN PO 11/09/17 19:15 12/09/17 19:14 Glucose (Glucose Chew Tab) 4-8 Tablets 4 Tabl... UD PRN PO 11/09/17 19:15 12/09/17 19:14 Insulin Aspart (novoLOG ASPART) SLIDING SCALE If C... ACHS SC 11/10/17 07:00 12/10/17 06:59 11/17/17 12:03 6 UNITS Diltiazem HCl (Cardizem Tab) 60 mg Q6H PO 11/10/17 04:00 12/10/17 03:59 11/17/17 04:00 60 MG Atenolol (Tenormin Tab) 25 mg QPM PO 11/11/17 21:00 12/09/17 20:59 11/16/17 20:56 25 MG Rivaroxaban (Xarelto Tab) 15 mg QDD PO 11/11/17 16:45 12/11/17 16:44 11/16/17 16:40 15 MG Prednisone (PredniSONE TAB) 60 mg DAILY PO 11/12/17 09:00 12/12/17 08:59 11/17/17 08:04 60 MG Doxycycline Hyclate (Vibramycin Cap) 100 mg BID PO 11/12/17 21:00 11/19/17 20:59 11/17/17 08:04 100 MG Acetaminophen (Tylenol Tab) 650 mg Q6H PRN PO 11/12/17 10:45 12/12/17 10:44 11/15/17 17:13 650 MG Levofloxacin (Consult) 1 ea UD PRN N/A 11/12/17 12:15 12/12/17 12:14 Sodium Chloride (Sodium Chloride Tab) 1 gm QID PO 11/14/17 17:00 12/14/17 16:59 11/17/17 12:01 1 GM Cefepime HCl 2000 mg/Syringe 20 ml @ 5 mls/min Q12H IV 11/14/17 20:00 11/21/17 19:59 11/17/17 08:11 5 MLS/MIN Insulin Glargine (Lantus Solostar Pen) 10 units QAM SC 11/16/17 09:00 12/16/17 08:59 11/17/17 08:10 10 UNITS Furosemide (Lasix Tab) 40 mg QAM PO 11/16/17 10:30 12/16/17 10:29 11/17/17 08:04 40 MG Levofloxacin (Levaquin Tab) 750 mg Q2D@1100 PO 11/17/17 11:00 11/24/17 10:59 11/17/17 11:25 750 MG Acetazolamide (Diamox Tab) 250 mg BID PO 11/17/17 09:00 11/20/17 08:59 11/17/17 09:33 250 MG Objective Vital Signs Date Time Temp Pulse Resp B/P (MAP) Pulse Ox O2 Delivery O2 Flow Rate FiO2 11/17/17 08:00 Nasal Cannula 4.0 11/17/17 06:56 36.8 58 18 142/82 (102) 98 4.0 11/17/17 00:26 36.6 57 18 139/83 (101) 91 BiPAP 11/17/17 00:00 BiPAP 4.0 11/16/17 22:06 66 95 5.0 11/16/17 15:40 Nasal Cannula 4.0 11/16/17 15:08 36.6 70 18 150/83 (105) 98 Nasal Cannula 5.0 Physical Exam Notes: GENERAL: alert, no distress EYE EXAM: normal conjunctiva, PERRL and EOM's grossly intact NECK: supple, no nuchal rigidity, no adenopathy, non-tender LUNGS: Bilateral Rhonchi, NO wheeze Normal chest wall mechanics HEART: S1 normal and S2 normal ABDOMEN: abdomen soft, non-tender, normo-active bowel sounds, no masses, no rebound or guarding. UPPER EXTREMITIES: upper extremities are grossly normal. LOWER EXTREMITIES: No pitting edema. NEURO EXAM: Normal sensorium, cranial nerves II-XII grossly intact, normal speech Laboratory Results Results Past 24 Hours Test 11/16/17 16:12 11/16/17 18:09 11/16/17 18:54 11/16/17 20:25 Range/Units Bedside Glucose 159 176 70-90 mg/dl Sodium Level 120 136-145 mmol/L Potassium Level 4.7 3.5-5.1 mmol/L Chloride Level 78 98-107 mmol/L Carbon Dioxide Level 37 21-32 mmol/L Anion Gap 5.0 3-11 mmol/L Blood Urea Nitrogen 44 7-18 mg/dl Creatinine 1.39 0.60-1.20 mg/dl Est Creatinine Clear Calc Drug Dose 31.4 ml/min Estimated GFR () 41.4 Estimated GFR (Non- 35.7 BUN/Creatinine Ratio 31.4 10-20 Random Glucose 185 70-99 mg/dl Calcium Level 8.0 8.5-10.1 mg/dl Test 11/17/17 02:30 11/17/17 06:44 11/17/17 06:48 11/17/17 07:21 Range/Units Urine Color YELLOW Urine Appearance CLEAR CLEAR Urine pH 8.0 4.5-7.5 Urine Specific [place] 1.014 1.000-1.030 Urine Protein NEG NEG Urine Glucose (UA) NEG NEG Urine Ketones NEG NEG Urine Occult Blood 1+ NEG Urine Nitrite NEG NEG Urine Bilirubin NEG NEG Urine Urobilinogen NEG NEG Urine Leukocyte Esterase NEG NEG Urine WBC (Auto) 1-5 0-5 /hpf Urine RBC (Auto) 0-4 0-4 /hpf Urine Hyaline Casts (Auto) 1-5 0-5 /lpf Urine Epithelial Cells (Auto) 10-20 0-5 /lpf Urine Bacteria (Auto) NEG NEG Urine Yeast (Auto) BUDDING NONE PRSENT Urine Osmolality 418 500-800 mOms/kg Sodium Level 122 136-145 mmol/L Potassium Level 4.3 3.5-5.1 mmol/L Chloride Level 79 98-107 mmol/L Carbon Dioxide Level 40 21-32 mmol/L Anion Gap 2.0 3-11 mmol/L Blood Urea Nitrogen 38 7-18 mg/dl Creatinine 1.14 0.60-1.20 mg/dl Est Creatinine Clear Calc Drug Dose 38.3 ml/min Estimated GFR () 52.6 Estimated GFR (Non- 45.4 BUN/Creatinine Ratio 33.2 10-20 Random Glucose 128 70-99 mg/dl Calcium Level 8.3 8.5-10.1 mg/dl White Blood Count 21.65 4.8-10.8 K/uL Red Blood Count 4.00 4.2-5.4 M/uL Hemoglobin 13.0 12.0-16.0 g/dL Hematocrit 37.8 37-47 % Mean Corpuscular Volume 94.5 80-100 fL Mean Corpuscular Hemoglobin 32.5 25-34 pg Mean Corpuscular Hemoglobin Concent 34.4 32-36 g/dl Platelet Count 218 130-400 K/uL Mean Platelet Volume 9.2 7.4-10.4 fL Neutrophils (%) (Auto) 81.8 % Lymphocytes (%) (Auto) 8.9 % Monocytes (%) (Auto) 8.0 % Eosinophils (%) (Auto) 0.1 % Basophils (%) (Auto) 0.0 % Neutrophils # (Auto) 17.72 1.4-6.5 K/uL Lymphocytes # (Auto) 1.92 1.2-3.4 K/uL Monocytes # (Auto) 1.73 0.11-0.59 K/uL Eosinophils # (Auto) 0.02 0-0.5 K/uL Basophils # (Auto) 0.01 0-0.2 K/uL RDW Standard Deviation 48.3 36.4-46.3 fL RDW Coefficient of Variation 14.1 11.5-14.5 % Immature Granulocyte % (Auto) 1.2 % Immature Granulocyte # (Auto) 0.25 0.00-0.02 K/uL Bedside Glucose 123 70-90 mg/dl Test 11/17/17 11:31 11/17/17 12:01 Range/Units Bedside Glucose 220 70-90 mg/dl Assessment and Plan 82yo F w/ history of rheumatoid arthritis with interstitial lung disease, hypertension, diabetes, depression, paroxysmal afib p/w worsening shortness of breath found to be in Acute Hypoxic Hypercapnic respiratory failure in the setting of Pneumonia Acute hypoxic/hypercapnic respiratory failure: in the setting of Pneumonia and chronic interstitial lung disease - Chest CT revealed interval worsening of peribronchovascular consolidation - MRSA positive, influenza negative - Cefepime reinitiated 11/15 due to clinical worsening. - Convert to oral abx equivalent today. Plan to switch Cefepime to Cefdinir - Continue Doxy, Levaquin - Elevated white ct potentially due to steroid dosing vs Pneumonia - Steroids 60 mg PO --> 40 mg daily ( Starting gradual taper) - Maintain on BIPAP at night, NC 4L during the day - Will need Bipap on discharge Hyponatremia/KENDAL - chronically hyponatremic with possible SIADH acute component -improved Na - ?SIADH +/- mild heart failure - Continue Sodium tablets, fluid restriction - Urine osmolality 294 and serum osmolality 277 - Cr improving - Monitor BMP NSTEMI: -Patient is allergic to aspirin -Continue pravastatin -Echo : .EF 60-65%. No regional wall motion abnormalities. Mild concentric LVH , Severe LA dilation, severe TR, RVSP- 37mmHg Atrial fibrillation with rapid ventricular rate: - Hx of paroxysmal atrial fib - Continue Cardizem and Atenolol - Continue Xarelto qpm Hypertension : -Continue atenolol and diltiazem Hypervolemia: - Echo as above - Lasix remains held Steroid-induced hyperglycemia -Monitor blood sugar RA - Placed on steroids - Continue Cimzia as output when recovers from [facility] DVT prophylaxis: Rivaroxaban DNR Disp: [facility] referral made. [facility] refuses Continued [facility] stay due to: multiple IV medications needed Discharge planning: rehab hospital Resident Tracking Resident Involvement: Resident Care Provided Care Provided: Adult Hospital Medicine Assessment/Plan Resident Physician Supervision Note: I was present with Dr. Szymanski during the history and exam. I discussed the case with the resident and agree with the findings and plan as documented in the note. Any exceptions or clarifications are listed here. Baseline at 3L O2 NC at home during daytime and nighttime CPAP w/ O2 which she uses intermittently 2/2 claustrophobia. Per patient, shortness of breath is subjectively unchanged though the cough which was present on admission has essentially resolved. She expresses a wish to be allowed to pass naturally while on rounds. When queried, she wants to live a 'normal life' which she defines as having the respiratory status which she came with on admission. I explained to her that her condition is improving, and that she may return to her previous baseline with resolution of her symptoms and potential rehabilitation, and that her condition appears to be improving from a clinical perspective. I detailed that she would likely deteriorate if we withdrawal her interventions at this point, and encouraged her to discuss outlook with family - hopefully to determine completion of present treatment and possible DNR/DNH hospice transition following. Narrow Abx coverage today, taper steroids slowly and monitor clinically for re- assessment in AM.
[2017-11-17] MEDS ORDERED: SODIUM CHLORIDE 3% 500 ML BAG IV ONE (09:00)
[2017-11-17] MEDS ORDERED: SODIUM CHLORIDE 3% IV ONE (09:00)
[2017-11-17] MEDS: AcetaZOLAMIDE 250 MG TAB PO SCH ×2 (09:33→22:24)
[2017-11-17] MEDS ORDERED: FUROSEMIDE 40 MG/4 ML VIAL IV STA (10:13)
--- NOTE | 2017-11-17 10:13 | Nephrology Progress Note ---
Nephrology Progress Note Date of Service Nov 17, 2017. Chief Complaint F/U for hyponatremia and acute kidney injury. Subjective Liyah was seen and examined in her room this morning. Overall feeling poorly and continues to have some shortness of breath. She has been net negative. Serum sodium did not improve as expected after 3% saline yesterday. Urine osmolality remained elevated. Review of Systems A complete review of systems was performed. Pertinent positives are noted above. All other systems are negative. Vital Signs Last 8 Hrs Date Time Temp Pulse Resp B/P (MAP) Pulse Ox O2 Delivery O2 Flow Rate FiO2 11/17/17 06:56 36.8 58 18 142/82 (102) 98 4.0 11/17/17 00:26 36.6 57 18 139/83 (101) 91 BiPAP Last Recorded Weight Weight (Kilograms): 71.200 Physical Exam GENERAL: Elderly female, AAA x 3, ill appearing, in mild distress. NECK: Supple, no JVD. RESPIRATORY: Crackles bilaterally at bases CARDIOVASCULAR: S1, S2 normal, rate rhythm regular. EXTREMITY: Trace bilateral lower extremity edema NEURO: speech fluent. PSYCHIATRY: Depressed mood Family History Cancer Diabetes mellitus Gallbladder disease Heart disease Lung disease Social History Smoking Status: Never smoker Smokeless Tobacco Use: No Alcohol Use: none Drug Use: none Marital Status: Occupation: retired Laboratory Results Past 24 Hours 11/17/17 06:48 Red Blood Count 4.00, Mean Corpuscular Volume 94.5, Mean Corpuscular Hemoglobin 32.5, Mean Corpuscular Hemoglobin Concent 34.4, Mean Platelet Volume 9.2, Neutrophils (%) (Auto) 81.8, Lymphocytes (%) (Auto) 8.9, Monocytes (%) (Auto) 8.0, Eosinophils (%) (Auto) 0.1, Basophils (%) (Auto) 0.0, Neutrophils # (Auto) 17.72, Lymphocytes # (Auto) 1.92, Monocytes # (Auto) 1.73, Eosinophils # (Auto) 0.02, Basophils # (Auto) 0.01 11/16/17 12:24 11/16/17 18:09 11/16/17 18:54 11/17/17 06:44 Test 11/16/17 11:16 11/16/17 12:24 11/16/17 16:12 11/16/17 18:09 Bedside Glucose 187 mg/dl (70-90) 159 mg/dl (70-90) Thyroid Stimulating Hormone (TSH) 1.290 uIu/ml (0.300-4.500) Random Cortisol 45.79 mcg/dl Anion Gap 5.0 mmol/L (3-11) Est Creatinine Clear Calc Drug Dose 31.4 ml/min Estimated GFR () 41.4 Estimated GFR (Non- 35.7 BUN/Creatinine Ratio 31.4 (10-20) Calcium Level 8.0 mg/dl (8.5-10.1) Test 11/16/17 20:25 11/17/17 02:30 11/17/17 06:44 11/17/17 06:48 Bedside Glucose 176 mg/dl (70-90) Urine Color YELLOW Urine Appearance CLEAR (CLEAR) Urine pH 8.0 (4.5-7.5) Urine Specific [place] 1.014 (1.000-1.030) Urine Protein NEG (NEG) Urine Glucose (UA) NEG (NEG) Urine Ketones NEG (NEG) Urine Occult Blood 1+ (NEG) Urine Nitrite NEG (NEG) Urine Bilirubin NEG (NEG) Urine Urobilinogen NEG (NEG) Urine Leukocyte Esterase NEG (NEG) Urine WBC (Auto) 1-5 /hpf (0-5) Urine RBC (Auto) 0-4 /hpf (0-4) Urine Hyaline Casts (Auto) 1-5 /lpf (0-5) Urine Epithelial Cells (Auto) 10-20 /lpf (0-5) Urine Bacteria (Auto) NEG (NEG) Urine Yeast (Auto) BUDDING (NONE PRSENT) Urine Osmolality 418 mOms/kg (500-800) Anion Gap 2.0 mmol/L (3-11) Est Creatinine Clear Calc Drug Dose 38.3 ml/min Estimated GFR () 52.6 Estimated GFR (Non- 45.4 BUN/Creatinine Ratio 33.2 (10-20) Calcium Level 8.3 mg/dl (8.5-10.1) White Blood Count 21.65 K/uL (4.8-10.8) Red Blood Count 4.00 M/uL (4.2-5.4) Hemoglobin 13.0 g/dL (12.0-16.0) Hematocrit 37.8 % (37-47) Mean Corpuscular Volume 94.5 fL (80-100) Mean Corpuscular Hemoglobin 32.5 pg (25-34) Mean Corpuscular Hemoglobin Concent 34.4 g/dl (32-36) Platelet Count 218 K/uL (130-400) Mean Platelet Volume 9.2 fL (7.4-10.4) Neutrophils (%) (Auto) 81.8 % Lymphocytes (%) (Auto) 8.9 % Monocytes (%) (Auto) 8.0 % Eosinophils (%) (Auto) 0.1 % Basophils (%) (Auto) 0.0 % Neutrophils # (Auto) 17.72 K/uL (1.4-6.5) Lymphocytes # (Auto) 1.92 K/uL (1.2-3.4) Monocytes # (Auto) 1.73 K/uL (0.11-0.59) Eosinophils # (Auto) 0.02 K/uL (0-0.5) Basophils # (Auto) 0.01 K/uL (0-0.2) RDW Standard Deviation 48.3 fL (36.4-46.3) RDW Coefficient of Variation 14.1 % (11.5-14.5) Immature Granulocyte % (Auto) 1.2 % Immature Granulocyte # (Auto) 0.25 K/uL (0.00-0.02) Test 11/17/17 07:21 Bedside Glucose 123 mg/dl (70-90) Allergies Coded Allergies: Amoxicillin (Verified Allergy, Unknown, UNKNOWN, 11/08/17) Clavulanic Acid (Verified Allergy, Unknown, UNKNOWN, 11/08/17) Clindamycin (Verified Allergy, Unknown, UNKNOWN, 11/08/17) Penicillins (Verified Allergy, Unknown, UNKNOWN, 11/08/17) Sulfa Antibiotics (Verified Adverse Reaction, Intermediate, NAUSEA, ) Aspirin (Verified Adverse Reaction, Mild, GI SYMPTOMS, 11/08/17) Uncoded Allergies: ARTIFICIAL SWEETNER (Allergy, Mild, TONGUE SORE, 12/30/12) Medications Current Inpatient Medications Medications (Trade) Dose Ordered Sig/Anselmo Route Start Time Stop Time Status Last Admin Dose Admin Al Hydrox/Mg Hydrox/Simethicone (Maalox Max Susp) 15 ml Q4H PRN PO 11/09/17 00:15 12/09/17 00:14 Magnesium Hydroxide (Milk Of Magnesia Susp) 30 ml Q12H PRN PO 11/09/17 00:15 12/09/17 00:14 11/14/17 15:29 30 ML Ondansetron HCl (Zofran Inj) 4 mg Q6H PRN IV 11/09/17 00:15 12/09/17 00:14 11/12/17 11:07 4 MG Nitroglycerin (Nitrostat Tab) 0.4 mg UD PRN SL 11/09/17 00:15 12/09/17 00:14 Polyethylene (Miralax Powder Packet) 17 gm DAILY PRN PO 11/09/17 00:15 12/09/17 00:14 11/14/17 15:29 17 GM Acetaminophen/ Butalbital/ Caffeine (Fioricet Tab) 1 tab DAILY PRN PO 11/09/17 00:15 12/09/17 00:14 Calcium/Vitamin D (Caltrate Plus Tab) 1 tab BID PO 11/09/17 09:00 12/09/17 08:59 11/17/17 08:04 1 TAB Clonazepam (Klonopin Tab) 0.5 mg HS PRN PO 11/09/17 00:15 12/09/17 00:14 11/12/17 03:06 0.5 MG Multivitamins/ Minerals (Multivitamin W/ Minerals Tab) 1 tab BID PO 11/09/17 09:00 12/09/17 08:59 11/17/17 08:04 1 TAB Pantoprazole Sodium (Protonix Tab) 40 mg QDL PO 11/09/17 11:00 12/09/17 10:59 11/16/17 11:59 40 MG Pravastatin Sodium (Pravachol Tab) 80 mg QPM PO 11/09/17 21:00 12/09/17 20:59 11/16/17 20:55 80 MG Miscellaneous (Iv Fluids Completed) 1 ea PRN PRN N/A 11/09/17 03:30 11/09/18 03:29 Diclofenac Sodium (Voltaren 1% Top Gel) 1 appln [id number] EXT 11/09/17 16:00 12/09/17 15:59 11/17/17 08:04 1 APPLN Glucagon (Glucagon Inj) 1 mg UD PRN SQ 11/09/17 19:15 12/09/17 19:14 Glucose (Glucose 40% Gel) 15-30 GRAMS 15 GRAMS... UD PRN PO 11/09/17 19:15 12/09/17 19:14 Glucose (Glucose Chew Tab) 4-8 Tablets 4 Tabl... UD PRN PO 11/09/17 19:15 12/09/17 19:14 Insulin Aspart (novoLOG ASPART) SLIDING SCALE If C... ACHS SC 11/10/17 07:00 12/10/17 06:59 11/17/17 08:10 4 UNITS Diltiazem HCl (Cardizem Tab) 60 mg Q6H PO 11/10/17 04:00 12/10/17 03:59 11/17/17 04:00 60 MG Atenolol (Tenormin Tab) 25 mg QPM PO 11/11/17 21:00 12/09/17 20:59 11/16/17 20:56 25 MG Rivaroxaban (Xarelto Tab) 15 mg QDD PO 11/11/17 16:45 12/11/17 16:44 11/16/17 16:40 15 MG Prednisone (PredniSONE TAB) 60 mg DAILY PO 11/12/17 09:00 12/12/17 08:59 11/17/17 08:04 60 MG Doxycycline Hyclate (Vibramycin Cap) 100 mg BID PO 11/12/17 21:00 11/19/17 20:59 11/17/17 08:04 100 MG Acetaminophen (Tylenol Tab) 650 mg Q6H PRN PO 11/12/17 10:45 12/12/17 10:44 11/15/17 17:13 650 MG Levofloxacin (Consult) 1 ea UD PRN N/A 11/12/17 12:15 12/12/17 12:14 Sodium Chloride (Sodium Chloride Tab) 1 gm QID PO 11/14/17 17:00 12/14/17 16:59 11/17/17 08:04 1 GM Cefepime HCl 2000 mg/Syringe 20 ml @ 5 mls/min Q12H IV 11/14/17 20:00 11/21/17 19:59 11/17/17 08:11 5 MLS/MIN Insulin Glargine (Lantus Solostar Pen) 10 units QAM SC 11/16/17 09:00 12/16/17 08:59 11/17/17 08:10 10 UNITS Furosemide (Lasix Tab) 40 mg QAM PO 11/16/17 10:30 12/16/17 10:29 11/17/17 08:04 40 MG Levofloxacin (Levaquin Tab) 750 mg Q2D@1100 PO 11/17/17 11:00 11/24/17 10:59 Impression (1) Hyponatremia (2) Acute kidney injury (3) Acute on chronic respiratory failure with hypoxia and hypercapnia (4) Hypertension 82-year-old female with acute hyponatremia with chronic history of hyponatremia , in the setting of acute on chronic respiratory failure, pneumonia versus pulmonary congestion. Serum sodium dropped with normal saline, slightly improved to 121 this morning after normal saline was discontinued. Hyponatremia could be secondary to SIADH in the setting of respiratory illness, other possibilities such as adrenal insufficiency considering chronic steroid therapy remains however blood pressure has been elevated. Random cortisol and TSH was normal. No personal history of malignancy. No history of chronic kidney disease on admission creatinine was 0.9, developed acute kidney injury over the course of hospital stay, creatinine peaked to 1.6, most likely Hemodynamically mediated, which currently seems to be improving last creatinine was 1.3. Has been voiding normally, Urinalysis with no proteinuria hematuria. Recommendations --extra dose of Lasix 40 mg IV x1 dose now --3% saline 200 mL x1 dose now --serum sodium in afternoon --continue on salt tablet, fluid restriction to less than 1200 mL per day --liberalize salt in diet --increase protein intake --serum sodium twice daily Will follow
[2017-11-17] MEDS: LEVOFLOXACIN 750 MG TAB PO SCH (11:25)
[2017-11-17] MEDS: PANTOprazole SOD 40 MG TAB PO SCH (12:01)
[2017-11-17 16:04] VITALS: BP 134/93; PULSE 80; TEMP 36.5; O2SAT 99
[2017-11-17] MEDS: RIVAROXABAN TAB 15 MG TAB PO SCH (17:21)
[2017-11-17] MEDS ORDERED: TOLVAPTAN TAB 15 MG TAB PO ONE (22:00)
[2017-11-17] MEDS: PRAVASTATIN SOD 40 MG TAB PO SCH (22:25)
[2017-11-17 22:36] VITALS: PULSE 68; O2SAT 98
[2017-11-18 00:36] VITALS: BP 137/84; PULSE 66; O2SAT 95
[2017-11-18] MEDS: DILTIAZEM HCL 60 MG TAB PO SCH ×4 (04:50→22:00)
[2017-11-18] MEDS: INSULIN ASPART 100 UNITS/ML 3 ML PEN SC SCH ×4 (06:30→21:00)
--- NOTE | 2017-11-18 07:54 | Family Medicine Progress Note ---
Progress Note Date of Service Nov 18, 2017. Subjective Pt evaluation today including: conversation w/ patient, physical exam, chart review, lab review, review of studies, review of inpatient medication list Pain: denies PO Intake: adequate Voiding: conti catheter in place No acute events over night, Patient reports cough but denies Chest pain, SOB, fevers, chills. Additional Comments: Constitutional: No fever, No chills Respiratory: No shortness of breath, + cough, No wheezing Cardiovascular: No chest pain, No edema, No palpitations Abdomen: No pain, No nausea, No vomiting, No diarrhea Musculoskeletal: No swelling, No calf pain Female : No dysuria Medications Current Inpatient Medications Medications (Trade) Dose Ordered Sig/Anselmo Route Start Time Stop Time Status Last Admin Dose Admin Al Hydrox/Mg Hydrox/Simethicone (Maalox Max Susp) 15 ml Q4H PRN PO 11/09/17 00:15 12/09/17 00:14 Magnesium Hydroxide (Milk Of Magnesia Susp) 30 ml Q12H PRN PO 11/09/17 00:15 12/09/17 00:14 11/14/17 15:29 30 ML Ondansetron HCl (Zofran Inj) 4 mg Q6H PRN IV 11/09/17 00:15 12/09/17 00:14 11/12/17 11:07 4 MG Nitroglycerin (Nitrostat Tab) 0.4 mg UD PRN SL 11/09/17 00:15 12/09/17 00:14 Polyethylene (Miralax Powder Packet) 17 gm DAILY PRN PO 11/09/17 00:15 12/09/17 00:14 11/14/17 15:29 17 GM Acetaminophen/ Butalbital/ Caffeine (Fioricet Tab) 1 tab DAILY PRN PO 11/09/17 00:15 12/09/17 00:14 Calcium/Vitamin D (Caltrate Plus Tab) 1 tab BID PO 11/09/17 09:00 12/09/17 08:59 11/18/17 08:31 1 TAB Clonazepam (Klonopin Tab) 0.5 mg HS PRN PO 11/09/17 00:15 12/09/17 00:14 11/12/17 03:06 0.5 MG Multivitamins/ Minerals (Multivitamin W/ Minerals Tab) 1 tab BID PO 11/09/17 09:00 12/09/17 08:59 11/18/17 08:31 1 TAB Pantoprazole Sodium (Protonix Tab) 40 mg QDL PO 11/09/17 11:00 12/09/17 10:59 11/17/17 12:01 40 MG Pravastatin Sodium (Pravachol Tab) 80 mg QPM PO 11/09/17 21:00 12/09/17 20:59 11/17/17 22:25 80 MG Miscellaneous (Iv Fluids Completed) 1 ea PRN PRN N/A 11/09/17 03:30 11/09/18 03:29 Diclofenac Sodium (Voltaren 1% Top Gel) 1 appln [id number] EXT 11/09/17 16:00 12/09/17 15:59 11/18/17 08:30 1 APPLN Glucagon (Glucagon Inj) 1 mg UD PRN SQ 11/09/17 19:15 12/09/17 19:14 Glucose (Glucose 40% Gel) 15-30 GRAMS 15 GRAMS... UD PRN PO 11/09/17 19:15 12/09/17 19:14 Glucose (Glucose Chew Tab) 4-8 Tablets 4 Tabl... UD PRN PO 11/09/17 19:15 12/09/17 19:14 Insulin Aspart (novoLOG ASPART) SLIDING SCALE If C... ACHS SC 11/10/17 07:00 12/10/17 06:59 11/17/17 17:38 2 UNITS Diltiazem HCl (Cardizem Tab) 60 mg Q6H PO 11/10/17 04:00 12/10/17 03:59 11/18/17 04:50 60 MG Atenolol (Tenormin Tab) 25 mg QPM PO 11/11/17 21:00 12/09/17 20:59 11/17/17 22:24 25 MG Rivaroxaban (Xarelto Tab) 15 mg QDD PO 11/11/17 16:45 12/11/17 16:44 11/17/17 17:21 15 MG Doxycycline Hyclate (Vibramycin Cap) 100 mg BID PO 11/12/17 21:00 11/19/17 20:59 11/18/17 08:32 100 MG Acetaminophen (Tylenol Tab) 650 mg Q6H PRN PO 11/12/17 10:45 12/12/17 10:44 11/15/17 17:13 650 MG Levofloxacin (Consult) 1 ea UD PRN N/A 11/12/17 12:15 12/12/17 12:14 Sodium Chloride (Sodium Chloride Tab) 1 gm QID PO 11/14/17 17:00 12/14/17 16:59 11/18/17 08:30 1 GM Insulin Glargine (Lantus Solostar Pen) 10 units QAM SC 11/16/17 09:00 12/16/17 08:59 11/18/17 08:30 10 UNITS Furosemide (Lasix Tab) 40 mg QAM PO 11/16/17 10:30 12/16/17 10:29 11/18/17 08:31 40 MG Levofloxacin (Levaquin Tab) 750 mg Q2D@1100 PO 11/17/17 11:00 11/24/17 10:59 11/17/17 11:25 750 MG Acetazolamide (Diamox Tab) 250 mg BID PO 11/17/17 09:00 11/20/17 08:59 11/18/17 08:31 250 MG Prednisone (PredniSONE TAB) 50 mg DAILY PO 11/18/17 09:00 11/21/17 08:59 11/18/17 08:31 50 MG Tolvaptan (Samsca Tab) 15 mg QAM PO 11/19/17 09:00 12/19/17 08:59 Objective Vital Signs Date Time Temp Pulse Resp B/P (MAP) Pulse Ox O2 Delivery O2 Flow Rate FiO2 11/18/17 00:36 66 18 137/84 (101) 95 BiPAP 11/18/17 00:00 BiPAP 4.0 11/17/17 22:36 68 98 5.0 11/17/17 16:04 36.5 80 18 134/93 (107) 99 Nasal Cannula 4.0 11/17/17 16:00 Nasal Cannula 4.0 11/17/17 08:00 Nasal Cannula 4.0 Physical Exam Notes: GENERAL: alert, no distress EYE EXAM: normal conjunctiva, PERRL and EOM's grossly intact NECK: supple, no nuchal rigidity, no adenopathy, non-tender LUNGS: Bilateral Rhonchi, No wheeze , No respiratory distress HEART: S1 normal and S2 normal ABDOMEN: abdomen soft, non-tender, normo-active bowel sounds, no masses, no rebound or guarding. UPPER EXTREMITIES: upper extremities are grossly normal. LOWER EXTREMITIES: No pitting edema. NEURO EXAM: Normal sensorium, cranial nerves II-XII grossly intact, normal speech Laboratory Results Results Past 24 Hours Test 11/17/17 11:31 11/17/17 12:01 11/17/17 16:20 11/17/17 18:49 Range/Units Bedside Glucose 220 127 70-90 mg/dl Sodium Level 123 122 136-145 mmol/L Test 11/17/17 20:17 11/18/17 04:44 11/18/17 07:37 11/18/17 07:51 Range/Units Bedside Glucose 148 104 70-90 mg/dl Assessment and Plan Acute hypoxic/hypercapnic respiratory failure: in the setting of Pneumonia and chronic interstitial lung disease - Chest CT revealed interval worsening of peribronchovascular consolidation - MRSA positive, influenza negative - Cefepime reinitiated 11/15 due to clinical worsening. currently appears to be improving clinically. - Leukocytosis likely steroid related, Continue to monitor. - Continue Doxy, Levaquin, DC'd Cefepime 11/17 - Elevated white ct potentially due to steroid dosing vs Pneumonia - Gradual Steroids taper, currently at 50 mg daily - Maintain on BIPAP at night, NC 4L during the day - Will need Bipap on discharge Hyponatremia/KENDAL - chronically hyponatremic with possible SIADH acute component -improved Na - ?SIADH +/- mild heart failure - Continue Sodium tablets, fluid restriction - Urine osmolality 294 and serum osmolality 277 - KENDAL resolved - Monitor BMP NSTEMI: -allergic to aspirin -Continue pravastatin -Echo : .EF 60-65%. No regional wall motion abnormalities. Mild concentric LVH , Severe LA dilation, severe TR, RVSP- 37mmHg Atrial fibrillation with rapid ventricular rate: - Hx of paroxysmal atrial fib - rate controlled - Continue Cardizem and Atenolol - Continue Xarelto qpm Hypertension : -Continue atenolol and diltiazem Hypervolemia: - Echo as above - Lasix remains held Steroid-induced hyperglycemia -Monitor blood sugar RA - Placed on steroids - Continue Cimzia as output when recovers from [facility]NM DVT prophylaxis: Rivaroxaban DNR Disp: [facility] referral made Continued [facility] stay due to: home environment unsafe for pt Discharge planning: rehab hospital Resident Tracking Resident Involvement: Resident Care Provided Care Provided: Adult Hospital Medicine Assessment/Plan Resident Physician Supervision Note: I was present with Dr. Szymanski during the history and exam. I discussed the case with the resident and agree with the findings and plan as documented in the note. Any exceptions or clarifications are listed here. Pt states that breathing has returned to previous baseline on home 3L O2 by NC with resolution of cough. Tolerating PO abx regimen despite elevated WBC, which may be 2/2 steroid therapy. Called by nursing regarding patient refusing medications and stating that she wants to . Referring to the discussion yesterday, patient states that her true preference would be to discontinue all therapy and support. After reviewing the options and limitations of medical care, she is in agreement to transition to hospice care following discharge from the hospital, and refuses rehabilitation services to that end. Will d/w case management DAREN.
[2017-11-18 08:22] VITALS: BP 125/85; PULSE 69; TEMP 36.3; O2SAT 90
[2017-11-18 08:25] LABS: BASO ABS # 0.01 K/uL (0-0.2); EOS ABS # 0.01 K/uL (0-0.5); HEMATOCRIT 39.2 % (37-47); HEMOGLOBIN 13.4 g/dL (12.0-16.0); IG# 0.27 K/uL (0.00-0.02); LYMPH % 8.8 %; LYMPH ABS # 1.99 K/uL (1.2-3.4); MEAN CELL VOLUME 95.4 fL (80-100); MEAN CORPUSCULAR HEMOGLOBIN 32.6 pg (25-34); MEAN PLATELET VOLUME 9.2 fL (7.4-10.4); NEUT ABS # 18.48 K/uL (1.4-6.5); PLATELET COUNT 214 K/uL (130-400); RED CELL DISTRIBUTION WIDTH CV 13.9 % (11.5-14.5); RED CELL DISTRIBUTION WIDTH SD 48.2 fL (36.4-46.3); WHITE BLOOD COUNT 22.56 K/uL (4.8-10.8)
[2017-11-18 08:27] LABS: MEAN CORPUSCULAR HGB CONC 34.2 g/dl (32-36)
[2017-11-18] MEDS: DICLOFENAC SOD 1% GEL 100 GM TUBE EXT SCH ×3 (08:30→16:52)
[2017-11-18] MEDS: SODIUM CHLORIDE 1 GM TAB PO SCH ×4 (08:30→21:00)
[2017-11-18] MEDS: INSULIN GLARGINE SOLOSTAR 100 UNITS/ML 3 ML PEN SC SCH (08:30)
[2017-11-18] MEDS: CALCIUM 600MG + VIT D 400 IU TAB PO SCH ×2 (08:31→21:00)
[2017-11-18] MEDS: CEROVITE ADV FORMULA TAB PO SCH ×2 (08:31→21:00)
[2017-11-18] MEDS: FUROSEMIDE 40 MG TAB PO SCH (08:31)
[2017-11-18] MEDS: AcetaZOLAMIDE 250 MG TAB PO SCH ×2 (08:31→21:00)
[2017-11-18] MEDS: DOXYCYCLINE HYCLATE 100 MG CAP PO SCH ×2 (08:32→21:00)
[2017-11-18 09:01] LABS: CREATININE 1.14 mg/dl (0.60-1.20)
[2017-11-18 09:02] LABS: CALCIUM 8.6 mg/dl (8.5-10.1); POTASSIUM 3.8 mmol/L (3.5-5.1)
[2017-11-18 10:36] VITALS: PULSE 56
--- NOTE | 2017-11-18 10:36 | Nephrology Progress Note ---
Nephrology Progress Note Date of Service Nov 18, 2017. Chief Complaint F/U for hyponatremia and acute kidney injury. Subjective Liyah was seen and examined in her room this morning. Overall feeling poorly and continues to have some shortness of breath. She has been net negative. Serum sodium remained low at 122. Review of Systems A complete review of systems was performed. Pertinent positives are noted above. All other systems are negative. Vital Signs Last 8 Hrs Date Time Temp Pulse Resp B/P (MAP) Pulse Ox O2 Delivery O2 Flow Rate FiO2 11/18/17 00:36 66 18 137/84 (101) 95 BiPAP 11/18/17 00:00 BiPAP 4.0 Last Recorded Weight Weight (Kilograms): 71.200 Physical Exam GENERAL: Elderly female, AAA x 3, ill appearing, in mild distress. NECK: Supple, no JVD. RESPIRATORY: Crackles bilaterally at bases CARDIOVASCULAR: S1, S2 normal, rate rhythm regular. EXTREMITY: Trace bilateral lower extremity edema NEURO: speech fluent. PSYCHIATRY: Depressed mood Family History Cancer Diabetes mellitus Gallbladder disease Heart disease Lung disease Social History Smoking Status: Never smoker Smokeless Tobacco Use: No Alcohol Use: none Drug Use: none Marital Status: Occupation: retired Laboratory Results Past 24 Hours 11/17/17 12:01 11/17/17 18:49 Test 11/17/17 11:31 11/17/17 16:20 11/17/17 20:17 11/18/17 04:44 Bedside Glucose 220 mg/dl (70-90) 127 mg/dl (70-90) 148 mg/dl (70-90) Allergies Coded Allergies: Amoxicillin (Verified Allergy, Unknown, UNKNOWN, 11/08/17) Clavulanic Acid (Verified Allergy, Unknown, UNKNOWN, 11/08/17) Clindamycin (Verified Allergy, Unknown, UNKNOWN, 11/08/17) Penicillins (Verified Allergy, Unknown, UNKNOWN, 11/08/17) Sulfa Antibiotics (Verified Adverse Reaction, Intermediate, NAUSEA, ) Aspirin (Verified Adverse Reaction, Mild, GI SYMPTOMS, 11/08/17) Uncoded Allergies: ARTIFICIAL SWEETNER (Allergy, Mild, TONGUE SORE, 12/30/12) Medications Current Inpatient Medications Medications (Trade) Dose Ordered Sig/Anselmo Route Start Time Stop Time Status Last Admin Dose Admin Al Hydrox/Mg Hydrox/Simethicone (Maalox Max Susp) 15 ml Q4H PRN PO 11/09/17 00:15 12/09/17 00:14 Magnesium Hydroxide (Milk Of Magnesia Susp) 30 ml Q12H PRN PO 11/09/17 00:15 12/09/17 00:14 11/14/17 15:29 30 ML Ondansetron HCl (Zofran Inj) 4 mg Q6H PRN IV 11/09/17 00:15 12/09/17 00:14 11/12/17 11:07 4 MG Nitroglycerin (Nitrostat Tab) 0.4 mg UD PRN SL 11/09/17 00:15 12/09/17 00:14 Polyethylene (Miralax Powder Packet) 17 gm DAILY PRN PO 11/09/17 00:15 12/09/17 00:14 11/14/17 15:29 17 GM Acetaminophen/ Butalbital/ Caffeine (Fioricet Tab) 1 tab DAILY PRN PO 11/09/17 00:15 12/09/17 00:14 Calcium/Vitamin D (Caltrate Plus Tab) 1 tab BID PO 11/09/17 09:00 12/09/17 08:59 11/17/17 22:26 1 TAB Clonazepam (Klonopin Tab) 0.5 mg HS PRN PO 11/09/17 00:15 12/09/17 00:14 11/12/17 03:06 0.5 MG Multivitamins/ Minerals (Multivitamin W/ Minerals Tab) 1 tab BID PO 11/09/17 09:00 12/09/17 08:59 11/17/17 22:25 1 TAB Pantoprazole Sodium (Protonix Tab) 40 mg QDL PO 11/09/17 11:00 12/09/17 10:59 11/17/17 12:01 40 MG Pravastatin Sodium (Pravachol Tab) 80 mg QPM PO 11/09/17 21:00 12/09/17 20:59 11/17/17 22:25 80 MG Miscellaneous (Iv Fluids Completed) 1 ea PRN PRN N/A 11/09/17 03:30 11/09/18 03:29 Diclofenac Sodium (Voltaren 1% Top Gel) 1 appln [id number] EXT 11/09/17 16:00 4/18/18 15:59 11/17/17 17:11 1 APPLN Glucagon (Glucagon Inj) 1 mg UD PRN SQ 11/09/17 19:15 12/09/17 19:14 Glucose (Glucose 40% Gel) 15-30 GRAMS 15 GRAMS... UD PRN PO 11/09/17 19:15 12/09/17 19:14 Glucose (Glucose Chew Tab) 4-8 Tablets 4 Tabl... UD PRN PO 11/09/17 19:15 12/09/17 19:14 Insulin Aspart (novoLOG ASPART) SLIDING SCALE If C... ACHS SC 11/10/17 07:00 12/10/17 06:59 11/17/17 17:38 2 UNITS Diltiazem HCl (Cardizem Tab) 60 mg Q6H PO 11/10/17 04:00 12/10/17 03:59 11/18/17 04:50 60 MG Atenolol (Tenormin Tab) 25 mg QPM PO 11/11/17 21:00 12/09/17 20:59 11/17/17 22:24 25 MG Rivaroxaban (Xarelto Tab) 15 mg QDD PO 11/11/17 16:45 12/11/17 16:44 11/17/17 17:21 15 MG Doxycycline Hyclate (Vibramycin Cap) 100 mg BID PO 11/12/17 21:00 11/19/17 20:59 11/17/17 22:24 100 MG Acetaminophen (Tylenol Tab) 650 mg Q6H PRN PO 11/12/17 10:45 12/12/17 10:44 11/15/17 17:13 650 MG Levofloxacin (Consult) 1 ea UD PRN N/A 11/12/17 12:15 12/12/17 12:14 Sodium Chloride (Sodium Chloride Tab) 1 gm QID PO 11/14/17 17:00 12/14/17 16:59 11/17/17 22:25 1 GM Insulin Glargine (Lantus Solostar Pen) 10 units QAM SC 11/16/17 09:00 12/16/17 08:59 11/17/17 08:10 10 UNITS Furosemide (Lasix Tab) 40 mg QAM PO 11/16/17 10:30 12/16/17 10:29 11/17/17 08:04 40 MG Levofloxacin (Levaquin Tab) 750 mg Q2D@1100 PO 11/17/17 11:00 11/24/17 10:59 11/17/17 11:25 750 MG Acetazolamide (Diamox Tab) 250 mg BID PO 11/17/17 09:00 11/20/17 08:59 11/17/17 22:24 250 MG Prednisone (PredniSONE TAB) 50 mg DAILY PO 11/18/17 09:00 11/21/17 08:59 Impression (1) Hyponatremia (2) Acute kidney injury (3) Acute on chronic respiratory failure with hypoxia and hypercapnia (4) Hypertension 82-year-old female with acute hyponatremia with chronic history of hyponatremia , in the setting of acute on chronic respiratory failure, pneumonia versus pulmonary congestion. Serum sodium dropped with normal saline, slightly improved to 121 this morning after normal saline was discontinued. Hyponatremia could be secondary to SIADH in the setting of respiratory illness, other possibilities such as adrenal insufficiency considering chronic steroid therapy remains however blood pressure has been elevated. Random cortisol and TSH was normal. No personal history of malignancy. No history of chronic kidney disease on admission creatinine was 0.9, developed acute kidney injury over the course of hospital stay, creatinine peaked to 1.6, most likely Hemodynamically mediated, which currently seems to be improving last creatinine was 1.3. Has been voiding normally, Urinalysis with no proteinuria hematuria. Recommendations --Tolvaptan 15 mg this am --serum sodium in afternoon --continue on salt tablet. --liberalize salt in diet --increase protein intake --serum sodium twice daily Will follow
[2017-11-18] MEDS: PANTOprazole SOD 40 MG TAB PO SCH (11:54)
[2017-11-18 16:12] VITALS: BP 127/75; PULSE 78; TEMP 36.4; O2SAT 99
[2017-11-18 16:40] VITALS: Ht 170.2 cm; Wt 71.2 kg
[2017-11-18] MEDS: RIVAROXABAN TAB 15 MG TAB PO SCH (16:52)
[2017-11-18] MEDS: PRAVASTATIN SOD 40 MG TAB PO SCH (21:00)
[2017-11-18 22:17] VITALS: PULSE 85; O2SAT 94
[2017-11-19] VITALS (7 sets, daily range): BP systolic 112–165; BP diastolic 65–92; PULSE 53–80; TEMP 36.4–36.6; O2SAT 92–100
[2017-11-19] MEDS: DILTIAZEM HCL 60 MG TAB PO SCH ×4 (03:46→21:35)
[2017-11-19] MEDS: AcetaZOLAMIDE 250 MG TAB PO SCH ×2 (07:51→20:19)
[2017-11-19] MEDS: CEROVITE ADV FORMULA TAB PO SCH ×2 (07:52→20:19)
[2017-11-19] MEDS: FUROSEMIDE 40 MG TAB PO SCH (07:52)
[2017-11-19] MEDS: CALCIUM 600MG + VIT D 400 IU TAB PO SCH ×2 (07:53→20:19)
[2017-11-19] MEDS: TOLVAPTAN TAB 15 MG TAB PO SCH (07:53)
[2017-11-19] MEDS: SODIUM CHLORIDE 1 GM TAB PO SCH ×4 (07:54→20:18)
[2017-11-19] MEDS: DOXYCYCLINE HYCLATE 100 MG CAP PO SCH (07:54)
[2017-11-19] MEDS: DICLOFENAC SOD 1% GEL 100 GM TUBE EXT SCH ×3 (08:00→16:54)
[2017-11-19] MEDS: INSULIN ASPART 100 UNITS/ML 3 ML PEN SC SCH ×4 (08:01→20:14)
[2017-11-19] MEDS: INSULIN GLARGINE SOLOSTAR 100 UNITS/ML 3 ML PEN SC SCH (08:01)
[2017-11-19 08:43] LABS: ALBUMIN 2.2 gm/dl (3.4-5.0); CALCIUM 8.8 mg/dl (8.5-10.1); CREATININE 1.18 mg/dl (0.60-1.20); POTASSIUM 3.5 mmol/L (3.5-5.1)
--- NOTE | 2017-11-19 10:28 | Nephrology Progress Note ---
Nephrology Progress Note Date of Service Nov 19, 2017. Chief Complaint F/U for hyponatremia and acute kidney injury. Subjective Liyah was seen and examined in her room this morning. Overall feeling poorly. She has been net negative. Serum sodium improved to 128. Review of Systems A complete review of systems was performed. Pertinent positives are noted above. All other systems are negative. Vital Signs Last 8 Hrs Date Time Temp Pulse Resp B/P (MAP) Pulse Ox O2 Delivery O2 Flow Rate FiO2 11/19/17 07:10 36.4 67 20 134/84 (101) 98 Nasal Cannula 2.0 Last Recorded Weight Weight (Kilograms): 71.200 Physical Exam GENERAL: Elderly female, AAA x 3, ill appearing, in mild distress. NECK: Supple, no JVD. RESPIRATORY: Crackles bilaterally at bases CARDIOVASCULAR: S1, S2 normal, rate rhythm regular. EXTREMITY: Trace bilateral lower extremity edema NEURO: speech fluent. PSYCHIATRY: Depressed mood Family History Cancer Diabetes mellitus Gallbladder disease Heart disease Lung disease Social History Smoking Status: Never smoker Smokeless Tobacco Use: No Alcohol Use: none Drug Use: none Marital Status: Occupation: retired Laboratory Results Past 24 Hours 11/18/17 13:49 Test 11/18/17 11:34 11/18/17 16:46 11/18/17 20:16 11/19/17 07:22 Bedside Glucose 106 mg/dl (70-90) 161 mg/dl (70-90) 113 mg/dl (70-90) Test 11/19/17 07:26 Bedside Glucose 89 mg/dl (70-90) Allergies Coded Allergies: Amoxicillin (Verified Allergy, Unknown, UNKNOWN, 11/08/17) Clavulanic Acid (Verified Allergy, Unknown, UNKNOWN, 11/08/17) Clindamycin (Verified Allergy, Unknown, UNKNOWN, 11/08/17) Penicillins (Verified Allergy, Unknown, UNKNOWN, 11/08/17) Sulfa Antibiotics (Verified Adverse Reaction, Intermediate, NAUSEA, ) Aspirin (Verified Adverse Reaction, Mild, GI SYMPTOMS, 11/08/17) Uncoded Allergies: ARTIFICIAL SWEETNER (Allergy, Mild, TONGUE SORE, 12/30/12) Medications Current Inpatient Medications Medications (Trade) Dose Ordered Sig/Anselmo Route Start Time Stop Time Status Last Admin Dose Admin Al Hydrox/Mg Hydrox/Simethicone (Maalox Max Susp) 15 ml Q4H PRN PO 11/09/17 00:15 12/09/17 00:14 Magnesium Hydroxide (Milk Of Magnesia Susp) 30 ml Q12H PRN PO 11/09/17 00:15 12/09/17 00:14 11/14/17 15:29 30 ML Ondansetron HCl (Zofran Inj) 4 mg Q6H PRN IV 11/09/17 00:15 12/09/17 00:14 11/12/17 11:07 4 MG Nitroglycerin (Nitrostat Tab) 0.4 mg UD PRN SL 11/09/17 00:15 12/09/17 00:14 Polyethylene (Miralax Powder Packet) 17 gm DAILY PRN PO 11/09/17 00:15 12/09/17 00:14 11/14/17 15:29 17 GM Acetaminophen/ Butalbital/ Caffeine (Fioricet Tab) 1 tab DAILY PRN PO 11/09/17 00:15 12/09/17 00:14 Calcium/Vitamin D (Caltrate Plus Tab) 1 tab BID PO 11/09/17 09:00 12/09/17 08:59 11/19/17 07:53 1 TAB Clonazepam (Klonopin Tab) 0.5 mg HS PRN PO 11/09/17 00:15 12/09/17 00:14 11/12/17 03:06 0.5 MG Multivitamins/ Minerals (Multivitamin W/ Minerals Tab) 1 tab BID PO 11/09/17 09:00 12/09/17 08:59 11/19/17 07:52 1 TAB Pantoprazole Sodium (Protonix Tab) 40 mg QDL PO 11/09/17 11:00 12/09/17 10:59 11/18/17 11:54 40 MG Pravastatin Sodium (Pravachol Tab) 80 mg QPM PO 11/09/17 21:00 12/09/17 20:59 11/17/17 22:25 80 MG Miscellaneous (Iv Fluids Completed) 1 ea PRN PRN N/A 11/09/17 03:30 11/09/18 03:29 Diclofenac Sodium (Voltaren 1% Top Gel) 1 appln [id number] EXT 11/09/17 16:00 12/09/17 15:59 11/18/17 16:52 1 APPLN Glucagon (Glucagon Inj) 1 mg UD PRN SQ 11/09/17 19:15 12/09/17 19:14 Glucose (Glucose 40% Gel) 15-30 GRAMS 15 GRAMS... UD PRN PO 11/09/17 19:15 12/09/17 19:14 Glucose (Glucose Chew Tab) 4-8 Tablets 4 Tabl... UD PRN PO 11/09/17 19:15 12/09/17 19:14 Insulin Aspart (novoLOG ASPART) SLIDING SCALE If C... ACHS SC 11/10/17 07:00 12/10/17 06:59 11/19/17 08:01 3 UNITS Diltiazem HCl (Cardizem Tab) 60 mg Q6H PO 11/10/17 04:00 12/10/17 03:59 11/19/17 03:46 60 MG Atenolol (Tenormin Tab) 25 mg QPM PO 11/11/17 21:00 12/09/17 20:59 11/17/17 22:24 25 MG Rivaroxaban (Xarelto Tab) 15 mg QDD PO 11/11/17 16:45 12/11/17 16:44 11/18/17 16:52 15 MG Doxycycline Hyclate (Vibramycin Cap) 100 mg BID PO 11/12/17 21:00 11/19/17 20:59 11/19/17 07:54 100 MG Acetaminophen (Tylenol Tab) 650 mg Q6H PRN PO 11/12/17 10:45 12/12/17 10:44 11/15/17 17:13 650 MG Levofloxacin (Consult) 1 ea UD PRN N/A 11/12/17 12:15 12/12/17 12:14 Sodium Chloride (Sodium Chloride Tab) 1 gm QID PO 11/14/17 17:00 12/14/17 16:59 11/19/17 07:54 1 GM Insulin Glargine (Lantus Solostar Pen) 10 units QAM SC 11/16/17 09:00 12/16/17 08:59 11/19/17 08:01 10 UNITS Furosemide (Lasix Tab) 40 mg QAM PO 11/16/17 10:30 12/16/17 10:29 11/19/17 07:52 40 MG Levofloxacin (Levaquin Tab) 750 mg Q2D@1100 PO 11/17/17 11:00 11/24/17 10:59 11/17/17 11:25 750 MG Acetazolamide (Diamox Tab) 250 mg BID PO 11/17/17 09:00 11/20/17 08:59 11/19/17 07:51 250 MG Prednisone (PredniSONE TAB) 50 mg DAILY PO 11/18/17 09:00 11/21/17 08:59 11/19/17 07:52 50 MG Tolvaptan (Samsca Tab) 15 mg QAM PO 11/19/17 09:00 12/19/17 08:59 11/19/17 07:53 15 MG Impression (1) Hyponatremia (2) Acute kidney injury (3) Acute on chronic respiratory failure with hypoxia and hypercapnia (4) Hypertension 82-year-old female with acute hyponatremia with chronic history of hyponatremia , in the setting of acute on chronic respiratory failure, pneumonia versus pulmonary congestion. Serum sodium dropped with normal saline, slightly improved to 121 this morning after normal saline was discontinued. Hyponatremia could be secondary to SIADH in the setting of respiratory illness, other possibilities such as adrenal insufficiency considering chronic steroid therapy remains however blood pressure has been elevated. Random cortisol and TSH was normal. No personal history of malignancy. No history of chronic kidney disease on admission creatinine was 0.9, developed acute kidney injury over the course of hospital stay, creatinine peaked to 1.6, most likely Hemodynamically mediated, which currently seems to be improving last creatinine was 1.3. Has been voiding normally, Urinalysis with no proteinuria hematuria. Recommendations --serum sodium in afternoon --consider another dose of tolvaptan if any further drop in to keep serum sodium below 130 today --continue on salt tablet. --liberalize salt in diet --increase protein intake --serum sodium twice daily Will follow
[2017-11-19] MEDS: LEVOFLOXACIN 750 MG TAB PO SCH (10:32)
--- NOTE | 2017-11-19 11:49 | Family Medicine Progress Note ---
Progress Note Date of Service Nov 19, 2017. Subjective Pt evaluation today including: conversation w/ patient, physical exam, chart review, lab review, review of studies, review of inpatient medication list Pain: denies PO Intake: adequate Voiding: no voiding problems Constitutional: No fever, No chills Respiratory: No shortness of breath, No cough, No wheezing Cardiovascular: No chest pain, No edema, No palpitations Abdomen: No pain, No nausea, No vomiting, No diarrhea Musculoskeletal: No swelling, No calf pain Female : No dysuria No hematuria Medications Current Inpatient Medications Medications (Trade) Dose Ordered Sig/Anselmo Route Start Time Stop Time Status Last Admin Dose Admin Al Hydrox/Mg Hydrox/Simethicone (Maalox Max Susp) 15 ml Q4H PRN PO 11/09/17 00:15 12/09/17 00:14 Magnesium Hydroxide (Milk Of Magnesia Susp) 30 ml Q12H PRN PO 11/09/17 00:15 12/09/17 00:14 11/14/17 15:29 30 ML Ondansetron HCl (Zofran Inj) 4 mg Q6H PRN IV 11/09/17 00:15 12/09/17 00:14 11/12/17 11:07 4 MG Nitroglycerin (Nitrostat Tab) 0.4 mg UD PRN SL 11/09/17 00:15 12/09/17 00:14 Polyethylene (Miralax Powder Packet) 17 gm DAILY PRN PO 11/09/17 00:15 12/09/17 00:14 11/19/17 15:03 17 GM Acetaminophen/ Butalbital/ Caffeine (Fioricet Tab) 1 tab DAILY PRN PO 11/09/17 00:15 12/09/17 00:14 Calcium/Vitamin D (Caltrate Plus Tab) 1 tab BID PO 11/09/17 09:00 12/09/17 08:59 11/19/17 07:53 1 TAB Clonazepam (Klonopin Tab) 0.5 mg HS PRN PO 11/09/17 00:15 12/09/17 00:14 11/12/17 03:06 0.5 MG Multivitamins/ Minerals (Multivitamin W/ Minerals Tab) 1 tab BID PO 11/09/17 09:00 12/09/17 08:59 11/19/17 07:52 1 TAB Pantoprazole Sodium (Protonix Tab) 40 mg QDL PO 11/09/17 11:00 12/09/17 10:59 11/19/17 12:17 40 MG Pravastatin Sodium (Pravachol Tab) 80 mg QPM PO 11/09/17 21:00 12/09/17 20:59 11/17/17 22:25 80 MG Miscellaneous (Iv Fluids Completed) 1 ea PRN PRN N/A 11/09/17 03:30 11/09/18 03:29 Diclofenac Sodium (Voltaren 1% Top Gel) 1 appln [id number] EXT 11/09/17 16:00 12/09/17 15:59 11/19/17 12:17 1 APPLN Glucagon (Glucagon Inj) 1 mg UD PRN SQ 11/09/17 19:15 12/09/17 19:14 Glucose (Glucose 40% Gel) 15-30 GRAMS 15 GRAMS... UD PRN PO 11/09/17 19:15 12/09/17 19:14 Glucose (Glucose Chew Tab) 4-8 Tablets 4 Tabl... UD PRN PO 11/09/17 19:15 12/09/17 19:14 Insulin Aspart (novoLOG ASPART) SLIDING SCALE If C... ACHS SC 11/10/17 07:00 12/10/17 06:59 11/19/17 12:37 3 UNITS Diltiazem HCl (Cardizem Tab) 60 mg Q6H PO 11/10/17 04:00 12/10/17 03:59 11/19/17 10:32 60 MG Atenolol (Tenormin Tab) 25 mg QPM PO 11/11/17 21:00 12/09/17 20:59 11/17/17 22:24 25 MG Rivaroxaban (Xarelto Tab) 15 mg QDD PO 11/11/17 16:45 12/11/17 16:44 11/18/17 16:52 15 MG Doxycycline Hyclate (Vibramycin Cap) 100 mg BID PO 11/12/17 21:00 11/19/17 20:59 11/19/17 07:54 100 MG Acetaminophen (Tylenol Tab) 650 mg Q6H PRN PO 11/12/17 10:45 4/21/18 10:44 11/19/17 15:26 650 MG Levofloxacin (Consult) 1 ea UD PRN N/A 11/12/17 12:15 12/12/17 12:14 Sodium Chloride (Sodium Chloride Tab) 1 gm QID PO 11/14/17 17:00 12/14/17 16:59 11/19/17 12:37 1 GM Insulin Glargine (Lantus Solostar Pen) 10 units QAM SC 11/16/17 09:00 12/16/17 08:59 11/19/17 08:01 10 UNITS Furosemide (Lasix Tab) 40 mg QAM PO 11/16/17 10:30 12/16/17 10:29 11/19/17 07:52 40 MG Levofloxacin (Levaquin Tab) 750 mg Q2D@1100 PO 11/17/17 11:00 11/24/17 10:59 11/19/17 10:32 750 MG Acetazolamide (Diamox Tab) 250 mg BID PO 11/17/17 09:00 11/20/17 08:59 11/19/17 07:51 250 MG Prednisone (PredniSONE TAB) 50 mg DAILY PO 11/18/17 09:00 11/21/17 08:59 11/19/17 07:52 50 MG Tolvaptan (Samsca Tab) 15 mg QAM PO 11/19/17 09:00 12/19/17 08:59 11/19/17 07:53 15 MG Objective Vital Signs Date Time Temp Pulse Resp B/P (MAP) Pulse Ox O2 Delivery O2 Flow Rate FiO2 11/19/17 16:01 36.4 75 16 112/81 (91) 100 Nasal Cannula 2.0 11/19/17 15:30 Nasal Cannula 2.0 11/19/17 08:00 98 Nasal Cannula 3.0 11/19/17 07:10 36.4 67 20 134/84 (101) 98 Nasal Cannula 2.0 11/19/17 00:06 80 18 132/92 (105) 92 BiPAP 11/19/17 00:00 BiPAP 4.0 11/18/17 22:17 85 94 3.0 Physical Exam Notes: GENERAL: alert, no distress EYE EXAM: normal conjunctiva, PERRL and EOM's grossly intact NECK: supple, no nuchal rigidity, no adenopathy, non-tender LUNGS: +Bilateral Rhonchi, No wheeze , No respiratory distress HEART: S1 normal and S2 normal ABDOMEN: abdomen soft, non-tender, normo-active bowel sounds, no masses, no rebound or guarding. UPPER EXTREMITIES: upper extremities are grossly normal. LOWER EXTREMITIES: No pitting edema. NEURO EXAM: Normal sensorium, cranial nerves II-XII grossly intact, normal speech Laboratory Results Results Past 24 Hours Test 11/18/17 20:16 11/19/17 07:22 11/19/17 07:26 11/19/17 11:17 Range/Units Bedside Glucose 113 89 124 70-90 mg/dl Sodium Level 128 136-145 mmol/L Potassium Level 3.5 3.5-5.1 mmol/L Chloride Level 85 98-107 mmol/L Carbon Dioxide Level 39 21-32 mmol/L Anion Gap 3.0 3-11 mmol/L Blood Urea Nitrogen 40 7-18 mg/dl Creatinine 1.18 0.60-1.20 mg/dl Est Creatinine Clear Calc Drug Dose 37.0 ml/min Estimated GFR () 50.4 Estimated GFR (Non- 43.5 BUN/Creatinine Ratio 34.1 10-20 Random Glucose 89 70-99 mg/dl Calcium Level 8.8 8.5-10.1 mg/dl Total Bilirubin 0.4 0.2-1 mg/dl Aspartate Amino Transf (AST/SGOT) 22 15-37 U/L Alanine Aminotransferase (ALT/SGPT) 57 12-78 U/L Alkaline Phosphatase 170 45-117 U/L Total Protein 6.0 6.4-8.2 gm/dl Albumin 2.2 3.4-5.0 gm/dl Globulin 3.8 2.5-4.0 gm/dl Albumin/Globulin Ratio 0.6 0.9-2 Procalcitonin < 0.05 0-0.5 ng/ml Test 11/19/17 12:09 11/19/17 14:17 11/19/17 16:40 Range/Units White Blood Count 22.20 4.8-10.8 K/uL Red Blood Count 4.21 4.2-5.4 M/uL Hemoglobin 13.7 12.0-16.0 g/dL Hematocrit 40.8 37-47 % Mean Corpuscular Volume 96.9 80-100 fL Mean Corpuscular Hemoglobin 32.5 25-34 pg Mean Corpuscular Hemoglobin Concent 33.6 32-36 g/dl Platelet Count 218 130-400 K/uL Mean Platelet Volume 9.6 7.4-10.4 fL Neutrophils (%) (Auto) 88.5 % Lymphocytes (%) (Auto) 4.0 % Monocytes (%) (Auto) 6.8 % Eosinophils (%) (Auto) 0.0 % Basophils (%) (Auto) 0.1 % Neutrophils # (Auto) 19.63 1.4-6.5 K/uL Lymphocytes # (Auto) 0.89 1.2-3.4 K/uL Monocytes # (Auto) 1.51 0.11-0.59 K/uL Eosinophils # (Auto) 0.01 0-0.5 K/uL Basophils # (Auto) 0.02 0-0.2 K/uL RDW Standard Deviation 50.8 36.4-46.3 fL RDW Coefficient of Variation 14.2 11.5-14.5 % Immature Granulocyte % (Auto) 0.6 % Immature Granulocyte # (Auto) 0.14 0.00-0.02 K/uL Sodium Level 128 127 136-145 mmol/L Potassium Level 3.6 3.5-5.1 mmol/L Chloride Level 83 98-107 mmol/L Carbon Dioxide Level 41 21-32 mmol/L Anion Gap 4.0 3-11 mmol/L Blood Urea Nitrogen 43 7-18 mg/dl Creatinine 1.24 0.60-1.20 mg/dl Est Creatinine Clear Calc Drug Dose 35.2 ml/min Estimated GFR () 47.5 Estimated GFR (Non- 41.0 BUN/Creatinine Ratio 34.7 10-20 Random Glucose 134 70-99 mg/dl Calcium Level 9.5 8.5-10.1 mg/dl Bedside Glucose 154 70-90 mg/dl Assessment and Plan 82yo F w/ history of rheumatoid arthritis with interstitial lung disease, hypertension, diabetes, depression, paroxysmal afib p/w worsening shortness of breath found to be in Acute Hypoxic Hypercapnic respiratory failure in the setting of Pneumonia Acute hypoxic/hypercapnic respiratory failure: in the setting of Pneumonia and chronic interstitial lung disease - Chest CT revealed interval worsening of peribronchovascular consolidation - MRSA positive, influenza negative - Cefepime reinitiated 11/15 due to clinical worsening. - currently appears to be improving clinically. - Leukocytosis likely steroid related, Continue to monitor. 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 No regional wall motion abnormalities. Mild concentric LVH , Severe LA dilation, severe TR, RVSP- 37mmHg Atrial fibrillation with rapid ventricular rate: - Hx of paroxysmal atrial fib - rate controlled - Continue Cardizem and Atenolol - Continue Xarelto qpm Hypertension : -Continue atenolol and diltiazem Hypervolemia: - Echo as above - Lasix remains held Steroid-induced hyperglycemia -Monitor blood sugar RA - Placed on steroids - Continue Cimzia as output when recovers from PNM DVT prophylaxis: Rivaroxaban Code status: Discussed patient wishes and filled out POLST form including confirming DNR status, comofrt measures, no antibiotics or artificial hydration or tube feeds. She does not wish to return to hospital Disposition: [facility] placement tomorrow Continued [facility] stay due to: home environment unsafe for pt Discharge planning: halfway facility Resident Tracking Resident Involvement: Resident Care Provided Care Provided: Adult Hospital Medicine Assessment/Plan Resident Physician Supervision Note: I was present with Dr. Szymanski during the history and exam. I discussed the case with the resident and agree with the findings and plan as documented in the note. Any exceptions or clarifications are listed here. Pt reports that breathing has returned to pre-admission status and is comfortable on 3LO2 by NC during conversation. Cough has resolved, no new fevers. WBC has stabilized, so likely 2/2 steroid therapy jenny considering clinical improvement. Called to bedside for family discussion - revisited previous patient requests. Reinforced patient is improving and will not immediately following discharge. Clarified with family present that, if she wants to not spend the remaining days of her life in bed, she should engage fully in the care of her medical conditions, which includes treatment of her depression and participation in PT/rehab. She is agreeable to both and will start the former this evening. Regarding rehabilitation, will notify case mgmt in the AM regarding the switch and hopefully go forward w/ placement at [facility] for subacute rehab.
[2017-11-19] MEDS: PANTOprazole SOD 40 MG TAB PO SCH (12:17)
[2017-11-19 12:27] LABS: HEMATOCRIT 40.8 % (37-47); HEMOGLOBIN 13.7 g/dL (12.0-16.0); MEAN CELL VOLUME 96.9 fL (80-100); MEAN CORPUSCULAR HEMOGLOBIN 32.5 pg (25-34); MEAN CORPUSCULAR HGB CONC 33.6 g/dl (32-36); MEAN PLATELET VOLUME 9.6 fL (7.4-10.4); PLATELET COUNT 218 K/uL (130-400); RED CELL DISTRIBUTION WIDTH CV 14.2 % (11.5-14.5); RED CELL DISTRIBUTION WIDTH SD 50.8 fL (36.4-46.3)
[2017-11-19 12:44] LABS: BASO % 0.1 %; BASO ABS # 0.02 K/uL (0-0.2); EOS ABS # 0.01 K/uL (0-0.5); IG# 0.14 K/uL (0.00-0.02); LYMPH ABS # 0.89 K/uL (1.2-3.4); MONO % 6.8 %; MONO ABS # 1.51 K/uL (0.11-0.59); NEUT % 88.5 %; NEUT ABS # 19.63 K/uL (1.4-6.5)
[2017-11-19 13:06] LABS: CALCIUM 9.5 mg/dl (8.5-10.1); CREATININE 1.24 mg/dl (0.60-1.20); POTASSIUM 3.6 mmol/L (3.5-5.1)
[2017-11-19] MEDS: POLYETHYLENE (MIRALAX) 17 GM PACK PO PRN (15:03)
[2017-11-19] MEDS ORDERED: TOLVAPTAN TAB 15 MG TAB PO ONE (15:15)
[2017-11-19] MEDS: ACETAMINOPHEN 325 MG TAB PO PRN (15:26)
[2017-11-19] MEDS: RIVAROXABAN TAB 15 MG TAB PO SCH (16:54)
[2017-11-19] MEDS ORDERED: SERTRALINE HCL 50 MG TAB PO SCH (20:00)
[2017-11-19] MEDS: PRAVASTATIN SOD 40 MG TAB PO SCH (20:19)
[2017-11-20] MEDS: DILTIAZEM HCL 60 MG TAB PO SCH ×3 (03:50→16:00)
[2017-11-20] MEDS: INSULIN ASPART 100 UNITS/ML 3 ML PEN SC SCH ×3 (06:30→17:28)
[2017-11-20 06:39] LABS: CALCIUM 8.6 mg/dl (8.5-10.1); CREATININE 1.27 mg/dl (0.60-1.20); POTASSIUM 3.5 mmol/L (3.5-5.1)
[2017-11-20 07:32] VITALS: BP 130/71; PULSE 72; TEMP 36.9; O2SAT 94
[2017-11-20] MEDS: PANTOprazole SOD 40 MG TAB PO SCH (07:46)
[2017-11-20] MEDS: DICLOFENAC SOD 1% GEL 100 GM TUBE EXT SCH ×3 (07:46→16:00)
[2017-11-20] MEDS: SODIUM CHLORIDE 1 GM TAB PO SCH ×3 (07:47→16:09)
[2017-11-20] MEDS: TOLVAPTAN TAB 15 MG TAB PO SCH (07:49)
[2017-11-20] MEDS: FUROSEMIDE 40 MG TAB PO SCH (07:50)
[2017-11-20] MEDS: INSULIN GLARGINE SOLOSTAR 100 UNITS/ML 3 ML PEN SC SCH (07:54)
[2017-11-20 08:00] VITALS: O2SAT 94
[2017-11-20] MEDS ORDERED: TOLVAPTAN TAB 15 MG TAB PO ONE (09:30)
[2017-11-20] MEDS: CEROVITE ADV FORMULA TAB PO SCH (09:35)
[2017-11-20] MEDS: CALCIUM 600MG + VIT D 400 IU TAB PO SCH (09:35)
[2017-11-20] MEDS ORDERED: PRD50 PO ×2 (13:13→13:45)
[2017-11-20] MEDS ORDERED: XRL15 PO (13:13)
[2017-11-20] MEDS ORDERED: LVQ750 PO (13:13)
[2017-11-20] MEDS ORDERED: CRD60 PO (13:13)
[2017-11-20] MEDS ORDERED: ZLF50 PO (13:13)
[2017-11-20] MEDS ORDERED: NVLGIPEN SC (13:18)
[2017-11-20] MEDS ORDERED: SDMC1 PO (13:18)
[2017-11-20] MEDS ORDERED: INSDGIPEN SC (13:18)
[2017-11-20] MEDS ORDERED: LSX40 PO (13:18)
--- NOTE | 2017-11-20 13:30 | Discharge Instructions ---
Discharge Instructions Date of Service Nov 20, 2017. Admission Reason for Admission: Acute On Chronic Resp Fail. W/ Hypoxia/Hypercapnia Discharge Discharge Diagnosis / Problem: Acute on chronic resp failure Discharge Goals Goal(s): Decrease discomfort, Improve function, Increase independence, Diagnostic testing, Therapeutic intervention, Prevent Disease Progression Activity Recommendations Activity Level: Assistance Required Therapies: Physical Therapy, Occupational Therapy Lifting Limitations: gradually increase as tolerated Exercise/Sports Limitations: none . Additional Information Patient informed of condition: Yes Advance Directives: Yes DNR: Yes Level of Care: Acute Rehab Communicable Disease: No Prognosis: Stable Instructions / Follow-Up Instructions / Follow-Up Liyah was admitted for resp failure 2/2 pneumonia in the setting of ILD. Goals of care: Multiple discussions occurred with family while in the hospital. Ultimately patient will be DNR, Do not hospitalize going forward. However, they do want to complete treatment for current conditions. POLST form complete. Eventually will need to transition to hospice due to her chronic lung condition. 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 Steroid induced hyperglycemia: Continue Lantus and Sliding scale until down the 5 mg of prednisone AFIB: Atenolol 25 mg Diltiazem 60 mg q6h Xarelto 15 mg Depression Sertraline PT/OT See discharge summary for any further details. Current Hospital Diet Patient's current hospital diet: AHA Diet (Heart Healthy), Diabetes Type 2 Diet Discharge Diet Recommended Diet: Regular Diet Pending Studies Studies pending at discharge: no Physician Orders On Transfer POLST Discussion: with POLST completion Medical Emergencies . Who to Call and When: Medical Emergencies: If at any time you feel your situation is an emergency, please call 911 immediately. . Non-Emergent Contact Non-Emergency issues call your: Primary Care Provider . . "Provider Documentation" section prepared by Debbie Crain. . Core Measure Problem Core Measures: None
--- NOTE | 2017-11-20 14:00 | Discharge Summary ---
Discharge Summary Date of Service Nov 20, 2017. Discharge Summary Admission Date: Nov 09, 2017 at 00:48 Discharge Date: Nov 20, 2017 Discharge Disposition: [facility] facility Principal Diagnosis: Acute on chronic hypoxic/hypercapnic resp failure Problems/Secondary Diagnoses: Chronic interstitial lung disease Hyponatremia Acute Kidney injury NSTEMI Atrial fibrillation w RVR Hypertension Steroid induced hyperglycemia Rheumatoid Arthritis Consultations: Cardiology Nephrology Medication Reconciliation New Medications: Diltiazem HCl (Diltiazem HCl) 60 Mg Tab 60 MG PO Q6H for 30 Days, #120 TAB Furosemide (Furosemide) 40 Mg Tab 40 MG PO QAM for 30 Days, #30 TAB Insulin Aspart (Novolog Flexpen) 100 Units/Ml Inj 0 UNITS SC ACHS for 30 Days, #30 Insulin Glargine (Lantus Solostar) 100 Unit/Ml Inj 10 UNITS SC QAM for 30 Days, #30 Levofloxacin (Levofloxacin) 750 Mg Tab 750 MG PO Q2D@1100 for 4 Days, TAB Prednisone (Prednisone) 50 Mg Tab 50 MG PO DAILY for 30 Days, #30 TAB prednisone taper, 50 mg x 6 days, 40 mg x 6 days, 30 mg x 6 days, 20 mg x days, 10 mg x 6 days, 5 mgs daily (normal dose) Rivaroxaban (Xarelto) 15 Mg Tab 15 MG PO QDD for 30 Days, #30 TAB Sertraline HCl (Sertraline HCl) 50 Mg Tab 25 MG PO QPM for 30 Days, TAB Sodium Chloride (Sodium Chloride) 1 Gm Tab 1 GM PO QID for 30 Days, #120 TAB Continued Medications: Acetamin/Butalbital/Caffeine (Fioricet) 1 Ea Tab 1 TAB PO UD PRN for Migraine, TAB Atenolol (Tenormin) 25 Mg Tab 25 MG PO QPM, TAB Calcium/Vitamin D (Os-Louis 500 Plus D) Tab 1 TAB PO BID, TAB Clonazepam (Klonopin) 0.5 Mg Tab 0.5 MG PO HS PRN for Sleep, TAB Estropipate (Estropipate) 0.75 Mg Tab 0.75 MG PO QPM Medroxyprogesterone (Provera) 2.5 Mg Tab 2.5 MG PO QPM, TAB Ocuvite Preservision (Ocuvite Preservision) 1 Tab Tab 1 TAB PO BID, TAB Pantoprazole (Pantoprazole Sodium) 40 Mg Tab 40 MG PO QDL Pravastatin Sodium (Pravastatin Sodium) 40 Mg Tab 80 MG PO QPM Prednisone (Prednisone) 5 Mg Tab 10 MG PO QAM, TAB Zinc Oxide (Topical) (Triple Paste) 12.8 % Oin 1 APPLN TD BID Discontinued Medications: Diltiazem Hcl Ext Rel (Tiazac) 240 Mg Capcr 240 MG PO QPM, CAP Losartan Potassium (Cozaar) 25 Mg Tab 25 MG PO QPM, TAB Discharge Exam GOALS OF CARE: Patient presented with acute on chronic hypoxic/hypercapnic resp failure 2/2 to pneumonia and underlying ILD. Also had hyponatremia possibly due to SIADH. After multiple discussions with the family and patient, they have chosen to treat all current acute/chronic conditions. However, going forward, she will be DNR and Do not hospitalize. She will partake in physical therapy. Due to her lung disease and SIADH, if she would like treatment beyond what has been discussed and prescribed, she will need monitoring of BMP/ lytes. This will need to be readdressed with the family as they have had a change of heart a few times. Presently, we are sending her to [facility] with remaining treatment for pneumonia, ILD, Hyponatremia and other chronic medical conditions with the intention to transition to hospice with no further blood work and no further follow-up with specialists. 82yo F w/ history of rheumatoid arthritis with interstitial lung disease, hypertension, diabetes, depression, paroxysmal afib p/w worsening shortness of breath found to be in Acute Hypoxic Hypercapnic respiratory failure in the setting of Pneumonia Acute hypoxic/hypercapnic respiratory failure: in the setting of Pneumonia and chronic interstitial lung disease - Chest CT revealed interval worsening of peribronchovascular consolidation - MRSA positive, influenza negative - Levaquin + Doxy + cefepime --> d/c with 4 days of Levaquin - At baseline oxygen requirement at discharge, - BIPAP at night, NC 4L during the day - Leukocytosis likely steroid related, Continue to monitor. 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 NSTEMI: -allergic to aspirin -Continue pravastatin -Echo : .EF 60-65%. No regional wall motion abnormalities. Mild concentric LVH , Severe LA dilation, severe TR, RVSP- 37mmHg Atrial fibrillation with rapid ventricular rate: - Hx of paroxysmal atrial fib - Cardizem and Atenolol, Xarelto qpm Hypertension : -Continue atenolol and diltiazem Hypervolemia: - Echo as above - Lasix daily Steroid-induced hyperglycemia - Monitor blood sugar - Lantus and ISS as needed - has a prolonged taper RA - Placed on steroids- taper down to 10 mg daily - Continue Cimzia as output when recovers from PNM DVT prophylaxis: Rivaroxaban Code status: POLST complete, DNR, Do not hospitalize Resident Physician Supervision Note: I was present with Dr. Mojica during the history and exam. I discussed the case with the resident and agree with the findings and plan as documented in the note. Upon my exam this morning, patient sleepy but awakens to voice. She appears comfortable and denied pain or distress. Agree with plan going forward; she is hospice eligible, and recommend hospice consult once at intermediate. Documented By: Silas Wesley Review of Systems: Constitutional: No fever, No chills ENT: No hearing loss Respiratory: + dyspnea on exertion, No cough, No sputum, No shortness of breath, No dyspnea at rest Cardiovascular: No chest pain Abdomen: No pain, No nausea, No vomiting Physical Exam: General Appearance: no apparent distress Eyes: PERRL, EOMI Neck: supple, no JVD Respiratory/Chest: no respiratory distress, no accessory muscle use, + rhonchi Cardiovascular: normal peripheral pulses, + irregularly irregular Abdomen / GI: normal bowel sounds, non tender Extremities: no calf tenderness, + pedal edema (trace) Neurologic/Psychiatric: normal mood/affect, + depressed affect Hospital Course Total Time Spent: Less than 30 minutes This includes examination of the patient, discharge planning, medication reconciliation, and communication with other providers. Discharge Instructions Please refer to the electronic Patient Visit Report (Discharge Instructions) for additional information. Additional Copies To Susan Curtis
--- NOTE | 2017-11-20 15:16 | Nephrology Progress Note ---
Nephrology Progress Note Date of Service Nov 20, 2017. Chief Complaint F/U for hyponatremia and acute kidney injury. Subjective Liyah was seen and examined in her room this morning. Overall feeling poorly. She has been net negative. Serum sodium improved to 129 Review of Systems A complete review of systems was performed. Pertinent positives are noted above. All other systems are negative. Vital Signs Last 8 Hrs Date Time Temp Pulse Resp B/P (MAP) Pulse Ox O2 Delivery O2 Flow Rate FiO2 11/20/17 07:32 36.9 72 18 130/71 (90) 94 Nasal Cannula 4.0 Last Recorded Weight Weight (Kilograms): 71.200 Physical Exam GENERAL: Elderly female, AAA x 3, ill appearing, in mild distress. NECK: Supple, no JVD. RESPIRATORY: Crackles bilaterally at bases CARDIOVASCULAR: S1, S2 normal, rate rhythm regular. EXTREMITY: Trace bilateral lower extremity edema NEURO: speech fluent. PSYCHIATRY: Depressed mood Family History Cancer Diabetes mellitus Gallbladder disease Heart disease Lung disease Social History Smoking Status: Never smoker Smokeless Tobacco Use: No Alcohol Use: none Drug Use: none Marital Status: Occupation: retired Laboratory Results Past 24 Hours 11/19/17 12:09 Red Blood Count 4.21, Mean Corpuscular Volume 96.9, Mean Corpuscular Hemoglobin 32.5, Mean Corpuscular Hemoglobin Concent 33.6, Mean Platelet Volume 9.6, Neutrophils (%) (Auto) 88.5, Lymphocytes (%) (Auto) 4.0, Monocytes (%) (Auto) 6.8, Eosinophils (%) (Auto) 0.0, Basophils (%) (Auto) 0.1, Neutrophils # (Auto) 19.63, Lymphocytes # (Auto) 0.89, Monocytes # (Auto) 1.51, Eosinophils # (Auto) 0.01, Basophils # (Auto) 0.02 11/19/17 12:09 11/19/17 14:17 11/20/17 05:50 Test 11/19/17 11:17 11/19/17 12:09 11/19/17 16:40 11/19/17 20:07 Bedside Glucose 124 mg/dl (70-90) 154 mg/dl (70-90) 323 mg/dl (70-90) White Blood Count 22.20 K/uL (4.8-10.8) Red Blood Count 4.21 M/uL (4.2-5.4) Hemoglobin 13.7 g/dL (12.0-16.0) Hematocrit 40.8 % (37-47) Mean Corpuscular Volume 96.9 fL (80-100) Mean Corpuscular Hemoglobin 32.5 pg (25-34) Mean Corpuscular Hemoglobin Concent 33.6 g/dl (32-36) Platelet Count 218 K/uL (130-400) Mean Platelet Volume 9.6 fL (7.4-10.4) Neutrophils (%) (Auto) 88.5 % Lymphocytes (%) (Auto) 4.0 % Monocytes (%) (Auto) 6.8 % Eosinophils (%) (Auto) 0.0 % Basophils (%) (Auto) 0.1 % Neutrophils # (Auto) 19.63 K/uL (1.4-6.5) Lymphocytes # (Auto) 0.89 K/uL (1.2-3.4) Monocytes # (Auto) 1.51 K/uL (0.11-0.59) Eosinophils # (Auto) 0.01 K/uL (0-0.5) Basophils # (Auto) 0.02 K/uL (0-0.2) RDW Standard Deviation 50.8 fL (36.4-46.3) RDW Coefficient of Variation 14.2 % (11.5-14.5) Immature Granulocyte % (Auto) 0.6 % Immature Granulocyte # (Auto) 0.14 K/uL (0.00-0.02) Anion Gap 4.0 mmol/L (3-11) Est Creatinine Clear Calc Drug Dose 35.2 ml/min Estimated GFR () 47.5 Estimated GFR (Non- 41.0 BUN/Creatinine Ratio 34.7 (10-20) Calcium Level 9.5 mg/dl (8.5-10.1) Test 11/19/17 20:09 11/20/17 05:50 11/20/17 07:32 Bedside Glucose 294 mg/dl (70-90) 95 mg/dl (70-90) Anion Gap 4.0 mmol/L (3-11) Est Creatinine Clear Calc Drug Dose 34.4 ml/min Estimated GFR () 46.2 Estimated GFR (Non- 39.8 BUN/Creatinine Ratio 33.7 (10-20) Calcium Level 8.6 mg/dl (8.5-10.1) Allergies Coded Allergies: Amoxicillin (Verified Allergy, Unknown, UNKNOWN, 11/08/17) Clavulanic Acid (Verified Allergy, Unknown, UNKNOWN, 11/08/17) Clindamycin (Verified Allergy, Unknown, UNKNOWN, 11/08/17) Penicillins (Verified Allergy, Unknown, UNKNOWN, 11/08/17) Sulfa Antibiotics (Verified Adverse Reaction, Intermediate, NAUSEA, ) Aspirin (Verified Adverse Reaction, Mild, GI SYMPTOMS, 11/08/17) Uncoded Allergies: ARTIFICIAL SWEETNER (Allergy, Mild, TONGUE SORE, 12/30/12) Medications Current Inpatient Medications Medications (Trade) Dose Ordered Sig/Anselmo Route Start Time Stop Time Status Last Admin Dose Admin Al Hydrox/Mg Hydrox/Simethicone (Maalox Max Susp) 15 ml Q4H PRN PO 11/09/17 00:15 12/09/17 00:14 Magnesium Hydroxide (Milk Of Magnesia Susp) 30 ml Q12H PRN PO 11/09/17 00:15 12/09/17 00:14 11/14/17 15:29 30 ML Ondansetron HCl (Zofran Inj) 4 mg Q6H PRN IV 11/09/17 00:15 12/09/17 00:14 11/12/17 11:07 4 MG Nitroglycerin (Nitrostat Tab) 0.4 mg UD PRN SL 11/09/17 00:15 12/09/17 00:14 Polyethylene (Miralax Powder Packet) 17 gm DAILY PRN PO 11/09/17 00:15 12/09/17 00:14 11/19/17 15:03 17 GM Acetaminophen/ Butalbital/ Caffeine (Fioricet Tab) 1 tab DAILY PRN PO 11/09/17 00:15 12/09/17 00:14 Calcium/Vitamin D (Caltrate Plus Tab) 1 tab BID PO 11/09/17 09:00 12/09/17 08:59 11/19/17 20:19 1 TAB Clonazepam (Klonopin Tab) 0.5 mg HS PRN PO 11/09/17 00:15 12/09/17 00:14 11/12/17 03:06 0.5 MG Multivitamins/ Minerals (Multivitamin W/ Minerals Tab) 1 tab BID PO 11/09/17 09:00 12/09/17 08:59 11/19/17 20:19 1 TAB Pantoprazole Sodium (Protonix Tab) 40 mg QDL PO 11/09/17 11:00 12/09/17 10:59 11/20/17 07:46 40 MG Pravastatin Sodium (Pravachol Tab) 80 mg QPM PO 11/09/17 21:00 12/09/17 20:59 11/19/17 20:19 80 MG Miscellaneous (Iv Fluids Completed) 1 ea PRN PRN N/A 11/09/17 03:30 11/09/18 03:29 Diclofenac Sodium (Voltaren 1% Top Gel) 1 appln [id number] EXT 11/09/17 16:00 12/09/17 15:59 11/20/17 07:46 1 APPLN Glucagon (Glucagon Inj) 1 mg UD PRN SQ 11/09/17 19:15 12/09/17 19:14 Glucose (Glucose 40% Gel) 15-30 GRAMS 15 GRAMS... UD PRN PO 11/09/17 19:15 12/09/17 19:14 Glucose (Glucose Chew Tab) 4-8 Tablets 4 Tabl... UD PRN PO 11/09/17 19:15 12/09/17 19:14 Insulin Aspart (novoLOG ASPART) SLIDING SCALE If C... ACHS SC 11/10/17 07:00 12/10/17 06:59 11/19/17 20:14 10 UNITS Diltiazem HCl (Cardizem Tab) 60 mg Q6H PO 11/10/17 04:00 12/10/17 03:59 11/20/17 07:48 60 MG Atenolol (Tenormin Tab) 25 mg QPM PO 11/11/17 21:00 12/09/17 20:59 11/19/17 20:18 25 MG Rivaroxaban (Xarelto Tab) 15 mg QDD PO 11/11/17 16:45 12/11/17 16:44 11/19/17 16:54 15 MG Acetaminophen (Tylenol Tab) 650 mg Q6H PRN PO 11/12/17 10:45 12/12/17 10:44 11/19/17 15:26 650 MG Levofloxacin (Consult) 1 ea UD PRN N/A 11/12/17 12:15 12/12/17 12:14 Sodium Chloride (Sodium Chloride Tab) 1 gm QID PO 11/14/17 17:00 12/14/17 16:59 11/20/17 07:47 1 GM Insulin Glargine (Lantus Solostar Pen) 10 units QAM SC 11/16/17 09:00 12/16/17 08:59 11/20/17 07:54 10 UNITS Furosemide (Lasix Tab) 40 mg QAM PO 11/16/17 10:30 12/16/17 10:29 11/20/17 07:50 40 MG Levofloxacin (Levaquin Tab) 750 mg Q2D@1100 PO 11/17/17 11:00 11/24/17 10:59 11/19/17 10:32 750 MG Acetazolamide (Diamox Tab) 250 mg BID PO 11/17/17 09:00 11/20/17 08:59 11/19/17 20:19 250 MG Prednisone (PredniSONE TAB) 50 mg DAILY PO 11/18/17 09:00 11/21/17 08:59 11/20/17 07:48 50 MG Tolvaptan (Samsca Tab) 15 mg QAM PO 11/19/17 09:00 12/19/17 08:59 11/20/17 07:49 15 MG Sertraline HCl (Zoloft Tab) 25 mg QPM PO 11/19/17 20:00 12/19/17 19:59 11/19/17 21:35 25 MG Impression (1) Hyponatremia (2) Acute kidney injury (3) Acute on chronic respiratory failure with hypoxia and hypercapnia (4) Hypertension 82-year-old female with acute hyponatremia with chronic history of hyponatremia , in the setting of acute on chronic respiratory failure, pneumonia versus pulmonary congestion. Serum sodium dropped with normal saline, slightly improved to 121 this morning after normal saline was discontinued. Hyponatremia could be secondary to SIADH in the setting of respiratory illness, other possibilities such as adrenal insufficiency considering chronic steroid therapy remains however blood pressure has been elevated. Random cortisol and TSH was normal. No personal history of malignancy. No history of chronic kidney disease on admission creatinine was 0.9, developed acute kidney injury over the course of hospital stay, creatinine peaked to 1.6, most likely Hemodynamically mediated, which currently seems to be improving last creatinine was 1.3. Has been voiding normally, Urinalysis with no proteinuria hematuria. Recommendations -tolvaptan 15 mg one dose now --continue on salt tablet. --liberalize salt in diet --increase protein intake Will follow
[2017-11-20 15:31] VITALS: BP 109/71; PULSE 71; O2SAT 96
[2017-11-20] MEDS: RIVAROXABAN TAB 15 MG TAB PO SCH (16:08)
[2017-11-20 16:17] VITALS: BP 109/71; PULSE 71; TEMP 36.9; O2SAT 96
== END 2017-11-20 18:10 | DRG 280 ==
LOC: EDBD 21:19 → C.EDB 21:20 → C.2T 11-09 00:48 → UNDOADMIN 11-09 00:48 → ENRESERV 11-09 00:59 → C.2E 11-09 06:53 → C.2T 11-09 06:53 → ENRESERV 11-12 10:47 → C.MS2W 11-12 12:39
PROVIDERS: ADMIT Student in an Organized Health Care Education/Training Program; ATTEND Family Medicine
DX: I21.4 Non-ST elevation (NSTEMI) myocardial infarction (principal); J96.01 Acute respiratory failure with hypoxia; J18.9 Pneumonia, unspecified organism; J96.02 Acute respiratory failure with hypercapnia; N17.9 Acute kidney failure, unspecified; E22.2 Syndrome of inappropriate secretion of antidiuretic hormone; J84.10 Pulmonary fibrosis, unspecified; I07.1 Rheumatic tricuspid insufficiency; R60.0 Localized edema; E87.70 Fluid overload, unspecified; I48.0 Paroxysmal atrial fibrillation; R42 Dizziness and giddiness; E11.65 Type 2 diabetes mellitus with hyperglycemia; I10 Essential (primary) hypertension; R41.0 Disorientation, unspecified; M06.9 Rheumatoid arthritis, unspecified; D64.9 Anemia, unspecified; D72.829 Elevated white blood cell count, unspecified; F32.9 Major depressive disorder, single episode, unspecified; G25.81 Restless legs syndrome; T38.0X5A Adverse effect of glucocorticoids and synthetic analogues, initial encounter; Z66 Do not resuscitate; Z79.52 Long term (current) use of systemic steroids; Z79.899 Other long term (current) drug therapy; Z99.81 Dependence on supplemental oxygen; Z87.01 Personal history of pneumonia (recurrent); Z87.891 Personal history of nicotine dependence; Z88.0 Allergy status to penicillin; Z88.1 Allergy status to other antibiotic agents; Z88.2 Allergy status to sulfonamides; Z88.6 Allergy status to analgesic agent; Z83.3 Family history of diabetes mellitus